=== PATIENT | male | born 1965 | race Caucasian/White ===

== ENCOUNTER 2016-10-07 22:20 | Emergency (ER) | payer OTHER ==
[~2016-10-07] VITALS: Ht 185.4 cm; Wt 93.3 kg
[2016-10-07 22:28] VITALS: TEMP 36.9; Ht 185.4 cm; Wt 93.3 kg
[2016-10-07] MEDS ORDERED: SODIUM CHLORIDE 0.9% 1000ML 2,000 ML IV STA (23:32)
[2016-10-07] MEDS ORDERED: GABA-113 PO (23:56)
[2016-10-07] MEDS ORDERED: TRAM-10 PO (23:56)
[2016-10-07] MEDS ORDERED: METF-384 PO (23:56)
[2016-10-07] MEDS ORDERED: IBUP200C9 PO (23:57)
[2016-10-07] MEDS ORDERED: ACET-1256 PO (23:57)
[2016-10-07] MEDS ORDERED: IBUP-103 PO (23:57)
[2016-10-08 00:12] LABS: BASO % 0.8 %; COMPLETE YES; EOS % 1.2 %; HEMATOCRIT 40.7 % (42-52); IG% 0.2 %; LYMPH % 36.6 %; MEAN CELL VOLUME 80.3 fL (80-100); MEAN CORPUSCULAR HGB CONC 34.9 g/dl (32-36); MEAN PLATELET VOLUME 9.5 fL (7.4-10.4); MONO % 6.7 %; NEUT % 54.5 %; PLATELET COUNT 398 K/uL (130-400); RED BLOOD COUNT 5.07 M/uL (4.7-6.1); WHITE BLOOD COUNT 12.83 K/uL (4.8-10.8)
[2016-10-08] MEDS ORDERED: NovoLIN-R INSULIN PER UNIT CHARGE SC STA (00:15)
[2016-10-08 00:32] LABS: URINE APPEARANCE CLEAR (CLEAR); URINE BILIRUBIN NEG (NEG); URINE COLOR YELLOW; URINE NITRITE NEG (NEG); URINE SPECIFIC GRAVITY 1.034 (1.000-1.030); UROBILINOGEN NEG (NEG); ZZUR CULT IF INDIC CLEAN CATCH NO
[2016-10-08 00:34] LABS: ALT/SGPT 16 U/L (12-78); AST/SGOT 4 U/L (15-37); BLOOD UREA NITROGEN 6 mg/dl (7-18); CALCIUM 9.3 mg/dl (8.5-10.1); CARBON DIOXIDE 20 mmol/L (21-32); CHLORIDE 97 mmol/L (98-107); CREATININE 0.93 mg/dl (0.60-1.40); GLUCOSE 299 mg/dl (70-99); POTASSIUM 3.6 mmol/L (3.5-5.1); SODIUM 132 mmol/L (136-145)
[2016-10-08 00:44] LABS: MANUAL MICROSCOPIC REQUIRED? NO; REVIEW REQ? NO
[2016-10-08 00:46] LABS: ALKALINE PHOSPHATASE 70 U/L (45-117)
[2016-10-08 01:41] VITALS: BP 140/89; PULSE 106; O2SAT 97
[2016-10-08] MEDS ORDERED: TRAMADOL HCL 50 MG TAB PO STA (01:44)
--- NOTE | 2016-10-08 01:51 | EMERGENCY ROOM VISIT NOTE ---
History Report prepared by Rola: Bakari Bernal Under the Supervision of: Dr. Gavin Murillo D.O. First contact with patient: 23:27 Chief Complaint: HYPERGLYCEMIA Stated Complaint: HIGH SUGAR History of Present Illness The patient is a 51 year old male who presents to the Emergency Room with complaints of episodes of hyperglycemia occurring earlier today. He reports his blood sugar was 364 earlier today, and that it raises as he goes to sleep. He notes having dizziness, vomiting, diarrhea, and leg pain. He describes the leg pain as tightness in his calf muscles and that it feels like a dagger under his knee cap which radiates down. The patient denies having any infections, cold symptoms, or fever, but has noticed increased frequency with urination. He has not had any recent dietary changes and does not take insulin. He last took metformin today. Source of History: patient Onset: earlier today Position: other (blood) Symptom Intensity: blood sugar 364 earlier Quality: other (hyperglycemia) Timing: other (episode) Associated Symptoms: + diarrhea, + vomiting, No fevers Note: The patient reports having leg pain, and dizziness, . Review of Systems See HPI for pertinent positives & negatives. A total of 10 systems reviewed and were otherwise negative. Past Medical & Surgical Medical Problems: (1) History of diabetes mellitus Family History No pertinent family history stated. Social History Smoking Status: Current Every Day Smoker Housing Status: lives with family Current/Historical Medications Scheduled Gabapentin (Neurontin), 600 MG PO TID Metformin Hcl (Glucophage), 1,000 MG PO BID Tramadol (Ultram), 50 MG PO BID Scheduled PRN Acetaminophen (Tylenol), 1,000 MG PO Q4 PRN for Pain Ibuprofen Tab (Advil), 200-600 MG PO Q4H PRN for Pain Ibuprofen-Diphenhydramine Hcl (Advil Pm), 1 DROP PO HS PRN for Sleep Allergies Coded Allergies: No Known Allergies (Verified , 10/07/16) Physical Exam Vital Signs Date Time Temp Pulse Resp B/P Pulse Ox O2 Delivery O2 Flow Rate FiO2 10/08/16 01:41 106 18 140/89 97 Room Air 10/08/16 01:27 104 121/102 98 Room Air 10/08/16 00:11 95 119/68 94 134/78 112 99/67 10/07/16 23:55 111 10/07/16 22:28 36.9 131 22 126/92 97 Room Air Physical Exam CONSTITUTIONAL/VITAL SIGNS: Reviewed / noted above. GENERAL: Non-toxic in appearance. INTEGUMENTARY: Warm, dry, and [place]. HEAD: Normocephalic. EYES: without scleral icterus or trauma. ENT/OROPHARYNX: clear and moist. LYMPHADENOPATHY/NECK: Is supple without lymphadenopathy or meningismus. RESPIRATORY: Lungs clear and equal. CARDIOVASCULAR: Tachycardic. GI/ABDOMEN: Soft and nontender. No organomegaly or pulsatile mass. No rebound or guarding. Normal bowel sounds. EXTREMITIES: Warm and well perfused. BACK: No CVA tenderness. NEUROLOGICAL: Intact without focal deficits. PSYCHIATRIC: normal affect. MUSCULOSKELETAL: Normally developed with good muscle tone. Medical Decision & Procedures ER Provider Diagnostic Interpretation: Chest x-ray:per my interpretation is negative for acute disease. No pneumonia or pneumothorax. Laboratory Results 10/07/16 23:53 Red Blood Count 5.07, Mean Corpuscular Volume 80.3, Mean Corpuscular Hemoglobin 28.0, Mean Corpuscular Hemoglobin Concent 34.9, Mean Platelet Volume 9.5, Neutrophils (%) (Auto) 54.5, Lymphocytes (%) (Auto) 36.6, Monocytes (%) (Auto) 6.7, Eosinophils (%) (Auto) 1.2, Basophils (%) (Auto) 0.8, Neutrophils # (Auto) 6.99, Lymphocytes # (Auto) 4.70, Monocytes # (Auto) 0.86, Eosinophils # (Auto) 0.16, Basophils # (Auto) 0.10 10/07/16 23:53 Test 10/07/16 23:15 10/07/16 23:53 10/08/16 01:40 Urine Color YELLOW Urine Appearance CLEAR (CLEAR) Urine pH 5.0 (4.5-7.5) Urine Specific [place] 1.034 (1.000-1.030) Urine Protein NEG (NEG) Urine Glucose (UA) 3+ (NEG) Urine Ketones NEG (NEG) Urine Occult Blood NEG (NEG) Urine Nitrite NEG (NEG) Urine Bilirubin NEG (NEG) Urine Urobilinogen NEG (NEG) Urine Leukocyte Esterase NEG (NEG) Urine WBC (Auto) 1-5 /hpf (0-5) Urine RBC (Auto) 0-4 /hpf (0-4) Urine Hyaline Casts (Auto) 1-5 /lpf (0-5) Urine Epithelial Cells (Auto) 10-20 /lpf (0-5) Urine Bacteria (Auto) NEG (NEG) White Blood Count 12.83 K/uL (4.8-10.8) Red Blood Count 5.07 M/uL (4.7-6.1) Hemoglobin 14.2 g/dL (14.0-18.0) Hematocrit 40.7 % (42-52) Mean Corpuscular Volume 80.3 fL (80-100) Mean Corpuscular Hemoglobin 28.0 pg (25-34) Mean Corpuscular Hemoglobin Concent 34.9 g/dl (32-36) Platelet Count 398 K/uL (130-400) Mean Platelet Volume 9.5 fL (7.4-10.4) Neutrophils (%) (Auto) 54.5 % Lymphocytes (%) (Auto) 36.6 % Monocytes (%) (Auto) 6.7 % Eosinophils (%) (Auto) 1.2 % Basophils (%) (Auto) 0.8 % Neutrophils # (Auto) 6.99 K/uL (1.4-6.5) Lymphocytes # (Auto) 4.70 K/uL (1.2-3.4) Monocytes # (Auto) 0.86 K/uL (0.11-0.59) Eosinophils # (Auto) 0.16 K/uL (0-0.5) Basophils # (Auto) 0.10 K/uL (0-0.2) RDW Standard Deviation 38.5 fL (36.4-46.3) RDW Coefficient of Variation 13.1 % (11.5-14.5) Immature Granulocyte % (Auto) 0.2 % Immature Granulocyte # (Auto) 0.02 K/uL (0.00-0.02) Anion Gap 15.0 mmol/L (3-11) Est Creatinine Clear Calc Drug Dose 107.4 ml/min Estimated GFR () 110.6 Estimated GFR (Non- 95.4 BUN/Creatinine Ratio 6.0 (10-20) Calcium Level 9.3 mg/dl (8.5-10.1) Total Bilirubin 0.2 mg/dl (0.2-1) Direct Bilirubin < 0.1 mg/dl (0-0.2) Aspartate Amino Transf (AST/SGOT) 4 U/L (15-37) Alanine Aminotransferase (ALT/SGPT) 16 U/L (12-78) Alkaline Phosphatase 70 U/L (45-117) Total Creatine Kinase 57 U/L (39-308) Creatine Kinase MB < 0.5 ng/ml (0.5-3.6) Creatine Kinase MB Ratio (0-3.0) Troponin I < 0.015 ng/ml (0-0.045) Total Protein 7.1 gm/dl (6.4-8.2) Albumin 3.6 gm/dl (3.4-5.0) Lipase 327 U/L (73-393) Thyroid Stimulating Hormone (TSH) 1.060 uIu/ml (0.300-4.500) Bedside Glucose 166 mg/dl (70-99) Laboratory results as stated above per my review. Medications Administered Medications (Trade) Dose Ordered Sig/Krystina Route Start Time Stop Time Status Last Admin Dose Admin Sodium Chloride (Nss 1000ml) 2,000 ml @ 999 mls/hr Q2H1M STAT IV 10/07/16 23:32 10/08/16 01:32 DC 10/07/16 23:32 999 MLS/HR Insulin Human Regular (novoLIN-R U-100 PER UNIT) 5 units NOW STAT SC 10/08/16 00:15 10/08/16 00:16 DC 10/08/16 01:00 5 UNITS ECG Indication: other (hyperglycemia) Rate (beats per minute): 111 Rhythm: sinus tachycardia Findings: no acute ischemic change, no ectopy ED Course 2327: Previous medical records were reviewed. The patient was evaluated in room C7. A complete history and physical examination was performed. 2332: Ordered NSS 2,000 ml @ 999 mls/hr IV. 0015: Ordered Insulin Human Regular 5 units SC. 0144: Ordered Tramadol HCl 50 mg PO. 0150: On reevaluation, the patient is doing well. I discussed the results and findings with the patient. He verbalized agreement of the treatment plan. The patient was discharged home. 0700: Ordered Insulin Human Regular 5 unties SC. Medical Decision Differential includes acute coronary syndrome, myocardial infarction, CVA, TIA, anemia, infection, pneumonia, UTI, pyelonephritis, poor nutrition, dehydration, electrolyte disturbance,hypoglycemia. This is a 51-year-old male who presents to the ED with a chief complaint of hyperglycemia. The patient also reported some dizziness and lightheadedness as well as an episode of nausea and vomiting today. The patient states that his blood sugar was elevated at home at 364. He takes metformin 1 g twice daily. He denies any fevers or recent illness. No shortness of breath or cough. No urinary symptoms. No abdominal symptoms. He denies any skin changes or injuries or ulcers on his feet. The patient's vital signs revealed tachycardia with a heart rate of 131. His physical exam was otherwise unremarkable. An EKG shows a sinus tachycardia rate of 111. White blood cell count was slightly elevated at 12.8. Glucose was 299. This was less than 200 on reevaluation. The patient's urinalysis did not show infection. A TSH and troponin are normal. Chest x-ray was negative for acute disease. The patient's orthostatic vital signs appear to be positive. He was treated with 2 L normal saline IV. His heart rate improved. His blood sugar did come down. He was told results the test. He is felt to be stable for discharge and outpatient follow-up. Impression Primary Impression: Hyperglycemia Additional Impressions: Dehydration Orthostatic dizziness Scribe Attestation The scribe's documentation has been prepared under my direction and personally reviewed by me in its entirety. I confirm that the note above accurately reflects all work, treatment, procedures, and medical decision making performed by me. Departure Information Dispostion Home / Self-Care Referrals Bg Bergeron M.D. (PCP) Patient Instructions My [facility] Additional Instructions Follow-up with your doctor for further care and evaluation in 1-2 days. Return to the emergency department for worsening or new symptoms or any concerns. You have been examined and treated today on an emergency basis only. This is not a substitute for, or an effort to provide, complete comprehensive medical care. It is impossible to recognize and treat all injuries or illnesses in a single emergency department visit. It is therefore important that you follow up closely with your doctor. Call as soon as possible for an appointment... Talk to your doctor about your blood sugars. Problem Qualifiers
[2016-10-08 05:55] LABS: ESTIMATED AVERAGE GLUCOSE 226 mg/dl; HA1C FLAG Normal (Normal)
--- NOTE | 2016-10-08 06:47 | DIAGNOSTIC IMAGING REPORT ---
CHEST ONE VIEW PORTABLE CLINICAL HISTORY: Altered mental status. Weakness. COMPARISON STUDY: No previous studies for comparison. FINDINGS: The cardiac and mediastinal contours are normal. There is no evidence of focal pulmonary consolidation. There is no evidence of failure. No pleural effusions are visualized.[ IMPRESSION: No active disease in the chest. Electronically signed by: Ryan Mora M.D. 10/08/2016 6:45 AM Dictated Date/Time: 10/08/2016 6:45 AM
[2016-10-08] MEDS ORDERED: INSULIN HUMAN REGULAR SC SCH (07:00)
== END 2016-10-08 02:04 | disposition home or self-care (01) ==
LOC: C.EDB 22:21 → C.EDC 10-08 02:04
DX: E11.65 Type 2 diabetes mellitus with hyperglycemia (principal); E86.0 Dehydration; R42 Dizziness and giddiness; F17.210 Nicotine dependence, cigarettes, uncomplicated; Z79.899 Other long term (current) drug therapy

== ENCOUNTER 2016-11-02 16:51 | Emergency (ER) | payer OTHER ==
[~2016-11-02] VITALS: Ht 185.4 cm; Wt 94.2 kg
[~2016-11-02 16:51] MED LIST: ACET-1256 PO; GABA-113 PO; IBUP-103 PO; IBUP200C9 PO; METF-384 PO; TRAM-10 PO
[2016-11-02 16:58] VITALS: TEMP 36.5; Ht 185.4 cm; Wt 94.2 kg
[2016-11-02] MEDS ORDERED: METFORMIN HCL 500 MG TAB PO ONE (17:15)
[2016-11-02] MEDS ORDERED: BUPIVACAINE/EPINEPHRINE 0.5% 1:200,000 1.8 ML CARP INFIL ONE (17:15)
--- NOTE | 2016-11-02 17:34 | EMERGENCY ROOM VISIT NOTE ---
History Report prepared by Rola: Sujata Alvarez Under the Supervision of: Dr. Eduardo Sewell M.D. First contact with patient: 17:04 Chief Complaint: DIZZY Stated Complaint: DIZZY History of Present Illness The patient is a 51 year old male who presents to the Emergency Room with complaints of constant left sided upper dental pain starting 1 day [employer]. The patient states that last night he was chewing and it impacted his upper left tooth causing the pain. The patient states that he has history of dental problems but states he cannot afford dental insurance to see a dentis. He currently rates the pain as a 9/10 in severity. The patient states that the pain radiates up into his head from his tooth. He states that he used a hot pepper tea bag last night which did lower the pain. The patient states that along with his tooth pain he has been experiencing ongoing dizziness over the last few years that he states feels like he is going to fall down even when he is sitting. The patient states that he has seen his PCP for the dizziness in the past but dizziness has persisted. The patient state that he is also a diabetic and his blood sugar this morning was 394. He states that his blood sugar has been between 100 and 300 recently. He states he takes metformin twice a day for his diabetes. The patient states he had a fasting glucose test for his diabetes 3 days ago. He states he also has a medical history including PTSD. The patient denies any chest pain or shortness of breath or recent fevers and chills. Source of History: patient Onset: 1 day [employer] Position: teeth (left sided upper) Symptom Intensity: 9/10 Timing: constant Modifying Factors (Relieving): other (hot pepper tea bag) Associated Symptoms: No SOB, No chest pain, No chills, No fevers Note: Associated symptoms: dizziness. Review of Systems All systems have been listed, reviewed, and are negative other than those previously mentioned. Please see Additional Medical History Sheet. Past Medical & Surgical Medical Problems: (1) History of diabetes mellitus (2) Post traumatic stress disorder (PTSD) Family History Diabetes mellitus Social History Smoking Status: Current Every Day Smoker Marital Status: single Housing Status: lives with family Occupation Status: unemployed Current/Historical Medications Scheduled Gabapentin (Neurontin), 600 MG PO TID Metformin Hcl (Glucophage), 1,000 MG PO BID Penicillin V Potassium (Veetids), 1 TAB PO QID Tramadol (Ultram), 50 MG PO BID Scheduled PRN Acetaminophen (Tylenol), 1,000 MG PO Q4 PRN for Pain Hydrocodone/Acetaminophen 5MG/325MG (Paradox 5MG/325MG), 1-2 TABLETS PO Q4 PRN for Pain Ibuprofen Tab (Advil), 200-600 MG PO Q4H PRN for Pain Ibuprofen-Diphenhydramine Hcl (Advil Pm), 1 DROP PO HS PRN for Sleep Allergies Coded Allergies: No Known Allergies (Verified , 11/02/16) Physical Exam Vital Signs Date Time Temp Pulse Resp B/P Pulse Ox O2 Delivery O2 Flow Rate FiO2 11/02/16 18:50 104 18 133/80 96 11/02/16 17:39 110 18 128/88 96 Room Air 11/02/16 17:28 110 11/02/16 17:26 99 18 129/83 96 Room Air 110 128/88 114 124/84 11/02/16 16:58 36.5 90 20 130/86 99 Room Air Physical Exam GENERAL: Patient awake, alert, oriented x 3. Patient follows commands. Patient does not appear toxic. Patient is adequately hydrated and well- nourished. SKIN: No erythema, pallor, cyanosis or rash HEENT: Normal head, pupils equal, reactive to light and accommodation. Ears increase serum bilaterally. Oral cavity\ missing multiple teeth, left 13th tooth appears abscessed. posterior pharynx appear normal. Neck: Without adenopathy, no neck vein distention. LUNGS: Clear to auscultation. No wheezes, no rales, no rhonchi. HEART: No murmurs. No gallops. No rubs ABDOMEN: No masses, no rebound, no hepatomegaly or splenomegaly. EXTREMITIES: No signs of trauma or infection. NEUROLOGIC: Cranial nerves II-XII within normal limits. No gross motor sensory function deficits. PSYCH: alert and appropriate. Medical Decision & Procedures Laboratory Results 11/02/16 17:30 11/02/16 17:30 Test 11/02/16 17:30 Red Blood Count 4.98 M/uL (4.7-6.1) Mean Corpuscular Volume 84.1 fL (80-100) Mean Corpuscular Hemoglobin 28.9 pg (25-34) Mean Corpuscular Hemoglobin Concent 34.4 g/dl (32-36) RDW Standard Deviation 39.2 fL (36.4-46.3) RDW Coefficient of Variation 13.0 % (11.5-14.5) Mean Platelet Volume 9.2 fL (7.4-10.4) Anion Gap 14.0 mmol/L (3-11) Est Creatinine Clear Calc Drug Dose 101.9 ml/min Estimated GFR () 103.8 Estimated GFR (Non- 89.5 BUN/Creatinine Ratio 3.2 (10-20) Calcium Level 9.1 mg/dl (8.5-10.1) Troponin I < 0.015 ng/ml (0-0.045) Beta-Hydroxybutyric Acid 2.70 mg/dL (0.2-2.81) Laboratory results as stated above per my review. Medications Administered Medications (Trade) Dose Ordered Sig/Krystina Route Start Time Stop Time Status Last Admin Dose Admin Metformin HCl (Glucophage Tab) 1,000 mg ONE ONCE PO 11/02/16 17:15 11/02/16 17:16 DC 11/02/16 17:39 1,000 MG ECG Indication: other (dizziness) Rate (beats per minute): 105 Rhythm: sinus tachycardia Findings: no acute ischemic change, no ectopy ED Course 1704: Past medical records reviewed. The patient was evaluated in room B10. A complete history and physical examination was performed. 1715: Ordered Glucophage Tab 1,000 mg PO, Marcaine/ Epinephrine Carp 2 ml INFIL. 1810; I reevaluated the patient and I was going to inject the Marcaine/ Epinephrine Carp around the patient's tooth but he currently states that his tooth now is feeling better and he no longer wants the injection. 1825: Upon reevaluation, the patient appeared to have improvement of his dental symptoms. I discussed today's findings with him. He verbalized agreement of the treatment plan. The patient was discharged home. Medical Decision Nurses notes reviewed. Medical history sheet reviewed. Differential diagnosis includes but is not limited to: diabetes out of control, metabolic disorder, dental infection, abscess, benign positional vertigo, vestibular neuritis, labyrinthitis, diabetic neuropathy and meniere's. Multiple labs and EKG were obtained. The patient's blood sugar was elevated as was his white count. This may be related to a dental infection. Patient otherwise looks well. I offered to inject his tooth but he stated the pain went away prior to injection. The patient will be started on Pen-Vee K. He will be given a small prescription for Paradox. The patient was strongly encouraged to follow-up with a dentist. I believe he will need an extraction. [place] Drug Monitoring Program Search Results: patient reviewed within database Drug Monitoring Findings: Patient has past prescriptions of tramadol. Impression Primary Impression: Dental infection Additional Impressions: Dizziness Diabetes mellitus out of control Scribe Attestation The scribe's documentation has been prepared under my direction and personally reviewed by me in its entirety. I confirm that the note above accurately reflects all work, treatment, procedures, and medical decision making performed by me. Departure Information Dispostion Home / Self-Care Prescriptions Hydrocodone/Acetaminophen 5MG/325MG (Paradox 5MG/325MG) Tab 1-2 TABLETS PO Q4 Y for Pain, #10 TAB PRN PAIN Prov: Eduardo Sewell M.D. 11/02/16 Penicillin V Potassium (VEETIDS) 500 Mg Tab 1 TAB PO QID for 10 Days, #40 TAB Prov: Eduardo Sewell M.D. 11/02/16 Referrals Bg Bergeron M.D. (PCP) Forms HOME CARE DOCUMENTATION FORM, IMPORTANT VISIT INFORMATION Patient Instructions My [facility] Additional Instructions 500 mg of penicillin 4 times a day for 10 days. 1-2 hydrocodone every 4 hours as needed for moderate to severe dental pain. Do not drive or operate machinery while taking hydrocodone. Continue all of your other current medications as prescribed. Do not take tramadol and hydrocodone together. Follow-up with a dentist as soon as possible. You can try CVIM. Problem Qualifiers
[2016-11-02 17:40] LABS: HEMATOCRIT 41.9 % (42-52); MEAN CELL VOLUME 84.1 fL (80-100); MEAN CORPUSCULAR HEMOGLOBIN 28.9 pg (25-34); MEAN CORPUSCULAR HGB CONC 34.4 g/dl (32-36); MEAN PLATELET VOLUME 9.2 fL (7.4-10.4); PLATELET COUNT 377 K/uL (130-400); RED BLOOD COUNT 4.98 M/uL (4.7-6.1); WHITE BLOOD COUNT 16.11 K/uL (4.8-10.8)
[2016-11-02 17:59] LABS: BLOOD UREA NITROGEN 3 mg/dl (7-18); BUN/CREATININE RATIO 3.2 (10-20); CALCIUM 9.1 mg/dl (8.5-10.1); CARBON DIOXIDE 22 mmol/L (21-32); CHLORIDE 97 mmol/L (98-107); CREATININE 0.98 mg/dl (0.60-1.40); GLUCOSE 315 mg/dl (70-99); POTASSIUM 3.8 mmol/L (3.5-5.1); SODIUM 133 mmol/L (136-145)
[2016-11-02] MEDS ORDERED: HYDR-5688 PO (18:35)
[2016-11-02] MEDS ORDERED: PENI500T2 PO (18:35)
[2016-11-02 18:50] VITALS: BP 133/80; PULSE 104; O2SAT 96
== END 2016-11-02 18:53 | disposition home or self-care (01) ==
LOC: C.EDB 16:53
DX: B99.9 Unspecified infectious disease (principal); R42 Dizziness and giddiness; E11.9 Type 2 diabetes mellitus without complications; R00.0 Tachycardia, unspecified; F17.200 Nicotine dependence, unspecified, uncomplicated; Z79.899 Other long term (current) drug therapy; Z83.3 Family history of diabetes mellitus

== ENCOUNTER 2020-09-18 18:30 | Inpatient (IN) ==
[2020-09-18] MEDS ORDERED: SODIUM CHLORIDE 0.9% 1000ML 1,000 ML IV SCH (21:00)
--- NOTE | 2020-09-18 21:00 | Emergency Department Note ---
Impression & Plan Acute hyponatremia, History of diabetes mellitus, Acute leg pain, Leukocytosis, Bimalleolar fracture of right ankle ED Provider Note INFORMANT: Patient ED PROVIDER(S): Loy Bautista MD CHIEF COMPLAINT: Abnormal labs, leg pain PLAN: Disposition: Admitted Condition: Good Outpatient prescription management: none Referral: None MEDICAL DECISION MAKING: Patient presented complaining of pain and abnormal labs. Record review indicated he did have significant hyponatremia. He also had a leukocytosis present. No obvious infection sites were found on his physical. With the cast in place and the pain in his leg I did have this removed. There was no evidence of cellulitis or skin breakdown. There was significant swelling due to the fracture. There was no skin breakdown or ulcerations. A new posterior short leg with stirrup was applied. The patient did feel much better with this new splint as it fit more appropriately. He also was given Dilaudid. Gentle saline hydration was initiated. On history the patient notes drinking a significant amount of water on a regular basis. I suspect that he is causing the hyponatremia due to his poor dietary intake and high water use. He will need further management in the hospital. [facility] The patient was evaluated in the ER by the team admitted for further management. Triage Nursing notes reviewed and agree them. Additional history obtained from family Prior medical records reviewed regarding outpatient labs with significant hyponatremia and previous sodium which was slightly low. Vital Signs: reviewed and remarkable for no significant abnormalities Differential diagnosis: Infection, dehydration, metabolic abnormality, hypo/hyperglycemia, electrolyte disturbance, anemia, hypoxia, cardiac sources, intracerebral event, toxicologic, neurologic, as well as other pathologies. Diagnostics interpreted by me: ECLead ECG reveals sinus tachycardia 106 bpm. Left atrial enlargement. No ST elevation or depression. No PACs or PVCs. Normal QRS and axis. Cardiac Monitoring: Cardiac monitoring ordered by me: The patient was placed on continuous cardiac monitoring and observed. It revealed a sinus tachycardic rhythm at 108 beats per minute without ectopy or evidence of dysrhythmia. Imaging studies: Deferred Consultation([facility] HPI: The patient is a 55 year old male who presents to the Emergency Room with complaints of right leg pain. This started two weeks ago when he fell and broke his leg. He has been drinking a lot of water due to cotton mouth. Labs today revealed hyponatremia. The patient also notes the following associated symptoms, frequent urination, weakness, numbness. The patient has found no relieving factors. Current pain is rated as 10/10. Pt denies LOC, headache, fevers, chills, diaphoresis, visual changes, neck pain, chest pain, breathing difficulties, nausea, vomiting, abdominal pain, back pain, melena, hematochezia, urinary symptoms, lymphadenopathy, rash, or other complaints. ROS: See above HPI for pertinent positives & negatives. A total of 10 systems reviewed and were otherwise negative. PAST MEDICAL HISTORY:See Below , DM PAST SURGICAL HISTORY:See Below, FAMILY HISTORY:See Below SOCIAL HISTORY:See Below, +tobacco HOME MEDICATIONS:See Below ALLERGIES:See Below VITALS:See Below PHYSICAL EXAMINATION: GENERAL: Awake, alert, uncomfortable-appearing, in no distress HENT: Normocephalic, atraumatic. Oropharynx unremarkable. EYES: Normal conjunctiva. Sclera non-icteric. NECK: Inspection normal. Non-tender. Supple. No nuchal rigidity. FROM. No masses. RESPIRATORY: Clear to auscultation. No wheezes. No rales. Normal respiratory effort. CARDIAC: Normal rate. Normal rhythm. No murmurs. No rubs. Extremities warm and well perfused. Pulses equal. No JVD. GI: Soft, non-distended. No tenderness to palpation. No rebound or guarding. No masses. RECTAL: Deferred. MUSCULOSKELETAL: Atraumatic. Chest examination reveals no tenderness. The back is symmetrical on inspection without obvious abnormality. There is no CVA tenderness to palpation. No joint edema. LOWER EXTREMITIES: Calves are equal size bilaterally and non-tender. Cast on right LE. NEURO: Normal sensorium. No sensory or motor deficits noted. SKIN: No rash or jaundice noted. ED COURSE: Critical Care: I have personally spent greater than 32 minutes of critical care time in the direct management of this patient. This includes bedside care, interpretation of diagnostic studies, and testing, discussion with consultants, patient, and family members, and other required patient management activities. These minutes are in excess of all separately billable procedures. SPLINTING: Indication: Fracture The original splint was removed and the leg was examined. No skin breakdown or signs of cellulitis. Signs of moderate swelling and compression secondary to the original splint noted. The patient was prepped and measured for the placement of a posterior short leg with stirrup orthoglass splint. Splint applied in the standard fashion over a layer of webril and secured using an elastic bandage. Set into a position of function. Normal neurovascular status after placement verified by me. The patient tolerated the procedure well and felt significantly better afterwards. Loy Bautista MD Past Med/Surg History Medical History (Updated 09/19/20 @ 02:02 by Loy Bautista MD) Asthma uses res inh daily > not well controlled Cardiac murmur dx > 20 yrs ago Depression GERD (gastroesophageal reflux disease) History of diabetes mellitus IDDM Nausea unknown cause/ has not had testing done> Zofran Osteoarthritis Post traumatic stress disorder (PTSD) Tachycardia just with cafeine per pt Surgical History History of tooth extraction Family History (Updated 09/18/20 @ 13:33 by Briana Cordero RN) Mother Diabetes Social History Smoking Status: Never smoker Cigarettes Per Day: 20 cigs per day; Second Hand Exposure: Yes (dad smoked); Hx Alcohol Use: No Hx Substance Use: Yes Substance Use Type Other:: rare marijuana use > approx once every 2 weeks Preferred Language: Namibian Communication Ability: Effective Supervisor Costuming Required: No Beliefs That Will Affect Care: None Current Living Situation: Family Feels Safe at Home: Yes Assistive Devices: Glasses Allergies Allergies Allergy/AdvReac Type Severity Reaction Status Date / Time No Known Allergies Allergy Verified 09/18/20 13:14 Home Meds Home Medications Medication Instructions Recorded Confirmed albuterol sulfate 2 puff INHALATION Q4H PRN 09/02/20 09/18/20 atorvastatin 20 mg PO PM 09/02/20 09/18/20 fluticasone propion-salmeterol 1 inh INHALATION BID 09/02/20 09/18/20 [Wixela Inhub] gabapentin 400 mg PO QID 09/02/20 09/18/20 insulin glargine [Lantus Solostar 40 unit SUBCUT PM 09/02/20 09/18/20 U-100 Insulin] metformin 500 mg PO BID 09/02/20 09/18/20 montelukast 10 mg PO PM 09/02/20 09/18/20 multivitamin 1 tab PO QAM 09/02/20 09/18/20 naproxen 500 mg PO BID PRN 09/02/20 09/18/20 omeprazole 40 mg PO QAM 09/02/20 09/18/20 ondansetron 4 mg PO Q8H PRN 09/02/20 09/18/20 risperidone 2 mg PO PM 09/02/20 09/18/20 semaglutide [Ozempic] 2.5 mg SUBCUT WK 09/02/20 09/18/20 sertraline 50 mg PO PM 09/02/20 09/18/20 tramadol 50 mg PO Q8H 09/02/20 09/18/20 fluticasone propionate 2 spray INTRANASAL DAILY PRN 09/10/20 09/18/20 creatine monohydrate 5,000 mg PO QAM 09/18/20 09/18/20 Results & Data (ED) Vital Signs Vital Signs - 24 hr 09/18/20 18:47 09/18/20 22:30 09/18/20 22:39 Temperature 36.7 C Temperature Source Temporal Artery Scan Pulse Rate 107 H 104 H 105 H Pulse Rate from SpO2 Sensor 105 H 105 H Pulse Rhythm Regular Pulse Strength Normal Respiratory Rate 24 24 25 H Respiratory Effort / Characteristics Non-Labored Spontaneous Respiratory Depth Normal Respiratory Pattern Regular Blood Pressure 131/69 150/90 H Blood Pressure Mean 89 110 Blood Pressure Position Sitting Pulse Oximetry 97 95 95 Oxygen Delivery Method Room Air Sepsis Recent Fever Within 48 Hours No Sepsis New/Unexplained Change in Mental Status No Sepsis Action Taken by Nursing No Action Required 09/18/20 23:00 Temperature Temperature Source Pulse Rate 108 H Pulse Rate from SpO2 Sensor Pulse Rhythm Pulse Strength Respiratory Rate 22 Respiratory Effort / Characteristics Respiratory Depth Respiratory Pattern Blood Pressure 134/98 Blood Pressure Mean 110 Blood Pressure Position Pulse Oximetry 95 Oxygen Delivery Method Sepsis Recent Fever Within 48 Hours Sepsis New/Unexplained Change in Mental Status Sepsis Action Taken by Nursing Laboratory Data Result diagrams: 09/18/20 21:29 Lab Results 09/18/20 09/18/20 09/18/20 Range/Units 21:29 21:29 21:29 Sodium 121 L (136-145) mmol/L Potassium 3.6 (3.5-5.1) mmol/L Chloride 88 L (98-107) mmol/L Carbon Dioxide 25 (21-32) mmol/L Anion Gap 8.0 (3-11) BUN 15 (7-18) mg/dl Creatinine 0.82 (0.6-1.4) mg/dl Est Cr Clr Drug Dosing 126.3 ml/min Est GFR ( Amer) 116.2 Est GFR (Non-Af Amer) 100.3 BUN/Creatinine Ratio 18.4 (10-20) Glucose 176 H (70-99) mg/dl Osmolality 259 L (280-300) mOsm/kg Lactate (0.4-2.0) mmol/L Calcium 9.4 (8.5-10.1) mg/dl Magnesium 1.9 (1.8-2.4) mg/dl Total Bilirubin 0.4 (0.2-1) mg/dl AST 12 L (15-37) U/L ALT 27 (12-78) U/L Alkaline Phosphatase 62 (45-117) U/L Total Creatine Kinase 244 (39-308) U/L Total Protein 7.2 (6.4-8.2) gm/dl Albumin 3.3 L (3.4-5.0) gm/dl Globulin 3.9 (2.5-4.0) gm/dl Albumin/Globulin Ratio 0.8 L (0.9-2) Procalcitonin 0.45 (0-0.5) ng/ml TSH 0.543 (0.300-4.500) uIu/ml COVID-19 Eval Order SARS-CoV-2, RNA, NAAT (NEGATIVE) 09/18/20 09/18/20 09/18/20 Range/Units 21:40 21:40 22:29 Sodium (136-145) mmol/L Potassium (3.5-5.1) mmol/L Chloride (98-107) mmol/L Carbon Dioxide (21-32) mmol/L Anion Gap (3-11) BUN (7-18) mg/dl Creatinine (0.6-1.4) mg/dl Est Cr Clr Drug Dosing ml/min Est GFR ( Amer) Est GFR (Non-Af Amer) BUN/Creatinine Ratio (10-20) Glucose (70-99) mg/dl Osmolality (280-300) mOsm/kg Lactate 0.6 (0.4-2.0) mmol/L Calcium (8.5-10.1) mg/dl Magnesium (1.8-2.4) mg/dl Total Bilirubin (0.2-1) mg/dl AST (15-37) U/L ALT (12-78) U/L Alkaline Phosphatase (45-117) U/L Total Creatine Kinase (39-308) U/L Total Protein (6.4-8.2) gm/dl Albumin (3.4-5.0) gm/dl Globulin (2.5-4.0) gm/dl Albumin/Globulin Ratio (0.9-2) Procalcitonin (0-0.5) ng/ml TSH (0.300-4.500) uIu/ml COVID-19 Eval [facility] SARS-CoV-2, RNA, NAAT NEGATIVE (NEGATIVE) Administered Medications Discontinued Medications Hydromorphone HCl (Hydromorphone Inj 1 Mg/Ml Syringe) 1 mg IV Q15M PRN PRN Reason: Pain Stop: 10/02/20 21:00 Last Admin: 09/18/20 21:38 Dose: 1 mg Documented by: [id number] Sodium Chloride (Nss 1000ml) 1,000 mls @ 125 mls/hr IV .Q8H ALVARO Stop: 09/19/20 04:59 Last Admin: 09/18/20 21:38 Dose: 125 mls/hr Documented by: [id number] Morphine Sulfate (Morphine Sulfate 4 Mg/Ml 1 Ml Carp\Vial) 4 mg IV NOW STA Stop: 09/18/20 23:57 Last Admin: 09/19/20 00:32 Dose: Not Given Documented by: [id number] Morphine Sulfate (Morphine Sulfate 4 Mg/Ml 1 Ml Carp\Vial) Confirm Administered Dose 4 mg .ROUTE .STK-MED ONE Stop: 09/19/20 00:00 Last Admin: 09/19/20 00:02 Dose: 4 mg Documented by: [id number] Ondansetron HCl (Ondansetron Inj 2 Mg/Ml 2 Ml Vial) 4 mg IV NOW STA Stop: 09/18/20 21:02 Last Admin: 09/18/20 21:38 Dose: 4 mg Documented by: [id number] Potassium Chloride (Potassium Chloride Crtab 20 Meq Tabcr) 40 meq PO NOW STA Stop: 09/18/20 21:31 Last Admin: 09/18/20 22:12 Dose: 40 meq Documented by: [id number] Discharge Plan Visit Data Chief Complaint: Pain (Generalized) ED Provider: Loy Bautista Discharge Problem: Acute hyponatremia, History of diabetes mellitus, Acute leg pain, Leukocytosis, Bimalleolar fracture of right ankle Discharge Instructions Interventions: ED Discharge Assessment Last Done: 09/19/20 01:30
[2020-09-18] MEDS ORDERED: ONDANSETRON INJ 2 MG/ML 2 ML VIAL IV STA (21:01)
[2020-09-18] MEDS ORDERED: HYDROmorphone INJ 1 MG/ML SYRINGE IV PRN (21:01)
--- NOTE | 2020-09-18 21:28 | History & Physical Report ---
Date of Service September 18, 2020 Assessment & Plan (1) Ankle pain: - Admit to tele - Noted to have previous bimalleolar right ankle fracture since mid August 2020 - Pain control - Obtain imaging of the ankle since not yet completed - will review -Check Blood cultures, procal, lactate to eval for possible infection as poor skin integrity over the right lower extremity -If pro calcitonin elevated then will consider IV antibiotics -Attending to discuss plan with orthopedics, Dr. Salomon -Follow Covid test, pending (2) Tachycardia: - HR elevated in the 120s on admission, monitor on telemetry (3) History of diabetes mellitus: -IDDM -Home dose of Lantus 40 units subcu QPM, Ozempic 2.5 mg subcu per week, holding metformin -ISS with Accu-Cheks AC at bedtime (4) Hyponatremia: - Monitor Na+ Q4H and including am labs, if improved then can reduce lab draws to Q12H and per day team - NSS 125 ml/hr started in the ER - Appears he is chronically hyponatremic however this is still lower than his baseline (5) Hypokalemia: -K+ = 3.4 on admission, replace orally, follow am labs (6) Post traumatic stress disorder (PTSD): - history of such -Continue risperidone 2 mg every afternoon, sertraline 50 mg QPM, gabapentin 400 mg QID - Follows with PCP, has appt with new psychiatrist in December. Does not follow with counselor or therapist currently. (7) Depression: -Medications as above (8) GERD (gastroesophageal reflux disease): -Continue omeprazole 40 mg nightly (9) Osteoarthritis: - Noted (10) Tobacco abuse: -Smokes 1-1/2 packs/day since age 21, nicotine patch, cessation encouraged -Continue GANG SAWYER inhalers, does not wear O2 at baseline. (11) DVT prophylaxis: - tedsdraganx subq CODE: Full Dispo: From home, likely to remain in the hospital x 2 days. History of Present Illness Primary Care Provider: Bg Bergeron MD This is a 55-year-old male with PMHx of DM type II, hyperlipidemia, history of previous ankle injury, who presents for acute ankle pain. He sustained a bimalleolar right ankle fracture on September 03, 2020. He had been following with Dr. Salomon as an outpatient, and scheduled to have surgery on the ankle this coming Friday, however during his preop clearances including laboratories, he was found to be hyponatremic with a sodium of 120, and per his PCP was referred to the ER. Patient admits to drinking a significant amount of liquids per day including 1 gallon unsweetened ice tea, milk, 4-5 bottles of water, juice with low amounts of sugar, etc. 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 His glucose is always elevated per his daughter, roughly in the 200s at baseline. Patient is in a significant amount of pain, however reports pain medications are beginning to work for him. He denies any recent falls or trauma to the right leg. He notes that he has been slightly constipated, last BM was 2 days ago. Patient is requesting stool softeners if he will continue to receive narcotic pain medication. In regards to his mental health, patient states that he is doing fairly well. His medications are working for him including the risperidone and sertraline. Reports that he does have an appointment scheduled with a psychiatrist at the end of December, gets his psychiatric medications currently from his PCP. His daughter is present with him at bedside and supports the history. Allergies Allergy/AdvReac Type Severity Reaction Status Date / Time No Known Allergies Allergy Verified 09/18/20 13:14 Home Medications Medication Instructions Recorded Confirmed Type albuterol sulfate 2 puff INHALATION Q4H PRN 09/02/20 09/18/20 History atorvastatin 20 mg PO PM 09/02/20 09/18/20 History fluticasone propion-salmeterol 1 inh INHALATION BID 09/02/20 09/18/20 History [Wixela Inhub] gabapentin 400 mg PO QID 09/02/20 09/18/20 History insulin glargine [Lantus Solostar 40 unit SUBCUT PM 09/02/20 09/18/20 History U-100 Insulin] metformin 500 mg PO BID 09/02/20 09/18/20 History montelukast 10 mg PO PM 09/02/20 09/18/20 History multivitamin 1 tab PO QAM 09/02/20 09/18/20 History naproxen 500 mg PO BID PRN 09/02/20 09/18/20 History omeprazole 40 mg PO QAM 09/02/20 09/18/20 History ondansetron 4 mg PO Q8H PRN 09/02/20 09/18/20 History risperidone 2 mg PO PM 09/02/20 09/18/20 History semaglutide [Ozempic] 2.5 mg SUBCUT WK 09/02/20 09/18/20 History sertraline 50 mg PO PM 09/02/20 09/18/20 History tramadol 50 mg PO Q8H 09/02/20 09/18/20 History fluticasone propionate 2 spray INTRANASAL DAILY PRN 09/10/20 09/18/20 History creatine monohydrate 5,000 mg PO QAM 09/18/20 09/18/20 History Past Med/Surg History Medical History (Updated 09/19/20 @ 02:02 by Loy Bautista MD) Asthma uses res inh daily > not well controlled Cardiac murmur dx > 20 yrs ago Depression GERD (gastroesophageal reflux disease) History of diabetes mellitus IDDM Nausea unknown cause/ has not had testing done> Zofran Osteoarthritis Post traumatic stress disorder (PTSD) Tachycardia just with cafeine per pt Surgical History History of tooth extraction Family History (Updated 09/18/20 @ 13:33 by Briana Cordero RN) Mother Diabetes Social History Smoking Status: Current every day smoker Cigarettes Per Day: 20 cigs per day; Second Hand Exposure: Yes (dad smoked); Do You Dip or Chew Tobacco: Yes; Hx Alcohol Use: No Hx Substance Use: No Preferred Language: German Communication Ability: Effective Manager Learning Required: No Beliefs That Will Affect Care: None Current Living Situation: Family Current Living Situation Comment: mother Other Information That Helps Us Care for You: No Feels Safe at Home: Yes Safety Concerns: Feels Safe At This Time Assistive Devices: Cane and Glasses Review of Systems Review of Systems: Constitutional: No fever, sweats or chills Eyes: No diplopia, no worsening or blurred vision ENT: normal hearing, no trouble swallowing Respiratory: +chronic smokers cough, sputum, dyspnea at rest or on exertion, uses inhalers 90% of the time, Cardiovascular: No chest pain, tightness or palpitations Abdomen: No pain, nausea, vomiting, diarrhea, + constipation x 2 days Musculoskeletal: R ankle pain as per HPI. Left knee ACL tear causing ambulatory dysfunction, no other joint pain, calf pain, swelling Neurologic: No weakness, numbness/tingling, or balance problems Psychiatric: Hx of PTSD, anxiety and depression Skin: No rash or itch Physical Exam Physical Exam: General: awake, alert, no apparent distress Head: Normocephalic, atraumatic ENT: PERRL, EOMI, no pharyngeal exudate, mucous membranes moist Chest: on room air,+ Inspiratory and expiratory wheezing, coarse breath sounds throughout Cardiac: Slightly tachycardic with heart rate in the 110s at bedside, no murmur, no JVD, normal peripheral pulses, good capillary refill Abdominal: NABS x 4 quadrants, soft, +distended, nontender to palpation, no rebound or guarding Extremities: RLE unwrapped, skin intact, No obvious wounds or open areas, poor skin integrity over the top of the foot and between his toes but no cracks in skin, no pressure ulcers, pain with minimal palpation.no Normal inspection, no peripheral edema or erythema, calfs nontender to palpation Psych: Normal mood and affect Neuro: AAO x 3, strength intact bilaterally and rated 5/5 in upper ext, not assessed in RLE due to pain, LLE 5/5. Otherwise no motor deficits, speech is clear, no peripheral sensory deficits Results & Data Results & Data ([facility]) Vital Signs (Past 12 Hours) Vital Signs Temp Pulse Resp BP Pulse Ox 09/18/20 18:47 36.7 C 107 H 24 131/69 97 Diagnostic Findings XR chest 2V PA/lateral CLINICAL HISTORY: Preoperative evaluation. COMPARISON STUDY: Chest radiograph October 08, 2016. FINDINGS: Lung volumes are normal. Lungs are clear. There is no pneumothorax or pleural effusion. Cardiac size is normal. Mediastinal contours are normal. There is no evidence for pulmonary edema. Nipple shadow projects over the right lower lung on initial AP image. IMPRESSION: No acute cardiopulmonary findings. ACT 112: Negative or not required by law. ECG Additional Comments: 18-SEP-2020 21:22:26 [facility]-EDSTAT ROUTINE RETRIEVAL Sinus tachycardia Possible Left atrial enlargement Borderline ECG When compared with ECG of 18-SEP-2020 11:22, (unconfirmed) No significant change was found 25mm/s 10mm/mV 150Hz 9.0.9 12SL 241 VIOLET: 16 Referred by: Bg Bergeron Unconfirmed Vent. rate 106 BPM SD interval 150 ms QRS duration 90 ms QT/QTc 358/475 ms Code Status & VTE Plan Code Status Full code-discussed with the pt at bedside Supervising Physician Co-Signing Physician Notes IM ATTENDING : Patient seen and examined. History obtained from patient, family, and records. Preceding documentation by Ms. Vivi Banks, PAC reviewed. FINAL ASSESSMENT AND PLAN as follows : Acute on chronic hyponatremia Multifactorial : Mild hypovolemia Possible polydipsia from dry mouth symptoms from uncontrolled DM2 (insulin requiring disease, suboptimal control as of recent hemoglobin A1c of 17.13 January 2020) Home NSAIDs, SSRI Rx possibly contributory Situational hypertension from right ankle fracture pain Possible chronic BP elevation given LAE on EKG Asthmatic bronchitis, baseline symptoms of wheezing without unusual shortness of breath as per patient. Ongoing tobacco abuse New onset anemia Constipation possibly from poor mobility and opioid Rx schizophrenia as per records at baseline Medical telemetry Careful correction of sodium Hyponatremia work-up Fluid restriction 2 L for now May benefit from Nephrology consult for hyponatremia Appropriate to hold home NSAIDs, SSRI for now given hyponatremia Initiate lisinopril for BP control Orthopedics consult Re: Right ankle fracture Elective surgery contemplated on Friday, September 20, 2020. Final medical evaluation pending sodium response to initial intervention. Anemia work-up, transfuse PRBC if hemoglobin less than 7 and or for symptomatic anemia Bowel regimen Basal insulin, ISS BG goal [id number], carb count coverage, update hemoglobin A1c Nicotine patch as needed DVT prophylaxis. SCDs RE upcoming surgery Full code Patient daughter requesting updates from providers. Tatynaa Tanisha Cobb, contact #[phone]. Text document was generated using Blend voice recognition software. It may contain grammatical or spelling errors. Kindly contact undersigned for clarification of any documentation item in question.
[2020-09-18] MEDS ORDERED: POTASSIUM CHLORIDE CRTAB 20 MEQ TABCR PO STA (21:30)
[2020-09-18 21:56] LABS: Albumin Level 3.3 gm/dl (3.4-5.0); BUN Creatinine Ratio 18.4 (10-20); Calcium 9.4 mg/dl (8.5-10.1); Creatinine Clr Calc Pharmacy 126.3 ml/min; Est GFR (African American) 116.2; Est GFR (Non-African American) 100.3; Magnesium 1.9 mg/dl (1.8-2.4); Potassium 3.6 mmol/L (3.5-5.1)
[2020-09-18 22:07] LABS: Albumin Globulin Ratio 0.8 (0.9-2); Bilirubin,Total 0.4 mg/dl (0.2-1); Globulin 3.9 gm/dl (2.5-4.0); Thyroid Stimulating Hormone 0.543 uIu/ml (0.300-4.500); Total Protein 7.2 gm/dl (6.4-8.2)
[2020-09-18 23:31] LABS: Appearance Urine Clear (Clear); Bilirubin Urine Negative (Negative); Blood Urine Negative (Negative); Color Urine Yellow; Glucose Urine UA 2+ (Negative); Ketones Urine Negative (Negative); Leukocyte Esterase Urine Negative (Negative); Nitrite Urine Negative (Negative); Protein Urine Negative (Negative); Specific Gravity Urine 1.012 (1.000-1.030); Urobilinogen Urine Negative (Negative); pH Urine 6.5 (4.5-7.5)
[2020-09-18] MEDS ORDERED: MoRPHine SULFATE 4 MG/ML 1 ML CARP\\VIAL IV STA (23:56)
[2020-09-18] MEDS ORDERED: MoRPHine SULFATE 4 MG/ML 1 ML CARP\\VIAL ONE (23:59)
[2020-09-19] MEDS ORDERED: XOPENEX/ATROVENT 1.25mg/0.5MG NEB COMBO NEB STA (01:59)
[2020-09-19] MEDS ORDERED: POLYETHYLENE (MIRALAX) 17 GM PACK PO PRN (01:59)
[2020-09-19] MEDS ORDERED: GLUCAGON FOR INJ 1 MG VIAL SQ PRN (01:59)
[2020-09-19] MEDS ORDERED: ACETAMINOPHEN 325 MG TAB PO PRN (01:59)
[2020-09-19] MEDS ORDERED: IPRATROPIUM BROMIDE NEB SOLN 0.02% 2.5 ML VIAL INH PRN (01:59)
[2020-09-19] MEDS ORDERED: CARBOHYDRATES FOR HYPOGLYCEMIA PO PRN (01:59)
[2020-09-19] MEDS ORDERED: GLUCOSE 10 TABS/TUBE PO PRN (01:59)
[2020-09-19] MEDS ORDERED: GLUCOSE 40% GEL 15 GM TUBE PO PRN (01:59)
[2020-09-19] MEDS ORDERED: INSULIN GLARGINE SOLOSTAR 100 UNITS/ML 3 ML PEN SC STA (01:59)
[2020-09-19] MEDS ORDERED: LEVALBUTEROL 1.25MG/0.5ML NEB INH PRN (01:59)
[2020-09-19] MEDS ORDERED: XOPENEX/ATROVENT 1.25mg/0.5MG NEB COMBO NEB PRN (01:59)
[2020-09-19] MEDS ORDERED: PROMETHAZINE HCL 12.5 MG in SODIUM CHLORIDE 0.9% 50 ML IV PRN (01:59)
[2020-09-19] MEDS ORDERED: MAGNESIUM SULFATE / D5W 1 GM/100 ML BAG IV ONE (01:59)
[2020-09-19] MEDS ORDERED: MoRPHine SULFATE 4 MG/ML 1 ML CARP\\VIAL IV PRN (01:59)
[2020-09-19] MEDS ORDERED: DEXTROSE 50% 50 ML SYRINGE IV PRN (01:59)
[2020-09-19] MEDS ORDERED: IPRATROPIUM BROMIDE NEB SOLN 0.02% 2.5 ML VIAL INH STA (02:20)
[2020-09-19] MEDS ORDERED: LEVALBUTEROL 1.25MG/0.5ML NEB INH STA (02:20)
[2020-09-19] MEDS: oxyCODONE HCL IR 5 MG TAB (IMMEDIATE RELEASE) PO PRN ×4 (02:27→18:42)
[2020-09-19] MEDS: DOCUSATE SODIUM/SENNA 50/8.6MG TAB PO SCH ×2 (03:23→08:51)
[2020-09-19] MEDS: risperiDONE 2 MG TABLET PO SCH ×2 (03:23→20:45)
[2020-09-19] MEDS: INSULIN ASPART 100 UNITS/ML 3 ML PEN SC SCH ×5 (03:23→20:44)
[2020-09-19] MEDS: NICOTINE 21 MG/24 HR TDSY TD SCH ×2 (03:24→08:51)
[2020-09-19] MEDS ORDERED: lisinopril 2.5 MG TAB PO SCH (04:15)
[2020-09-19] MEDS ORDERED: ALBUMIN 25% 12.5 GM/50 ML VIAL IV ONE (04:15)
[2020-09-19 06:09] LABS: Basophils # (auto) 0.06 K/uL (0-0.2); Basophils % (auto) 0.5 %; Eosinophils # (auto) 0.21 K/uL (0-0.5); Eosinophils % (auto) 1.8 %; Hematocrit (blood only) 32.9 % (42-52); Hemoglobin 11.5 g/dL (14.0-18.0); Immature Granulocytes # (auto) 0.03 K/uL (0.00-0.02); Immature Granulocytes % (auto) 0.3 %; Lymphocytes # (auto) 3.42 K/uL (1.2-3.4); Lymphocytes % (auto) 28.5 %; Mean Corpuscular Hemoglobin 26.7 pg (25-34); Mean Corpuscular Volume 76.3 fL (80-100); Mean Platelet Volume 7.8 fL (7.4-10.4); Monocytes # (auto) 0.83 K/uL (0.11-0.59); Monocytes % (auto) 6.9 %; Neutrophils # (auto) 7.44 K/uL (1.4-6.5); Platelet Count 681 K/uL (130-400); RDW Coefficient of Variation 13.7 % (11.5-14.5); RDW Standard Deviation 38.2 fL (36.4-46.3); Red Blood Count 4.31 M/uL (4.7-6.1); Reticulocyte % 2.3 % (0.5-2.0); White Blood Count 11.99 K/uL (4.8-10.8)
[2020-09-19 06:37] LABS: BUN Creatinine Ratio 18.5 (10-20); Creatinine Clr Calc Pharmacy 128.2 ml/min; Est GFR (African American) 116.8; Est GFR (Non-African American) 100.8; Potassium 3.8 mmol/L (3.5-5.1)
[2020-09-19 06:44] LABS: Ferritin 25.5 ng/ml (8-388)
[2020-09-19 06:58] LABS: Estimated Average Glucose 269 mg/dl
[2020-09-19 07:19] LABS: Folate (Folic Acid) > 20.00 ng/ml (>5.38); Vitamin B12 981 pg/ml (193-986)
[2020-09-19] MEDS: PANTOprazole 40 MG TAB PO SCH (08:51)
[2020-09-19] MEDS: MULTIVITAMIN TAB PO SCH (08:51)
[2020-09-19] MEDS: GABAPENTIN 400 MG CAP PO SCH ×4 (08:51→20:44)
[2020-09-19] MEDS: INSULIN GLARGINE SOLOSTAR 100 UNITS/ML 3 ML PEN SC SCH ×2 (08:53→20:44)
[2020-09-19] MEDS: FLUTICASONE/VILANTEROL 100/25MCG 14 PUFFS/INHALER INH SCH (08:57)
[2020-09-19] MEDS ORDERED: PHARMACY GLYCEMIC MGMT CONSULT PRN (09:30)
--- NOTE | 2020-09-19 12:56 | Orthopedic Consultation ---
Date of Consultation September 19, 2020 Assessment & Plan (1) Bimalleolar fracture of right ankle: discussed further care with patient in regards to his ankle fracture, he would like to proceed with ORIF right ankle bimalleolar fracture with Dr Salomon, tentatively scheduled for 09/20/20 pending medical evaluation and clearance. will cont in splint, COURTNEY DOLAN with crutches, we also discussed poss knee scooter for post op use. pain medications as ordered, will make NPO after MN tonight for tentative surgery on 09/20/20. History of Present Illness Reason for Consultation: right ankle fracture Attending Physician: Anthony Ewing MD History of Present Illness 55 year old male that we have been consulted on in regards to his right ankle bimalleolar fracture, he originally injured his ankle approximately 2 1/2 weeks ago and presented to the ER with displaced bimalleolar fracture that required closed reduction and splinting. He followed with Dr Salomon and discussed surgical intervention requiring open reduction and internal fixation. He was tentatively scheduled to undergo ORIF on 09/20/20 and during his preadmission testing was noted to have some abnormal labs and was advised to go to the emergency room. currently rates his pain as 8/10 and 4/10 when taking his medications. he also states he has history of neuropathy that affects both of his legs. Allergies Allergy/AdvReac Type Severity Reaction Status Date / Time No Known Allergies Allergy Verified 09/18/20 13:14 Home Medications Medication Instructions Recorded Confirmed Type albuterol sulfate 2 puff INHALATION Q4H PRN 09/02/20 09/18/20 History atorvastatin 20 mg PO PM 09/02/20 09/18/20 History fluticasone propion-salmeterol 1 inh INHALATION BID 09/02/20 09/18/20 History [Wixela Inhub] gabapentin 400 mg PO QID 09/02/20 09/18/20 History insulin glargine [Lantus Solostar 40 unit SUBCUT PM 09/02/20 09/18/20 History U-100 Insulin] metformin 500 mg PO BID 09/02/20 09/18/20 History montelukast 10 mg PO PM 09/02/20 09/18/20 History multivitamin 1 tab PO QAM 09/02/20 09/18/20 History naproxen 500 mg PO BID PRN 09/02/20 09/18/20 History omeprazole 40 mg PO QAM 09/02/20 09/18/20 History ondansetron 4 mg PO Q8H PRN 09/02/20 09/18/20 History risperidone 2 mg PO PM 09/02/20 09/18/20 History semaglutide [Ozempic] 2.5 mg SUBCUT WK 09/02/20 09/18/20 History sertraline 50 mg PO PM 09/02/20 09/18/20 History tramadol 50 mg PO Q8H 09/02/20 09/18/20 History fluticasone propionate 2 spray INTRANASAL DAILY PRN 09/10/20 09/18/20 History creatine monohydrate 5,000 mg PO QAM 09/18/20 09/18/20 History Patient History Medical History Asthma uses res inh daily > not well controlled Cardiac murmur dx > 20 yrs ago Depression GERD (gastroesophageal reflux disease) History of diabetes mellitus IDDM Nausea unknown cause/ has not had testing done> Zofran Osteoarthritis Post traumatic stress disorder (PTSD) Tachycardia just with cafeine per pt Surgical History History of tooth extraction Family History Mother Diabetes Social History Smoking Status: Current every day smoker Cigarettes Per Day: 20 cigs per day; Second Hand Exposure: Yes (dad smoked); Do You Dip or Chew Tobacco: Yes; Hx Alcohol Use: No Hx Substance Use: No Preferred Language: Estonian Communication Ability: Effective Guide Dog Trainer Required: No Beliefs That Will Affect Care: None Current Living Situation: Family Current Living Situation Comment: mother Other Information That Helps Us Care for You: No Feels Safe at Home: Yes Safety Concerns: Feels Safe At This Time Assistive Devices: Cane and Glasses Review of Systems Constitutional: no fever and no chills Respiratory: no cough and no dyspnea Cardiovascular: no chest pain and no dyspnea Gastrointestinal: no nausea and no vomiting Physical Exam Physical Exam: Vital Signs Temp 37 C 09/19/20 11:20 Pulse 108 H 09/19/20 11:20 Resp 16 09/19/20 11:20 BP 141/78 H 09/19/20 11:20 Pulse Ox 95 09/19/20 11:20 Intake & Output 09/18/20 09/19/20 09/19/20 18:59 06:59 18:59 Intake Total 895.833 / 895.833 Output Total 1275 / 1275 1000 / 1000 Balance -379.167 / -379.16 7 -1000 / -1000 Weight 97 kg 97.5 kg Intake: IV 695.833 / 695.833 ALBUMIN 25% 12 .5 gm In 50 ml @ 50 / 50 50 mls/hr IV O NE ONE Rx#: [id number] MAGNESIUM SULF ATE / D5W 1 gm In 100 / 100 100 ml @ 50 ml s/hr IV ONE ONE Rx#:[id number] Nss 1000ML 1,0 00 ml @ 125 mls/ 545.833 / 545.833 hr IV .Q8H ALVARO Rx#:[id number] Oral 200 / 200 Output: Urine 1275 / 1275 1000 / 1000 Other: Weight Measureme nt Method Chair Scale Built in [facility] Constitutional: WD/WN, vitals as above no acute distress Musculoskeletal: Right lower extremity: currently resting in splint; able to wiggle his toes, he has sensation to light touch of his toes. he is able to perform straight leg raise. gentle knee ROM no discomfort. Results & Data ([facility]) Vital Signs (Past 12 Hours) Vital Signs Temp Pulse Pulse Resp BP BP Pulse Ox 09/19/20 11:20 37 C 108 H 16 141/78 H 95 09/19/20 07:37 36.9 C 110 H 16 135/71 94 09/19/20 07:14 110 H 09/19/20 04:11 37.1 C 109 H 20 150/81 H 97 09/19/20 02:48 107 H 20 96 09/19/20 02:13 82 09/19/20 02:01 36.8 C 105 H 18 130/78 98 09/19/20 01:00 20 142/87 H 95 Laboratory Results Laboratory Results WBC 11.99 K/uL (4.8-10.8) H 09/19/20 05:51 RBC 4.31 M/uL (4.7-6.1) L 09/19/20 05:51 Hgb 11.5 g/dL (14.0-18.0) L 09/19/20 05:51 Hct 32.9 % (42-52) L 09/19/20 05:51 MCV 76.3 fL (80-100) L 09/19/20 05:51 MCH 26.7 pg (25-34) 09/19/20 05:51 MCHC 35.0 g/dL (32-36) 09/19/20 05:51 RDW Std Deviation 38.2 fL (36.4-46.3) 09/19/20 05:51 RDW Coeff of Georgina 13.7 % (11.5-14.5) 09/19/20 05:51 Plt Count 681 K/uL (130-400) H 09/19/20 05:51 MPV 7.8 fL (7.4-10.4) 09/19/20 05:51 Immature Gran % (Auto) 0.3 % 09/19/20 05:51 Neut % (Auto) 62.0 % 09/19/20 05:51 Lymph % (Auto) 28.5 % 09/19/20 05:51 Cobb % (Auto) 6.9 % 09/19/20 05:51 Eos % (Auto) 1.8 % 09/19/20 05:51 Baso % (Auto) 0.5 % 09/19/20 05:51 Reticulocyte % (Auto) 2.3 % (0.5-2.0) H 09/19/20 05:51 Neut # (Auto) 7.44 K/uL (1.4-6.5) H 09/19/20 05:51 Lymph # (Auto) 3.42 K/uL (1.2-3.4) H 09/19/20 05:51 Cobb # (Auto) 0.83 K/uL (0.11-0.59) H 09/19/20 05:51 Eos # (Auto) 0.21 K/uL (0-0.5) 09/19/20 05:51 Baso # (Auto) 0.06 K/uL (0-0.2) 09/19/20 05:51 Reticulocyte # 0.10 10^6/uL (0.02-0.10) 09/19/20 05:51 Immature Gran # (Auto) 0.03 K/uL (0.00-0.02) H 09/19/20 05:51 Sodium 134 mmol/L (136-145) L 09/19/20 12:14 Potassium 3.8 mmol/L (3.5-5.1) 09/19/20 05:51 Chloride 98 mmol/L (98-107) 09/19/20 05:51 Carbon Dioxide 25 mmol/L (21-32) 09/19/20 05:51 Anion Gap 6.0 (3-11) 09/19/20 05:51 BUN 15 mg/dl (7-18) 09/19/20 05:51 Creatinine 0.81 mg/dl (0.6-1.4) 09/19/20 05:51 Est Cr Clr Drug Dosing 128.2 ml/min 09/19/20 05:51 Est GFR ( Amer) 116.8 09/19/20 05:51 Est GFR (Non-Af Amer) 100.8 09/19/20 05:51 BUN/Creatinine Ratio 18.5 (10-20) 09/19/20 05:51 Glucose 150 mg/dl (70-99) H 09/19/20 05:51 POC Glucose 148 mg/dl (70-99) H 09/19/20 11:31 Estimat Average Glucose 269 mg/dl 09/19/20 02:12 Hemoglobin A1c 11.0 % (4.5-5.6) H 09/19/20 02:12 Osmolality 259 mOsm/kg (280-300) L 09/18/20 21:29 Lactate 0.6 mmol/L (0.4-2.0) 09/18/20 22:29 Calcium 9.0 mg/dl (8.5-10.1) 09/19/20 05:51 Magnesium 1.9 mg/dl (1.8-2.4) 09/18/20 21:29 Iron 21 mcg/dl (35-175) L 09/19/20 05:51 TIBC 327 mcg/dl (250-450) 09/19/20 05:51 Transferrin 243 mg/dl (200-360) 09/19/20 05:51 Ferritin 25.5 ng/ml (8-388) 09/19/20 05:51 Total Bilirubin 0.4 mg/dl (0.2-1) 09/18/20: AST 12 U/L (15-37) L 09/18/20: ALT 27 U/L (12-78) 09/18/20: Alkaline Phosphatase 62 U/L (45-117) 09/18/20 21: Total Creatine Kinase 244 U/L (39-308) 09/18/20: Total Protein 7.2 gm/dl (6.4-8.2) 09/18/20: Albumin 3.3 gm/dl (3.4-5.0) L 09/18/20: Globulin 3.9 gm/dl (2.5-4.0) 09/18/20: Albumin/Globulin Ratio 0.8 (0.9-2) L 09/18/20 21: Vitamin B12 981 pg/ml (193-986) 09/19/20 05:51 Folate > 20.00 ng/ml (>5.38) 09/19/20 05:51 Procalcitonin 0.45 ng/ml (0-0.5) 09/18/20: TSH 0.543 uIu/ml (0.300-4.500) 09/18/20: Urine Color Yellow 09/18/20 23:05 Urine Appearance Clear (Clear) 09/18/20 23: Urine pH 6.5 (4.5-7.5) 09/18/20 23: Ur Specific [place] 1.012 (1.000-1.030) 09/18/20 23: Urine Protein Negative (Negative) 09/18/20 23: Urine Glucose (UA) 2+ (Negative) H 09/18/20 23: Urine Ketones Negative (Negative) 09/18/20 23: Urine Blood Negative (Negative) 09/18/20 23: Urine Nitrite Negative (Negative) 09/18/20 23: Urine Bilirubin Negative (Negative) 09/18/20 23: Urine Urobilinogen Negative (Negative) 09/18/20 23: Ur Leukocyte Esterase Negative (Negative) 09/18/20 23: Urine Osmolality 180 mOsm/kg (500-800) L 09/18/20 23:05 Ur Random Sodium 10 mmol/L 09/18/20 23:05 COVID-19 Eval Order Covid19 IDNow [facility] 09/18/20 21:40 SARS-CoV-2, RNA, NAAT NEGATIVE (NEGATIVE) 09/18/20 21:40 Blood Type A Positive 09/19/20 05:51 Antibody Screen NEGATIVE 09/19/20 05:51 Diagnostic Findings RIGHT ANKLE 3 VIEWS FINDINGS: 3 views of the right ankle are compared to study performed earlier the same day 09/02/2020. The skeletal structures are well mineralized. The examination is performed through a cast, obscuring fine bony detail. There is significantly improved alignment of bimalleolar fractures as compared to previous. Near-anatomic alignment is restored at the ankle joint. There is mild persistent offset of the medial malleolus. There may also be a posterior malleolar fracture of the distal tibia on the lateral projection. There is associated joint effusion and soft tissue edema. Dorsal and plantar calcaneal heel spurs are noted. IMPRESSION: Significantly improved alignment of bimalleolar (or possibly trimalleolar) ankle fractures as above status post external fixation.
--- NOTE | 2020-09-19 13:25 | Pharmacy Report ---
Pharmacy Glycemic Short Note 2 - Date of Service September 19, 2020 - Glycemic Short BSG Results (Last 24 hours): 09/18/20 09/19/20 09/19/20 21:29 03:21 05:51 Glucose 176 H 150 H POC Glucose 206 H 09/19/20 09/19/20 07:24 11:31 Glucose POC Glucose 157 H 148 H OUTPATIENT ANTIDIABETIC REGIMEN: * Lantus 40 units SQ qPM * Metformin 500mg PO BID * Ozempic 2.5mg SQ weekly * HbA1c: 11% (09/19/20) ASSESSMENT: * Mr Gonzalez is a 55yo diabetic male, admitted last night with an ankle fracture. Pt was found to be hyponatremic on admission. * Patient's A1c indicates poor glycemic control as an outpt. * Novolog parameters tightened this morning to provide additional prandial coverage. PLAN FOR INPATIENT GLYCEMIC CONTROL: * Hold outpatient oral diabetes medications * Basal insulin * Lantus 20 units SQ BID * Bolus insulin * NovoLog per scale ACHS or Q6hrs while NPO * Goal Range: Low 110 mg/dL - High 140 mg/dL * Correction Factor: 25 mg/dL/unit * Nutritional / Prandial insulin per carb ratio of 1 unit per 8 grams CHO consumed PLAN FOR DISCHARGE: * tbd * Consider CDE consult during admission.
--- NOTE | 2020-09-19 14:04 | Hospitalist Progress Note ---
Date of Service September 19, 2020 Assessment & Plan (1) Ankle pain: Bimalleolar right ankle fracture Ambulatory dysfunction secondary to above Patient admits delaying surgery secondary to bilateral schizophrenia Plan for ORIF likely on 09/20/20 Pain control Blood Culture pending Leukocytosis trending down Appreciate Orthopedics Input Continue Splint, RICE, NWB with crutches (2) Tachycardia: Sinus tachycardia secondary to above Monitor Elevated blood pressure Likely secondary to pain Started on lisinopril for better blood pressure control Monitor (3) History of diabetes mellitus: Uncontrolled IDDM HbA1C:11.0 Hold PO meds Continue insulin therapy Monitor BGs Glycemic Pharmacy Consulted (4) Hyponatremia: Acute on Chronic Hyponatremia Likely multifactorial:Hyperglycemia from uncontrolled DM II, Polydipsia from uncontrolled sugar, psychogenic polydipsia Urine osmolality 118 Urine sodium 10 Sodium levels improved to 134 Monitor sodium levels Continue fluid restriction (5) Hypokalemia: Replace electrolytes as needed Monitor (6) Post traumatic stress disorder (PTSD): H/O PTSD Continue risperidone, sertraline, gabapentin Follows with psychiatry as outpatient (7) Depression: Continue home medications (8) GERD (gastroesophageal reflux disease): Continue PPI (9) Osteoarthritis: (10) Tobacco abuse: Counseled to quit smoking On nicotine patch (11) DVT prophylaxis: Lovenox SQ CODE STATUS: Full Code Disposition: PT/OT prior to From home Admission and Anticipated Discharge Date Admission Date: September 18, 2020 Subjective Patient is seen and examined at bedside Complains of right ankle pain Also states having nausea but no vomiting Denies chest pain, dyspnea, dizziness, abdominal pain Sodium levels improving Review of Systems Review of Systems: All systems reviewed & are unremarkable except as noted in HPI & below Physical Exam Physical Exam: Physical Exam: Vitals signs as noted above General Appearance:Moderately built and nourished, no apparent distress Head: normocephalic, Atraumatic Eyes: normal inspection, EOMI Neck: supple, Trachea midline Respiratory/Chest: Decreased breath sounds, CTA Cardiovascular: S1, S2, No murmur Abdomen/GI:Soft, Non tender, Bowel sounds present Extremities/Musculoskelatal:normal inspection, Right Ankle in dressing, tender Neurologic/Psych:AAOX3, grossly no focal neurological deficits Skin: normal color, warm Results & Data Results & Data ([facility]) Vital Signs (Past 12 Hours) Vital Signs Temp Pulse Pulse Resp BP Pulse Ox 09/19/20 11:20 37 C 108 H 16 141/78 H 95 09/19/20 07:37 36.9 C 110 H 16 135/71 94 09/19/20 07:14 110 H 09/19/20 04:11 37.1 C 109 H 20 150/81 H 97 09/19/20 02:48 107 H 20 96 09/19/20 02:13 82 09/19/20 02:01 36.8 C 105 H 18 130/78 98 Laboratory Results Short CBC 09/19/20 Range/Units 05:51 WBC 11.99 H (4.8-10.8) K/uL Hgb 11.5 L (14.0-18.0) g/dL Hct 32.9 L (42-52) % Plt Count 681 H (130-400) K/uL BMP 09/18/20 09/19/20 09/19/20 21:29 02:12 05:51 Sodium 121 L 124 L 129 L Potassium 3.6 3.8 Chloride 88 L 98 Carbon Dioxide 25 25 BUN 15 15 Creatinine 0.82 0.81 Glucose 176 H 150 H Calcium 9.4 9.0 09/19/20 12:14 Sodium 134 L Potassium Chloride Carbon Dioxide BUN Creatinine Glucose Calcium Cardiac Enzymes 09/18/20 Range/Units 21:29 Total Creatine Kinase 244 (39-308) U/L Liver Function 09/18/20 Range/Units 21:29 Total Bilirubin 0.4 (0.2-1) mg/dl AST 12 L (15-37) U/L ALT 27 (12-78) U/L Alkaline Phosphatase 62 (45-117) U/L Albumin 3.3 L (3.4-5.0) gm/dl Urine 09/18/20 Range/Units 23:05 Urine Color Yellow Urine Appearance Clear (Clear) Urine pH 6.5 (4.5-7.5) Ur Specific [place] 1.012 (1.000-1.030) Urine Protein Negative (Negative) Urine Glucose (UA) 2+ H (Negative)
--- NOTE | 2020-09-19 17:43 | Anesthesiology Consultation ---
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 History Surgery Operation Date: 09/20/20 15:00 Proposed Procedures p Right Bimalleolar Fracutre/Dislocation Open Reduction Internal Fixation - Kameron Salomon DO Height/Weight Height: 6 ft 1 in Weight: 97.5 kg Allergies Allergy/AdvReac Type Severity Reaction Status Date / Time No Known Allergies Allergy Verified 09/18/20 13:14 Medications Home Medications Medication Instructions Recorded Confirmed Last Taken albuterol sulfate 2 puff INHALATION Q4H PRN 09/02/20 09/18/20 Unknown atorvastatin 20 mg PO PM 09/02/20 09/18/20 Unknown fluticasone propion-salmeterol 1 inh INHALATION BID 09/02/20 09/18/20 Unknown [Wixela Inhub] gabapentin 400 mg PO QID 09/02/20 09/18/20 Unknown insulin glargine [Lantus Solostar 40 unit SUBCUT PM 09/02/20 09/18/20 Unknown U-100 Insulin] metformin 500 mg PO BID 09/02/20 09/18/20 Unknown montelukast 10 mg PO PM 09/02/20 09/18/20 Unknown multivitamin 1 tab PO QAM 09/02/20 09/18/20 Unknown naproxen 500 mg PO BID PRN 09/02/20 09/18/20 Unknown omeprazole 40 mg PO QAM 09/02/20 09/18/20 Unknown ondansetron 4 mg PO Q8H PRN 09/02/20 09/18/20 Unknown risperidone 2 mg PO PM 09/02/20 09/18/20 Unknown semaglutide [Ozempic] 2.5 mg SUBCUT WK 09/02/20 09/18/20 Unknown sertraline 50 mg PO PM 09/02/20 09/18/20 Unknown tramadol 50 mg PO Q8H 09/02/20 09/18/20 Unknown fluticasone propionate 2 spray INTRANASAL DAILY PRN 09/10/20 09/18/20 Unknown creatine monohydrate 5,000 mg PO QAM 09/18/20 09/18/20 Unknown Active Medications Generic Name Dose Route Start Last Admin Trade Name Freq PRN Reason Stop Dose Admin Fluticasone/Vilanterol 1 puffs 09/19/20 09:00 09/19/20 08:57 Fluticasone/Vilanterol 100/25mcg 14 Puffs/Inhaler INH 10/19/20 08:59 1 puffs DAILY ALVARO Administration Gabapentin 400 mg 09/19/20 09:00 09/19/20 17:14 Gabapentin 400 Mg Cap PO 10/19/20 08:59 400 mg QID ALVARO Administration Insulin Aspart 0 units 09/19/20 01:59 09/19/20 17:18 Insulin Aspart 100 Units/Ml 3 Ml Pen SC 10/19/20 01:58 2 units ACHS ALVARO Administration Protocol Insulin Glargine 20 units 09/19/20 09:00 09/19/20 08:53 Insulin Glargine Solostar 100 Units/Ml 3 Ml Pen SC 10/19/20 08:59 20 units BID ALVARO Administration Lisinopril 2.5 mg 09/19/20 04:15 09/19/20 05:40 Lisinopril 2.5 Mg Tab PO 10/19/20 04:14 2.5 mg QAM ALVARO Administration Miscellaneous 1 ea 09/19/20 08:59 09/19/20 08:58 Remove Nicoderm Patch N/A 10/19/20 08:58 1 ea [id number] ALVARO Administration Multivitamins 1 tab 09/19/20 09:00 09/19/20 08:51 Multivitamin Tab PO 10/19/20 08:59 1 tab QAM ALVARO Administration Nicotine 21 mg 09/18/20 23:11 09/19/20 08:51 Nicotine 21 Mg/24 Hr Tdsy TD 10/18/20 23:10 21 mg QAM ALVARO Administration Oxycodone HCl 5 - 10 mg 09/19/20 01:59 09/19/20 12:38 Oxycodone Hcl Ir 5 Mg Tab (Immediate Release) PO 10/03/20 01:58 10 mg QID PRN Administration Pain Pantoprazole Sodium 40 mg 09/19/20 09:00 09/19/20 08:51 Pantoprazole 40 Mg Tab PO 10/19/20 08:59 40 mg QAM ALVARO Administration Risperidone 2 mg 09/19/20 01:59 09/19/20 03:23 Risperidone 2 Mg Tablet PO 10/19/20 01:58 2 mg PM ALVARO Administration Senna/Docusate Sodium 1 tab 09/19/20 01:59 09/19/20 08:51 Docusate Sodium/Senna 50/8.6mg Tab PO 10/19/20 01:58 1 tab QAM ALVARO Administration Past Medical History Medical History Asthma uses res inh daily > not well controlled Cardiac murmur dx > 20 yrs ago Depression GERD (gastroesophageal reflux disease) History of diabetes mellitus IDDM Nausea unknown cause/ has not had testing done> Zofran Osteoarthritis Post traumatic stress disorder (PTSD) Tachycardia just with cafeine per pt Past Family History Family History Mother Diabetes Past Surgical History Surgical History History of tooth extraction Social History Smoking Status: Current every day smoker tobacco type: cigarettes and smokeless tobacco Smoking cigarettes per day: 20 cigs per day Do You Dip or Chew Tobacco: Yes Hx Alcohol Use: No Hx Substance Use: No substance use type: marijuana Substance Use Type Other:: rare marijuana use > approx once every 2 weeks Physical Exam Vital Signs Last Vital Signs Temp 98.6 F 09/19/20 16:11 Pulse 101 H 09/19/20 16:20 Resp 20 09/19/20 16:11 BP 148/76 H 09/19/20 16:11 Pulse Ox 97 09/19/20 16:11 Testing Laboratory Results 09/19/20 05:51 09/19/20 12:14 Hemoglobin A1c 11.0 % (4.5-5.6) H 09/19/20 02:12 Urine Color Yellow 09/18/20 23:05 Urine Appearance Clear (Clear) 09/18/20 23:05 Urine pH 6.5 (4.5-7.5) 09/18/20 23:05 Ur Specific [place] 1.012 (1.000-1.030) 09/18/20 23:05 Urine Protein Negative (Negative) 09/18/20 23:05 Urine Glucose (UA) 2+ (Negative) H 09/18/20 23:05 Urine Ketones Negative (Negative) 09/18/20 23:05 Urine Nitrite Negative (Negative) 09/18/20 23:05 Ur Leukocyte Esterase Negative (Negative) 09/18/20 23:05 Blood Type A Positive 09/19/20 05:51 Antibody Screen NEGATIVE 09/19/20 05:51 09/19/20 09/19/20 09/19/20 16:18 11:31 07:24 POC Glucose 104 H 148 H 157 H Electrocardiogram Date: 09/18/20 Sinus tachycardia, rate 106 bpm Possible Left atrial enlargement Borderline ECG When compared with ECG of 18-SEP-2020 11:22, (unconfirmed) No significant change was found Chest X-Ray Date: 09/18/20
[2020-09-19] MEDS ORDERED: lisinopril 2.5 MG TAB PO ONE (20:44)
[2020-09-19] MEDS: MONTELUKAST SODIUM 10 MG TABLET PO SCH (20:45)
[2020-09-19] MEDS: ATORVASTATIN 20 MG TAB PO SCH (20:46)
[2020-09-20] MEDS ORDERED: cloNIDine HCL 0.1 MG TAB PO ONE (00:19)
[2020-09-20] MEDS ORDERED: MAGNESIUM SULFATE / D5W 1 GM/100 ML BAG IV ONE (00:21)
[2020-09-20] MEDS ORDERED: POTASSIUM CHLORIDE CRTAB 20 MEQ TABCR PO STA (00:21)
[2020-09-20] MEDS: oxyCODONE HCL IR 5 MG TAB (IMMEDIATE RELEASE) PO PRN ×4 (00:39→20:26)
[2020-09-20] MEDS: ALBUMIN 25% 12.5 GM/50 ML VIAL IV SCH ×2 (00:49→01:33)
--- NOTE | 2020-09-20 05:39 | Electrocardiogram Report ---
Test Reason : Blood Pressure : / mmHG Vent. Rate : 106 BPM Atrial Rate : 106 BPM P-R Int : 150 ms QRS Dur : 090 ms QT Int : 358 ms P-R-T Axes : 068 047 058 degrees QTc Int : 475 ms Sinus tachycardia Possible Left atrial enlargement Borderline ECG When compared with ECG of 18-SEP-2020 11:22, No significant change was found Confirmed by Herrera King ([id number]) on 09/20/2020 5:39:01 AM Referred By: Bg Bergeron Confirmed By:Herrera King
[2020-09-20 06:48] LABS: Basophils # (auto) 0.06 K/uL (0-0.2); Basophils % (auto) 0.5 %; Eosinophils # (auto) 0.17 K/uL (0-0.5); Eosinophils % (auto) 1.5 %; Hematocrit (blood only) 35.7 % (42-52); Immature Granulocytes # (auto) 0.02 K/uL (0.00-0.02); Immature Granulocytes % (auto) 0.2 %; Lymphocytes # (auto) 2.64 K/uL (1.2-3.4); Lymphocytes % (auto) 23.6 %; Mean Corpuscular Hemoglobin 26.5 pg (25-34); Mean Corpuscular Hgb Conc 33.6 g/dL (32-36); Mean Corpuscular Volume 78.8 fL (80-100); Mean Platelet Volume 7.8 fL (7.4-10.4); Monocytes # (auto) 1.02 K/uL (0.11-0.59); Monocytes % (auto) 9.1 %; Neutrophils # (auto) 7.29 K/uL (1.4-6.5); Neutrophils % (auto) 65.1 %; Platelet Count 688 K/uL (130-400); RDW Coefficient of Variation 14.5 % (11.5-14.5); RDW Standard Deviation 41.2 fL (36.4-46.3); Red Blood Count 4.53 M/uL (4.7-6.1)
[2020-09-20 07:24] LABS: BUN Creatinine Ratio 20.9 (10-20); Calcium 9.6 mg/dl (8.5-10.1); Creatinine Clr Calc Pharmacy 123.9 ml/min; Est GFR (African American) 119.2; Est GFR (Non-African American) 102.9; Magnesium 2.4 mg/dl (1.8-2.4); Potassium 3.6 mmol/L (3.5-5.1)
[2020-09-20] MEDS: INSULIN ASPART 100 UNITS/ML 3 ML PEN SC SCH ×4 (08:57→20:29)
[2020-09-20] MEDS: DOCUSATE SODIUM/SENNA 50/8.6MG TAB PO SCH (08:58)
[2020-09-20] MEDS: PANTOprazole 40 MG TAB PO SCH (08:58)
[2020-09-20] MEDS: GABAPENTIN 400 MG CAP PO SCH ×4 (08:58→20:28)
[2020-09-20] MEDS: MULTIVITAMIN TAB PO SCH (08:58)
[2020-09-20] MEDS: FLUTICASONE/VILANTEROL 100/25MCG 14 PUFFS/INHALER INH SCH (08:59)
[2020-09-20] MEDS ORDERED: lisinopril 5 MG TAB PO SCH (09:00)
[2020-09-20] MEDS: NICOTINE 21 MG/24 HR TDSY TD SCH (11:04)
--- NOTE | 2020-09-20 13:18 | Hospitalist Progress Note ---
Date of Service September 20, 2020 Assessment & Plan (1) Ankle pain: Bimalleolar right ankle fracture Patient fell and broke his right ankle in mid August 2020 Patient admits delaying surgery : Underlying psychiatric disorder/schizophrenia possible contributing to make poor decision/choices Appreciate input from orthopedics Plan for ORIF likely today Patient insist on drinking water, ice chips, Already finished 3 cups of ice chips since morning, Keep n.p.o. for procedure this afternoon Hyponatremia/psychogenic polydipsia. Patient reports of drinking constantly, as that he always feels thirsty Had significant hyponatremia on admission, Sodium level normalized after fluid restriction (2) Tachycardia: Secondary to pain, agitation Continue to monitor in telemetry Hypertension: Not on any home meds, started on lisinopril 5 mg daily, dose increased to 10 mg daily as blood pressure remains uncontrolled/above goal (3) History of diabetes mellitus: Uncontrolled IDDM/due to noncompliance, psychiatric illness, schizophrenia HbA1C:11.0 On insulin sliding scale Glycemic Pharmacy Consulted (4) Hyponatremia: Acute on Chronic Hyponatremia Likely multifactorial:Hyperglycemia from uncontrolled DM II, Polydipsia from uncontrolled sugar, psychogenic polydipsia Level normalized today Monitor sodium levels Continue fluid restriction (5) Hypokalemia: Corrected (6) Post traumatic stress disorder (PTSD): H/O PTSD Continue risperidone, sertraline, gabapentin Follows with psychiatry as outpatient (7) Depression: Continue home medications (8) GERD (gastroesophageal reflux disease): Continue PPI (9) Osteoarthritis: - Noted (10) Tobacco abuse: Counseled to quit smoking On nicotine patch (11) DVT prophylaxis: CODE STATUS: Full Code Disposition: PT OT evaluation after ankle surgery. Admission and Anticipated Discharge Date Admission Date: September 18, 2020 Subjective Patient seen and examined at bedside, Very angry/upset as he is not u to eat or drink, scheduled to have ankle surgery done today at 3 PM by orthopedics team Patient has been eating a lot of ice chips, already finished 3 cups of them. Threatening to leave AMA if he is not allowed to have more ice chips or water History of underlying psychiatric disorders, schizophrenia Patient is counseled, needs to be an empty stomach in order for the anesthesia and surgery, Post procedure he is going to be allowed to eat and drink. Patient agrees reluctantly, Review of Systems Review of Systems: All systems reviewed & are unremarkable except as noted in HPI & below Musculoskeletal: + joint pain (Right ankle fracture) and + deformity (Right ankle fracture) Right ankle fracture, on bandage Physical Exam Constitutional: WD/WN, vitals as above Eyes: PERRL, conjunctivae normal, anicteric sclerae ENMT: external ear and nose normal, oropharynx normal Neck: trachea midline, no thyromegaly Respiratory: normal respiratory effort, lungs clear to auscultation Cardiovascular: RRR, no murmur, no edema Gastrointestinal (Abdomen): Percussion/Palpation: abdomen soft; abdomen nontender Musculoskeletal: Extremities: + foot abnormality (Ankle fracture) Right Skin: no rashes, warm and dry Neurologic: PERRL, EOMI, accommodation nl, no face palsy, no dysarthria no focal motor deficits Psychiatric: Orientation: alert and oriented x 3 Motor Behavior: + psychomotor agitation Speech: + loud speech Affect: + angry affect Mood: + angry mood Thought Process: goal directed thought process Thought Content: + obsessions (Obsessed about her drinking more water) Suicidal Thoughts: + reports suicidal thoughts Insight: + poor insight Results & Data Results & Data ([facility]) Vital Signs (Past 12 Hours) Vital Signs Temp Pulse Pulse Resp BP Pulse Ox 09/20/20 12:34 36.4 C L 104 H 16 147/90 H 95 09/20/20 07:21 108 H 09/20/20 07:11 36.7 C 101 H 18 138/79 95 09/20/20 04:00 36.9 C 103 H 20 157/84 H 96 09/20/20 01:18 105 H
--- NOTE | 2020-09-20 14:43 | Pharmacy Report ---
Pharmacy Glycemic Short Note 2 - Date of Service September 20, 2020 - Glycemic Short BSG Results (Last 24 hours): 09/19/20 09/19/20 09/20/20 16:18 20:16 06:37 Glucose 87 POC Glucose 104 H 116 H 09/20/20 09/20/20 07:39 13:02 Glucose POC Glucose 110 H 161 H OUTPATIENT ANTIDIABETIC REGIMEN: * Lantus 40 units SQ qPM * Metformin 500mg PO BID * Ozempic 2.5mg SQ weekly * HbA1c: 11% (09/19/20) ASSESSMENT: 09/20/20: * Pt rec'd 72 units of insulin yesterday, with BSGs ranging from 104-157mg/dL. * 60 units of basal insulin, 12 units of correctional/prandial insulin * Patient has been NPO since midnight for R ankle ORIF this afternoon. * Will transition back to once-daily Lantus this evening, post-op. 09/19 * Mr Gonzalez is a 55yo diabetic male, admitted last night with an ankle fract ure. Pt was found to be hyponatremic on admission. * Patient's A1c indicates poor glycemic control as an outpt. * Novolog parameters tightened this morning to provide additional prandial coverage. PLAN FOR INPATIENT GLYCEMIC CONTROL: * Hold outpatient oral diabetes medications * Basal insulin * Lantus 40 units SQ qPM * Bolus insulin * NovoLog per scale ACHS or Q6hrs while NPO * Goal Range: Low 110 mg/dL - High 140 mg/dL * Correction Factor: 25 mg/dL/unit * Nutritional / Prandial insulin per carb ratio of 1 unit per 8 grams CHO consumed PLAN FOR DISCHARGE: * A1c: 11% -- this indicates significantly insufficient glycemic control. Target A1c: <7% * CDE has met with patient, and he is hesitant to increase Metformin or Ozempic d/t GI side effects. * Would recommend increasing Lantus dose on discharge (consider ~10% increase to start with, perhaps Lantus 45 units daily). * Recommend continuing lifestyle/diet modifications. * Recommend close f/u with outpt provider after discharge to work toward optimizing A1c.
--- NOTE | 2020-09-20 14:58 | History & Physical Bridge Note ---
Date of Service September 20, 2020 History & Physical Bridge Note I have examined the patient, reviewed the History & Physical and in the interval since the performance of the History & Physical I have noted the following changes of clinical significance: no changes noted
[2020-09-20] MEDS ORDERED: BACITRACIN INJ 50,000 UNIT VIAL ONE (15:19)
[2020-09-20] MEDS ORDERED: BUPIVACAINE/EPINEPHRINE 0.5% MPF 1:200,000 30 ML VIAL ONE (15:19)
[2020-09-20] MEDS ORDERED: ONDANSETRON INJ 2 MG/ML 2 ML VIAL IV ONE (15:31)
[2020-09-20] MEDS ORDERED: BUPIVACAINE 0.5 % 5 MG/1 ML MPF 30ML VIAL IM ONE (15:31)
[2020-09-20] MEDS ORDERED: LIDOCAINE 2% 20 MG/ML 5 ML SYR IV ONE (15:31)
[2020-09-20] MEDS ORDERED: MIDAZOLAM HCL 1 MG/ML 2ML VIAL IV ONE (15:31)
[2020-09-20] MEDS ORDERED: PROPOFOL IV EMULSION 10 MG/ML 20 ML VIAL IV ONE (15:31)
[2020-09-20] MEDS ORDERED: fentaNYL citrate 100 MCG/2 ML VIAL IV ONE (15:31)
[2020-09-20] MEDS ORDERED: ATROPINE SULFATE 0.1 MG/ML 10ML SYR IV PRN (15:40)
[2020-09-20] MEDS ORDERED: ePHEDrine sulfate 50 MG/ML AMP IV PRN (15:40)
[2020-09-20] MEDS ORDERED: ONDANSETRON INJ 2 MG/ML 2 ML VIAL IV PRN ×2 (15:40→18:36)
--- NOTE | 2020-09-20 17:58 | Post Operative Brief Note ---
Immediate Post Op Note v1 Date of Surgery September 20, 2020 Pre & Post Diagnosis Operation Date: 09/20/20 15:00 Pre-Op Diagnosis: Displaced bimalleolar Fracture of Right Ankle Post-Op Diagnosis: Displaced bimalleolar Fracture of Right Ankle I identified the patient and participated in the time-out.: Yes Procedure Operation Date: 09/20/20 15:00 Actual Procedures p Right Bimalleolar Fracture Open Reduction Internal Fixation(Right) - Kameron Salomon DO Surgeon Kameron Salomon DO Carboy Filler Jamal Grijalva PA-C Estimated Blood Loss 1 Findings Consistent with Post-Op Diagnosis Specimens None Anesthesia Type General Regional Complications none Disposition Accompanied Patient To Recovery: No Disposition: Recovery Room
[2020-09-20] MEDS: fentaNYL citrate 100 MCG/2 ML VIAL IV PRN ×4 (18:10→18:25)
[2020-09-20] MEDS ORDERED: diphenhydrAMINE Capsule 25 MG CAP PO PRN (18:36)
[2020-09-20] MEDS ORDERED: ALUMINUM/MAGNESIUM SUSP 30 ML UDC PO PRN (18:36)
[2020-09-20] MEDS ORDERED: METOCLOPRAMIDE HCL INJ 5 MG/ML 2 ML VIAL IV PRN (18:36)
[2020-09-20] MEDS ORDERED: NO NSAIDS SCH (18:36)
[2020-09-20] MEDS ORDERED: SODIUM CHLORIDE 0.9% 1000ML 1,000 ML IV SCH (18:36)
[2020-09-20] MEDS ORDERED: MAGNESIUM HYDROXIDE SUSP 30 ML UDC PO PRN (18:36)
[2020-09-20] MEDS ORDERED: bisacodyL 10 MG SUPP PR PRN (18:36)
[2020-09-20] MEDS ORDERED: NALOXONE HCL 0.4 MG/1 ML VIAL/CARP IV PRN (18:36)
--- NOTE | 2020-09-20 18:37 | XRay Report ---
RIGHT ANKLE 3 VIEWS CLINICAL HISTORY: Postoperative examination. FINDINGS: 3 views the right ankle are compared to study dated 09/02/2020. The examination is performed through a cast, obscuring fine bony detail. The skeletal structures appear well mineralized. A buttr ess plate has been placed transfixing a distal fibular fracture. Numerous cortical lag screws transfi x the buttress plate, and an additional cortical lag screw transfixes the fracture fragments. 2 corti radha lag screws transfix a medial malleolar fracture. The orthopedic hardware appears intact. The frag ments are in near-anatomic alignment. The ankle mortise is intact. Soft tissue edema is present aroun d the ankle. There is a large dorsal calcaneal enthesophyte. IMPRESSION: Postoperative changes from open reduction and internal fixation of distal tibial and fibu lar fractures as above. Near-anatomic alignment has been restored. Electronically signed by: Houston Elder M.D. 09/20/2020 6:36 PM
--- NOTE | 2020-09-20 18:39 | Fluoroscopy Report ---
INTRAOPERATIVE RADIOGRAPHS CLINICAL HISTORY: Open reduction and internal fixation of right ankle fractures. Fluoroscopy time: 40 seconds. FINDINGS: 3 spot fluoroscopic images of the right ankle are correlated with radiographs dated 09/02/19 21. 2 cortical lag screws transfix a medial malleolar fracture. There has been buttress plate fixatio n of a distal fibular fracture. Numerous cortical lag screws transfix the buttress plate, and an renato tional cortical screw transfixes the fracture fragments. Near-anatomic alignment has been restored. T he orthopedic hardware appears intact. Soft tissue edema is present on the ankle. IMPRESSION: Intraoperative images from open reduction and internal fixation of right ankle fractures as above. Electronically signed by: Houston Elder M.D. 09/20/2020 6:38 PM
--- NOTE | 2020-09-20 19:34 | Hospitalist Progress Note ---
Date of Service September 20, 2020 Assessment & Plan Admission and Anticipated Discharge Date Admission Date: September 18, 2020 Subjective Patient is s/p surgery. Patient is thursty and want to drink. Will d/c fluid restrictions tonight and monitor am labs and further fluid restriction by Am providers. Thanks Results & Data Results & Data ([facility]) Vital Signs (Past 12 Hours) Vital Signs Temp Pulse Pulse Resp BP BP Pulse Ox 09/20/20 18:30 37.3 C 102 H 18 158/90 H 95 09/20/20 18:20 102 H 22 151/85 H 95 09/20/20 18:10 103 H 20 144/82 H 95 09/20/20 18:05 102 H 15 141/83 H 96 09/20/20 17:57 37 C 103 H 16 131/85 96 09/20/20 12:34 36.4 C L 104 H 16 147/90 H 95
--- NOTE | 2020-09-20 20:15 | Anesthesiology Progress Note ---
Date of Service September 20, 2020 Anesthesia Post Procedure Vital Signs Vital Signs: Temp Pulse Pulse Pulse Resp BP BP 09/20/20 19:46 37.0 C 113 H 20 176/86 H 09/20/20 18:30 37.3 C 102 H 18 158/90 H 09/20/20 18:20 102 H 22 151/85 H 09/20/20 18:10 103 H 20 144/82 H 09/20/20 18:05 102 H 15 141/83 H 09/20/20 17:57 37 C 103 H 16 131/85 09/20/20 12:34 36.4 C L 104 H 16 147/90 H 09/20/20 07:21 108 H 09/20/20 07:11 36.7 C 101 H 18 138/79 09/20/20 04:00 36.9 C 103 H 20 157/84 H 09/20/20 01:18 105 H 09/19/20 23:25 36.7 C 110 H 20 143/79 H Pulse Ox 09/20/20 19:46 98 09/20/20 18:30 95 09/20/20 18:20 95 09/20/20 18:10 95 09/20/20 18:05 96 09/20/20 17:57 96 09/20/20 12:34 95 09/20/20 07:21 09/20/20 07:11 95 09/20/20 04:00 96 09/20/20 01:18 09/19/20 23:25 94 Pain Intensity Left Leg: Pain Intensity: 4 Transfer of Care Handoff Completed per policy Notes Mental Status: alert / awake / arousable and participated in evaluation Patient Amnestic to Procedure: Yes Nausea / Vomiting: adequately controlled Pain: adequately controlled Airway Patency, RR, SpO2: stable & adequate BP & HR: stable & adequate Hydration State: stable & adequate Anesthetic Complications: no major complications apparent and Pt Satisfied with anesthetic care Notes: block is functioning well.
--- NOTE | 2020-09-20 20:24 | Operative Report (OR) ---
DATE OF OPERATION: 09/20/2020 PREOPERATIVE DIAGNOSIS: Right displaced bimalleolar ankle fracture. POSTOPERATIVE DIAGNOSIS: Right displaced bimalleolar ankle fracture. PROCEDURE: Right open reduction and internal fixation of bimalleolar ankle fracture. SURGEON: Kameron Salomon DO. ART HISTORY PROFESSOR: Jamal Grijalva PA-C who was present for patient positioning, sterile prep and drape, management of retractors and instruments. He was present through the critical portions of the case including wound closure, application of sterile dressing and transport of the patient to recovery. ANESTHESIA: General, regional. SPECIMENS: None. DRAINS: None. COMPLICATIONS: None. BLOOD LOSS: 2 mL. PERTINENT HISTORY: This is a 55-year-old gentleman who sustained a twisting fall on his right ankle. He had sustained a displaced bimalleolar ankle fracture diagnosed by the Emergency Department. He was seen in the Emergency Department, treated, splinted and referred for orthopedics. He was seen in clinic. He was then scheduled for surgery; however, had some social issues, which needed to be mitigated. He was then placed back on the schedule for surgery and then was noted to have hyponatremia, was admitted to the hospital by the hospitalist team and he was then scheduled for surgery when he was stabilized. All potential risks, benefits, complications, alternatives, rehab potential for incomplete relief of symptoms, need for further surgery, DVT, PE, , persistent pain, swelling, scarring, weakness, neurovascular injury, wound complications, hardware failure, nonunion, malunion, bone fracture were discussed with the patient. The patient decided to proceed with the procedure as indicated. DESCRIPTION OF PROCEDURE: After regional anesthetic was administered by the anesthesiologist, the patient was then taken to the operative suite, placed supine on the operating table. After review of consent and identification of proper operative site, the patient was anesthetized, LMA was placed. Tourniquet was placed high on the right thigh over cast padding. Right lower extremity was sterilely prepped and draped in the usual fashion, elevated and exsanguinated with an Esmarch bandage, tourniquet inflated to 350 mmHg. A 15 blade scalpel was used to make an incision along the lateral malleolus extending proximally after surgical timeout was performed. The incision was deepened through the skin and subcutaneous tissue. Meticulous hemostasis was achieved with electrocautery. Mitzi rakes were applied to retract the soft tissue. The superficial cutaneous nerves were identified, freed with a tenotomy scissor, retracted with a Mitzi rakes and protected. Next, the fascia was incised. The peroneal tendons were identified and retracted with a Weitlaner. Next, periosteum over the fracture site was then incised with 15 blade scalpel and then elevated superiorly and inferiorly, irrigated with sterile normal saline until clear and then the fracture was then debrided with dental pick and irrigation. Next, the fracture was then reduced using gentle manual traction and use of bone forceps. A single 3.5 mm lag screw was placed from anterior to posterior and then a locking one-third tubular Synthes plate was then contoured and then affixed to the lateral aspect of the fibula adjacent to the lateral malleolus to achieve anatomic reduction and fixation under live fluoroscopic assistance. Next, a 15 blade scalpel was used to make a curvilinear incision centered over the medial malleolus. The incision was then deepened through skin and subcutaneous tissue. Careful dissection was performed with tenotomy scissors using Mitzi rakes to retract the soft tissue. The branch of the saphenous vein was identified, freed with scissors, retracted and protected. Periosteum was then withdrawn from the fracture site, incised with a 15 blade scalpel and cleared for visualization and reduction of the fracture. The site was copiously irrigated with sterile normal saline until clear and then reduced with bone forceps and held in place with two 4.0 cancellous screws placed under live fluoroscopic assistance. Guide pins were removed. Both incisions were then copiously irrigated with sterile normal saline. Stress views were obtained noting anatomic reduction and fixation without any widening of the syndesmosis noted. Next, the deep tissue and fascia was closed over the lateral plate with 2-0 Vicryl. The medial periosteum was closed using 2-0 Vicryl. The dermis was closed using buried interrupted 3-0 Vicryl sutures in both incisions and then 4-0 nylon sutures used to close the skin. Next, a sterile compressive dressing and bulky Neo Saldaña plaster splint was applied overwrapped with an Todd wrap. The foot was held in neutral dorsiflexion, the tourniquet was released. Normal hyperemic response returned to the toes. The patient was awakened and taken to recovery in stable condition. I attest to the content of the Intraoperative Record and any orders documented therein. Any exception s are noted below.
[2020-09-20] MEDS: ASPIRIN 81 MG ECTAB PO SCH (20:27)
[2020-09-20] MEDS: ceFAZolin 2000MG 2,000 MG/15 ML SYR IV SCH (20:27)
[2020-09-20] MEDS: DOCUSATE SODIUM 100 MG CAP PO SCH (20:28)
[2020-09-20] MEDS: risperiDONE 2 MG TABLET PO SCH (20:28)
[2020-09-20] MEDS: ATORVASTATIN 20 MG TAB PO SCH (20:28)
[2020-09-20] MEDS: MONTELUKAST SODIUM 10 MG TABLET PO SCH (20:29)
[2020-09-20] MEDS ORDERED: SENNA 8.6 MG TAB PO SCH (21:00)
[2020-09-20] MEDS ORDERED: INSULIN GLARGINE SOLOSTAR 100 UNITS/ML 3 ML PEN SC SCH (21:00)
[2020-09-20] MEDS: ACETAMINOPHEN 500 MG TAB PO SCH (21:53)
[2020-09-20] MEDS: HYDROmorphone INJ 0.5 MG/0.5 ML SYR IV PRN (22:07)
[2020-09-21] MEDS: HYDROmorphone INJ 0.5 MG/0.5 ML SYR IV PRN ×4 (01:23→10:08)
[2020-09-21] MEDS ORDERED: Nursing to Pharmacy Communication SCH (02:00)
[2020-09-21] MEDS: ceFAZolin 2000MG 2,000 MG/15 ML SYR IV SCH (03:56)
[2020-09-21] MEDS: oxyCODONE HCL IR 5 MG TAB (IMMEDIATE RELEASE) PO PRN ×2 (05:06→12:10)
[2020-09-21] MEDS: ACETAMINOPHEN 500 MG TAB PO SCH ×2 (05:51→14:00)
[2020-09-21] MEDS: DOCUSATE SODIUM/SENNA 50/8.6MG TAB PO SCH (08:18)
[2020-09-21] MEDS: GABAPENTIN 400 MG CAP PO SCH ×2 (08:19→12:16)
[2020-09-21] MEDS: ASPIRIN 81 MG ECTAB PO SCH (08:19)
[2020-09-21] MEDS: DOCUSATE SODIUM 100 MG CAP PO SCH (08:19)
[2020-09-21] MEDS: PANTOprazole 40 MG TAB PO SCH (08:20)
[2020-09-21] MEDS: NICOTINE 21 MG/24 HR TDSY TD SCH (08:21)
[2020-09-21] MEDS: INSULIN ASPART 100 UNITS/ML 3 ML PEN SC SCH ×2 (08:24→12:14)
[2020-09-21] MEDS ORDERED: INSULIN GLARGINE SOLOSTAR 100 UNITS/ML 3 ML PEN SC ONE (08:30)
[2020-09-21] MEDS ORDERED: MULTIVITAMIN TAB PO SCH (09:00)
[2020-09-21] MEDS ORDERED: lisinopril 10 MG TAB PO SCH (09:00)
--- NOTE | 2020-09-21 10:06 | Pharmacy Report ---
Pharmacy Glycemic Short Note 2 - Date of Service September 21, 2020 - Glycemic Short BSG Results (Last 24 hours): 09/20/20 09/20/20 09/20/20 13:02 15:05 17:59 POC Glucose 161 H 144 H 127 H 09/20/20 09/20/20 09/21/20 19:03 20:03 07:43 POC Glucose 116 H 123 H 180 H OUTPATIENT ANTIDIABETIC REGIMEN: * Lantus 40 units SQ qPM * Metformin 500mg PO BID * Ozempic 2.5mg SQ weekly * HbA1c: 11% (09/19/20) ASSESSMENT: 09/21 * BSG's ranged 110-161 mg/dL yesterday * Patient is now POD 1 s/p ORIF * AM hyperglycemia noted this AM after reduction in Lantus yesterday. Will increase * Pre-lunch BSG also elevated - will tighten Novolog parameters as better control in the immediate post-op period is desirable 09/20 * Pt rec'd 72 units of insulin yesterday, with BSGs ranging from 104-157mg/dL. * 60 units of basal insulin, 12 units of correctional/prandial insulin * Patient has been NPO since midnight for R ankle ORIF this afternoon. * Will transition back to once-daily Lantus this evening, post-op. 09/19 * Mr Gonzalez is a 55yo diabetic male, admitted last night with an ankle fracture. Pt was found to be hyponatremic on admission. * Patient's A1c indicates poor glycemic control as an outpt. * Novolog parameters tightened this morning to provide additional prandial coverage. PLAN FOR INPATIENT GLYCEMIC CONTROL: * Hold outpatient oral diabetes medications * Basal insulin - increase * Lantus 10 units this AM and 40 units SQ qPM * Bolus insulin - tighten * NovoLog per scale ACHS or Q6hrs while NPO * Goal Range: Low 110 mg/dL - High 140 mg/dL * Correction Factor: 20 mg/dL/unit * Nutritional / Prandial insulin per carb ratio of 1 unit per 7 grams CHO consumed PLAN FOR DISCHARGE: * A1c: 11% -- this indicates significantly insufficient glycemic control. Target A1c: <7% * CDE has met with patient, and he is hesitant to increase Metformin or Ozempic d/t GI side effects. * Would recommend increasing Lantus dose on discharge (consider ~10% increase to start with, perhaps Lantus 45 units daily). * Recommend continuing lifestyle/diet modifications. * Recommend close f/u with outpt provider after discharge to work toward optimizing A1c.
[2020-09-21] MEDS: FLUTICASONE/VILANTEROL 100/25MCG 14 PUFFS/INHALER INH SCH (12:15)
--- NOTE | 2020-09-21 15:41 | Orthopedic Progress Note ---
Date of Service September 21, 2020 Assessment & Plan (1) Bimalleolar fracture of right ankle: POD #1 s/p ORIF right bimalleolar ankle fx. NWB RLE at all times in splint. Keep splint in place at all times. ASA 81 mg BID x 4 wks post op for DVT prophylaxis. OK to D/C from ortho standpoint. F/U with Dr. Salomon's clinic 2 weeks post op. Admission and Anticipated Discharge Date Admission Date: September 18, 2020 Subjective Doing well. No ankle complaints. States he has good sensation in the foot and the pain is controlled. Anxious to go home today. Physical Exam Constitutional: WD/WN, vitals as above no acute distress Musculoskeletal: Ankle: + surgical incision (Right ankle splint C/D/I.); no skin erythema and no ecchymosis Right foot: Toes mobile. Sensation intact. Psychiatric: A+Ox3, euthymic affect Speech: normal rate/rhythm/volume of speech Results & Data ([facility]) Vital Signs (Past 12 Hours) Vital Signs Temp Pulse Pulse Resp BP Pulse Ox 09/21/20 11:59 36.8 C 118 H 20 153/75 H 95 09/21/20 07:36 116 H 09/21/20 07:27 37.5 C 124 H 20 160/79 H 94
--- NOTE | 2020-09-21 15:52 | Hospitalist Progress Note ---
Date of Service September 21, 2020 Assessment & Plan (1) Ankle pain: Bimalleolar right ankle fracture Patient fell and broke his right ankle in mid August 2020 Appreciate input from orthopedics. POD #1 s/p ORIF right bimalleolar ankle fx. Per orthopedics: NWB RLE at all times in splint. Keep splint in place at all times. ASA 81 mg BID x 4 wks post op for DVT prophylaxis. OK to D/C from ortho standpoint. F/U with Dr. Salomon's clinic 2 weeks post op. Hyponatremia/psychogenic polydipsia. Patient reports of drinking constantly, as that he always feels thirsty Had significant hyponatremia on admission, Sodium level normalized after fluid restriction Stable to be discharged home today consult for limit fluid intake which includes all beverages including water or juice coffee for 2 L a day (2) Tachycardia: Heart rate improved Hypertension: Patient will be discharged on lisinopril 10 mg daily Not on any home meds, started on lisinopril 5 mg daily, dose increased to 10 mg daily as blood pressure remains uncontrolled/above goal (3) History of diabetes mellitus: Uncontrolled IDDM/due to noncompliance, psychiatric illness, schizophrenia HbA1C:11.0 On insulin sliding scale Glycemic Pharmacy Consulted appreciate input Lantus dose increased to 45 units at at bedtime, will need to follow-up with family physician , need referral to diabetic clinic (4) Hyponatremia: As discussed above (5) Hypokalemia: Corrected (6) Post traumatic stress disorder (PTSD): H/O PTSD Continue risperidone, sertraline, gabapentin Follows with psychiatry as outpatient (7) Depression: Continue home medications (8) GERD (gastroesophageal reflux disease): Continue PPI (9) Osteoarthritis: - Noted (10) Tobacco abuse: Counseled to quit smoking On nicotine patch (11) DVT prophylaxis: CODE STATUS: Full Code Disposition: stable to be discharged home today Admission and Anticipated Discharge Date Admission Date: September 18, 2020 Subjective Follow-up visit for right ankle fracture, status post surgery postoperative day 1. Patient reports right ankle pain has marked greatly improved after surgery Offers no other complaint, no fever chills no cough or shortness of breath, very eager to be discharged home today Seen by orthopedics team earlier, nonweightbearing on right foot, stable to be discharged home 2 weeks follow-up with orthopedics in clinic Review of Systems Review of Systems: All systems reviewed & are unremarkable except as noted in Subjective Physical Exam Constitutional: WD/WN, vitals as above Eyes: PERRL, conjunctivae normal, anicteric sclerae ENMT: external ear and nose normal, oropharynx normal Neck: trachea midline, no thyromegaly Respiratory: normal respiratory effort, lungs clear to auscultation Cardiovascular: RRR, no murmur, no edema Gastrointestinal (Abdomen): Percussion/Palpation: abdomen soft; abdomen nontender Musculoskeletal: Extremities: + foot abnormality (Status post right ankle surgery, bandage present) Right Skin: no rashes, warm and dry Neurologic: PERRL, EOMI, accommodation nl, no face palsy, no dysarthria no focal motor deficits Psychiatric: Orientation: alert and oriented x 3 Results & Data Results & Data ([facility]) Vital Signs (Past 12 Hours) Vital Signs Temp Pulse Pulse Resp BP Pulse Ox 09/21/20 11:59 36.8 C 118 H 20 153/75 H 95 09/21/20 07:36 116 H 09/21/20 07:27 37.5 C 124 H 20 160/79 H 94
--- NOTE | 2020-09-21 15:56 | Discharge Summary ---
Date of Service September 21, 2020 Admission HPI Per Admitting Provider This is a 55-year-old male with PMHx of DM type II, hyperlipidemia, history of previous ankle injury, who presents for acute ankle pain. He sustained a bimalleolar right ankle fracture on September 03, 2020. He had been following with Dr. Feliciano as an outpatient, and scheduled to have surgery on the ankle this coming Friday, however during his preop clearances including laboratories, he was found to be hyponatremic with a sodium of 120, and per his PCP was referred to the ER. Patient admits to drinking a significant amount of liquids per day including 1 gallon unsweetened ice tea, milk, 4-5 bottles of water, juice with low amounts of sugar, etc. 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 His glucose is always elevated per his daughter, roughly in the 200s at baseline. Patient is in a significant amount of pain, however reports pain medications are beginning to work for him. He denies any recent falls or trauma to the right leg. He notes that he has been slightly constipated, last BM was 2 days ago. Patient is requesting stool softeners if he will continue to receive narcotic pain medication. In regards to his mental health, patient states that he is doing fairly well. His medications are working for him including the risperidone and sertraline. Reports that he does have an appointment scheduled with a psychiatrist at the end of December, gets his psychiatric medications currently from his PCP. His daughter is present with him at bedside and supports the history. Principal Diagnosis Right Ankle Fracture Hyponatremia Discharge Exam Physical exam: General: No acute distress, alert awake oriented x3 HEENT: PERRLA, EOMI, Heart: Regular S1-S2, no carotid bruit, no JVD, no lower extremity edema Lungs: Clear to auscultate, no wheeze or rales Abdomen: Soft nontender, no organomegaly Extremity: Status post right ankle surgery, on cast and bandage Neuro: No focal neurological deficit normal speech, normal visual field, Motor strength : normal both upper and lower extremity, sensation intact Psych: Alert awake oriented x3, normal affect Discharge Data Allergies Allergy/AdvReac Type Severity Reaction Status Date / Time No Known Allergies Allergy Verified 09/18/20 13:14 Consultations 09/18/20 21:25 ED Decision to Admit Stat 09/19/20 01:59 Consult Case Management - Discharge Planning Routine Consult Orthopedic Surgery Routine 09/20/20 18:36 Consult Case Management - Discharge Planning Routine Procedures Performed Operation Date: 09/20/20 15:00 Actual Procedures p Right Bimalleolar Fracture Open Reduction Internal Fixation(Right) - Kameron Feliciano DO Ordered Studies 09/20/20 15:00 FL ankle RT min 3V RTN Routine FL fluoroscopy <1hr Routine 09/20/20 15:40 US - OR guided needle placemen Routine Diabetes Follow up Diabetes Follow-up Needed for HgbA1c >9% Hospital Course (1) Ankle pain: Bimalleolar right ankle fracture Patient fell and broke his right ankle in mid August 2020 Appreciate input from orthopedics. POD #1 s/p ORIF right bimalleolar ankle fx. Per orthopedics: NWB RLE at all times in splint. Keep splint in place at all times. ASA 81 mg BID x 4 wks post op for DVT prophylaxis. OK to D/C from ortho standpoint. F/U with Dr. Feliciano's clinic 2 weeks post op. Hyponatremia/psychogenic polydipsia. Patient reports of drinking constantly, as that he always feels thirsty Had significant hyponatremia on admission, Sodium level normalized after fluid restriction Stable to be discharged home today consult for limit fluid intake which includes all beverages including water or juice coffee for 2 L a day (2) Tachycardia: Heart rate improved Hypertension: Patient will be discharged on lisinopril 10 mg daily Not on any home meds, started on lisinopril 5 mg daily, dose increased to 10 mg daily as blood pressure remains uncontrolled/above goal (3) History of diabetes mellitus: Uncontrolled IDDM/due to noncompliance, psychiatric illness, schizophrenia HbA1C:11.0 On insulin sliding scale Glycemic Pharmacy Consulted appreciate input Lantus dose increased to 45 units at at bedtime, will need to follow-up with family physician , need referral to diabetic clinic (4) Hyponatremia: As discussed above (5) Hypokalemia: Corrected (6) Post traumatic stress disorder (PTSD): H/O PTSD Continue risperidone, sertraline, gabapentin Follows with psychiatry as outpatient (7) Depression: Continue home medications (8) GERD (gastroesophageal reflux disease): Continue PPI (9) Osteoarthritis: - Noted (10) Tobacco abuse: Counseled to quit smoking On nicotine patch (11) DVT prophylaxis: CODE STATUS: Full Code Disposition: stable to be discharged home today Total Time Total Time Spent Total Time Spent (In Minutes): approx 35 mins Total Time Includes: Discharge Planning and Medication Reconciliation Discharge Plan Discharge Items Patient Disposition: Home - Home Health Services Reason For Visit: HYPONATREMIA Discharge Diagnosis: Right Ankle Fracture Hyponatremia Activity: Per Instructions section Weightbearing: Right non-weightbearing Non-emergency contact: Surgeon Call non-emergency contact if: your pain is not controlled, your pain is worsening and your temperature is above 101 Follow-up/Referrals: Kameron Feliciano DO [Surgeon] - (Follow up in 2 weeks ) Bg Bergeron MD [Primary Care Provider] - 09/27/20 11:00 am (Date & Time 09/27/2020 11:00 AM Provider Bg Bergeron MD Department [facility] ) Diet: Regular Fluids: 2000ml (8 cups) Addtl Attending Provider Instructions: Please take all medications as instructed on discharge list below. It is recommended that you follow-up with your primary care physician within 1 week of hospital discharge to ensure you are still doing well. Please call if you have any questions or problems. You can reach a [facility] hospitalist on duty at [facility] 24 hours a day by calling [phone] New medication: Lisinopril 10 mg take 1 tablet daily for high blood pressure Your diabetes is not well controlled your Lantus dose increased to 45 units You will need to be followed up with your family physician and diabetic clinic for blood sugar management Addtl [employer] Provider Instructions: ACTIVITY RECOMMENDATIONS: Limitations: No weight bearing to affected limb at all times. SPECIAL CARE INSTRUCTIONS: * Some drainage onto the dressing is normal and is no cause for alarm. * Some swelling is natural especially after walking. * When resting, keep your foot elevated above the level of your heart. * Call [facility] if you notice: -Increased drainage -Fever over 101 degrees F -Severe constant pain BANDAGE: * Leave bandage/cast in place unless otherwise directed. * Keep bandage/cast dry at all times. FOLLOW UP VISIT WITH DR. FELICIANO If appointment is not already scheduled: Please call [facility] after you get home today to schedule a follow-up appointment for [address] Feliciano at . Pending Studies at Discharge: No Stand-Alone Forms: My [facility], Smoking Cessation Medications and DC Order Prescriptions: New aspirin 81 mg Tablet,Delayed Release (Dr/Ec) 81 mg PO BID 42 Days Qty: 84 RF: 0 oxycodone-acetaminophen [Percocet] 5-325 mg tablet 1 tab PO Q8H PRN (Reason: pain) Qty: 20 RF: 0 lisinopril 10 mg Tablet 10 mg PO QAM 30 Days Qty: 30 RF: 0 Continued fluticasone propion-salmeterol [Wixela Inhub] 250-50 mcg/dose blister with device 1 inh INHALATION BID RF: 0 atorvastatin 20 mg tablet 20 mg PO PM RF: 0 gabapentin 400 mg capsule 400 mg PO QID RF: 0 omeprazole 40 mg capsule,delayed release(DR/EC) 40 mg PO QAM RF: 0 tramadol 50 mg tablet 50 mg PO Q8H RF: 0 montelukast 10 mg tablet 10 mg PO PM RF: 0 albuterol sulfate 90 mcg/actuation HFA aerosol inhaler 2 puff INHALATION Q4H PRN (Reason: Wheezing) RF: 0 ondansetron 4 mg tablet,disintegrating 4 mg PO Q8H PRN (Reason: Nausea or Vomiting) RF: 0 metformin 500 mg tablet extended release 24 hr 500 mg PO BID RF: 0 sertraline 50 mg tablet 50 mg PO PM RF: 0 risperidone 1 mg tablet 2 mg PO PM RF: 0 naproxen 500 mg tablet 500 mg PO BID PRN (Reason: Pain) RF: 0 Ozempic 0.25 mg or 0.5 mg(2 mg/1.5 mL) pen injector 2.5 mg SUBCUT WK RF: 0 multivitamin Tablet 1 tab PO QAM RF: 0 fluticasone propionate 50 mcg/actuation spray,suspension 2 spray INTRANASAL DAILY PRN (Reason: Allergy Symptoms) RF: 0 creatine monohydrate 5,000 mg Powder In Packet 5,000 mg PO QAM RF: 0 Changed Lantus Solostar U-100 Insulin 100 unit/mL (3 mL) insulin pen 45 unit SUBCUT PM 30 Days Qty: 15 RF: 0 Discharge Orders: Discharge Order (Routine); Ordered 09/21/20 Ordered By: Ludmila Headley Admission Data Admit Date/Time: 09/18/20 23:04 Attending Provider: Ludmila Headley Admit Provider: James Garcia Primary Care Provider: Bg Bergeron Other Providers: Anthony Ewing ; James Garcia ; Carlos Smith ; Kameron Feliciano ; Hank Sanchez ; Latosha Thurston ; Douglas Tam ; Bebe Lee ; Marvin Chang ; Bg Messina ; Suresh Bernabe ; Bg Weaver ; Rashaun Santiago. ; Suresh Pollock ; Kristopher Newell ; Yandel Cadena ; Rancho Espinoza ; Jamal Grijalva ; Bebe Palafox ; Drew Monroe ; Gabe Grimm ; Zahra Blake ; Loy Galan ; Mercedes Hobson Other Interventions: Discharge Summary Assessment (RN) Last Done: 09/21/20 15:59
== END 2020-09-21 17:41 | disposition home or self-care (01) | DRG 493 ==
LOC: ED 18:30 → SUATTDRO 23:04 → 2N 23:04

== ENCOUNTER 2020-11-15 11:50 | Observation (INO) ==
[2020-11-15 12:46] LABS: Appearance Urine Clear (Clear); Basophils # (auto) 0.07 K/uL (0-0.2); Basophils % (auto) 0.7 %; Bilirubin Urine Negative (Negative); Blood Urine Negative (Negative); Color Urine Yellow; Eosinophils # (auto) 0.14 K/uL (0-0.5); Eosinophils % (auto) 1.5 %; Glucose Urine UA Negative (Negative); Hematocrit (blood only) 30.6 % (42-52); Hemoglobin 10.5 g/dL (14.0-18.0); Immature Granulocytes # (auto) 0.01 K/uL (0.00-0.02); Immature Granulocytes % (auto) 0.1 %; Ketones Urine Negative (Negative); Leukocyte Esterase Urine Negative (Negative); Lymphocytes # (auto) 2.17 K/uL (1.2-3.4); Lymphocytes % (auto) 23.1 %; Mean Corpuscular Hemoglobin 26.6 pg (25-34); Mean Corpuscular Hgb Conc 34.3 g/dL (32-36); Mean Corpuscular Volume 77.7 fL (80-100); Mean Platelet Volume 7.6 fL (7.4-10.4); Monocytes # (auto) 0.63 K/uL (0.11-0.59); Monocytes % (auto) 6.7 %; Neutrophils # (auto) 6.37 K/uL (1.4-6.5); Neutrophils % (auto) 67.9 %; Nitrite Urine Negative (Negative); Platelet Count 653 K/uL (130-400); Protein Urine Negative (Negative); RDW Standard Deviation 40.2 fL (36.4-46.3); Red Blood Count 3.94 M/uL (4.7-6.1); Urobilinogen Urine Negative (Negative); White Blood Count 9.39 K/uL (4.8-10.8)
[2020-11-15 13:03] LABS: BUN Creatinine Ratio 21.3 (10-20); Blood Urea Nitrogen 29 mg/dl (7-18); Calcium 10.7 mg/dl (8.5-10.1); Carbon Dioxide 28 mmol/L (21-32); Chloride 95 mmol/L (98-107); Est GFR (African American) 69.1; Est GFR (Non-African American) 59.6; Glucose 99 mg/dl (70-99); Potassium 2.8 mmol/L (3.5-5.1); Sodium 131 mmol/L (136-145)
--- NOTE | 2020-11-15 13:09 | CT Scan Report ---
CT SCAN OF THE ABDOMEN AND PELVIS WITHOUT CONTRAST CLINICAL HISTORY: urinary retention COMPARISON STUDY: No previous studies for comparison. TECHNIQUE: CT scan of the abdomen and pelvis was performed from the lung bases to the proximal femurs . Images are reviewed in the axial, sagittal, and coronal planes. IV contrast was not administered fo r this examination. A dose lowering technique was utilized adhering to the principles of ALARA. CT DOSE: 814.22 mGycm FINDINGS: Lower chest: There are mild basilar atelectatic changes. Liver: There is a 1 cm capsular lipoma at the level of the right hepatic dome. The liver is enlarged measuring 22.5 cm Gallbladder: Unremarkable. Spleen: Normal in size and attenuation. Pancreas: Unremarkable. Adrenal glands: There is minor low density adrenal gland thickening Kidneys: There is mild right-sided hydronephrosis and mild to moderate left-sided hydronephrosis. The re is bilateral hydroureter. No obstructing calculi are visualized. Bowel: There are no transition zones to indicate bowel obstruction. The appendix appears normal. Ther e is no acute diverticulitis. Peritoneum: There is no free air. There is mild presacral edema. There is no significant ascites. Vasculature: The abdominal aorta is normal in course and caliber. Adenopathy: None. Pelvic viscera: The bladder is decompressed secondary to a Bird catheter. Skeletal structures: No destructive osseous lesions are seen. IMPRESSION: 1. 1 cm capsular high pulmonary the level the right hepatic dome 2. Mild hepatomegaly 3. No evidence of bowel obstruction. No evidence of free air 4. Normal appendix. No evidence of acute diverticulitis 5. Bilateral hydronephrosis and hydroureter. No obstructing calculi identified 6. Indwelling Bird catheter 7. Mild nonspecific presacral edema ACT 112: Negative or not required by law. Electronically signed by: Ryan Mora M.D. 11/15/2020 1:08 PM
[2020-11-15 13:35] LABS: Magnesium 1.7 mg/dl (1.8-2.4)
[2020-11-15] MEDS ORDERED: MAGNESIUM SULFATE / D5W 1 GM/100 ML BAG IV STA (13:49)
[2020-11-15] MEDS ORDERED: POTASSIUM CHLORIDE 10 MEQ TABCR PO STA (13:49)
[2020-11-15] MEDS: POTASSIUM CHLORIDE / WTR 10 MEQ/100 ML PLCT IV SCH ×2 (13:58→15:15)
[2020-11-15 15:01] LABS: Influenza A virus by PCR Negative (Neg); Influenza B virus by PCR Negative (Neg); RSV by PCR Negative (Neg); SARS CoV2 RNA(COVID-19) InHosp NEGATIVE (Negative)
--- NOTE | 2020-11-15 15:18 | History & Physical Report ---
Date of Service November 15, 2020 Assessment & Plan (1) Acute urinary retention: This is a 52-year-old male who has significant past medical history of T2DM, diabetic neuropathy, tobacco abuse, asthma, schizophrenia, RLS who presents to ED secondary to inability to urinate x2 days. Pt with urinary retention of ~ 2L Tao cath placed, bladder drained unknown etiology, ? if 2/2 to narcotics, bed bound status admit to med tele continue tao cath UA unremarkable consult urology - DEMETRIA Hamilton made aware (2) JEANNA (acute kidney injury): likely obstructive in setting of urinary retention likely pre renal component as well in setting of poor po intake will do cautious IVF 125cc/hr x1 L + 20meq kcl given hx of hyponatremia repeat in a.m. 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 (6) Hypercalcemia: ca 10.7, obtain cmp for albumin pt admits to drink 1/2 gallon of milk daily, possible milk alkali pt also appears dry and mild JEANNA gentle IV hydration repeat in a.m. he is not taking any vit D or ca supplements, encouraged to reduce milk intake (7) Anemia: H&H stable at 10.5 and 30.6 No signs or symptoms of bleeding MCV low at 77.7, obtain iron panel in a.m. (8) Thrombocytosis: plt 653 pt is tobacco abuser, plt have been elevated since last admission recommend hematology eval as outpt (9) Sacral wound: mild breakdown to L sacral area consult wound care turn/reposition q2h (10) T2DM (type 2 diabetes mellitus): insulin dependent , uncontrolled last A1c 11.0 09/19/2020 Repeat in a.m. Lantus/NovoLog per protocol BSG 110 in ED Will do spot check at 0200 (11) Bimalleolar fracture of right ankle: s/p ORIF R bimalleolar ankle fracture 09/[address] Salomon continues to be NWB, to follow up with ortho 09/22 lovenox for dvt ppx pt states he has been bed bound and does not transfer overall feels very weak upper/lower ext consult PT/OT for eval and passive ROM (12) Tobacco abuse: nicotine patch encourage smoking cessation (13) Post traumatic stress disorder (PTSD): (14) Schizophrenia: mood stable continue zoloft and risperdal (15) DVT prophylaxis: SQ Lovenox Dispo: Med tele PCP: Elyssa Full Code Pt was seen and examined in collaboration with Dr. Ewing, please see addendum History of Present Illness Chief Complaint: Inability to urinate x 2 days. Primary Care Provider: Bg Bergeron MD This is a 52-year-old male who has significant past medical history of T2DM, diabetic neuropathy, tobacco abuse, asthma, schizophrenia, RLS who presents to ED secondary to inability to urinate x2 days. Of significance patient recently hospitalized 09/18/2020 to 09/21/2020 secondary to a fall that was sustained in late August. He suffered a bimalleolar ankle fracture which required ORIF by Dr. Salomon. He has been nonweightbearing since September and has been mostly bedrid den. He states he has not worked with any PT or OT for even transfers. He recently got off his cast and states he is hopefully going to be able to put weight on the right lower extremity in 2 weeks. He also states he needs his left ACL repaired. He follows up with orthopedics on November 22. He has been following closely outpatient with PCP. He notes over the past 2 days he has been unable to urinate. He was incontinent overnight, but unable to initiate stream. He denied any suprapubic abdominal pain, but did complain of fullness. He admits to decreased oral intake over the past day and a half due to feeling, "full." He denies any other recent illness, fever, chills, sweats, lightheadedness, dizziness, chest pain, shortness of breath, nausea, vomiting, abdominal pain. He has been moving his bowels regularly, last BM was yesterday and was normal. He denies any melena or hematochezia. He has been taking tramadol 4 times a day to control his right lower extremity pain. He denies feeling of constipation. Of significance he does have a chronic cough secondary to smoking and currently he is down to 3 to 4 cigarettes a day but does chew 2 cans of smokeless tobacco daily. He denies any illicit drug use. He denies any difficulty with urinary retention or diagnosis of BPH in the past. Also of note during recent hospitalization patient was diagnosed with hyponatremia with a s chet sodium as low as 121. 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 He has not been monitoring his fluid intake at home and states he has been drinking half a gallon of milk every day. In ED patient remained hemodynamically stable although he was mildly hypertensive. He was found to have 2 L of urine in bladder and therefore a Tao catheter was placed. Lab work notable for electrolyte abnormalities including hypokalemia, hypomagnesemia, hypochloremia and hypercalcemia. His CBC was stable with an H&H of 10.5 and 30.6 and thrombocytosis of 653. His urinalysis was otherwise benign. CT a/p: 1 cm capsular high pulmonary the level the right hepatic dome, 2. Mild hepatomegaly 3. No evidence of bowel obstruction. No evidence of free air 4. Nor mal appendix. No evidence of acute diverticulitis 5. Bilateral hydronephrosis and hydroureter. No obstructing calculi identified. He did receive 10 meq KCL x 2 in ED along with 1g IV magnesium. Allergies Allergy/AdvReac Type Severity Reaction Status Date / Time No Known Allergies Allergy Verified 09/18/20 13:14 Home Medications Medication Instructions Recorded Confirmed Type Ozempic 2.5 mg SUBCUT WK 09/02/20 11/15/20 History albuterol sulfate 2 puff INHALATION Q4H PRN 09/02/20 11/15/20 History atorvastatin 20 mg PO PM 09/02/20 11/15/20 History fluticasone propion-salmeterol 1 inh INHALATION BID 09/02/20 11/15/20 History [Wixela Inhub] gabapentin 800 mg PO TID 09/02/20 11/15/20 History metformin 1,500 mg PO DAILY 09/02/20 11/15/20 History montelukast 10 mg PO PM 09/02/20 11/15/20 History multivitamin 1 tab PO QAM 09/02/20 11/15/20 History naproxen 500 mg PO BID PRN 09/02/20 11/15/20 History omeprazole 40 mg PO QAM 09/02/20 11/15/20 History ondansetron 4 mg PO Q8H PRN 09/02/20 11/15/20 History risperidone 2 mg PO PM 09/02/20 11/15/20 History sertraline 50 mg PO PM 09/02/20 11/15/20 History tramadol 50 mg PO QID 09/02/20 11/15/20 History fluticasone propionate 2 spray INTRANASAL DAILY PRN 09/10/20 11/15/20 History Lantus Solostar U-100 Insulin 45 unit SUBCUT PM 30 Days #15 ml 09/21/20 11/15/20 Rx lisinopril 10 mg PO DAILY 11/15/20 11/15/20 History Past Med/Surg History Medical History Asthma uses res inh daily > not well controlled Cardiac murmur dx > 20 yrs ago Chronic hyponatremia Depression GERD (gastroesophageal reflux disease) History of diabetes mellitus IDDM Nausea unknown cause/ has not had testing done> Zofran Osteoarthritis Post traumatic stress disorder (PTSD) Schizophrenia T2DM (type 2 diabetes mellitus) Tachycardia just with cafeine per pt Surgical History Bimalleolar fracture of right ankle s/p ORIF History of tooth extraction Family History Mother Diabetes Social History Smoking Status: Light tobacco smoker Years Smoked: 40; Cigarettes Per Day: 5; Second Hand Exposure: Yes; Do You Dip or Chew Tobacco: Yes; Tobacco Cessation Education Requested by Patient: Yes Hx Alcohol Use: No Hx Substance Use: No Preferred Language: Tristanian Communication Ability: Effective [employer] Work[employer] Required: Yes Beliefs That Will Affect Care: None Current Living Situation: Family Current Living Situation Comment: mother Other Information That Helps Us Care for You: No Feels Safe at Home: Yes Safety Concerns: Feels Safe At This Time Assistive Devices: Glasses Review of Systems Review of Systems: All systems reviewed & are unremarkable except as noted in HPI & below Physical Exam Physical Exam: Constitutional: WD/WN, male, vitals as above, NAD, sitting up in bed, pleasant, conversing easily Head: Normocephalic, Atraumatic Eyes: PERRL, conjunctivae normal, anicteric sclerae ENMT: external ear and nose normal, oropharynx normal Neck: trachea midline, no thyromegaly normal visual inspection Respiratory: normal respiratory effort, lungs clear to auscultation, no wheeze, rales, rhonchi. Normal insp/exp effort, no accessory muscle use Cardiovascular: Tachycardic rate, regular rhythm, no murmur, no edema Vessels: no JVD or carotid bruit Chest: normal inspection of chest Abdomen: normal bowel sounds, soft, nontender, no hepatosplenomegaly Musculoskeletal: no cyanosis or clubbing, AROM x 3, not performed with RLE in setting of fx, NVI distally b/l lower ext Skin: no rashes, warm and dry moderate turgor Neurologic: PERRL, EOMI, accommodation nl, no face palsy, no dysarthria CN's II-XI intact bilaterally and moves all extremities Psychiatric: A+Ox3, euthymic affect Lymphatic: no cervical or axillary lymphadenopathy : tao cath in place with yellow urine, mild circular skin breakdown/erythema L buttock Results & Data Results & Data ([facility]) Vital Signs (Past 12 Hours) Vital Signs Temp Pulse Pulse Resp BP BP Pulse Ox 11/15/20 14:07 97 H 20 171/88 H 97 11/15/20 11:54 36.5 C 93 H 18 163/90 H 99 Diagnostic Findings Abdomen/Pelvis CT 11/15/20 12:24 CT SCAN OF THE ABDOMEN AND PELVIS WITHOUT CONTRAST CLINICAL HISTORY: urinary retention COMPARISON STUDY: No previous studies for comparison. TECHNIQUE: CT scan of the abdomen and pelvis was performed from the lung bases to the proximal femurs. Images are reviewed in the axial, sagittal, and coronal planes. IV contrast was not administered for this examination. A dose lowering technique was utilized adhering to the principles of ALARA. CT DOSE: 814.22 mGycm FINDINGS: Lower chest: There are mild basilar atelectatic changes. Liver: There is a 1 cm capsular lipoma at the level of the right hepatic dome. The liver is enlarged measuring 22.5 cm Gallbladder: Unremarkable. Spleen: Normal in size and attenuation. Pancreas: Unremarkable. Adrenal glands: There is minor low density adrenal gland thickening Kidneys: There is mild right-sided hydronephrosis and mild to moderate left- sided hydronephrosis. There is bilateral hydroureter. No obstructing calculi are visualized. Bowel: There are no transition zones to indicate bowel obstruction. The appendix appears normal. There is no acute diverticulitis. Peritoneum: There is no free air. There is mild presacral edema. There is no significant ascites. Vasculature: The abdominal aorta is normal in course and caliber. Adenopathy: None. Pelvic viscera: The bladder is decompressed secondary to a Tao catheter. Skeletal structures: No destructive osseous lesions are seen. IMPRESSION: 1. 1 cm capsular high pulmonary the level the right hepatic dome 2. Mild hepatomegaly 3. No evidence of bowel obstruction. No evidence of free air 4. Normal appendix. No evidence of acute diverticulitis 5. Bilateral hydronephrosis and hydroureter. No obstructing calculi identified 6. Indwelling Tao catheter 7. Mild nonspecific presacral edema ACT 112: Negative or not required by law. Electronically signed by: Ryan Mora M.D. 11/15/2020 1:08 PM Medications Administered Potassium Chloride (K Hero / Wtr) 10 meq in 100 mls @ 100 mls/hr IV Q1H ALVARO Stop: 11/15/20 15:59 Last Admin: 11/15/20 15:15 Dose: 100 mls/hr Documented by: [id number] Infusion: 11/15/20 14:58 Dose: 100 mls/hr Documented by: [id number] Admin: 11/15/20 13:58 Dose: 100 mls/hr Documented by: [id number] Discontinued Medications Magnesium Sulfate/Dextrose (Magnesium Sulfate / D5w) 1 gm in 100 mls @ 100 mls/hr IV NOW STA Stop: 11/15/20 14:48 Last Infusion: 11/15/20 15:15 Dose: 0 mls/hr Documented by: [id number] Admin: 11/15/20 13:58 Dose: 100 mls/hr Documented by: [id number] Potassium Chloride (Potassium Chloride 10 Meq Tabcr) 40 meq PO NOW STA Stop: 11/15/20 13:50 Last Admin: 11/15/20 13:57 Dose: 40 meq Documented by: [id number] COVID-19 Results Results COVID-19 Adm Lab Results: RBC 3.94 M/uL (4.7-6.1) L 11/15/20 WBC 9.39 K/uL (4.8-10.8) 11/15/20 Hgb 10.5 g/dL (14.0-18.0) L 11/15/20 Hct 30.6 % (42-52) L 11/15/20 Plt Count 653 K/uL (130-400) H 11/15/20 Neutrophils (%) (Auto) 67.9 % 11/15/20 Lymphocytes (%) (Auto) 23.1 % 11/15/20 Monocytes # (Auto) 0.63 K/uL (0.11-0.59) H 11/15/20 Eosinophils # (Auto) 0.14 K/uL (0-0.5) 11/15/20 Immature Granulocyte % (Auto) 0.1 % 11/15/20 Neutrophils # (Auto) 6.37 K/uL (1.4-6.5) 11/15/20 Lymphocytes # (Auto) 2.17 K/uL (1.2-3.4) 11/15/20 Monocytes # (Auto) 0.63 K/uL (0.11-0.59) H 11/15/20 Eosinophils # (Auto) 0.14 K/uL (0-0.5) 11/15/20 Basophils # (Auto) 0.07 K/uL (0-0.2) 11/15/20 Immature Granulocyte # (Auto) 0.01 K/uL (0.00-0.02) 11/15/20 Na 132 mmol/L (136-145) L 11/15/20 K 3.0 mmol/L (3.5-5.1) L 11/15/20 Cl 97 mmol/L (98-107) L 11/15/20 CO2 28 mmol/L (21-32) 11/15/20 Anion Gap 7.0 (3-11) 11/15/20 BUN 27 mg/dl (7-18) H 11/15/20 Creatinine 1.29 mg/dl (0.6-1.4) 11/15/20 BUN/Creatinine Ratio 20.9 (10-20) H 11/15/20 Glucose Level 74 mg/dl (70-99) 11/15/20 Ca 10.7 mg/dl (8.5-10.1) H 11/15/20 Total Bilirubin 0.5 mg/dl (0.2-1) 11/15/20 AST/SGOT 10 U/L (15-37) L 11/15/20 ALT/SGPT 20 U/L (12-78) 11/15/20 Alkaline Phosphatase 65 U/L (45-117) 11/15/20 Total Protein 7.0 gm/dl (6.4-8.2) 11/15/20 Albumin 3.2 gm/dl (3.4-5.0) L 11/15/20 Globulin 3.8 gm/dl (2.5-4.0) 11/15/20 Albumin/Globulin Ratio 0.8 (0.9-2) L 11/15/20 COVID-19 PCR NEGATIVE (Negative) 11/15/20 Influenza Virus Type A (PCR) Negative (Neg) 11/15/20 Influenza Virus Type B (PCR) Negative (Neg) 11/15/20 Code Status & VTE Plan Code Status Full Code VTE Prophylaxis Plan VTE Prophylaxis will be ordered: Yes Supervising Physician Co-Signing Physician Notes Patient is a 52-year-old male with history of diabetes mellitus, tobacco use disorder, asthma, schizophrenia and other medical problems presents with history of inability to urinate for 2 days duration. Patient had right ankle fracture requiring ORIF and was hospitalized in September and was advised nonweightbearing until follow-up. Patient denies any recent change in his home medications. He states having incontinence overnight and was unable to initiate urination. He denies any chest pain, shortness of breath, fever, chills, abdominal pain. He was noted to have hyponatremia 131, hypokalemia 2.8, thrombocytosis 6 53,000, hypomagnesemia 1.7. Tao catheter was placed in ED and about 2 L of urine was ordered. Please review HPI for complete details of presentation. CT abdomen showed bilateral hydronephrosis and hydroureter but no obstructing calculi, mass noted. Mild nonspecific presacral edema noted. On exam patient is moderately built and nourished, no apparent distress, normocephalic atraumatic, lungs are clear to auscultation, S1-S2, no murmur, no pedal edema, right ankle surgical site healing wound, alert, awake, oriented, grossly no focal deficits. Patient is admitted for management of acute urinary retention, obstructive uropathy. Continue Tao catheter. Will consult urology. Consider adding Flomax. Will give gentle IV fluids given JEANNA, hyponatremia. Will replace potassium and magnesium. Monitor electrolytes. Mild hypercalcemia also noted. Monitor calcium levels. Consider hypercalcemia treatment if persistent hypercalcemia noted. Will obtain albumin level. I personally reviewed the record. Patient is interviewed and examined at bedside. Patient's care is coordinated with Leyda Rowan PA-C. Please refer to the documentation above for details of patient's presentation and for discussion of other issues.
[2020-11-15] MEDS ORDERED: ALBUTEROL HFA 8 GM INHALER INH PRN (16:04)
[2020-11-15] MEDS ORDERED: ACETAMINOPHEN 325 MG TAB PO PRN (16:04)
[2020-11-15] MEDS ORDERED: ALUMINUM/MAGNESIUM SUSP 30 ML UDC PO PRN (16:04)
[2020-11-15] MEDS ORDERED: DEXTROSE 50% 50 ML SYRINGE IV PRN (16:04)
[2020-11-15] MEDS ORDERED: POLYETHYLENE (MIRALAX) 17 GM PACK PO PRN (16:04)
[2020-11-15] MEDS ORDERED: GLUCOSE 10 TABS/TUBE PO PRN (16:04)
[2020-11-15] MEDS ORDERED: CARBOHYDRATES FOR HYPOGLYCEMIA PO PRN (16:04)
[2020-11-15] MEDS ORDERED: GLUCOSE 40% GEL 15 GM TUBE PO PRN (16:04)
[2020-11-15] MEDS ORDERED: GLUCAGON FOR INJ 1 MG VIAL SQ PRN (16:04)
[2020-11-15] MEDS ORDERED: MAGNESIUM HYDROXIDE SUSP 30 ML UDC PO PRN (16:04)
[2020-11-15] MEDS ORDERED: ONDANSETRON INJ 2 MG/ML 2 ML VIAL IV PRN (16:04)
[2020-11-15] MEDS ORDERED: FLUTICASONE PROPIONATE NA SPR 16 GM BTL PRN (16:04)
[2020-11-15 16:08] LABS: Alanine Aminotransferase 20 U/L (12-78); Albumin Globulin Ratio 0.8 (0.9-2); Albumin Level 3.2 gm/dl (3.4-5.0); Alkaline Phosphatase 65 U/L (45-117); BUN Creatinine Ratio 20.9 (10-20); Bilirubin,Total 0.5 mg/dl (0.2-1); Blood Urea Nitrogen 27 mg/dl (7-18); Calcium 10.7 mg/dl (8.5-10.1); Carbon Dioxide 28 mmol/L (21-32); Chloride 97 mmol/L (98-107); Est GFR (African American) 72.4 ml/min; Est GFR (Non-African American) 62.4 ml/min; Globulin 3.8 gm/dl (2.5-4.0); Glucose 74 mg/dl (70-99); Sodium 132 mmol/L (136-145)
[2020-11-15] MEDS ORDERED: PROMETHAZINE HCL 6.25 MG in SODIUM CHLORIDE 0.9% 50 ML IV PRN (16:30)
[2020-11-15] MEDS ORDERED: NSS + 20MEQ KCL 20 MEQ/1,000 ML BAG IV SCH (16:45)
[2020-11-15] MEDS: INSULIN ASPART 100 UNITS/ML 3 ML PEN SC SCH ×2 (17:56→20:17)
[2020-11-15] MEDS: lisinopril 10 MG TAB PO SCH (17:57)
[2020-11-15] MEDS: NICOTINE 21 MG/24 HR TDSY TD SCH (17:57)
[2020-11-15] MEDS: GABAPENTIN 800 MG TAB PO SCH (17:58)
[2020-11-15] MEDS: traMADol HCL 50 MG TABLET PO SCH ×2 (17:58→20:27)
--- NOTE | 2020-11-15 18:10 | Emergency Department Note ---
History of Present Illness General Chief complaint: Urinary Symptoms Stated complaint: PROBLEMS URINATING Time Seen by Provider: 11/15/20 11:58 History of Present Illness Provider complaint: Inability to urinate Onset (ago): day(s) 4 Current Pain Intensity: 0 Associated symptoms: no chest pain, no cough, no fever/chills, no headaches, no nausea/vomiting, no rash, no shortness of breath, no syncope and no weakness 55-year-old male presents emergency department for inability urinate. Patient states he has not been able to urinate since Friday. He reports no pain. He reports no back pain. No abdominal pain. No nausea or vomiting. Patient states he has no chest pain or difficulty breathing. Patient states he has been taking the medications that been prescribed home and states he has not been up and walking because of a recent procedure on his ankle. Home Medications Medication Instructions Recorded Confirmed Type Ozempic 2.5 mg SUBCUT WK 09/02/20 11/15/20 History albuterol sulfate 2 puff INHALATION Q4H PRN 09/02/20 11/15/20 History atorvastatin 20 mg PO PM 09/02/20 11/15/20 History fluticasone propion-salmeterol 1 inh INHALATION BID 09/02/20 11/15/20 History [Wixela Inhub] gabapentin 800 mg PO TID 09/02/20 11/15/20 History metformin 1,500 mg PO DAILY 09/02/20 11/15/20 History montelukast 10 mg PO PM 09/02/20 11/15/20 History multivitamin 1 tab PO QAM 09/02/20 11/15/20 History naproxen 500 mg PO BID PRN 09/02/20 11/15/20 History omeprazole 40 mg PO QAM 09/02/20 11/15/20 History ondansetron 4 mg PO Q8H PRN 09/02/20 11/15/20 History risperidone 2 mg PO PM 09/02/20 11/15/20 History sertraline 50 mg PO PM 09/02/20 11/15/20 History tramadol 50 mg PO QID 09/02/20 11/15/20 History fluticasone propionate 2 spray INTRANASAL DAILY PRN 09/10/20 11/15/20 History Lantus Solostar U-100 Insulin 45 unit SUBCUT PM 30 Days #15 ml 09/21/20 11/15/20 Rx lisinopril 10 mg PO DAILY 11/15/20 11/15/20 History Allergies Allergy/AdvReac Type Severity Reaction Status Date / Time No Known Allergies Allergy Verified 09/18/20 13:14 Past Med/Surg History Medical History Asthma uses res inh daily > not well controlled Cardiac murmur dx > 20 yrs ago Chronic hyponatremia Depression GERD (gastroesophageal reflux disease) History of diabetes mellitus IDDM Nausea unknown cause/ has not had testing done> Zofran Osteoarthritis Post traumatic stress disorder (PTSD) Schizophrenia T2DM (type 2 diabetes mellitus) Tachycardia just with cafeine per pt Surgical History Bimalleolar fracture of right ankle s/p ORIF History of tooth extraction Family History Mother Diabetes Social History Smoking Status: Light tobacco smoker Years Smoked: 40; Cigarettes Per Day: 5; Second Hand Exposure: Yes; Do You Dip or Chew Tobacco: Yes; Tobacco Cessation Education Requested by Patient: Yes Hx Alcohol Use: No Hx Substance Use: No Preferred Language: Kyrgyz Communication Ability: Effective Animal Nutrition Teacher Required: Yes Beliefs That Will Affect Care: None Current Living Situation: Family Current Living Situation Comment: mother Other Information That Helps Us Care for You: No Feels Safe at Home: Yes Safety Concerns: Feels Safe At This Time Assistive Devices: Glasses Review of Systems A total of 10 systems reviewed and were otherwise negative Physical Exam Vital Signs Vital Signs - 24 hr 11/15/20 11:54 11/15/20 14:07 Temperature 36.5 C Temperature Source Temporal Artery Scan Pulse Rate 93 H Pulse Rate [Right Finger] 97 H Pulse Rhythm [Right Finger] Regular Pulse Strength [Right Finger] Normal Respiratory Rate 18 20 Respiratory Effort / Characteristics Non-Labored Non-Labored Spontaneous Respiratory Depth Normal Normal Respiratory Pattern Regular Blood Pressure 163/90 H Blood Pressure [Left Arm] 171/88 H Blood Pressure Mean 114 Blood Pressure Mean [Left Arm] 115 Blood Pressure Position [Left Arm] Sitting Pulse Oximetry 99 97 Oxygen Delivery Method Room Air Room Air Sepsis Recent Fever Within 48 Hours No Sepsis New/Unexplained Change in Mental Status No Sepsis Action Taken by Nursing No Action Required Physical Exam GENERAL: He is oriented to person, place, and time. He appears well-developed and well-nourished. He does not appear distressed. HENT: Exam performed. - Head: Normocephalic and atraumatic. - Right Ear: External ear normal. No mastoid tenderness. - Left Ear: External ear normal. No mastoid tenderness. - Mouth/Throat: The oropharynx is clear and moist. No trismus in the jaw. No dental abscesses or uvula swelling. No oropharyngeal exudate or tonsillar abscesses. EYES: Conjunctivae and EOM are normal. Pupils are equal, round, and reactive to light. Right eye exhibits no discharge. Left eye exhibits no discharge. No scleral icterus. NECK: Normal range of motion. Neck supple. No JVD present. No spinous process tenderness present. No carotid bruit present. No rigidity. No tracheal deviation and normal range of motion present. No Brudzinski's sign and no Kernig's sign noted. CV: Normal rate, regular rhythm, normal heart sounds and intact distal pulses. There is no peripheral edema. Palpable radial pulses bue. PULM/CHEST: Effort normal and breath sounds normal. No respiratory distress. No stridor. He has no wheezes. He has no rales. - Chest Wall: He exhibits no tenderness. ABD: The abdomen is soft. Bowel sounds are normal. He has no distension. No mass is present. There is no tenderness. There is no rebound, no guarding, no Rdz's sign and no tenderness at McBurney's point. Rovsig negative. NEURO: Motor and sensation grossly intact. PSYCH: He has a normal mood and affect. Behavior is normal. Judgment and thought content normal. Course Course 1158: The patient was evaluated in room C9. A complete history and physical exam was performed Cardiac monitoring: An order was placed for continuous cardiac monitoring. The monitor shows a rate of 90 with sinus rhythm EMR reviewed. 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 1350: Vital signs stable. Patient had a Bird catheter placed which relieved 2 L of fluid from his bladder. Patient states he feels better after the Bird catheter was placed. Imaging shows hydroureteronephrosis but no obstructing stone. Electrolytes show a potassium of 2.8 and magnesium 1.7. Magnesium potassium placed in the emergency department. Patient will be admitted to the hospitalist service. Is thought that his urinary tension could be due to the outpatient tramadol that he has been taken. Patient will be admitted to the [facility] hospitalist team Dr. Linton service. Administered Medications Gabapentin (Gabapentin 800 Mg Tab) 800 mg PO TID ALVARO Stop: 12/15/20 20:59 Last Admin: 11/15/20 17:58 Dose: 800 mg Documented by: [id number] Potassium Chloride/Sodium Chloride (Normal Saline W/20 Meq Kcl) 20 meq in 1,000 mls @ 125 mls/hr IV .Q8H ALVARO Stop: 11/16/20 00:44 Last Admin: 11/15/20 17:56 Dose: 125 mls/hr Documented by: [id number] Insulin Aspart (Insulin Aspart 100 Units/Ml 3 Ml Pen) 0 units SC ACHS ALVARO Stop: 12/15/20 16:59 Last Admin: 11/15/20 17:56 Dose: Not Given Documented by: [id number] Lisinopril (Lisinopril 10 Mg Tab) 10 mg PO DAILY ALVARO Stop: 12/15/20 16:59 Last Admin: 11/15/20 17:57 Dose: 10 mg Documented by: [id number] Nicotine (Nicotine 21 Mg/24 Hr Tdsy) 21 mg TD QAM ALVARO Stop: 12/15/20 16:59 Last Admin: 11/15/20 17:57 Dose: 21 mg Documented by: [id number] Tramadol HCl (Tramadol Hcl 50 Mg Tablet) 50 mg PO QID ALVARO Stop: 12/15/20 16:59 Last Admin: 11/15/20 17:58 Dose: 50 mg Documented by: [id number] Discontinued Medications Magnesium Sulfate/Dextrose (Magnesium Sulfate / D5w) 1 gm in 100 mls @ 100 mls/hr IV NOW STA Stop: 11/15/20 14:48 Last Infusion: 11/15/20 15:15 Dose: 0 mls/hr Documented by: [id number] Admin: 11/15/20 13:58 Dose: 100 mls/hr Documented by: [id number] Potassium Chloride (K Hero / Wtr) 10 meq in 100 mls @ 100 mls/hr IV Q1H ALVARO Stop: 11/15/20 15:59 Last Infusion: 11/15/20 17:15 Dose: 0 mls/hr Documented by: [id number] Admin: 11/15/20 15:15 Dose: 100 mls/hr Documented by: [id number] Infusion: 11/15/20 14:58 Dose: 100 mls/hr Documented by: [id number] Admin: 11/15/20 13:58 Dose: 100 mls/hr Documented by: [id number] Potassium Chloride (Potassium Chloride 10 Meq Tabcr) 40 meq PO NOW STA Stop: 11/15/20 13:50 Last Admin: 11/15/20 13:57 Dose: 40 meq Documented by: [id number] Medical Decision Making Laboratory Data Result diagrams: 11/15/20 12:35 11/15/20 16:27 Lab Results 11/15/20 11/15/20 11/15/20 Range/Units 11:59 11:59 12:31 WBC (4.8-10.8) K/uL RBC (4.7-6.1) M/uL Hgb (14.0-18.0) g/dL Hct (42-52) % MCV (80-100) fL MCH (25-34) pg MCHC (32-36) g/dL RDW Std Deviation (36.4-46.3) fL RDW Coeff of Georgina (11.5-14.5) % Plt Count (130-400) K/uL MPV (7.4-10.4) fL Immature Gran % (Auto) % Neut % (Auto) % Lymph % (Auto) % [place] % (Auto) % Eos % (Auto) % Baso % (Auto) % Neut # (Auto) (1.4-6.5) K/uL Lymph # (Auto) (1.2-3.4) K/uL [place] # (Auto) (0.11-0.59) K/uL Eos # (Auto) (0-0.5) K/uL Baso # (Auto) (0-0.2) K/uL Immature Gran # (Auto) (0.00-0.02) K/uL Sodium 131 L (136-145) mmol/L Potassium 2.8 L (3.5-5.1) mmol/L Chloride 95 L (98-107) mmol/L Carbon Dioxide 28 (21-32) mmol/L Anion Gap 8.0 (3-11) BUN 29 H (7-18) mg/dl Creatinine 1.34 (0.6-1.4) mg/dl Est Cr Clr Drug Dosing Not Reportable Est GFR ( Amer) 69.1 Est GFR (Non-Af Amer) 59.6 BUN/Creatinine Ratio 21.3 H (10-20) Glucose 99 (70-99) mg/dl POC Glucose 110 H (70-99) mg/dl Calcium 10.7 H (8.5-10.1) mg/dl Magnesium 1.7 L (1.8-2.4) mg/dl Lipase 119 (73-393) U/L Urine Color Urine Appearance (Clear) Urine pH (4.5-7.5) Ur Specific Cowan (1.000-1.030) Urine Protein (Negative) Urine Glucose (UA) (Negative) Urine Ketones (Negative) Urine Blood (Negative) Urine Nitrite (Negative) Urine Bilirubin (Negative) Urine Urobilinogen (Negative) Ur Leukocyte Esterase (Negative) Urine Osmolality (500-800) mOsm/kg Ethyl Alcohol mg/dL (0-3) mg/dl COVID-19 Eval Order SARS-CoV-2 (PCR) (Negative) Influenza Type A (PCR) (Neg) Influenza Type B (PCR) (Neg) RSV (RT-PCR) (Neg) 11/15/20 11/15/20 11/15/20 Range/Units 12:35 12:35 12:35 WBC 9.39 (4.8-10.8) K/uL RBC 3.94 L (4.7-6.1) M/uL Hgb 10.5 L (14.0-18.0) g/dL Hct 30.6 L (42-52) % MCV 77.7 L (80-100) fL MCH 26.6 (25-34) pg MCHC 34.3 (32-36) g/dL RDW Std Deviation 40.2 (36.4-46.3) fL RDW Coeff of Georgina 14.0 (11.5-14.5) % Plt Count 653 H (130-400) K/uL MPV 7.6 (7.4-10.4) fL Immature Gran % (Auto) 0.1 % Neut % (Auto) 67.9 % Lymph % (Auto) 23.1 % [place] % (Auto) 6.7 % Eos % (Auto) 1.5 % Baso % (Auto) 0.7 % Neut # (Auto) 6.37 (1.4-6.5) K/uL Lymph # (Auto) 2.17 (1.2-3.4) K/uL [place] # (Auto) 0.63 H (0.11-0.59) K/uL Eos # (Auto) 0.14 (0-0.5) K/uL Baso # (Auto) 0.07 (0-0.2) K/uL Immature Gran # (Auto) 0.01 (0.00-0.02) K/uL Sodium (136-145) mmol/L Potassium (3.5-5.1) mmol/L Chloride (98-107) mmol/L Carbon Dioxide (21-32) mmol/L Anion Gap (3-11) BUN (7-18) mg/dl Creatinine (0.6-1.4) mg/dl Est Cr Clr Drug Dosing Est GFR ( Amer) Est GFR (Non-Af Amer) BUN/Creatinine Ratio (10-20) Glucose (70-99) mg/dl POC Glucose (70-99) mg/dl Calcium (8.5-10.1) mg/dl Magnesium (1.8-2.4) mg/dl Lipase (73-393) U/L Urine Color Yellow Urine Appearance Clear (Clear) Urine pH 6.0 (4.5-7.5) Ur Specific Cowan 1.010 (1.000-1.030) Urine Protein Negative (Negative) Urine Glucose (UA) Negative (Negative) Urine Ketones Negative (Negative) Urine Blood Negative (Negative) Urine Nitrite Negative (Negative) Urine Bilirubin Negative (Negative) Urine Urobilinogen Negative (Negative) Ur Leukocyte Esterase Negative (Negative) Urine Osmolality 214 L (500-800) mOsm/kg Ethyl Alcohol mg/dL (0-3) mg/dl COVID-19 Eval Order SARS-CoV-2 (PCR) (Negative) Influenza Type A (PCR) (Neg) Influenza Type B (PCR) (Neg) RSV (RT-PCR) (Neg) 11/15/20 11/15/20 11/15/20 Range/Units 13:30 14:10 14:10 WBC (4.8-10.8) K/uL RBC (4.7-6.1) M/uL Hgb (14.0-18.0) g/dL Hct (42-52) % MCV (80-100) fL MCH (25-34) pg MCHC (32-36) g/dL RDW Std Deviation (36.4-46.3) fL RDW Coeff of Georgina (11.5-14.5) % Plt Count (130-400) K/uL MPV (7.4-10.4) fL Immature Gran % (Auto) % Neut % (Auto) % Lymph % (Auto) % [place] % (Auto) % Eos % (Auto) % Baso % (Auto) % Neut # (Auto) (1.4-6.5) K/uL Lymph # (Auto) (1.2-3.4) K/uL [place] # (Auto) (0.11-0.59) K/uL Eos # (Auto) (0-0.5) K/uL Baso # (Auto) (0-0.2) K/uL Immature Gran # (Auto) (0.00-0.02) K/uL Sodium (136-145) mmol/L Potassium (3.5-5.1) mmol/L Chloride (98-107) mmol/L Carbon Dioxide (21-32) mmol/L Anion Gap (3-11) BUN (7-18) mg/dl Creatinine (0.6-1.4) mg/dl Est Cr Clr Drug Dosing Est GFR ( Amer) Est GFR (Non-Af Amer) BUN/Creatinine Ratio (10-20) Glucose (70-99) mg/dl POC Glucose (70-99) mg/dl Calcium (8.5-10.1) mg/dl Magnesium (1.8-2.4) mg/dl Lipase (73-393) U/L Urine Color Urine Appearance (Clear) Urine pH (4.5-7.5) Ur Specific Cowan (1.000-1.030) Urine Protein (Negative) Urine Glucose (UA) (Negative) Urine Ketones (Negative) Urine Blood (Negative) Urine Nitrite (Negative) Urine Bilirubin (Negative) Urine Urobilinogen (Negative) Ur Leukocyte Esterase (Negative) Urine Osmolality (500-800) mOsm/kg Ethyl Alcohol mg/dL < 3.0 (0-3) mg/dl COVID-19 Eval Order [facility]FluRsv at [facility] SARS-CoV-2 (PCR) NEGATIVE (Negative) Influenza Type A (PCR) Negative (Neg) Influenza Type B (PCR) Negative (Neg) RSV (RT-PCR) Negative (Neg) Imaging Data Radiologist's Impression: Abdomen/Pelvis CT 11/15/20 12:24 CT SCAN OF THE ABDOMEN AND PELVIS WITHOUT CONTRAST CLINICAL HISTORY: urinary retention COMPARISON STUDY: No previous studies for comparison. TECHNIQUE: CT scan of the abdomen and pelvis was performed from the lung bases to the proximal femurs. Images are reviewed in the axial, sagittal, and coronal planes. IV contrast was not administered for this examination. A dose lowering technique was utilized adhering to the principles of ALARA. CT DOSE: 814.22 mGycm FINDINGS: Lower chest: There are mild basilar atelectatic changes. Liver: There is a 1 cm capsular lipoma at the level of the right hepatic dome. The liver is enlarged measuring 22.5 cm Gallbladder: Unremarkable. Spleen: Normal in size and attenuation. Pancreas: Unremarkable. Adrenal glands: There is minor low density adrenal gland thickening Kidneys: There is mild right-sided hydronephrosis and mild to moderate left- sided hydronephrosis. There is bilateral hydroureter. No obstructing calculi are visualized. Bowel: There are no transition zones to indicate bowel obstruction. The appendix appears normal. There is no acute diverticulitis. Peritoneum: There is no free air. There is mild presacral edema. There is no significant ascites. Vasculature: The abdominal aorta is normal in course and caliber. Adenopathy: None. Pelvic viscera: The bladder is decompressed secondary to a Bird catheter. Skeletal structures: No destructive osseous lesions are seen. IMPRESSION: 1. 1 cm capsular high pulmonary the level the right hepatic dome 2. Mild hepatomegaly 3. No evidence of bowel obstruction. No evidence of free air 4. Normal appendix. No evidence of acute diverticulitis 5. Bilateral hydronephrosis and hydroureter. No obstructing calculi identified 6. Indwelling Bird catheter 7. Mild nonspecific presacral edema ACT 112: Negative or not required by law. Electronically signed by: Ryan Mora M.D. 11/15/2020 1:08 PM ECG Data Indication: + other (arrythmia) Rate (beats per minute): 94 Rhythm: + normal sinus ECG Intervals/blocks: + Normal QRS, + Normal ID and + Normal QT-c ECG ST segments: + Normal ST segments MDM Narrative 1158: The patient was evaluated in room C9. A complete history and physical exam was performed Cardiac monitoring: An order was placed for continuous cardiac monitoring. The monitor shows a rate of 90 with sinus rhythm EMR reviewed. 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 1350: Vital signs stable. Patient had a Bird catheter placed which relieved 2 L of fluid from his bladder. Patient states he feels better after the Bird catheter was placed. Imaging shows hydroureteronephrosis but no obstructing stone. Electrolytes show a potassium of 2.8 and magnesium 1.7. Magnesium potassium placed in the emergency department. Patient will be admitted to the hospitalist service. Is thought that his urinary tension could be due to the outpatient tramadol that he has been taken. Patient will be admitted to the [facility] hospitalist team Dr. Linton service. Impression & Plan Acute urinary retention, Hypomagnesemia, Acute hypokalemia Discharge Plan Visit Data Chief Complaint: Urinary Symptoms Stated Complaint: PROBLEMS URINATING ED Provider: Boone Goncalves Discharge Problem: Acute urinary retention, Hypomagnesemia, Acute hypokalemia Patient Disposition: Admitted As Inpatient Discharge Instructions Interventions: ED Discharge Assessment Last Done: 11/15/20 15:46
[2020-11-15] MEDS ORDERED: ATORVASTATIN 20 MG TAB PO SCH (21:00)
[2020-11-15] MEDS ORDERED: risperiDONE 2 MG TABLET PO SCH (21:00)
[2020-11-15] MEDS ORDERED: MONTELUKAST SODIUM 10 MG TABLET PO SCH (21:00)
[2020-11-15] MEDS ORDERED: INSULIN GLARGINE SOLOSTAR 100 UNITS/ML 3 ML PEN SC SCH (21:00)
[2020-11-15] MEDS ORDERED: SERTRALINE HCL 50 MG TABLET PO SCH (21:00)
[2020-11-15 21:39] LABS: BUN Creatinine Ratio 22.4 (10-20); Calcium 10.8 mg/dl (8.5-10.1); Creatinine Clr Calc Pharmacy 87.6 ml/min; Est GFR (African American) 88.7 ml/min; Est GFR (Non-African American) 76.5 ml/min; Potassium 3.1 mmol/L (3.5-5.1)
[2020-11-15] MEDS ORDERED: POTASSIUM CHLORIDE CRTAB 20 MEQ TABCR PO ONE (22:06)
[2020-11-16] MEDS: NAPROXEN 250 MG TAB PO PRN ×2 (00:25→12:23)
[2020-11-16 07:51] LABS: Hematocrit (blood only) 32.7 % (42-52); Hemoglobin 11.4 g/dL (14.0-18.0); Mean Corpuscular Hemoglobin 26.6 pg (25-34); Mean Corpuscular Hgb Conc 34.9 g/dL (32-36); Mean Corpuscular Volume 76.4 fL (80-100); Mean Platelet Volume 7.7 fL (7.4-10.4); Platelet Count 648 K/uL (130-400); RDW Standard Deviation 39.5 fL (36.4-46.3); Red Blood Count 4.28 M/uL (4.7-6.1); White Blood Count 7.86 K/uL (4.8-10.8)
[2020-11-16] MEDS ORDERED: ENOXAPARIN INJ 40 MG/0.4 ML SYR SQ SCH (08:00)
[2020-11-16 08:25] LABS: Albumin Level 3.4 gm/dl (3.4-5.0); BUN Creatinine Ratio 19.6 (10-20); Calcium 10.8 mg/dl (8.5-10.1); Creatinine Clr Calc Pharmacy 96.4 ml/min; Est GFR (African American) 99.7 ml/min; Magnesium 1.6 mg/dl (1.8-2.4); Phosphorus 2.9 mg/dl (2.5-4.9); Potassium 3.5 mmol/L (3.5-5.1)
[2020-11-16 08:29] LABS: Albumin Globulin Ratio 0.8 (0.9-2); Bilirubin,Total 0.4 mg/dl (0.2-1); Ferritin 87.6 ng/ml (8-388); Globulin 4.1 gm/dl (2.5-4.0); Total Protein 7.5 gm/dl (6.4-8.2)
[2020-11-16 08:31] LABS: Estimated Average Glucose 171 mg/dl; Hemoglobin A1C 7.6 % (4.5-5.6)
[2020-11-16] MEDS: GABAPENTIN 800 MG TAB PO SCH ×2 (08:33→13:57)
[2020-11-16] MEDS: lisinopril 10 MG TAB PO SCH (08:33)
[2020-11-16] MEDS: NICOTINE 21 MG/24 HR TDSY TD SCH (08:33)
[2020-11-16] MEDS: traMADol HCL 50 MG TABLET PO SCH ×2 (08:33→12:23)
[2020-11-16] MEDS: INSULIN ASPART 100 UNITS/ML 3 ML PEN SC SCH ×2 (08:35→12:23)
[2020-11-16] MEDS ORDERED: FLUTICASONE/VILANTEROL 200/25MCG 14 PUFFS/INHALER INH SCH (09:00)
[2020-11-16] MEDS ORDERED: PANTOprazole 40 MG TAB PO SCH (09:00)
[2020-11-16] MEDS ORDERED: MULTIVITAMIN TAB PO SCH (09:00)
[2020-11-16] MEDS ORDERED: MAGNESIUM SULFATE / D5W 1 GM/100 ML BAG IV ONE (09:30)
--- NOTE | 2020-11-16 13:24 | Urology Consultation ---
Date of Consultation November 16, 2020 Assessment & Plan (1) Acute urinary retention: 55 yo M with multiple comorbidities admitted for acute urinary retention and electrolyte abnormalities. - Hospital course, imaging, lab work and past medical and surgical history reviewed - Pt with high volume acute urinary retention - likely multifactorial with BPH, immobilization, deconditioning, and constipation - CT A/P showing upper tract compromise with bilateral hydronephrosis - Creatinine 0.99 today - Maintain Bird catheter 7-14 days for bladder decompression and maximum drainage - Recommend initiate Tamsulosin and Finasteride for dual therapy - Check PSA now - Will arrange follow-up with our service outpatient for cystoscopy and voiding trial Thank you for allowing us to participate in the acute care of Mr. Gonzalez. Please reconsult us with additional questions, concerns or changes in patient status. History of Present Illness Reason for Consultation: Urinary retention Requesting Physician: Dr. Ewing Attending Physician: Ludmila Headley MD History of Present Illness 55 year old male with past medical history of type 2 diabetes, schizophrenia, osteoarthritis, GERD, depression, PTSD, and tobacco use admitted for acute urinary retention and electrolyte abnormalities. Patient presented to [facility] ED on 11/15/20 with c/o inability to void x 2 days. He was recently hospitalized at [facility] from 09/18/2020 to 09/21/2020 secondary to a fall. He is s/p ORIF of right ankle by Dr. Salomon on 09/20/20. He has been nonweightbearing since September and mostly bedbound. Bladder scanned for >999 mL. Bird catheter was placed with return of 2000 mL output. Lab work showed hypon atremia, hypokalemia, hypercalcemia, creatinine 1.34, WBC 9.39. UA not suggestive of infection. CT A/P showed bilateral hydronephrosis and hydroureter. No obstructing calculi identified. He received 10 meq KCL x 2 in ED along with 1g IV magnesium. He was admitted by hospital medicine. Our service is consulted for urinary retention. Chart review: Afebrile Creatinine 1.09 WBC 9.39 Hgb 10[address] imaging as above Patient seen and examined at bedside. No issues overnight. No complaints at present. Denies abdominal, flank or suprapubic pain. He is tolerating Bird catheter without bother. Bird intact, patent and draining clear yellow urine. Denies dysuria or hematuria. No nausea or vomiting. No fever or chills. Denies constipation at baseline or at present. However, notes episode of constipation that resolved 4 days ago with a large bowel movement. No prior history of BPH or prior medications for voiding. Baseline urinary symptoms include nocturia x 2-3. He notes that he drinks a lot of fluids. Daytime frequency every 2 hours. Stream good. No dysuria, hematuria or hesitancy. Has feeling of incomplete bladder emptying. He notes he was incontinent overnight x 3-4 nights prior to arrival, but otherwise no urinary incontinence prior to this acute episode. No prior PSA to his knowledge. Denies family history of malignancy. No additional concerns today. Allergies Allergy/AdvReac Type Severity Reaction Status Date / Time No Known Allergies Allergy Verified 09/18/20 13:14 Home Medications Medication Instructions Recorded Confirmed Type Ozempic 2.5 mg SUBCUT WK 09/02/20 11/15/20 History albuterol sulfate 2 puff INHALATION Q4H PRN 09/02/20 11/15/20 History atorvastatin 20 mg PO PM 09/02/20 11/15/20 History fluticasone propion-salmeterol 1 inh INHALATION BID 09/02/20 11/15/20 History [Wixela Inhub] gabapentin 800 mg PO TID 09/02/20 11/15/20 History metformin 1,500 mg PO DAILY 09/02/20 11/15/20 History montelukast 10 mg PO PM 09/02/20 11/15/20 History multivitamin 1 tab PO QAM 09/02/20 11/15/20 History naproxen 500 mg PO BID PRN 09/02/20 11/15/20 History omeprazole 40 mg PO QAM 09/02/20 11/15/20 History ondansetron 4 mg PO Q8H PRN 09/02/20 11/15/20 History risperidone 2 mg PO PM 09/02/20 11/15/20 History sertraline 50 mg PO PM 09/02/20 11/15/20 History tramadol 50 mg PO QID 09/02/20 11/15/20 History fluticasone propionate 2 spray INTRANASAL DAILY PRN 09/10/20 11/15/20 History Lantus Solostar U-100 Insulin 45 unit SUBCUT PM 30 Days #15 ml 09/21/20 11/15/20 Rx lisinopril 10 mg PO DAILY 11/15/20 11/15/20 History Patient History Medical History Asthma uses res inh daily > not well controlled Cardiac murmur dx > 20 yrs ago Chronic hyponatremia Depression GERD (gastroesophageal reflux disease) History of diabetes mellitus IDDM Nausea unknown cause/ has not had testing done> Zofran Osteoarthritis Post traumatic stress disorder (PTSD) Schizophrenia T2DM (type 2 diabetes mellitus) Tachycardia just with cafeine per pt Surgical History Bimalleolar fracture of right ankle s/p ORIF History of tooth extraction Family History Mother Diabetes Social History Smoking Status: Light tobacco smoker Years Smoked: 40; Cigarettes Per Day: 5; Second Hand Exposure: Yes; Do You Dip or Chew Tobacco: Yes; Tobacco Cessation Education Requested by Patient: Yes Hx Alcohol Use: No Hx Substance Use: No Preferred Language: Macedonian Communication Ability: Effective 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 Beliefs That Will Affect Care: None marital status: Single Current Living Situation: Family Current Living Situation Comment: mother Other Information That Helps Us Care for You: No Feels Safe at Home: Yes Safety Concerns: Feels Safe At This Time Assistive Devices: Walker Review of Systems Constitutional: as per Subjective / HPI Eyes: no problem reported Ear, Nose, Mouth, Throat: no problem reported Respiratory: no problem reported Cardiovascular: no problem reported Gastrointestinal: as per Subjective / HPI Genitourinary: + as per Subjective / HPI Musculoskeletal: as per Subjective / HPI Neurologic: no problem reported Endocrine: as per Subjective / HPI Physical Exam Constitutional: well developed and well nourished; no acute distress and not ill appearing Eyes: no scleral abnormality Neck: normal visual inspection Respiratory: normal respiratory effort and able to speak in complete sentences; no respiratory distress and no labored breathing Cardiovascular: Extremities: no pedal edema Gastrointestinal (Abdomen): Inspection/Auscultation: abdomen normal to inspection; abdomen not distended Percussion/Palpation: abdomen soft; abdomen nontender and no guarding Musculoskeletal: Head/Neck/Chest: normocephalic and head atraumatic Neurologic: moves all extremities and awake Psychiatric: Orientation: alert and oriented x 3 Genitourinary: no CVA tenderness Results & Data ([facility]) Vital Signs (Past 12 Hours) Vital Signs Temp Pulse Pulse Resp BP Pulse Ox 11/16/20 10:58 36.3 C L 98 H 16 163/88 H 96 11/16/20 07:57 36.8 C 95 H 16 153/88 H 96 11/16/20 07:06 98 H 11/16/20 06:34 36.4 C L 97 H 20 158/85 H 96 11/16/20 03:04 36.3 C L 98 H 20 158/82 H 96 PG Care Time/CCT Total # of Minutes Spent Total Time Spent with Patient: Total time spent is greater than 50% in coordination of care (as documented) at patient's floor/unit and/or counseling patient: Coding Level of Care Code 33762 Inpt Consult Level 4 Diagnoses Acute urinary retention R33.8
--- NOTE | 2020-11-16 14:50 | Discharge Summary ---
Date of Service November 16, 2020 Admission HPI Per Admitting Provider This is a 52-year-old male who has significant past medical history of T2DM, diabetic neuropathy, tobacco abuse, asthma, schizophrenia, RLS who presents to ED secondary to inability to urinate x2 days. Of significance patient recently hospitalized 09/18/2020 to 09/21/2020 secondary to a fall that was sustained in late August. He suffered a bimalleolar ankle fracture which required ORIF by Dr. Salomon. He has been nonweightbearing since September and has been mostly bedridden. He states he has not worked with any PT or OT for even transfers. He recently got off his cast and states he is hopefully going to be able to put weight on the right lower extremity in 2 weeks. He also states he needs his left ACL repaired. He follows up with orthopedics on November 22. He has been following closely outpatient with PCP. He notes over the past 2 days he has been unable to urinate. He was incontinent overnight, but unable to initiate stream. He denied any suprapubic abdominal pain, but did complain of fullness. He admits to decreased oral intake over the past day and a half due to feeling, "full." He denies any other recent illness, fever, chills, sweats, lightheadedness, dizziness, chest pain, shortness of breath, nausea, vomiting, abdominal pain. He has been moving his bowels regularly, last BM was yesterday and was normal. He denies any melena or hematochezia. He has been taking tramadol 4 times a day to control his right lower extremity pain. He denies feeling of constipation. Of significance he does have a chronic cough secondary to smoking and currently he is down to 3 to 4 cigarettes a day but does chew 2 cans of smokeless tobacco daily. He denies any illicit drug use. He denies any difficulty with urinary retention or diagnosis of BPH in the past. Also of note during recent hospitalization patient was diagnosed with hyponatremia with a serum sodium as low as 121. 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 He has not been monitoring his fluid intake at home and states he has been drinking half a gallon of milk every day. In ED patient remained hemodynamically stable although he was mildly hypertensive. He was found to have 2 L of urine in bladder and therefore a Bird catheter was placed. Lab work notable for electrolyte abnormalities including hypokalemia, hypomagnesemia, hypochloremia and hypercalcemia. His CBC was stable with an H&H of 10.5 and 30.6 and thrombocytosis of 653. His urinalysis was otherwise benign. CT a/p: 1 cm capsular high pulmonary the level the right hepatic dome, 2. Mild hepatomegaly 3. No evidence of bowel obstruction. No evidence of free air 4. Normal appendix. No evidence of acute diverticulitis 5. Bilateral hydronephrosis and hydroureter. No obstructing calculi identified. He did receive 10 meq KCL x 2 in ED along with 1g IV magnesium. Principal Diagnosis Urinary retention Will be discharged on Bird catheter Chronic hyponatremia Type 2 diabetes Stage III CKD Discharge Exam Physical exam: General: No acute distress, alert awake oriented x3 HEENT: PERRLA, EOMI, Heart: Regular S1-S2, no carotid bruit, no JVD, no lower extremity edema Lungs: Clear to auscultate, no wheeze or rales Abdomen: Soft nontender, no organomegaly Extremity: No cyanosis, no deformity, normal strength 5 out of 5 with upper and lower Neuro: No focal neurological deficit normal speech, Psych: Alert awake oriented x3, normal affect Discharge Data Allergies Allergy/AdvReac Type Severity Reaction Status Date / Time No Known Allergies Allergy Verified 09/18/20 13:14 Consultations 11/15/20 13:50 ED Decision to Admit Stat 11/15/20 14:20 Consult Urology Routine Ordered Studies 11/15/20 12:24 CT abd pelvis wo con Stat Hospital Course (1) Acute urinary retention: This is a 52-year-old male who has significant past medical history of T2DM, diabetic neuropathy, tobacco abuse, asthma, schizophrenia, who presents to ED secondary to inability to urinate x2 days. Bladder scan shows residual urine/urinary retention of 2 L, Bird placed, Patient reports improvement of symptoms, CT abdomen pelvis shows bilateral hydroureteronephrosis, possible secondary to chronic urinary retention. Appreciate input from urology, recommends continue on Bird catheter for next 2 weeks, Clinic follow-up after 2 weeks for voiding trial and cystoscopy. 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 Lantus/NovoLog per protocol BSG 110 in ED Will do spot check at 0200 (11) Bimalleolar fracture of right ankle: s/p ORIF R bimalleolar ankle fracture 09/[address] Salomon continues to be NWB, to follow up with ortho 09/22 lovenox for dvt ppx (12) Tobacco abuse: nicotine patch encourage smoking cessation (13) Post traumatic stress disorder (PTSD): (14) Schizophrenia: mood stable continue zoloft and risperdal (15) DVT prophylaxis: SQ Lovenox Dispo: Patient is discharged home today PCP: Elyssa Full Code Total Time Total Time Spent Total Time Spent (In Minutes): 35 mins Total Time Includes: Examination of the Patient, Discharge Planning, Medication Reconciliation and Communication With Other Providers Discharge Plan Discharge Items Patient Disposition: Home - Self-Care Reason For Visit: PROBLEMS URINATING Discharge Diagnosis: Urinary retention Will be discharged on Bird catheter Chronic hyponatremia Type 2 diabetes Stage III CKD Activity: Resume your previous activity Non-emergency contact: Primary Care Provider Call non-emergency contact if: you have any medication questions Follow-up/Referrals: Markie Rodriguez MD [Physician] - (Follow-up at neurology clinic in 2 weeks for voiding trial) Bg Bergeron MD [Primary Care Provider] - (Date & Time 11/22/2020 4:40 PM Provider Bg Bergeron MD [facility] PLEASE NOTE THAT THIS IS A TELEVIDEO APPOINTMENT. PLEASE FOLLOW THE INSTRUCTIONS PROVIDED IN YOUR EMAIL. IF YOU HAVE ANY QUESTIONS REGARDING THIS APPOINTMENT, PLEASE CALL ) Diet: Heart Healthy Addtl Attending Provider Instructions: Please take all medications as instructed on discharge list below. It is recommended that you follow-up with your primary care physician within 1-2 weeks of hospital discharge to ensure you are still doing well. Please call if you have any questions or problems. You can reach a [facility] hospitalist on duty at [facility] 24 hours a day by calling [phone] You were discharged with a Bird catheter, need to follow-up with urology clinic in 2 weeks for voiding trial Pending Studies at Discharge: No Stand-Alone Forms: My [facility], Smoking Cessation Medications and DC Order Prescriptions: New tamsulosin 0.4 mg capsule 0.4 mg PO HS Qty: 30 RF: 1 finasteride 5 mg tablet 5 mg PO DAILY Qty: 30 RF: 1 Continued fluticasone propion-salmeterol [Wixela Inhub] 250-50 mcg/dose blister with device 1 inh INHALATION BID RF: 0 atorvastatin 20 mg tablet 20 mg PO PM RF: 0 gabapentin 400 mg capsule 800 mg PO TID RF: 0 omeprazole 40 mg capsule,delayed release(DR/EC) 40 mg PO QAM RF: 0 tramadol 50 mg tablet 50 mg PO QID RF: 0 montelukast 10 mg tablet 10 mg PO PM RF: 0 albuterol sulfate 90 mcg/actuation HFA aerosol inhaler 2 puff INHALATION Q4H PRN (Reason: Wheezing) RF: 0 ondansetron 4 mg tablet,disintegrating 4 mg PO Q8H PRN (Reason: Nausea or Vomiting) RF: 0 metformin 500 mg tablet extended release 24 hr 1,500 mg PO DAILY RF: 0 sertraline 50 mg tablet 50 mg PO PM RF: 0 risperidone 1 mg tablet 2 mg PO PM RF: 0 naproxen 500 mg tablet 500 mg PO BID PRN (Reason: Pain) RF: 0 Ozempic 0.25 mg or 0.5 mg(2 mg/1.5 mL) pen injector 2.5 mg SUBCUT WK RF: 0 multivitamin Tablet 1 tab PO QAM RF: 0 fluticasone propionate 50 mcg/actuation spray,suspension 2 spray INTRANASAL DAILY PRN (Reason: Allergy Symptoms) RF: 0 Lantus Solostar U-100 Insulin 100 unit/mL (3 mL) insulin pen 45 unit SUBCUT PM 30 Days Qty: 15 RF: 0 lisinopril 10 mg tablet 10 mg PO DAILY RF: 0 Discharge Orders: Discharge Order (Routine); Ordered 11/16/20 Ordered By: Ludmila Petersen/Other Patient Handouts: Emptying and Cleaning Your ..., Indwelling Urinary Catheter Dc, Discharge Instructions Caring for ... Admission Data Admit Date/Time: 11/15/20 14:20 Attending Provider: Ludmila Hedaley Admit Provider: Anthony Ewing Primary Care Provider: Bg Bergeron Other Providers: Markie Rodriguez ; Anthony Ewing Other Interventions: Discharge Summary Assessment (RN) Last Done: 11/16/20 14:49
--- NOTE | 2020-11-16 22:30 | Electrocardiogram Report ---
Test Reason : Blood Pressure : / mmHG Vent. Rate : 094 BPM Atrial Rate : 094 BPM P-R Int : 166 ms QRS Dur : 104 ms QT Int : 380 ms P-R-T Axes : 051 039 057 degrees QTc Int : 476 ms Normal sinus rhythm Possible Left atrial enlargement Abnormal ECG When compared with ECG of 18-SEP-2020 21:22, No significant change was found Confirmed by Herrera King ([id number]) on 11/16/2020 10:29:56 PM Referred By: REFERRED SELF Confirmed By:Herrera King
== END 2020-11-16 16:29 | disposition home or self-care (01) ==
LOC: ED 11:50 → 2N 11:50 → SUATTDRO 14:20 → 2N 15:46

== ENCOUNTER 2020-11-26 16:30 | Inpatient (IN) ==
[2020-11-26] MEDS ORDERED: SODIUM CHLORIDE 0.9% 1000ML 1,000 ML IV STA ×2 (16:40)
[2020-11-26] MEDS ORDERED: DAPTOmycin 500 MG in SYRINGE 0 ML IV ONE (16:46)
[2020-11-26] MEDS ORDERED: CEFEPIME 2,000 MG/20 ML VIAL IV STA (16:46)
--- NOTE | 2020-11-26 16:58 | Emergency Department Note ---
Impression & Plan Acute hypotension, Weakness, Acute UTI (urinary tract infection) ED Provider Note INFORMANT: Patient ED PROVIDER(S): Loy Bautista MD CHIEF COMPLAINT: Weakness PLAN: Disposition: Admitted Condition: Good Outpatient prescription management: none Referral: None MEDICAL DECISION MAKING: Patient presented emergency room complaining of abdominal pain and weakness. He was hypotensive for EMS. He received 1 L normal saline for EMS. His blood pressure improved to 85 systolic. He was given an additional 1 L bolus of normal saline. Cultures, lactate, Tao catheter change and urinalysis, and blood work were obtained. The patient was given empiric antibiotics due to concerns about sepsis. He received cefepime and daptomycin. The patient required several boluses of IV fluids and was still hypotensive. The patient was given fentanyl for pain control. He required IV Dilaudid for pain control as well. The patient had a marked leukocytosis and findings concerning for UTI. CT imaging revealed findings concerning for pyelonephritis as well. [facility] Dr[facility] Omal[facility]. Patient will be admitted to the ICU. Given his persistent hypotension we discussed the need for central line placement. This was performed by me as noted below. This was done under ultrasound guidance. The patient did very well with this. He was started on Levophed. I did titrate the drip. He responded well to this. Hemodynamically the patient was doing much better. He was also found to be in acute renal failure. This would explain his decreased urinary output. Additional fluids were given. The patient was admitted to the ICU for further management. Triage Nursing notes reviewed and agree them. Vital Signs: reviewed and remarkable for hypotension Differential diagnosis: Infection, dehydration, metabolic abnormality, hypo/hyperglycemia, electrolyte disturbance, anemia, hypoxia, cardiac sources, intracerebral event, toxicologic, neurologic, as well as other pathologies. Diagnostics interpreted by me: ECG: Rate: 103 Rhythm: Sinus tachycardia Randolph:Normal QRS:Normal ST segements:No elevation or depression Other:No PACs or PVCs Cardiac Monitoring: Cardiac monitoring ordered by me: The patient was placed on continuous cardiac monitoring and observed. It revealed a normal sinus rhythm a t 98 beats per minute without ectopy or evidence of dysrhythmia. Imaging studies: Chest x-ray. Findings: A chest x-ray was performed and revealed no pneumothorax, effusion, infiltrate, pulmonary edema, free air under the diaphragm, or wide mediastinum. Impression: No acute disease. CT scan of the abdomen pelvis is concerning for cystitis and pyelonephritis. I refer you to the EMR for further details. HPI: The patient is a 55 year old male who presents to the Emergency Room with complaints of abdominal pain. This started yesterday and is persisting, located in the lower midline. The patient also notes the following associated symptoms, poor tao catheter drainage, weakness, dizziness. The patient has found no relieving factors. Current pain is rated as 4/10. EMS was summoned. Patient was hypotensive at 60/40. Received 1 liter of NSS pre-hospital. Pt denies LOC, headache, fevers, chills, diaphoresis, visual changes, neck pain, chest pain, breathing difficulties, vomiting,back pain, melena, hematochezia, numbness, lymphadenopathy, rash, or other complaints. ROS: See above HPI for pertinent positives & negatives. A total of 10 systems reviewed and were otherwise negative. PAST MEDICAL HISTORY:See Below , DM, urinary retention PAST SURGICAL HISTORY:See Below, ORIF right ankle fx FAMILY HISTORY:See Below SOCIAL HISTORY:See Below, HOME MEDICATIONS:See Below ALLERGIES:See Below VITALS:See Below PHYSICAL EXAMINATION: GENERAL: Awake, weak-appearing, in no distress HENT: Normocephalic, atraumatic. Oropharynx unremarkable. EYES: Normal conjunctiva. Sclera non-icteric. NECK: Inspection normal. Non-tender. Supple. No nuchal rigidity. FROM. No masses. RESPIRATORY: Clear to auscultation. No wheezes. No rales. Normal respiratory effort. CARDIAC: Tachycardic rate. Normal rhythm. No murmurs. No rubs. Extremities warm and well perfused. Pulses equal. No JVD. GI: Soft, non-distended. No tenderness to palpation. No rebound or guarding. No masses. : tao catheter in place. MUSCULOSKELETAL: Atraumatic. Chest examination reveals no tenderness. The back is symmetrical on inspection without obvious abnormality. There is bilateral CVA tenderness to palpation. No joint edema. LOWER EXTREMITIES: Calves are equal size bilaterally and non-tender. No edema. No discoloration. NEURO: Normal sensorium. No sensory or motor deficits noted. SKIN: No rash or jaundice noted. Central Venous Catheter: Indication: Septic shock Catheter type: Triple-lumen right groin Location: Verbal consent was obtained after the risks and benefits were explained, including but not limited to vessel injury, bleeding, scarring, infection, p ain, and bone/joint/nerve damage. At this time, the risks of the procedure are less than the risks of NOT performing the procedure. A time out was taken and the correct patient and site identified. The patient was placed in the supine position and the skin was prepped in the standard fashion with chlorhexidine and full sterile drapes applied. The proper landmarks were identified with ultrasound, anesthetized with 1% lidocaine without epinephrine, and the needle was inserted through the skin in the standard fashion. The needle was carefully advanced into blood vessel lumen under ultrasound guidance. The guidewire was placed uneventfully. The vessel is dilated and the catheter was placed. It was sutured into position. There was good blood return from all ports. The patient tolerated the procedure well and there were no complications. Post procedure x- ray was normal. Limited Point of Care Vascular Access Ultrasound performed by me: Indication: Central line placement Procedure: Right femoral triple-lumen Findings: Limited ultrasonography was utilized to identify the right femoral vein. Under sterile technique and direct visualization/dynamic technique, the line was placed in the standard fashion. The access was verified in the lumen on two views. No complications. Impression: Successful vascular access with ultrasound guidance. CRITICAL CARE: I have personally spent greater than 80 minutes of critical care time in the direct management of this patient. This includes bedside care, interpretation of diagnostic studies, and testing, discussion with consultants, patient, and other required patient management activities. These minutes are in excess of all separately billable procedures. Loy Bautista MD Past Med/Surg History Medical History Asthma uses res inh daily > not well controlled Cardiac murmur dx > 20 yrs ago Chronic hyponatremia Depression GERD (gastroesophageal reflux disease) History of diabetes mellitus IDDM Nausea unknown cause/ has not had testing done> Zofran Osteoarthritis Post traumatic stress disorder (PTSD) Schizophrenia T2DM (type 2 diabetes mellitus) Tachycardia just with cafeine per pt Surgical History Bimalleolar fracture of right ankle s/p ORIF History of tooth extraction Family History Mother Diabetes Social History Smoking Status: Heavy tobacco smoker Years Smoked: 40; Cigarettes Per Day: 20; Second Hand Exposure: Yes; Hx Alcohol Use: No Hx Substance Use: No Preferred Language: Malian Communication Ability: Effective Scientific Research Associate Required: No Beliefs That Will Affect Care: None marital status: Single Current Living Situation: Family Current Living Situation Comment: mother Other Information That Helps Us Care for You: No Feels Safe at Home: Yes Safety Concerns: Feels Safe At This Time Assistive Devices: Glasses and Wheelchair Allergies Allergies Allergy/AdvReac Type Severity Reaction Status Date / Time No Known Allergies Allergy Verified 11/26/20 18:07 Home Meds Home Medications Medication Instructions Recorded Confirmed Ozempic 0.5 mg SUBCUT WK 09/02/20 11/26/20 albuterol sulfate 2 puff INHALATION QID 09/02/20 11/26/20 atorvastatin 20 mg PO PM 09/02/20 11/26/20 fluticasone propion-salmeterol 1 inh INHALATION BID 09/02/20 11/26/20 [Wixela Inhub] metformin 1,500 mg PO DAILY 09/02/20 11/26/20 montelukast 10 mg PO PM 09/02/20 11/26/20 naproxen 500 mg PO BID PRN 09/02/20 11/26/20 omeprazole 40 mg PO QAM 09/02/20 11/26/20 ondansetron 4 mg PO Q8H PRN 09/02/20 11/26/20 risperidone 2 mg PO PM 09/02/20 11/26/20 sertraline 50 mg PO PM 09/02/20 11/26/20 tramadol 50 mg PO Q8H PRN MDD 3 TABS/09/02/20 11/26/20 HOURS fluticasone propionate 2 spray INTRANASAL DAILY 09/10/20 11/26/20 Lantus Solostar U-100 Insulin 40 unit SUBCUT PM 11/26/20 11/26/20 cyclobenzaprine 10 mg PO TID PRN 11/26/20 11/26/20 diclofenac sodium 75 mg PO BID 11/26/20 11/26/20 enoxaparin 40 mg SUBCUT DAILY 11/26/20 11/26/20 gabapentin 800 mg PO TID 11/26/20 11/26/20 nicotine [Nicotrol] 1 inh INHALATION DIRECTED PRN 11/26/20 11/26/20 MDD 16 CARTRIDGES/DAY nystatin 5 ml PO QID PRN 11/26/20 11/26/20 Results & Data (ED) Vital Signs Vital Signs - 24 hr 11/26/20 16:32 11/26/20 16:37 11/26/20 16:44 Temperature 36.7 C Temperature Source Oral Pulse Rate 107 H 106 H 105 H Pulse Rate from SpO2 Sensor 106 H 106 H Pulse Rhythm Regular Pulse Strength Normal Respiratory Rate 26 H 23 23 Respiratory Effort / Characteristics Non-Labored Respiratory Pattern Regular Blood Pressure 85/55 L 85/55 L Blood Pressure Mean 65 65 Blood Pressure Position Lying Pulse Oximetry 99 98 98 Oxygen Delivery Method Room Air Sepsis Recent Fever Within 48 Hours No Sepsis New/Unexplained Change in Mental Status No Sepsis Action Taken by Nursing No Action Required 11/26/20 16:50 11/26/20 17:00 11/26/20 17:03 Temperature Temperature Source Pulse Rate 103 H 101 H 103 H Pulse Rate from SpO2 Sensor 103 H 97 H 103 H Pulse Rhythm Pulse Strength Respiratory Rate 22 24 23 Respiratory Effort / Characteristics Respiratory Pattern Blood Pressure 73/56 L Blood Pressure Mean 61 Blood Pressure Position Pulse Oximetry 98 99 100 Oxygen Delivery Method Sepsis Recent Fever Within 48 Hours Sepsis New/Unexplained Change in Mental Status Sepsis Action Taken by Nursing 11/26/20 17:09 11/26/20 17:10 11/26/20 17:24 Temperature Temperature Source Pulse Rate 107 H 102 H 103 H Pulse Rate from SpO2 Sensor 101 H 103 H Pulse Rhythm Regular Pulse Strength Respiratory Rate 26 H 20 24 Respiratory Effort / Characteristics Respiratory Pattern Blood Pressure 79/52 L Blood Pressure Mean 61 Blood Pressure Position Pulse Oximetry 98 99 99 Oxygen Delivery Method Room Air Sepsis Recent Fever Within 48 Hours Sepsis New/Unexplained Change in Mental Status Sepsis Action Taken by Nursing 11/26/20 17:26 11/26/20 17:30 11/26/20 17:40 Temperature Temperature Source Pulse Rate 101 H 102 H 101 H Pulse Rate from SpO2 Sensor 100 H 102 H 101 H Pulse Rhythm Pulse Strength Respiratory Rate 25 H 24 23 Respiratory Effort / Characteristics Respiratory Pattern Blood Pressure 82/56 L Blood Pressure Mean 64 Blood Pressure Position Pulse Oximetry 99 99 99 Oxygen Delivery Method Sepsis Recent Fever Within 48 Hours Sepsis New/Unexplained Change in Mental Status Sepsis Action Taken by Nursing 11/26/20 17:45 11/26/20 17:50 11/26/20 17:59 Temperature Temperature Source Pulse Rate 104 H 104 H 107 H Pulse Rate from SpO2 Sensor 104 H 105 H 105 H Pulse Rhythm Pulse Strength Respiratory Rate 22 22 21 Respiratory Effort / Characteristics Respiratory Pattern Blood Pressure 81/51 L 89/61 L Blood Pressure Mean 61 70 Blood Pressure Position Pulse Oximetry 99 94 98 Oxygen Delivery Method Sepsis Recent Fever Within 48 Hours Sepsis New/Unexplained Change in Mental Status Sepsis Action Taken by Nursing 11/26/20 18:00 11/26/20 18:02 11/26/20 18:10 Temperature Temperature Source Pulse Rate 106 H 105 H 108 H Pulse Rate from SpO2 Sensor 106 H 105 H 103 H Pulse Rhythm Pulse Strength Respiratory Rate 26 H 26 H 26 H Respiratory Effort / Characteristics Respiratory Pattern Blood Pressure 82/55 L Blood Pressure Mean 64 Blood Pressure Position Pulse Oximetry 98 98 99 Oxygen Delivery Method Sepsis Recent Fever Within 48 Hours Sepsis New/Unexplained Change in Mental Status Sepsis Action Taken by Nursing 11/26/20 18:15 11/26/20 18:20 11/26/20 18:30 Temperature Temperature Source Pulse Rate 106 H 108 H 105 H Pulse Rate from SpO2 Sensor 105 H 105 H 105 H Pulse Rhythm Pulse Strength Respiratory Rate 18 28 H 22 Respiratory Effort / Characteristics Respiratory Pattern Blood Pressure 77/51 L 78/50 L Blood Pressure Mean 59 59 Blood Pressure Position Pulse Oximetry 97 99 98 Oxygen Delivery Method Sepsis Recent Fever Within 48 Hours Sepsis New/Unexplained Change in Mental Status Sepsis Action Taken by Nursing 11/26/20 18:45 11/26/20 19:00 11/26/20 19:02 Temperature Temperature Source Pulse Rate 106 H 102 H 104 H Pulse Rate from SpO2 Sensor 102 H 103 H Pulse Rhythm Pulse Strength Respiratory Rate 21 18 27 H Respiratory Effort / Characteristics Respiratory Pattern Blood Pressure 91/49 L 81/53 L 82/57 L Blood Pressure Mean 63 62 65 Blood Pressure Position Pulse Oximetry 92 98 Oxygen Delivery Method Sepsis Recent Fever Within 48 Hours Sepsis New/Unexplained Change in Mental Status Sepsis Action Taken by Nursing 11/26/20 19:13 11/26/20 19:15 11/26/20 19:30 Temperature Temperature Source Pulse Rate 101 H 105 H 116 H Pulse Rate from SpO2 Sensor 101 H 104 H 109 H Pulse Rhythm Pulse Strength Respiratory Rate 22 26 H 24 Respiratory Effort / Characteristics Respiratory Pattern Blood Pressure 77/51 L 94/66 L Blood Pressure Mean 59 75 Blood Pressure Position Pulse Oximetry 99 99 98 Oxygen Delivery Method Sepsis Recent Fever Within 48 Hours Sepsis New/Unexplained Change in Mental Status Sepsis Action Taken by Nursing 11/26/20 19:31 Temperature Temperature Source Pulse Rate 115 H Pulse Rate from SpO2 Sensor 126 H Pulse Rhythm Pulse Strength Respiratory Rate 22 Respiratory Effort / Characteristics Respiratory Pattern Blood Pressure 151/79 H Blood Pressure Mean 103 Blood Pressure Position Pulse Oximetry 97 Oxygen Delivery Method Sepsis Recent Fever Within 48 Hours Sepsis New/Unexplained Change in Mental Status Sepsis Action Taken by Nursing Laboratory Data Result diagrams: 11/26/20 17:00 11/26/20 21:38 Lab Results 11/26/20 11/26/20 11/26/20 Range/Units 16:48 16:48 17:00 WBC 24.95 H (4.8-10.8) K/uL RBC 3.21 L (4.7-6.1) M/uL Hgb 8.6 L (14.0-18.0) g/dL Hct 24.0 L (42-52) % MCV 74.8 L (80-100) fL MCH 26.8 (25-34) pg MCHC 35.8 (32-36) g/dL RDW Std Deviation 40.2 (36.4-46.3) fL RDW Coeff of Georgina 14.5 (11.5-14.5) % Plt Count 456 H (130-400) K/uL MPV 8.6 (7.4-10.4) fL Immature Gran % (Auto) 3.0 % Neut % (Auto) 90.4 % Lymph % (Auto) 2.5 % Leslie % (Auto) 4.0 % Eos % (Auto) 0.1 % Baso % (Auto) 0.0 % Neut # (Auto) 22.52 H (1.4-6.5) K/uL Lymph # (Auto) 0.63 L (1.2-3.4) K/uL Leslie # (Auto) 1.00 H (0.11-0.59) K/uL Eos # (Auto) 0.03 (0-0.5) K/uL Baso # (Auto) 0.01 (0-0.2) K/uL Immature Gran # (Auto) 0.76 H (0.00-0.02) K/uL Echinocytes 2+ Sodium Potassium Chloride Carbon Dioxide Anion Gap BUN Creatinine Est Cr Clr Drug Dosing Est GFR ( Amer) Est GFR (Non-Af Amer) BUN/Creatinine Ratio Glucose Osmolality 255 L (280-300) mOsm/kg Lactate (0.4-2.0) mmol/L Calcium Total Bilirubin AST ALT Alkaline Phosphatase Troponin I Total Protein Albumin Globulin Albumin/Globulin Ratio Lipase Procalcitonin 53.23 H (0-0.5) ng/ml COVID-19 Eval Order SARS-CoV-2 (PCR) (Negative) 11/26/20 11/26/20 11/26/20 Range/Units 17:00 17:00 18:05 WBC (4.8-10.8) K/uL RBC (4.7-6.1) M/uL Hgb (14.0-18.0) g/dL Hct (42-52) % MCV (80-100) fL MCH (25-34) pg MCHC (32-36) g/dL RDW Std Deviation (36.4-46.3) fL RDW Coeff of Georgina (11.5-14.5) % Plt Count (130-400) K/uL MPV (7.4-10.4) fL Immature Gran % (Auto) % Neut % (Auto) % Lymph % (Auto) % Leslie % (Auto) % Eos % (Auto) % Baso % (Auto) % Neut # (Auto) (1.4-6.5) K/uL Lymph # (Auto) (1.2-3.4) K/uL Leslie # (Auto) (0.11-0.59) K/uL Eos # (Auto) (0-0.5) K/uL Baso # (Auto) (0-0.2) K/uL Immature Gran # (Auto) (0.00-0.02) K/uL Echinocytes Sodium Cancelled Potassium Cancelled Chloride Cancelled Carbon Dioxide Cancelled Anion Gap Cancelled BUN Cancelled Creatinine Cancelled Est Cr Clr Drug Dosing Cancelled Est GFR ( Amer) Cancelled Est GFR (Non-Af Amer) Cancelled BUN/Creatinine Ratio Cancelled Glucose Cancelled Osmolality (280-300) mOsm/kg Lactate 1.8 (0.4-2.0) mmol/L Calcium Cancelled Total Bilirubin Cancelled AST Cancelled ALT Cancelled Alkaline Phosphatase Cancelled Troponin I Cancelled Total Protein Cancelled Albumin Cancelled Globulin Cancelled Albumin/Globulin Ratio Cancelled Lipase Cancelled Procalcitonin (0-0.5) ng/ml COVID-19 Eval Order Covid19 at [facility] SARS-CoV-2 (PCR) (Negative) 11/26/20 11/26/20 Range/Units 18:05 18:26 WBC (4.8-10.8) K/uL RBC (4.7-6.1) M/uL Hgb (14.0-18.0) g/dL Hct (42-52) % MCV (80-100) fL MCH (25-34) pg MCHC (32-36) g/dL RDW Std Deviation (36.4-46.3) fL RDW Coeff of Georgina (11.5-14.5) % Plt Count (130-400) K/uL MPV (7.4-10.4) fL Immature Gran % (Auto) % Neut % (Auto) % Lymph % (Auto) % Leslie % (Auto) % Eos % (Auto) % Baso % (Auto) % Neut # (Auto) (1.4-6.5) K/uL Lymph # (Auto) (1.2-3.4) K/uL Leslie # (Auto) (0.11-0.59) K/uL Eos # (Auto) (0-0.5) K/uL Baso # (Auto) (0-0.2) K/uL Immature Gran # (Auto) (0.00-0.02) K/uL Echinocytes Sodium 116 L* Potassium 4.0 Chloride 87 L Carbon Dioxide 15 L Anion Gap 14.0 H BUN 47 H Creatinine 3.27 H Est Cr Clr Drug Dosing 30.0 Est GFR ( Amer) 23.5 Est GFR (Non-Af Amer) 20.3 BUN/Creatinine Ratio 14.4 Glucose 159 H Osmolality (280-300) mOsm/kg Lactate (0.4-2.0) mmol/L Calcium 7.0 L Total Bilirubin 1.8 H AST 11 L ALT 10 L Alkaline Phosphatase 66 Troponin I < 0.015 Total Protein 6.0 L Albumin 2.0 L Globulin 4.0 Albumin/Globulin Ratio 0.5 L Lipase 24 L Procalcitonin (0-0.5) ng/ml COVID-19 Eval Order SARS-CoV-2 (PCR) NEGATIVE (Negative) Administered Medications Fluticasone/Vilanterol (Fluticasone/Vilanterol 200/25mcg 14 Puffs/Inhaler) 1 puffs INH HS ALVARO Stop: 12/26/20 21:59 Last Admin: 11/26/20 21:58 Dose: 1 puffs Documented by: [id number] Norepinephrine Bitartrate (Levophed/D5w) 8 mg in 508 mls @ 22.776 mls/hr IV .[id number] ALVARO; Protocol Stop: 12/26/20 19:14 Last Titration: 11/26/20 20:10 Dose: 0.07 mcg/kg/min, 22.8 mls/hr Documented by: [id number] Titration: 11/26/20 19:30 Dose: 0.05 mcg/kg/min, 16.3 mls/hr Documented by: [id number] Admin: 11/26/20 19:17 Dose: 0.1 mcg/kg/min, 32.5 mls/hr Documented by: [id number] Cosigned by: [id number] Sodium Chloride (Hypertonic Saline 3%) 500 mls @ 75 mls/hr IV .Q6H40M ALVARO; Protocol Stop: 12/26/20 22:44 Last Admin: 11/26/20 23:00 Dose: 75 mls/hr Documented by: [id number] Cosigned by: [id number] Sodium Bicarbonate 150 meq/ (Dextrose) 1,150 mls @ 75 mls/hr IV .[id number] ALVARO Stop: 12/26/20 22:44 Last Admin: 11/26/20 22:59 Dose: 75 mls/hr Documented by: [id number] Insulin Aspart (Insulin Aspart 100 Units/Ml 3 Ml Pen) 0 units SC Q6 ALVARO; Protocol Stop: 12/27/20 00:00 Last Admin: 11/26/20 23:44 Dose: Not Given Documented by: [id number] Miscellaneous (Stop Order) 1 ea N/A TODAY@ ONE Stop: 11/26/20 22:46 Last Admin: 11/26/20 23:18 Dose: 1 ea Documented by: [id number] Discontinued Medications Acetaminophen (Acetaminophen 10mg/Ml Pediatric Dosing) 1,000 mg IV NOW STA Stop: 11/26/20 18:24 Last Admin: 11/26/20 19:27 Dose: Not Given Documented by: [id number] Acetaminophen (Acetaminophen 1000 Mg/100 Ml Iv) Confirm Administered Dose 1,000 mg IV .STK-MED ONE Stop: 11/26/20 18:43 Last Admin: 11/26/20 18:49 Dose: 1,000 mg Documented by: [id number] Fentanyl Citrate (Fentanyl Citrate 100 Mcg/2 Ml Vial) 50 mcg IV NOW STA Stop: 11/26/20 17:56 Last Admin: 11/26/20 18:00 Dose: 50 mcg Documented by: [id number] Hydromorphone HCl (Hydromorphone Inj 0.5 Mg/0.5 Ml Syr) 0.5 mg IV NOW STA Stop: 11/26/20 19:12 Last Admin: 11/26/20 19:24 Dose: 0.5 mg Documented by: [id number] Hydromorphone HCl (Hydromorphone Inj 0.5 Mg/0.5 Ml Syr) 0.5 mg IV NOW STA Stop: 11/26/20 19:59 Last Admin: 11/26/20 20:14 Dose: 0.5 mg Documented by: [id number] Sodium Chloride (Nss 1000ml) 1,000 mls @ 999 mls/hr IV .Q1H1M STA Stop: 11/26/20 17:40 Last Infusion: 11/26/20 18:09 Dose: 999 mls/hr Documented by: [id number] Admin: 11/26/20 17:08 Dose: 999 mls/hr Documented by: [id number] Sodium Chloride (Nss 1000ml) 1,000 mls @ 125 mls/hr IV .Q8H STA Stop: 11/27/20 00:39 Last Infusion: 11/26/20 22:41 Dose: 0 mls/hr Documented by: [id number] Admin: 11/26/20 20:30 Dose: 125 mls/hr Documented by: [id number] Cefepime HCl (Maxipime) 2,000 mg in 20 mls @ 5 mls/min IV NOW STA; Protocol Stop: 11/26/20 16:49 Last Admin: 11/26/20 17:36 Dose: 5 mls/min Documented by: [id number] Daptomycin 500 mg/ Syringe 10 mls @ 5 mls/min IV ONE ONE; Protocol Stop: 11/26/20 16:47 Last Admin: 11/26/20 18:04 Dose: 5 mls/min Documented by: [id number] Sodium Chloride (Nss 1000ml) 1,000 mls @ 999 mls/hr IV .Q1H1M ONE Stop: 11/26/20 18:55 Last Infusion: 11/26/20 19:25 Dose: 0 mls/hr Documented by: [id number] Admin: 11/26/20 18:25 Dose: 999 mls/hr Documented by: [id number] Piperacillin Sod/Tazobactam (Sod 4.5 gm/ Dextrose) 120 mls @ 200 mls/hr IV NOW ONE; Protocol Stop: 11/26/20 22:35 Last Infusion: 11/26/20 22:56 Dose: 0 mls/hr Documented by: [id number] Admin: 11/26/20 21:55 Dose: 200 mls/hr Documented by: [id number] Sodium Chloride (Hypertonic Saline 3%) 50 mls @ 300 mls/hr IV .Q10M ONE Stop: 11/26/20 22:42 Last Infusion: 11/26/20 23:42 Dose: 0 mls/hr Documented by: [id number] Cosigned by: [id number] Admin: 11/26/20 22:58 Dose: 300 mls/hr Documented by: [id number] Cosigned by: [id number] Potassium Chloride (K Hero / Wtr) 20 meq in 100 mls @ 50 mls/hr IV ONE ONE Stop: 11/27/20 00:33 Last Admin: 11/26/20 22:59 Dose: 50 mls/hr Documented by: [id number] Insulin Glargine (Insulin Glargine Solostar 100 Units/Ml 3 Ml Pen) 20 units SC NOW ONE; Protocol Stop: 11/26/20 22:01 Last Admin: 11/26/20 23:24 Dose: 20 units Documented by: [id number] Cosigned by: [id number] Miscellaneous (Stat Iv Infusion Titration Per Protocol) 1 ea N/A NOW STA Stop: 11/26/20 19:08 Last Admin: 11/26/20 21:58 Dose: 1 ea Documented by: [id number] Imaging Data Radiologist's Impression: Abdomen/Pelvis CT 11/26/20 16:[address] WITHOUT CONTRAST CT DOSE: 702.33 mGy.cm HISTORY: Generalized abdominal pain, hypotension TECHNIQUE: Multiaxial CT images of the abdomen and pelvis were performed without contrast. A dose lowering technique was utilized adhering to the principles of ALARA. COMPARISON STUDY: Abdomen and pelvis CT 11/15/2020. FINDINGS: The heart remains mildly enlarged. There are trace bilateral pleural effusions. Linear densities within the lower lobes posteriorly favor subsegmental atelectasis. No pneumoperitoneum. No pneumatosis. No suspicious lytic or blastic osseous lesions. 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 The liver remains enlarged. The gallbladder is unremarkable. The unenhanced spleen and pancreas are within normal limits. Mild bilateral adrenal gland thickening, unchanged. Moderate bilateral perinephric edema is noted. No renal or ureteral stones. No hydronephrosis. There is small pockets of gas within the bladder. This could be due to recent catheterization. There is moderate bladder wall thickening with adjacent fat stranding. A Tao catheter is located within the bladder. No retroperitoneal lymphadenopathy or hematoma. There is a left retroaortic renal vein. Normal caliber abdominal aorta. Moderate well-formed stool seen within the rectum. Suboptimal evaluation for bowel pathology due to the lack of intravenous and oral contrast. However, there is no definite bowel wall thickening or obstruction. Normal appendix. IMPRESSION: 1. Moderate bladder wall thickening with adjacent fat stranding. This favors a cystitis. Recommend correlation with urinalysis. Small punctate foci of gas wit hin the bladder lumen is likely due to the Tao catheter. 2. Moderate bilateral perinephric edema. No hydronephrosis. This could be due to the patient's diffuse edematous state or a pyelonephritis. 3. No definite bowel wall thickening or obstruction. 4. Trace bilateral pleural effusions. 5. Hepatomegaly, unchanged. ACT 112: Negative or not required by law. Electronically signed by: Mg Olguin M.D. 11/26/2020 5:46 PM Chest X-Ray 11/26/20 17:55 XR chest 1V portable HISTORY: sepsis COMPARISON: Chest 09/18/2020. FINDINGS: The cardiac silhouette is borderline enlarged. No focal lung consolidations to suggest pneumonia. No evidence for pulmonary edema. No pleural effusions. No pneumothorax. Old, healed right-sided rib fractures are noted. IMPRESSION: 1. Borderline cardiomegaly. 2. No focal lung consolidations to suggest pneumonia. ACT 112: Negative or not required by law. Electronically signed by: Mg Olguin M.D. 11/26/2020 6:06 PM Discharge Plan Visit Data Chief Complaint: Abdominal Pain ED Provider: Loy Bautista Discharge Problem: Acute hypotension, Weakness, Acute UTI (urinary tract infection) Patient Disposition: Admitted As Inpatient Discharge Instructions Interventions: ED Discharge Assessment Last Done: 11/26/20 20:36
[2020-11-26 17:14] LABS: Hemoglobin 8.6 g/dL (14.0-18.0); Mean Corpuscular Hemoglobin 26.8 pg (25-34); Mean Corpuscular Hgb Conc 35.8 g/dL (32-36); Mean Corpuscular Volume 74.8 fL (80-100); Mean Platelet Volume 8.6 fL (7.4-10.4); Platelet Count 456 K/uL (130-400); RDW Coefficient of Variation 14.5 % (11.5-14.5); RDW Standard Deviation 40.2 fL (36.4-46.3); Red Blood Count 3.21 M/uL (4.7-6.1); White Blood Count 24.95 K/uL (4.8-10.8)
[2020-11-26 17:36] LABS: Basophils # (auto) 0.01 K/uL (0-0.2); Echinocytes 2+; Eosinophils # (auto) 0.03 K/uL (0-0.5); Eosinophils % (auto) 0.1 %; Immature Granulocytes # (auto) 0.76 K/uL (0.00-0.02); Lymphocytes # (auto) 0.63 K/uL (1.2-3.4); Lymphocytes % (auto) 2.5 %; Neutrophils # (auto) 22.52 K/uL (1.4-6.5); Neutrophils % (auto) 90.4 %
--- NOTE | 2020-11-26 17:47 | CT Scan Report ---
ABDOMEN AND PELVIS CT WITHOUT CONTRAST CT DOSE: 702.33 mGy.cm HISTORY: Generalized abdominal pain, hypotension TECHNIQUE: Multiaxial CT images of the abdomen and pelvis were performed without contrast. A dose lo wering technique was utilized adhering to the principles of ALARA. COMPARISON STUDY: Abdomen and pelvis CT 11/15/2020. FINDINGS: The heart remains mildly enlarged. There are trace bilateral pleural effusions. Linear dens ities within the lower lobes posteriorly favor subsegmental atelectasis. No pneumoperitoneum. No pneu matosis. No suspicious lytic or blastic osseous lesions. Stable 1 cm catheter lipoma at the right hep atic dome. The liver remains enlarged. The gallbladder is unremarkable. The unenhanced spleen and marie creas are within normal limits. Mild bilateral adrenal gland thickening, unchanged. Moderate bilatera l perinephric edema is noted. No renal or ureteral stones. No hydronephrosis. There is small pockets of gas within the bladder. This could be due to recent catheterization. There is moderate bladder wal l thickening with adjacent fat stranding. A Bird catheter is located within the bladder. No retroper itoneal lymphadenopathy or hematoma. There is a left retroaortic renal vein. Normal caliber abdominal aorta. Moderate well-formed stool seen within the rectum. Suboptimal evaluation for bowel pathology due to the lack of intravenous and oral contrast. However, there is no definite bowel wall thickening or obstruction. Normal appendix. IMPRESSION: 1. Moderate bladder wall thickening with adjacent fat stranding. This favors a cystitis. Recommend co rrelation with urinalysis. Small punctate foci of gas within the bladder lumen is likely due to the F oley catheter. 2. Moderate bilateral perinephric edema. No hydronephrosis. This could be due to the patient's diffus e edematous state or a pyelonephritis. 3. No definite bowel wall thickening or obstruction. 4. Trace bilateral pleural effusions. 5. Hepatomegaly, unchanged. ACT 112: Negative or not required by law. Electronically signed by: Mg Olguin M.D. 11/26/2020 5:46 PM
[2020-11-26] MEDS ORDERED: fentaNYL citrate 100 MCG/2 ML VIAL IV STA (17:55)
[2020-11-26] MEDS ORDERED: SODIUM CHLORIDE 0.9% 1000ML 1,000 ML IV ONE (17:55)
--- NOTE | 2020-11-26 18:08 | XRay Report ---
XR chest 1V portable HISTORY: sepsis COMPARISON: Chest 09/18/2020. FINDINGS: The cardiac silhouette is borderline enlarged. No focal lung consolidations to suggest pneu monia. No evidence for pulmonary edema. No pleural effusions. No pneumothorax. Old, healed right-side d rib fractures are noted. IMPRESSION: 1. Borderline cardiomegaly. 2. No focal lung consolidations to suggest pneumonia. ACT 112: Negative or not required by law. Electronically signed by: Mg Olguin M.D. 11/26/2020 6:06 PM
[2020-11-26] MEDS ORDERED: ACETAMINOPHEN 10MG/ML PEDIATRIC DOSING IV STA (18:23)
[2020-11-26] MEDS ORDERED: ACETAMINOPHEN 1000 MG/100 ML IV IV ONE (18:42)
[2020-11-26 19:01] LABS: Alanine Aminotransferase 10 U/L (12-78); Aspartate Aminotransferase 11 U/L (15-37); BUN Creatinine Ratio 14.4 (10-20); Blood Urea Nitrogen 47 mg/dl (7-18); Carbon Dioxide 15 mmol/L (21-32); Chloride 87 mmol/L (98-107); Est GFR (African American) 23.5 ml/min; Est GFR (Non-African American) 20.3 ml/min; Glucose 159 mg/dl (70-99); Lipase 24 U/L (73-393); Sodium 116 mmol/L (136-145)
[2020-11-26 19:03] LABS: Albumin Globulin Ratio 0.5 (0.9-2); Alkaline Phosphatase 66 U/L (45-117); Bilirubin,Total 1.8 mg/dl (0.2-1); Troponin I < 0.015 ng/ml (0-0.045)
[2020-11-26] MEDS ORDERED: STAT IV Infusion **Titration per Protocol STA (19:07)
[2020-11-26] MEDS ORDERED: HYDROmorphone INJ 0.5 MG/0.5 ML SYR IV STA ×2 (19:11→19:58)
[2020-11-26] MEDS: NOREPINEPHRINE/D5W 8 MG/508 ML BAG IV SCH (19:17)
--- NOTE | 2020-11-26 20:16 | History & Physical Report ---
Date of Service November 26, 2020 Assessment & Plan (1) Septic shock: (2) Pyelonephritis: (1) septic shock secondary to acute pyelonephritis Status post 3 L of normal saline solution bolus Central line in place Levophed started Follow-up blood cultures and urine cultures Lactic acid 1.8 Patient has history of MRSA UTI last year Start empiric daptomycin plus Zosyn Monitor in ICU Discussed with chips screen tender team, BITA Nuñez (2) acute renal failure likely secondary to sepsis, dehydration Management of suspected sepsis per above (3) acute on chronic hyponatremia: Baseline sodium 130s Now 115 Check urine osmolality and sodium, serum osmolality Has received 3 L of IV normal saline Needs careful correction overnight Further management per chips screen tender team Sacral wound: mild breakdown to L sacral area consult wound care T2DM (type 2 diabetes mellitus): insulin dependent , uncontrolled last A1c 11.0 09/19/2020 Pharmacy glycemic control consult Bimalleolar fracture of right ankle: s/p ORIF R bimalleolar ankle fracture 09/[address] Salomon continues to be NWB, to follow up with ortho 09/22 needs lovenox for dvt ppx Tobacco abuse: encourage smoking cessation Post traumatic stress disorder (PTSD): Schizophrenia mood stable hold zoloft and risperdal given acute renal failure History of Present Illness 55-year-old male with history of diabetes type 2, hypertension, asthma, chronic knee pain, schizophrenia, presenting with weakness and poor urine output x2 days. Patient was recently discharged earlier this month for urinary retention leading to placement of Bird catheter. As per patient, he was doing well at home until 2 days ago when he started to notice for urine output, loss of appetite, and weakness. Patient was found to be hypotensive in the field, and was given IV bolus of normal saline. At the ER, he remained to be hypotensive, receiving additional 2 L of IV fluids but systolic BP was still at the 70s. On my exam, ER physician explained to patient regarding central line placement and initiation of vasopressors. He was awake alert oriented x3, answers all questions appropriately Reports generalized abdominal discomfort, but no headache, dizziness, chest pain, shortness of breath. No other symptoms Primary Care Provider: Bg Bergeron MD Allergies Allergy/AdvReac Type Severity Reaction Status Date / Time No Known Allergies Allergy Verified 11/26/20 18:07 Home Medications Medication Instructions Recorded Confirmed Type albuterol sulfate 2 puff INHALATION QID 09/02/20 11/26/20 History fluticasone propion-salmeterol 1 inh INHALATION BID 09/02/20 11/26/20 History [Wixela Inhub] montelukast 10 mg PO PM 09/02/20 11/26/20 History omeprazole 40 mg PO QAM 09/02/20 11/26/20 History fluticasone propionate 2 spray INTRANASAL DAILY 09/10/20 11/26/20 History nystatin 5 ml PO QID PRN 11/26/20 11/26/20 History Piperacill/Tazobac Consult 1 dose NOT APPLICABLE UD 30 Days 11/27/20 Rx [Consult] daptomycin [Cubicin] 500 mg NOT APPLICABLE UD #10 ea 11/27/20 Rx Past Med/Surg History Medical History Asthma uses res inh daily > not well controlled Cardiac murmur dx > 20 yrs ago Chronic hyponatremia Depression GERD (gastroesophageal reflux disease) History of diabetes mellitus IDDM Nausea unknown cause/ has not had testing done> Zofran Osteoarthritis Post traumatic stress disorder (PTSD) Schizophrenia T2DM (type 2 diabetes mellitus) Tachycardia just with cafeine per pt Surgical History Bimalleolar fracture of right ankle s/p ORIF History of tooth extraction Family History Mother Diabetes Social History Smoking Status: Heavy tobacco smoker Years Smoked: 40; Cigarettes Per Day: 20; Second Hand Exposure: Yes; Hx Alcohol Use: No Hx Substance Use: No Preferred Language: Frisian Communication Ability: Effective Poker Manager Required: No Beliefs That Will Affect Care: None marital status: Single Current Living Situation: Family Current Living Situation Comment: mother Feels Safe at Home: Yes Assistive Devices: Glasses Review of Systems Review of Systems: All systems reviewed & are unremarkable except as noted in Subjective Physical Exam Physical Exam: General- oriented x 3, not in distress, speaks in sentences with no effort or accessory muscle use Appears weak Head- atraumatic Eyes- PERRL, EOMI, anicteric ENT- oropharynx clear Neck- supple, no JVD, no adenopathy, no thyromegaly; carotids +2/2, no bruits appreciated Lungs- clear to auscultation bilaterally, no rales/wheezes Heart- normal rate, regular rhythm; no murmur, no gallop, no rub appreciated Abdomen- normal bowel sounds, nondistended, soft, mild generalized tenderness, no masses or hepatosplenomegaly Bird catheter in place, no urine output Buttocks, sacral decubital ulcer noted, stage II with surrounding erythema Extremities- no pretibial edema, no calf tenderness; peripheral pulses intact Neuro- alert, oriented x 3; CN 2-12 grossly intact; motor 5/5 bilaterally;sensation 100% on all extremities; no other gross focal neurologic deficits Skin- warm & dry Results & Data Results & Data ([facility]) Vital Signs (Past 12 Hours) Vital Signs Temp Pulse Resp BP Pulse Ox 11/26/20 19:46 114 H 22 116/75 97 11/26/20 19:45 114 H 27 H 97 11/26/20 19:31 115 H 22 151/79 H 97 11/26/20 19:30 116 H 24 98 11/26/20 19:15 105 H 26 H 94/66 L 99 11/26/20 19:13 101 H 22 77/51 L 99 11/26/20 19:02 104 H 27 H 82/57 L 98 11/26/20 19:00 102 H 18 81/53 L 92 11/26/20 18:45 106 H 21 91/49 L 11/26/20 18:30 105 H 22 78/50 L 98 11/26/20 18:20 108 H 28 H 99 11/26/20 18:15 106 H 18 77/51 L 97 11/26/20 18:10 108 H 26 H 99 11/26/20 18:02 105 H 26 H 98 11/26/20 18:00 106 H 26 H 82/55 L 98 11/26/20 17:59 107 H 21 89/61 L 98 11/26/20 17:50 104 H 22 94 11/26/20 17:45 104 H 22 81/51 L 99 11/26/20 17:40 101 H 23 99 11/26/20 17:30 102 H 24 82/56 L 99 11/26/20 17:26 101 H 25 H 99 11/26/20 17:24 103 H 24 79/52 L 99 11/26/20 17:10 102 H 20 99 11/26/20 17:09 107 H 26 H 98 11/26/20 17:03 103 H 23 73/56 L 100 11/26/20 17:00 101 H 24 99 11/26/20 16:50 103 H 22 98 11/26/20 16:44 105 H 23 98 11/26/20 16:37 106 H 23 85/55 L 98 11/26/20 16:32 36.7 C 107 H 26 H 85/55 L 99 all noted and reviewed including below Laboratory Results Laboratory Results - last 24 hr 11/26/20 11/26/20 11/26/20 16:48 16:48 16:48 WBC RBC Hgb Hct MCV MCH MCHC RDW Std Deviation RDW Coeff of Georgina Plt Count MPV Immature Gran % (Auto) Neut % (Auto) Lymph % (Auto) Bill[place] % (Auto) Eos % (Auto) Baso % (Auto) Neut # (Auto) Lymph # (Auto) [place] # (Auto) Eos # (Auto) Baso # (Auto) Immature Gran # (Auto) Echinocytes Sodium Potassium Chloride Carbon Dioxide Anion Gap BUN Creatinine Est Cr Clr Drug Dosing Est GFR ( Amer) Est GFR (Non-Af Amer) BUN/Creatinine Ratio Glucose Osmolality Pending Lactate Calcium Total Bilirubin AST ALT Alkaline Phosphatase Troponin I Total Protein Albumin Globulin Albumin/Globulin Ratio Lipase Procalcitonin Pending Random Cortisol Pending COVID-19 Eval Order SARS-CoV-2 (PCR) 11/26/20 11/26/20 11/26/20 17:00 17:00 17:00 WBC 24.95 H RBC 3.21 L Hgb 8.6 L Hct 24.0 L MCV 74.8 L MCH 26.8 MCHC 35.8 RDW Std Deviation 40.2 RDW Coeff of Georgina 14.5 Plt Count 456 H MPV 8.6 Immature Gran % (Auto) 3.0 Neut % (Auto) 90.4 Lymph % (Auto) 2.5 Billings % (Auto) 4.0 Eos % (Auto) 0.1 Baso % (Auto) 0.0 Neut # (Auto) 22.52 H Lymph # (Auto) 0.63 L Billings # (Auto) 1.00 H Eos # (Auto) 0.03 Baso # (Auto) 0.01 Immature Gran # (Auto) 0.76 H Echinocytes 2+ Sodium Cancelled Potassium Cancelled Chloride Cancelled Carbon Dioxide Cancelled Anion Gap Cancelled BUN Cancelled Creatinine Cancelled Est Cr Clr Drug Dosing Cancelled Est GFR ( Amer) Cancelled Est GFR (Non-Af Amer) Cancelled BUN/Creatinine Ratio Cancelled Glucose Cancelled Osmolality Lactate 1.8 Calcium Cancelled Total Bilirubin Cancelled AST Cancelled ALT Cancelled Alkaline Phosphatase Cancelled Troponin I Cancelled Total Protein Cancelled Albumin Cancelled Globulin Cancelled Albumin/Globulin Ratio Cancelled Lipase Cancelled Procalcitonin Random Cortisol COVID-19 Eval Order SARS-CoV-2 (PCR) 11/26/20 11/26/20 11/26/20 18:05 18:05 18:26 WBC RBC Hgb Hct MCV MCH MCHC RDW Std Deviation RDW Coeff of Georgina Plt Count MPV Immature Gran % (Auto) Neut % (Auto) Lymph % (Auto) Bill[place] % (Auto) Eos % (Auto) Baso % (Auto) Neut # (Auto) Lymph # (Auto) Bill[place] # (Auto) Eos # (Auto) Baso # (Auto) Immature Gran # (Auto) Echinocytes Sodium 116 L* Potassium 4.0 Chloride 87 L Carbon Dioxide 15 L Anion Gap 14.0 H BUN 47 H Creatinine 3.27 H Est Cr Clr Drug Dosing 30.0 Est GFR ( Amer) 23.5 Est GFR (Non-Af Amer) 20.3 BUN/Creatinine Ratio 14.4 Glucose 159 H Osmolality Lactate Calcium 7.0 L Total Bilirubin 1.8 H AST 11 L ALT 10 L Alkaline Phosphatase 66 Troponin I < 0.015 Total Protein 6.0 L Albumin 2.0 L Globulin 4.0 Albumin/Globulin Ratio 0.5 L Lipase 24 L Procalcitonin Random Cortisol COVID-19 Eval Order Covid19 at [facility] SARS-CoV-2 (PCR) NEGATIVE Code Status & VTE Plan VTE Prophylaxis Plan VTE Prophylaxis will be ordered: Yes
[2020-11-26] MEDS ORDERED: ICU PROTOCOL FOR HYPERGLYCEMIA PRN (21:27)
[2020-11-26] MEDS ORDERED: PIPERACILL/TAZOBAC CONSULT ACTIVE PRN (21:29)
[2020-11-26] MEDS ORDERED: PHARMACY GLYCEMIC MGMT CONSULT PRN (21:49)
[2020-11-26 21:56] LABS: Base Excess VBG -13.9 mEq/L; Oxygen Saturation VBG 77.4 %; pH VBG 7.25 (7.36-7.41)
[2020-11-26] MEDS ORDERED: GLUCAGON FOR INJ 1 MG VIAL IM PRN (22:00)
[2020-11-26] MEDS ORDERED: CARBOHYDRATES FOR HYPOGLYCEMIA PO PRN (22:00)
[2020-11-26] MEDS ORDERED: DEXTROSE 50% 50 ML SYRINGE IV PRN (22:00)
[2020-11-26] MEDS ORDERED: FLUTICASONE/VILANTEROL 200/25MCG 14 PUFFS/INHALER INH SCH (22:00)
[2020-11-26] MEDS ORDERED: GLUCOSE 40% GEL 15 GM TUBE PO PRN (22:00)
[2020-11-26] MEDS ORDERED: INSULIN GLARGINE SOLOSTAR 100 UNITS/ML 3 ML PEN SC ONE (22:00)
[2020-11-26] MEDS ORDERED: GLUCOSE 10 TABS/TUBE PO PRN (22:00)
[2020-11-26] MEDS ORDERED: PIPERACILLIN/TAZOBACTAM 4.5 GM in DEXTROSE 5% 100 ML IV ONE (22:00)
[2020-11-26 22:19] LABS: Appearance Urine Turbid (Clear); Bacteria Urine Automated Negative (Negative); Bilirubin Urine Negative (Negative); Blood Urine 3+ (Negative); Color Urine Orange; Epithelial Cell Urine Auto >30 /lpf (0-5); Glucose Urine UA Negative (Negative); Ketones Urine Negative (Negative); Leukocyte Esterase Urine 3+ (Negative); Nitrite Urine Negative (Negative); Protein Urine 3+ (Negative); Specific Gravity Urine 1.012 (1.000-1.030); Urobilinogen Urine Negative (Negative); WBC Urine Automated >30 /hpf (0-5); pH Urine 6.5 (4.5-7.5)
[2020-11-26 22:30] LABS: BUN Creatinine Ratio 14.8 (10-20); Calcium 7.3 mg/dl (8.5-10.1); Est GFR (African American) 22.6 ml/min; Est GFR (Non-African American) 19.5 ml/min; Potassium 3.7 mmol/L (3.5-5.1)
[2020-11-26] MEDS ORDERED: SODIUM CHLORIDE 3 % 50 ML IV ONE (22:33)
[2020-11-26] MEDS ORDERED: POTASSIUM CHLORIDE / WTR 20 MEQ/100 ML PLCT IV ONE (22:34)
[2020-11-26 22:37] LABS: Cast Urine Automated 0 /lpf (0-5)
[2020-11-26] MEDS ORDERED: STAT IV STA (22:39)
[2020-11-26] MEDS ORDERED: SODIUM BICARBONATE 8.4% 150 MEQ in DEXTROSE 5% 1,000 ML IV SCH (22:45)
--- NOTE | 2020-11-26 22:58 | Critical Care Consultation ---
Date of Consultation November 26, 2020 Assessment & Plan (1) Admitted to intensive care unit: Reason Critically Ill: 55-year-old male presents to the ICU with septic shock requiring vasopressor support, acute renal failure, and acute hyponatremia. Neuro - [facility] ICU: Negative Schizophreniaholding psych meds at this time until patient more stable Cardiac - Shocklikely septic in etiology with urinary source. See ID for management -Patient given 3 L NSS bolus and started on Levophed drip in ED and CVC emergently inserted, titrate for maps greater than 65 -Troponin negative, NSR on EKG without ST elevations. No significant cardiac history -Follow-up echo in a.m. -H&H WNL -Cortisol pending -Fluid resuscitation complicated by hyponatremia -Continuous monitoring on telemetry Respiratory - Currently maintaining oxygen saturation on room air. Lungs clear to auscultation -History of asthma, nebs as needed -Continuous monitoring on pulse ox GI - N.p.o. RENAL/LYTES - Acute renal failurepatient with creatinine of 3.6, reports anuria from Bird catheter for 2 days now -Most likely ATN in the setting of septic shock -Bicarb 15 on BMP, VBG pending and will determine need for bicarb drip -Urinalysis pending -Titrate vasopressors to maintain maps greater than 65 -Avoid nephrotoxins and renally adjust medications - q4H BMPs -Consult to nephrology as patient may require dialysis if unresponsive to medical management Acute hyponatremiapatient presents with initial sodium of 116 in the ED, has received NSS x3 L bolus. Patient appears euvolemic on exam. Currently asymptomatic -Trend sodiums q4h. Goal correction 8 mEq/24h -Repeat BMP pending, likely no benefit to desmopressin as patient is in acute renal failure. Will follow-up next sodium to determine appropriate fluid management -Consult nephrology - Urinary obstructionpatient discharged with Bird at home 2 weeks ago. Bird catheter was changed in the ER. Monitor strict I's and O's ENDO - DM type IIlast A1c from 7.6 -Transition from Metformin to sliding scale in the setting of acute renal failure -ICU hyperglycemic protocol TSH within normal limits HEME - H&H stable, monitor routine CBCs ID - Sepsislikely urinary source as cystitis and questionable pyelonephritis seen on CT imaging -Leukocytosis and pro calcitonin elevated, no lactic acidosis, afebrile -Blood cultures and UA/urine culture pending -COVID-19 negative -Continue broad-spectrum antibiotics with daptomycin, cefepime for now LINES/IV ACCESS - CVC right femoral, PIV's DVT PROPHYLAXIS - SCDs I have personally spent 50 minutes of critical care time in the direct management of this patient. This is a life/limb threatening event. This includes time spent evaluating patient, direct bedside care, chart review, placing orders, interpretation of diagnostic studies, discussion with consultants, patient, and family members, as well as other required patient management activities. This time is exclusive of all separately billable procedures, and teaching time and separate from and in addition to any other critical care service time. Thank you for allowing us to participate in the care of this patient. Please refer to my attending physician's documentation for any further recommendations. (2) Pyelonephritis: (3) Septic shock: (4) Acute UTI (urinary tract infection): (5) Acute urinary retention: (6) T2DM (type 2 diabetes mellitus): (7) Acute renal failure: (8) Schizophrenia: (9) Sacral wound: (10) Acute hyponatremia: History of Present Illness History of Present Illness Patient is a 55-year-old male with past medical history including schizophrenia, asthma, DM type II, urinary retention with recent Bird catheter placement outpatient on November 15. Patient presented to the emergency department earlier this afternoon with complaints of fatigue, dizziness, and lack of urine output, and abdominal pain. He was found to be hypotensive and received 3 L NSS. Lab work revealed elevated creatinine, leukocytosis, and hyponatremia with sodium of 116. Lactate and troponin WNL. He was taken for CT abdomen which showed evidence of cystitis and pyelonephritis. Patient remained hypotensive following 3 L crystalloid bolus and CVC was placed in the ER and he was started on Levophed drip. Blood cultures and urine culture pending and he was started on broad-spectrum antibiotics with daptomycin and cefepime. On arrival to the ICU the patient is alert and oriented and appears comfortable on room air. He is maintaining maps on low-dose Levophed. Patient reports midline abdominal pain with light palpation. He denies current headache, dizziness, syncope, cough or sore throat, shortness of breath, chest pain or palpitations, nausea vomiting or diarrhea, swelling in hands or feet. Repeat labs and urine studies pending. Allergies Allergy/AdvReac Type Severity Reaction Status Date / Time No Known Allergies Allergy Verified 11/26/20 18:07 Home Medications Medication Instructions Recorded Confirmed Type Ozempic 0.5 mg SUBCUT WK 09/02/20 11/26/20 History albuterol sulfate 2 puff INHALATION QID 09/02/20 11/26/20 History atorvastatin 20 mg PO PM 09/02/20 11/26/20 History fluticasone propion-salmeterol 1 inh INHALATION BID 09/02/20 11/26/20 History [Wixela Inhub] metformin 1,500 mg PO DAILY 09/02/20 11/26/20 History montelukast 10 mg PO PM 09/02/20 11/26/20 History naproxen 500 mg PO BID PRN 09/02/20 11/26/20 History omeprazole 40 mg PO QAM 09/02/20 11/26/20 History ondansetron 4 mg PO Q8H PRN 09/02/20 11/26/20 History risperidone 2 mg PO PM 09/02/20 11/26/20 History sertraline 50 mg PO PM 09/02/20 11/26/20 History tramadol 50 mg PO Q8H PRN MDD 3 TABS/09/02/20 11/26/20 History HOURS fluticasone propionate 2 spray INTRANASAL DAILY 09/10/20 11/26/20 History Lantus Solostar U-100 Insulin 40 unit SUBCUT PM 11/26/20 11/26/20 History cyclobenzaprine 10 mg PO TID PRN 11/26/20 11/26/20 History diclofenac sodium 75 mg PO BID 11/26/20 11/26/20 History enoxaparin 40 mg SUBCUT DAILY 11/26/20 11/26/20 History gabapentin 800 mg PO TID 11/26/20 11/26/20 History nicotine [Nicotrol] 1 inh INHALATION DIRECTED PRN 11/26/20 11/26/20 History MDD 16 CARTRIDGES/DAY nystatin 5 ml PO QID PRN 11/26/20 11/26/20 History Patient History Medical History Asthma uses res inh daily > not well controlled Cardiac murmur dx > 20 yrs ago Chronic hyponatremia Depression GERD (gastroesophageal reflux disease) History of diabetes mellitus IDDM Nausea unknown cause/ has not had testing done> Zofran Osteoarthritis Post traumatic stress disorder (PTSD) Schizophrenia T2DM (type 2 diabetes mellitus) Tachycardia just with cafeine per pt Surgical History Bimalleolar fracture of right ankle s/p ORIF History of tooth extraction Family History Mother Diabetes Social History Smoking Status: Heavy tobacco smoker Years Smoked: 40; Cigarettes Per Day: 20; Second Hand Exposure: Yes; Hx Alcohol Use: No Hx Substance Use: No Preferred Language: Macanese Communication Ability: Effective Pet Walker Required: No Beliefs That Will Affect Care: None marital status: Single Current Living Situation: Family Current Living Situation Comment: mother Other Information That Helps Us Care for You: No Feels Safe at Home: Yes Safety Concerns: Feels Safe At This Time Assistive Devices: Glasses and Wheelchair Review of Systems Review of Systems: All systems reviewed & are unremarkable except as noted in HPI & below Physical Exam Constitutional: cooperative and comfortable; no acute distress Eyes: PERRL, conjunctivae normal, anicteric sclerae ENMT: external ear and nose normal, oropharynx normal Neck: trachea midline, no thyromegaly Respiratory: normal respiratory effort, lungs clear to auscultation Cardiovascular: RRR, no murmur, no edema Heart Sounds: normal S1 and normal S2 Vessels: no JVD Extremities: normal capillary refill; no edema Gastrointestinal (Abdomen): Abdomen soft and nondistended with normal bowel sounds in all 4 quadrants. Midline tenderness with palpation. Otherwise unremarkable exam. Skin: no rashes, warm and dry Neurologic: PERRL, EOMI, accommodation nl, no face palsy, no dysarthria Psychiatric: A+Ox3, euthymic affect Results & Data Results & Data ([facility]) Vital Signs (Past 12 Hours) Vital Signs Temp Pulse Resp BP Pulse Ox 11/26/20 20:19 36.7 C 11/26/20 20:15 114 H 18 119/68 98 11/26/20 20:10 118 H 27 H 110/64 98 11/26/20 20:01 119 H 16 89/46 L 98 11/26/20 20:00 113 H 30 H 98 11/26/20 19:47 113 H 23 98 11/26/20 19:46 114 H 22 116/75 97 11/26/20 19:45 114 H 27 H 97 11/26/20 19:31 115 H 22 151/79 H 97 11/26/20 19:30 116 H 24 98 11/26/20 19:15 105 H 26 H 94/66 L 99 11/26/20 19:13 101 H 22 77/51 L 99 11/26/20 19:02 104 H 27 H 82/57 L 98 11/26/20 19:00 102 H 18 81/53 L 92 11/26/20 18:45 106 H 21 91/49 L 11/26/20 18:30 105 H 22 78/50 L 98 11/26/20 18:20 108 H 28 H 99 11/26/20 18:15 106 H 18 77/51 L 97 11/26/20 18:10 108 H 26 H 99 11/26/20 18:02 105 H 26 H 98 11/26/20 18:00 106 H 26 H 82/55 L 98 11/26/20 17:59 107 H 21 89/61 L 98 11/26/20 17:50 104 H 22 94 11/26/20 17:45 104 H 22 81/51 L 99 11/26/20 17:40 101 H 23 99 11/26/20 17:30 102 H 24 82/56 L 99 11/26/20 17:26 101 H 25 H 99 11/26/20 17:24 103 H 24 79/52 L 99 11/26/20 17:10 102 H 20 99 11/26/20 17:09 107 H 26 H 98 11/26/20 17:03 103 H 23 73/56 L 100 11/26/20 17:00 101 H 24 99 11/26/20 16:50 103 H 22 98 11/26/20 16:44 105 H 23 98 11/26/20 16:37 106 H 23 85/55 L 98 11/26/20 16:32 36.7 C 107 H 26 H 85/55 L 99 Coding Level of Care Code Critical Care 1st 30-74 mins Diagnoses Admitted to intensive care unit Z78.9 Pyelonephritis N12 Septic shock A41.9; R65.21 Acute UTI (urinary tract infection) N39.0 Acute urinary retention R33.8 T2DM (type 2 diabetes mellitus) E11.9 Acute renal failure N17.9 Schizophrenia F20.9 Sacral wound S31.000A Acute hyponatremia E87.1
[2020-11-26] MEDS: SODIUM CHLORIDE 3 % 500 ML IV SCH (23:00)
[2020-11-26] MEDS: INSULIN ASPART 100 UNITS/ML 3 ML PEN SC SCH (23:44)
[2020-11-27 03:32] LABS: BUN Creatinine Ratio 14.2 (10-20); Creatinine Clr Calc Pharmacy 28.7 ml/min; Est GFR (African American) 22.3 ml/min; Est GFR (Non-African American) 19.2 ml/min; Potassium 3.8 mmol/L (3.5-5.1)
[2020-11-27] MEDS ORDERED: STAT IV Infusion **Titration per Protocol STA ×2 (03:37→08:22)
--- NOTE | 2020-11-27 04:21 | Procedure Note ---
Procedure Note Date of Service November 27, 2020 Note ARTERIAL LINE PROCEDURE NOTE: Procedure: Arterial Line Placement Attending: Dr. Kem Marroquin Provider: DEMETRIA Ruiz Indication: Monitoring on Pressors Anesthesia:Lidocaine 1% Line placed emergently in the setting of worsening hypotension with septic shock. Patient now requiring multiple vasopressors. A time-out was completed verifying correct patient, procedure, site, positioning, and implant(s) or special equipment if applicable. Allens test was performed to ensure adequate perfusion. Patients left wrist was prepped and draped in the usual sterile fashion. Ultrasound guidance was used to aid needle placement. A 20g Arrow arterial line was introduced into the left radial artery. Catheter was threaded, and the needle was removed with appropriate blood return. Good waveform was observed. The patient tolerated the procedure well. Confirmation of placement with ultrasound. Blood Loss: Minimal Complications: None Procedural Ultrasound Guidance: Procedure Date: 11/27/2020 Indication: Arterial line insertion Attending: Dr. Kem Marroquin Provider: DEMETRIA Ruiz Artery Identified: YES Line confirmed in Artery with ultrasound: Yes Complications: NONE Patient tolerated procedure: WELL Coding CPT Codes Tubes, Drains, and Vasc Access - Tubes, Drains, and Vasc Access: [id number] Place Catheter In Artery ([id number]) Tubes, Drains, and Vasc Access - Tubes, Drains, and Vasc Access: [id number] Ultrasound Guidance For Vascular ([id number]) [facility] [place] Codes (Charges) Tubes, Drains, and Vasc Access Procedure 1: Tubes, Drains, and Vasc Access: [id number] Place Catheter In Artery Procedure 2: Tubes, Drains, and Vasc Access: [id number] Ultrasound Guidance For Vascular
[2020-11-27 04:22] LABS: Mean Corpuscular Hgb Conc 35.6 g/dL (32-36); Mean Platelet Volume 8.3 fL (7.4-10.4); Platelet Count 343 K/uL (130-400)
[2020-11-27] MEDS: VASOPRESSIN 20 UNITS in 0.9 % SODIUM CHLORIDE 100 ML IV SCH ×2 (04:33→11:57)
[2020-11-27] MEDS: PIPERACILLIN/TAZOBACTAM 4.5 GM in DEXTROSE 5% 100 ML IV SCH ×2 (04:34→11:55)
[2020-11-27] MEDS ORDERED: HYDROCORTISONE SOD 100 MG in SYRINGE 0 ML IV STA (04:35)
[2020-11-27 04:36] LABS: Base Excess VBG -12.1 mEq/L; INR 1.4 (0.9-1.1); Oxygen Saturation VBG 72.4 %; Partial Thromboplastin Ratio 1.4; Partial Thromboplastin Time 36.5 Seconds (21.0-31.0); pH VBG 7.27 (7.36-7.41)
[2020-11-27 04:43] LABS: Albumin Level 1.9 gm/dl (3.4-5.0); Bilirubin Direct 0.7 mg/dl (0-0.2); Magnesium 1.4 mg/dl (1.8-2.4); Phosphorus 2.8 mg/dl (2.5-4.9); Total Protein 5.5 gm/dl (6.4-8.2)
[2020-11-27] MEDS ORDERED: SODIUM CHLORIDE 0.9% 1000ML 1,000 ML IV ONE (04:44)
[2020-11-27 04:47] LABS: Hematocrit (blood only) 23.6 % (42-52); Hemoglobin 8.4 g/dL (14.0-18.0); Mean Corpuscular Hemoglobin 26.2 pg (25-34); Mean Corpuscular Volume 73.5 fL (80-100); RDW Coefficient of Variation 14.8 % (11.5-14.5); RDW Standard Deviation 40.2 fL (36.4-46.3); Red Blood Count 3.21 M/uL (4.7-6.1); White Blood Count 22.88 K/uL (4.8-10.8)
[2020-11-27 04:48] LABS: ALC (manual) 0.39 K/uL (1.2-3.4); ANC (manual) 21.69 K/uL (1.4-6.5); Dohle Bodies 2+; Echinocytes 3+; Eosinophils # (manual) 0.21 K/uL (0-0.5); Eosinophils % (manual) 0.9 %; Lymphocytes # (manual) 0.39 K/uL (1.2-3.4); Lymphocytes % (manual) 1.7 %; Monocytes # (manual) 0.59 K/uL (0.11-0.59); Monocytes % (manual) 2.6 %; Neutrophils # (manual) 21.69 K/uL (1.4-6.5); Neutrophils % (manual) 94.8 %; Toxic Vacuolation 2+
[2020-11-27] MEDS: INSULIN ASPART 100 UNITS/ML 3 ML PEN SC SCH ×2 (05:56→11:57)
[2020-11-27] MEDS: SODIUM CHLORIDE 3 % 500 ML IV SCH ×2 (05:56→07:28)
[2020-11-27 06:22] LABS: BUN Creatinine Ratio 13.8 (10-20); Calcium 6.9 mg/dl (8.5-10.1); Creatinine Clr Calc Pharmacy 28.6 ml/min; Est GFR (African American) 22.2 ml/min; Est GFR (Non-African American) 19.1 ml/min; Potassium 3.8 mmol/L (3.5-5.1)
--- NOTE | 2020-11-27 06:45 | Critical Care Consultation ---
Date of Consultation November 27, 2020 History of Present Illness Attending Physician: Mike Omalley MD Allergies Allergy/AdvReac Type Severity Reaction Status Date / Time No Known Allergies Allergy Verified 11/26/20 18:07 Home Medications Medication Instructions Recorded Confirmed Type Ozempic 0.5 mg SUBCUT WK 09/02/20 11/26/20 History albuterol sulfate 2 puff INHALATION QID 09/02/20 11/26/20 History atorvastatin 20 mg PO PM 09/02/20 11/26/20 History fluticasone propion-salmeterol 1 inh INHALATION BID 09/02/20 11/26/20 History [Wixela Inhub] metformin 1,500 mg PO DAILY 09/02/20 11/26/20 History montelukast 10 mg PO PM 09/02/20 11/26/20 History naproxen 500 mg PO BID PRN 09/02/20 11/26/20 History omeprazole 40 mg PO QAM 09/02/20 11/26/20 History ondansetron 4 mg PO Q8H PRN 09/02/20 11/26/20 History risperidone 2 mg PO PM 09/02/20 11/26/20 History sertraline 50 mg PO PM 09/02/20 11/26/20 History tramadol 50 mg PO Q8H PRN MDD 3 TABS/24 09/02/20 11/26/20 History HOURS fluticasone propionate 2 spray INTRANASAL DAILY 09/10/20 11/26/20 History Lantus Solostar U-100 Insulin 40 unit SUBCUT PM 11/26/20 11/26/20 History cyclobenzaprine 10 mg PO TID PRN 11/26/20 11/26/20 History diclofenac sodium 75 mg PO BID 11/26/20 11/26/20 History enoxaparin 40 mg SUBCUT DAILY 11/26/20 11/26/20 History gabapentin 800 mg PO TID 11/26/20 11/26/20 History nicotine [Nicotrol] 1 inh INHALATION DIRECTED PRN 11/26/20 11/26/20 History MDD 16 CARTRIDGES/DAY nystatin 5 ml PO QID PRN 11/26/20 11/26/20 History Patient History Medical History Asthma uses res inh daily > not well controlled Cardiac murmur dx > 20 yrs ago Chronic hyponatremia Depression GERD (gastroesophageal reflux disease) History of diabetes mellitus IDDM Nausea unknown cause/ has not had testing done> Zofran Osteoarthritis Post traumatic stress disorder (PTSD) Schizophrenia T2DM (type 2 diabetes mellitus) Tachycardia just with cafeine per pt Surgical History Bimalleolar fracture of right ankle s/p ORIF History of tooth extraction Family History Mother Diabetes Social History Smoking Status: Heavy tobacco smoker Years Smoked: 40; Cigarettes Per Day: 20; Second Hand Exposure: Yes; Hx Alcohol Use: No Hx Substance Use: No Preferred Language: Maltese Communication Ability: Effective Nature Photographer Required: No Beliefs That Will Affect Care: None marital status: Single Current Living Situation: Family Current Living Situation Comment: mother Other Information That Helps Us Care for You: No Feels Safe at Home: Yes Safety Concerns: Feels Safe At This Time Assistive Devices: Glasses and Wheelchair Results & Data Results & Data ([facility]) Vital Signs (Past 12 Hours) Vital Signs Temp Pulse Pulse Resp BP BP Pulse Ox 11/27/20 06:06 36.7 C 119 H 21 103/72 98 11/27/20 05:51 117 H 20 102/62 97 11/27/20 05:36 117 H 19 92/57 L 96 11/27/20 05:21 120 H 20 115/67 98 11/27/20 05:06 122 H 19 112/85 98 11/27/20 04:51 128 H 20 119/77 97 11/27/20 04:36 120 H 19 103/81 97 11/27/20 04:22 118 H 18 112/62 99 11/27/20 04:06 36.7 C 117 H 22 95/55 L 100 11/27/20 03:51 118 H 23 103/53 L 94 11/27/20 03:36 118 H 19 94/57 L 100 11/27/20 03:21 117 H 19 93/67 L 100 11/27/20 03:06 116 H 23 88/54 L 100 11/27/20 02:52 118 H 16 85/49 L 99 11/27/20 02:37 115 H 19 102/54 L 99 11/27/20 02:22 114 H 19 125/56 L 97 11/27/20 02:09 113 H 17 76/47 L 96 11/27/20 02:06 111 H 16 78/50 L 97 11/27/20 01:51 116 H 19 96/57 L 98 11/27/20 01:36 110 H 19 99/53 L 98 11/27/20 01:21 115 H 19 99/54 L 99 11/27/20 01:06 116 H 17 90/52 L 98 11/27/20 00:51 118 H 16 95/66 L 99 11/27/20 00:36 113 H 20 91/53 L 98 11/27/20 00:22 115 H 19 92/57 L 97 11/27/20 00:06 36.7 C 109 H 19 98/54 L 98 11/26/20 23:52 115 H 20 94/46 L 96 11/26/20 23:36 113 H 17 115/54 L 98 11/26/20 23:21 114 H 16 103/55 L 98 11/26/20 23:06 110 H 17 84/52 L 97 11/26/20 22:51 111 H 16 93/55 L 95 11/26/20 22:36 112 H 16 105/60 97 11/26/20 21:55 36.7 C 117 H 16 114/55 L 98 11/26/20 20:48 36.7 C 117 H 20 103/63 97 11/26/20 20:19 36.7 C 11/26/20 20:15 114 H 18 119/68 98 11/26/20 20:10 118 H 27 H 110/64 98 11/26/20 20:01 119 H 16 89/46 L 98 11/26/20 20:00 113 H 30 H 98 11/26/20 19:47 113 H 23 98 11/26/20 19:46 114 H 22 116/75 97 11/26/20 19:45 114 H 27 H 97 11/26/20 19:31 115 H 22 151/79 H 97 11/26/20 19:30 116 H 24 98 11/26/20 19:15 105 H 26 H 94/66 L 99 11/26/20 19:13 101 H 22 77/51 L 99 11/26/20 19:02 104 H 27 H 82/57 L 98 11/26/20 19:00 102 H 18 81/53 L 92 Coding
--- NOTE | 2020-11-27 07:21 | Critical Care Progress Note ---
Date of Service November 27, 2020 Assessment & Plan (1) Admitted to intensive care unit: Reason Critically Ill: 55-year-old male presents to the ICU with septic shock requiring vasopressor support, acute renal failure, and acute hyponatremia. Neuro - [facility] ICU: Negative Schizophreniaholding psych meds at this time until patient more stable Cardiac - Shock echocardiogram obtained -Wean vasoactive's as tolerated Respiratory - Currently maintaining oxygen saturation on room air. Lungs clear to auscultation -History of asthma, nebs as needed -Continuous monitoring on pulse ox GI - N.p.o. RENAL/LYTES - Acute renal failurepatient with creatinine of 3.6, reports anuria from Bird catheter for 2 days now -Reviewed nephrology consultation Acute hyponatremiapatient presents with initial sodium of 116 in the ED, has received NSS x3 L bolus. Patient appears euvolemic on exam. Currently asymptomatic -Trend sodiums q4h. Goal correction 8 mEq/24 - Urinary obstructionpatient discharged with Bird at home 2 weeks ago. Bird catheter was changed in the ER. Monitor strict I's and O's ENDO - DM type II -ICU hyperglycemic protocol TSH within normal limits HEME - H&H stable, monitor routine CBCs ID - Sepsis Gram-negative bacteremialikely urinary source as cystitis and questionable pyelonephritis seen on CT imaging -Leukocytosis and pro calcitonin elevated, no lactic acidosis, afebrile -Blood cultures and UA/urine culture pending -COVID-19 negative -Continue broad-spectrum antibiotics with daptomycin, cefepime for now LINES/IV ACCESS - CVC right femoral, PIV's DVT PROPHYLAXIS - SCDs I have personally spent 50 minutes of critical care time in the direct management of this patient. This is a life/limb threatening event. This includes time spent evaluating patient, direct bedside care, chart review, placing orders, interpretation of diagnostic studies, discussion with consultants, patient, and family members, as well as other required patient management activities. This time is exclusive of all separately billable procedures, and teaching time and separate from and in addition to any other critical care service time. (2) Pyelonephritis: (3) Septic shock: (4) Acute UTI (urinary tract infection): (5) Acute urinary retention: (6) T2DM (type 2 diabetes mellitus): (7) Acute renal failure: (8) Schizophrenia: (9) Sacral wound: (10) Acute hyponatremia: Admission and Anticipated Discharge Date Admission Date: November 26, 2020 Subjective Complaints of abdominal pain, not taking usual medications which include gabapentin and NSAIDs Review of Systems Review of Systems: As per the HPI Physical Exam Physical Exam: General: Alert. nontoxic. Skin: Warm, dry, Head: Atraumatic Ears, nose, mouth and throat: airway patent Cardiovascular: Normal peripheral perfusion Respiratory: no respiratory distress Gastrointestinal: Non distended Musculoskeletal: No deformity Results & Data Results & Data ([facility]) Vital Signs (Past 12 Hours) Vital Signs Temp Pulse Pulse Resp BP BP Pulse Ox 11/27/20 06:06 36.7 C 119 H 21 103/72 98 11/27/20 05:51 117 H 20 102/62 97 11/27/20 05:36 117 H 19 92/57 L 96 11/27/20 05:21 120 H 20 115/67 98 11/27/20 05:06 122 H 19 112/85 98 11/27/20 04:51 128 H 20 119/77 97 11/27/20 04:36 120 H 19 103/81 97 11/27/20 04:22 118 H 18 112/62 99 11/27/20 04:06 36.7 C 117 H 22 95/55 L 100 11/27/20 03:51 118 H 23 103/53 L 94 11/27/20 03:36 118 H 19 94/57 L 100 11/27/20 03:21 117 H 19 93/67 L 100 11/27/20 03:06 116 H 23 88/54 L 100 11/27/20 02:52 118 H 16 85/49 L 99 11/27/20 02:37 115 H 19 102/54 L 99 11/27/20 02:22 114 H 19 125/56 L 97 11/27/20 02:09 113 H 17 76/47 L 96 11/27/20 02:06 111 H 16 78/50 L 97 11/27/20 01:51 116 H 19 96/57 L 98 11/27/20 01:36 110 H 19 99/53 L 98 11/27/20 01:21 115 H 19 99/54 L 99 11/27/20 01:06 116 H 17 90/52 L 98 11/27/20 00:51 118 H 16 95/66 L 99 11/27/20 00:36 113 H 20 91/53 L 98 11/27/20 00:22 115 H 19 92/57 L 97 11/27/20 00:06 36.7 C 109 H 19 98/54 L 98 11/26/20 23:52 115 H 20 94/46 L 96 11/26/20 23:36 113 H 17 115/54 L 98 11/26/20 23:21 114 H 16 103/55 L 98 11/26/20 23:06 110 H 17 84/52 L 97 11/26/20 22:51 111 H 16 93/55 L 95 11/26/20 22:36 112 H 16 105/60 97 11/26/20 21:55 36.7 C 117 H 16 114/55 L 98 11/26/20 20:48 36.7 C 117 H 20 103/63 97 11/26/20 20:19 36.7 C 11/26/20 20:15 114 H 18 119/68 98 11/26/20 20:10 118 H 27 H 110/64 98 11/26/20 20:01 119 H 16 89/46 L 98 11/26/20 20:00 113 H 30 H 98 11/26/20 19:47 113 H 23 98 11/26/20 19:46 114 H 22 116/75 97 11/26/20 19:45 114 H 27 H 97 11/26/20 19:31 115 H 22 151/79 H 97 11/26/20 19:30 116 H 24 98 Laboratory Results 11/27/20 11/27/20 11/27/20 Range/Units 10:40 09:43 05:54 WBC (4.8-10.8) K/uL RBC (4.7-6.1) M/uL Hgb (14.0-18.0) g/dL Hct (42-52) % MCV (80-100) fL MCH (25-34) pg MCHC (32-36) g/dL RDW Std Deviation (36.4-46.3) fL RDW Coeff of Georgina (11.5-14.5) % Plt Count (130-400) K/uL MPV (7.4-10.4) fL Immature Gran % (Auto) % Neut % (Auto) % Lymph % (Auto) % [place] % (Auto) % Eos % (Auto) % Baso % (Auto) % Neut # (Auto) (1.4-6.5) K/uL Lymph # (Auto) (1.2-3.4) K/uL [place] # (Auto) (0.11-0.59) K/uL Eos # (Auto) (0-0.5) K/uL Baso # (Auto) (0-0.2) K/uL Immature Gran # (Auto) (0.00-0.02) K/uL Neutrophils % (Manual) % Lymphocytes % (Manual) % Monocytes % (Manual) % Eosinophils % (Manual) % Neutrophils # (Manual) (1.4-6.5) K/uL Total Absolute Neuts (1.4-6.5) K/uL Lymphocytes # (Manual) (1.2-3.4) K/uL Total Abs Lymphocytes (1.2-3.4) K/uL Monocytes # (Manual) (0.11-0.59) K/uL Eosinophils # (Manual) (0-0.5) K/uL Toxic Vacuolation Dohle Bodies Echinocytes PT (9.0-12.0) Seconds INR (0.9-1.1) APTT (21.0-31.0) Seconds PTT Ratio VBG pH (7.36-7.41) VBG pCO2 (38-50) mmHg VBG pO2 mmHg VBG HCO3 mmol/L VBG O2 Saturation % VBG Base Excess mEq/L Barometric Pressure mm/Hg Sodium 120 L Potassium Pending Chloride 92 L Carbon Dioxide 13 L Anion Gap 15.0 H BUN 49 H Creatinine 3.61 H Est Cr Clr Drug Dosing 27.2 Est GFR ( Amer) 20.9 Est GFR (Non-Af Amer) 18.0 BUN/Creatinine Ratio 13.6 Glucose 190 H POC Glucose (other) 154 H (70-99) mg/dl Osmolality (280-300) mOsm/kg Lactate 2.6 H* (0.4-2.0) mmol/L Calcium 6.8 L Phosphorus (2.5-4.9) mg/dl Magnesium (1.8-2.4) mg/dl Total Bilirubin Direct Bilirubin (0-0.2) mg/dl AST ALT Alkaline Phosphatase Troponin I Total Protein Albumin Globulin Albumin/Globulin Ratio Lipase Procalcitonin (0-0.5) ng/ml Random Cortisol mcg/dl Urine Color Urine Appearance (Clear) Urine pH (4.5-7.5) Ur Specific [place] (1.000-1.030) Urine Protein (Negative) Urine Glucose (UA) (Negative) Urine Ketones (Negative) Urine Blood (Negative) Urine Nitrite (Negative) Urine Bilirubin (Negative) Urine Urobilinogen (Negative) Ur Leukocyte Esterase (Negative) Urine WBC (Auto) (0-5) /hpf Urine RBC (Auto) (0-4) /hpf U Hyaline Cast (Auto) (0-5) /lpf U Epithel Cells (Auto) (0-5) /lpf Urine Bacteria (Auto) (Negative) Urine Yeast Urine Osmolality (500-800) mOsm/kg Ur Random Sodium mmol/L Nasal Screen MRSA (PCR) (Negative) COVID-19 Eval Order SARS-CoV-2 (PCR) (Negative) 11/27/20 11/27/20 11/27/20 Range/Units 05:47 04:09 04:09 WBC (4.8-10.8) K/uL RBC (4.7-6.1) M/uL Hgb (14.0-18.0) g/dL Hct (42-52) % MCV (80-100) fL MCH (25-34) pg MCHC (32-36) g/dL RDW Std Deviation (36.4-46.3) fL RDW Coeff of Georgina (11.5-14.5) % Plt Count (130-400) K/uL MPV (7.4-10.4) fL Immature Gran % (Auto) % Neut % (Auto) % Lymph % (Auto) % [place] % (Auto) % Eos % (Auto) % Baso % (Auto) % Neut # (Auto) (1.4-6.5) K/uL Lymph # (Auto) (1.2-3.4) K/uL [place] # (Auto) (0.11-0.59) K/uL Eos # (Auto) (0-0.5) K/uL Baso # (Auto) (0-0.2) K/uL Immature Gran # (Auto) (0.00-0.02) K/uL Neutrophils % (Manual) % Lymphocytes % (Manual) % Monocytes % (Manual) % Eosinophils % (Manual) % Neutrophils # (Manual) (1.4-6.5) K/uL Total Absolute Neuts (1.4-6.5) K/uL Lymphocytes # (Manual) (1.2-3.4) K/uL Total Abs Lymphocytes (1.2-3.4) K/uL Monocytes # (Manual) (0.11-0.59) K/uL Eosinophils # (Manual) (0-0.5) K/uL Toxic Vacuolation Dohle Bodies Echinocytes PT 14.0 H (9.0-12.0) Seconds INR 1.4 H (0.9-1.1) APTT 36.5 H (21.0-31.0) Seconds PTT Ratio 1.4 VBG pH 7.27 L (7.36-7.41) VBG pCO2 31 L (38-50) mmHg VBG pO2 37 mmHg VBG HCO3 14 mmol/L VBG O2 Saturation 72.4 % VBG Base Excess -12.1 mEq/L Barometric Pressure 736.5 mm/Hg Sodium 121 L Potassium 3.8 Chloride 94 L Carbon Dioxide 14 L Anion Gap 13.0 H BUN 47 H Creatinine 3.43 H Est Cr Clr Drug Dosing 28.6 Est GFR ( Amer) 22.2 Est GFR (Non-Af Amer) 19.1 BUN/Creatinine Ratio 13.8 Glucose 160 H POC Glucose (other) (70-99) mg/dl Osmolality (280-300) mOsm/kg Lactate (0.4-2.0) mmol/L Calcium 6.9 L Phosphorus (2.5-4.9) mg/dl Magnesium (1.8-2.4) mg/dl Total Bilirubin Direct Bilirubin (0-0.2) mg/dl AST ALT Alkaline Phosphatase Troponin I Total Protein Albumin Globulin Albumin/Globulin Ratio Lipase Procalcitonin (0-0.5) ng/ml Random Cortisol mcg/dl Urine Color Urine Appearance (Clear) Urine pH (4.5-7.5) Ur Specific [place] (1.000-1.030) Urine Protein (Negative) Urine Glucose (UA) (Negative) Urine Ketones (Negative) Urine Blood (Negative) Urine Nitrite (Negative) Urine Bilirubin (Negative) Urine Urobilinogen (Negative) Ur Leukocyte Esterase (Negative) Urine WBC (Auto) (0-5) /hpf Urine RBC (Auto) (0-4) /hpf U Hyaline Cast (Auto) (0-5) /lpf U Epithel Cells (Auto) (0-5) /lpf Urine Bacteria (Auto) (Negative) Urine Yeast Urine Osmolality (500-800) mOsm/kg Ur Random Sodium mmol/L Nasal Screen MRSA (PCR) (Negative) COVID-19 Eval Order SARS-CoV-2 (PCR) (Negative) 11/27/20 11/27/20 11/27/20 Range/Units 04:09 04:09 01:55 WBC 22.88 H (4.8-10.8) K/uL RBC 3.21 L (4.7-6.1) M/uL Hgb 8.4 L (14.0-18.0) g/dL Hct 23.6 L (42-52) % MCV 73.5 L (80-100) fL MCH 26.2 (25-34) pg MCHC 35.6 (32-36) g/dL RDW Std Deviation 40.2 (36.4-46.3) fL RDW Coeff of Georgina 14.8 H (11.5-14.5) % Plt Count 343 (130-400) K/uL MPV 8.3 (7.4-10.4) fL Immature Gran % (Auto) % Neut % (Auto) % Lymph % (Auto) % [place] % (Auto) % Eos % (Auto) % Baso % (Auto) % Neut # (Auto) (1.4-6.5) K/uL Lymph # (Auto) (1.2-3.4) K/uL [place] # (Auto) (0.11-0.59) K/uL Eos # (Auto) (0-0.5) K/uL Baso # (Auto) (0-0.2) K/uL Immature Gran # (Auto) (0.00-0.02) K/uL Neutrophils % (Manual) 94.8 % Lymphocytes % (Manual) 1.7 % Monocytes % (Manual) 2.6 % Eosinophils % (Manual) 0.9 % Neutrophils # (Manual) 21.69 H (1.4-6.5) K/uL Total Absolute Neuts 21.69 H (1.4-6.5) K/uL Lymphocytes # (Manual) 0.39 L (1.2-3.4) K/uL Total Abs Lymphocytes 0.39 L (1.2-3.4) K/uL Monocytes # (Manual) 0.59 (0.11-0.59) K/uL Eosinophils # (Manual) 0.21 (0-0.5) K/uL Toxic Vacuolation 2+ Dohle Bodies 2+ Echinocytes 3+ PT (9.0-12.0) Seconds INR (0.9-1.1) APTT (21.0-31.0) Seconds PTT Ratio VBG pH (7.36-7.41) VBG pCO2 (38-50) mmHg VBG pO2 mmHg VBG HCO3 mmol/L VBG O2 Saturation % VBG Base Excess mEq/L Barometric Pressure mm/Hg Sodium 119 L* 119 L* Potassium 3.8 Chloride 89 L Carbon Dioxide 16 L Anion Gap 14.0 H BUN 49 H Creatinine 3.42 H Est Cr Clr Drug Dosing 28.7 Est GFR ( Amer) 22.3 Est GFR (Non-Af Amer) 19.2 BUN/Creatinine Ratio 14.2 Glucose 136 H POC Glucose (other) (70-99) mg/dl Osmolality (280-300) mOsm/kg Lactate (0.4-2.0) mmol/L Calcium 7.0 L Phosphorus 2.8 (2.5-4.9) mg/dl Magnesium 1.4 L (1.8-2.4) mg/dl Total Bilirubin 2.0 H Direct Bilirubin 0.7 H (0-0.2) mg/dl AST 15 ALT 12 Alkaline Phosphatase 79 Troponin I Total Protein 5.5 L Albumin 1.9 L Globulin Albumin/Globulin Ratio Lipase Procalcitonin (0-0.5) ng/ml Random Cortisol mcg/dl Urine Color Urine Appearance (Clear) Urine pH (4.5-7.5) Ur Specific [place] (1.000-1.030) Urine Protein (Negative) Urine Glucose (UA) (Negative) Urine Ketones (Negative) Urine Blood (Negative) Urine Nitrite (Negative) Urine Bilirubin (Negative) Urine Urobilinogen (Negative) Ur Leukocyte Esterase (Negative) Urine WBC (Auto) (0-5) /hpf Urine RBC (Auto) (0-4) /hpf U Hyaline Cast (Auto) (0-5) /lpf U Epithel Cells (Auto) (0-5) /lpf Urine Bacteria (Auto) (Negative) Urine Yeast Urine Osmolality (500-800) mOsm/kg Ur Random Sodium mmol/L Nasal Screen MRSA (PCR) (Negative) COVID-19 Eval Order SARS-CoV-2 (PCR) (Negative) 11/27/20 11/26/20 11/26/20 Range/Units 00:27 23:18 22:14 WBC (4.8-10.8) K/uL RBC (4.7-6.1) M/uL Hgb (14.0-18.0) g/dL Hct (42-52) % MCV (80-100) fL MCH (25-34) pg MCHC (32-36) g/dL RDW Std Deviation (36.4-46.3) fL RDW Coeff of Georgina (11.5-14.5) % Plt Count (130-400) K/uL MPV (7.4-10.4) fL Immature Gran % (Auto) % Neut % (Auto) % Lymph % (Auto) % [place] % (Auto) % Eos % (Auto) % Baso % (Auto) % Neut # (Auto) (1.4-6.5) K/uL Lymph # (Auto) (1.2-3.4) K/uL [place] # (Auto) (0.11-0.59) K/uL Eos # (Auto) (0-0.5) K/uL Baso # (Auto) (0-0.2) K/uL Immature Gran # (Auto) (0.00-0.02) K/uL Neutrophils % (Manual) % Lymphocytes % (Manual) % Monocytes % (Manual) % Eosinophils % (Manual) % Neutrophils # (Manual) (1.4-6.5) K/uL Total Absolute Neuts (1.4-6.5) K/uL Lymphocytes # (Manual) (1.2-3.4) K/uL Total Abs Lymphocytes (1.2-3.4) K/uL Monocytes # (Manual) (0.11-0.59) K/uL Eosinophils # (Manual) (0-0.5) K/uL Toxic Vacuolation Dohle Bodies Echinocytes PT (9.0-12.0) Seconds INR (0.9-1.1) APTT (21.0-31.0) Seconds PTT Ratio VBG pH (7.36-7.41) VBG pCO2 (38-50) mmHg VBG pO2 mmHg VBG HCO3 mmol/L VBG O2 Saturation % VBG Base Excess mEq/L Barometric Pressure mm/Hg Sodium 117 L* Potassium Chloride Carbon Dioxide Anion Gap BUN Creatinine Est Cr Clr Drug Dosing Est GFR ( Amer) Est GFR (Non-Af Amer) BUN/Creatinine Ratio Glucose POC Glucose (other) 130 H (70-99) mg/dl Osmolality (280-300) mOsm/kg Lactate (0.4-2.0) mmol/L Calcium Phosphorus (2.5-4.9) mg/dl Magnesium (1.8-2.4) mg/dl Total Bilirubin Direct Bilirubin (0-0.2) mg/dl AST ALT Alkaline Phosphatase Troponin I Total Protein Albumin Globulin Albumin/Globulin Ratio Lipase Procalcitonin (0-0.5) ng/ml Random Cortisol mcg/dl Urine Color Urine Appearance (Clear) Urine pH (4.5-7.5) Ur Specific [place] (1.000-1.030) Urine Protein (Negative) Urine Glucose (UA) (Negative) Urine Ketones (Negative) Urine Blood (Negative) Urine Nitrite (Negative) Urine Bilirubin (Negative) Urine Urobilinogen (Negative) Ur Leukocyte Esterase (Negative) Urine WBC (Auto) (0-5) /hpf Urine RBC (Auto) (0-4) /hpf U Hyaline Cast (Auto) (0-5) /lpf U Epithel Cells (Auto) (0-5) /lpf Urine Bacteria (Auto) (Negative) Urine Yeast Urine Osmolality 282 L (500-800) mOsm/kg Ur Random Sodium mmol/L Nasal Screen MRSA (PCR) (Negative) COVID-19 Eval Order SARS-CoV-2 (PCR) (Negative) 11/26/20 11/26/20 11/26/20 Range/Units 21:46 21:40 21:40 WBC (4.8-10.8) K/uL RBC (4.7-6.1) M/uL Hgb (14.0-18.0) g/dL Hct (42-52) % MCV (80-100) fL MCH (25-34) pg MCHC (32-36) g/dL RDW Std Deviation (36.4-46.3) fL RDW Coeff of Georgina (11.5-14.5) % Plt Count (130-400) K/uL MPV (7.4-10.4) fL Immature Gran % (Auto) % Neut % (Auto) % Lymph % (Auto) % [place] % (Auto) % Eos % (Auto) % Baso % (Auto) % Neut # (Auto) (1.4-6.5) K/uL Lymph # (Auto) (1.2-3.4) K/uL [place] # (Auto) (0.11-0.59) K/uL Eos # (Auto) (0-0.5) K/uL Baso # (Auto) (0-0.2) K/uL Immature Gran # (Auto) (0.00-0.02) K/uL Neutrophils % (Manual) % Lymphocytes % (Manual) % Monocytes % (Manual) % Eosinophils % (Manual) % Neutrophils # (Manual) (1.4-6.5) K/uL Total Absolute Neuts (1.4-6.5) K/uL Lymphocytes # (Manual) (1.2-3.4) K/uL Total Abs Lymphocytes (1.2-3.4) K/uL Monocytes # (Manual) (0.11-0.59) K/uL Eosinophils # (Manual) (0-0.5) K/uL Toxic Vacuolation Dohle Bodies Echinocytes PT (9.0-12.0) Seconds INR (0.9-1.1) APTT (21.0-31.0) Seconds PTT Ratio VBG pH 7.25 L (7.36-7.41) VBG pCO2 28 L (38-50) mmHg VBG pO2 45 mmHg VBG HCO3 12 mmol/L VBG O2 Saturation 77.4 % VBG Base Excess -13.9 mEq/L Barometric Pressure 734.0 mm/Hg Sodium Potassium Chloride Carbon Dioxide Anion Gap BUN Creatinine Est Cr Clr Drug Dosing Est GFR ( Amer) Est GFR (Non-Af Amer) BUN/Creatinine Ratio Glucose POC Glucose (other) (70-99) mg/dl Osmolality (280-300) mOsm/kg Lactate (0.4-2.0) mmol/L Calcium Phosphorus (2.5-4.9) mg/dl Magnesium (1.8-2.4) mg/dl Total Bilirubin Direct Bilirubin (0-0.2) mg/dl AST ALT Alkaline Phosphatase Troponin I Total Protein Albumin Globulin Albumin/Globulin Ratio Lipase Procalcitonin (0-0.5) ng/ml Random Cortisol mcg/dl Urine Color Starr Urine Appearance Turbid A (Clear) Urine pH 6.5 (4.5-7.5) Ur Specific [place] 1.012 (1.000-1.030) Urine Protein 3+ H (Negative) Urine Glucose (UA) Negative (Negative) Urine Ketones Negative (Negative) Urine Blood 3+ H (Negative) Urine Nitrite Negative (Negative) Urine Bilirubin Negative (Negative) Urine Urobilinogen Negative (Negative) Ur Leukocyte Esterase 3+ H (Negative) Urine WBC (Auto) >30 H (0-5) /hpf Urine RBC (Auto) 10-30 H (0-4) /hpf U Hyaline Cast (Auto) 0 (0-5) /lpf U Epithel Cells (Auto) >30 H (0-5) /lpf Urine Bacteria (Auto) Negative (Negative) Urine Yeast Not Reportable Urine Osmolality (500-800) mOsm/kg Ur Random Sodium 121 mmol/L Nasal Screen MRSA (PCR) (Negative) COVID-19 Eval Order SARS-CoV-2 (PCR) (Negative) 11/26/20 11/26/20 11/26/20 Range/Units 21:40 21:38 21:34 WBC (4.8-10.8) K/uL RBC (4.7-6.1) M/uL Hgb (14.0-18.0) g/dL Hct (42-52) % MCV (80-100) fL MCH (25-34) pg MCHC (32-36) g/dL RDW Std Deviation (36.4-46.3) fL RDW Coeff of Georgina (11.5-14.5) % Plt Count (130-400) K/uL MPV (7.4-10.4) fL Immature Gran % (Auto) % Neut % (Auto) % Lymph % (Auto) % [place] % (Auto) % Eos % (Auto) % Baso % (Auto) % Neut # (Auto) (1.4-6.5) K/uL Lymph # (Auto) (1.2-3.4) K/uL [place] # (Auto) (0.11-0.59) K/uL Eos # (Auto) (0-0.5) K/uL Baso # (Auto) (0-0.2) K/uL Immature Gran # (Auto) (0.00-0.02) K/uL Neutrophils % (Manual) % Lymphocytes % (Manual) % Monocytes % (Manual) % Eosinophils % (Manual) % Neutrophils # (Manual) (1.4-6.5) K/uL Total Absolute Neuts (1.4-6.5) K/uL Lymphocytes # (Manual) (1.2-3.4) K/uL Total Abs Lymphocytes (1.2-3.4) K/uL Monocytes # (Manual) (0.11-0.59) K/uL Eosinophils # (Manual) (0-0.5) K/uL Toxic Vacuolation Dohle Bodies Echinocytes PT (9.0-12.0) Seconds INR (0.9-1.1) APTT (21.0-31.0) Seconds PTT Ratio VBG pH (7.36-7.41) VBG pCO2 (38-50) mmHg VBG pO2 mmHg VBG HCO3 mmol/L VBG O2 Saturation % VBG Base Excess mEq/L Barometric Pressure mm/Hg Sodium 114 L* Potassium 3.7 Chloride 87 L Carbon Dioxide 15 L Anion Gap 13.0 H BUN 50 H Creatinine 3.38 H Est Cr Clr Drug Dosing 29.0 Est GFR ( Amer) 22.6 Est GFR (Non-Af Amer) 19.5 BUN/Creatinine Ratio 14.8 Glucose 134 H POC Glucose (other) (70-99) mg/dl Osmolality 256 L (280-300) mOsm/kg Lactate (0.4-2.0) mmol/L Calcium 7.3 L Phosphorus (2.5-4.9) mg/dl Magnesium (1.8-2.4) mg/dl Total Bilirubin Direct Bilirubin (0-0.2) mg/dl AST ALT Alkaline Phosphatase Troponin I Total Protein Albumin Globulin Albumin/Globulin Ratio Lipase Procalcitonin (0-0.5) ng/ml Random Cortisol mcg/dl Urine Color Urine Appearance (Clear) Urine pH (4.5-7.5) Ur Specific [place] (1.000-1.030) Urine Protein (Negative) Urine Glucose (UA) (Negative) Urine Ketones (Negative) Urine Blood (Negative) Urine Nitrite (Negative) Urine Bilirubin (Negative) Urine Urobilinogen (Negative) Ur Leukocyte Esterase (Negative) Urine WBC (Auto) (0-5) /hpf Urine RBC (Auto) (0-4) /hpf U Hyaline Cast (Auto) (0-5) /lpf U Epithel Cells (Auto) (0-5) /lpf Urine Bacteria (Auto) (Negative) Urine Yeast Urine Osmolality (500-800) mOsm/kg Ur Random Sodium mmol/L Nasal Screen MRSA (PCR) Negative (Negative) COVID-19 Eval Order SARS-CoV-2 (PCR) (Negative) 11/26/20 11/26/20 11/26/20 Range/Units 18:26 18:05 18:05 WBC (4.8-10.8) K/uL RBC (4.7-6.1) M/uL Hgb (14.0-18.0) g/dL Hct (42-52) % MCV (80-100) fL MCH (25-34) pg MCHC (32-36) g/dL RDW Std Deviation (36.4-46.3) fL RDW Coeff of Georgina (11.5-14.5) % Plt Count (130-400) K/uL MPV (7.4-10.4) fL Immature Gran % (Auto) % Neut % (Auto) % Lymph % (Auto) % [place] % (Auto) % Eos % (Auto) % Baso % (Auto) % Neut # (Auto) (1.4-6.5) K/uL Lymph # (Auto) (1.2-3.4) K/uL [place] # (Auto) (0.11-0.59) K/uL Eos # (Auto) (0-0.5) K/uL Baso # (Auto) (0-0.2) K/uL Immature Gran # (Auto) (0.00-0.02) K/uL Neutrophils % (Manual) % Lymphocytes % (Manual) % Monocytes % (Manual) % Eosinophils % (Manual) % Neutrophils # (Manual) (1.4-6.5) K/uL Total Absolute Neuts (1.4-6.5) K/uL Lymphocytes # (Manual) (1.2-3.4) K/uL Total Abs Lymphocytes (1.2-3.4) K/uL Monocytes # (Manual) (0.11-0.59) K/uL Eosinophils # (Manual) (0-0.5) K/uL Toxic Vacuolation Dohle Bodies Echinocytes PT (9.0-12.0) Seconds INR (0.9-1.1) APTT (21.0-31.0) Seconds PTT Ratio VBG pH (7.36-7.41) VBG pCO2 (38-50) mmHg VBG pO2 mmHg VBG HCO3 mmol/L VBG O2 Saturation % VBG Base Excess mEq/L Barometric Pressure mm/Hg Sodium 116 L* Potassium 4.0 Chloride 87 L Carbon Dioxide 15 L Anion Gap 14.0 H BUN 47 H Creatinine 3.27 H Est Cr Clr Drug Dosing 30.0 Est GFR ( Amer) 23.5 Est GFR (Non-Af Amer) 20.3 BUN/Creatinine Ratio 14.4 Glucose 159 H POC Glucose (other) (70-99) mg/dl Osmolality (280-300) mOsm/kg Lactate (0.4-2.0) mmol/L Calcium 7.0 L Phosphorus (2.5-4.9) mg/dl Magnesium (1.8-2.4) mg/dl Total Bilirubin 1.8 H Direct Bilirubin (0-0.2) mg/dl AST 11 L ALT 10 L Alkaline Phosphatase 66 Troponin I < 0.015 Total Protein 6.0 L Albumin 2.0 L Globulin 4.0 Albumin/Globulin Ratio 0.5 L Lipase 24 L Procalcitonin (0-0.5) ng/ml Random Cortisol mcg/dl Urine Color Urine Appearance (Clear) Urine pH (4.5-7.5) Ur Specific [place] (1.000-1.030) Urine Protein (Negative) Urine Glucose (UA) (Negative) Urine Ketones (Negative) Urine Blood (Negative) Urine Nitrite (Negative) Urine Bilirubin (Negative) Urine Urobilinogen (Negative) Ur Leukocyte Esterase (Negative) Urine WBC (Auto) (0-5) /hpf Urine RBC (Auto) (0-4) /hpf U Hyaline Cast (Auto) (0-5) /lpf U Epithel Cells (Auto) (0-5) /lpf Urine Bacteria (Auto) (Negative) Urine Yeast Urine Osmolality (500-800) mOsm/kg Ur Random Sodium mmol/L Nasal Screen MRSA (PCR) (Negative) COVID-19 Eval Order Covid19 at [facility] SARS-CoV-2 (PCR) NEGATIVE (Negative) 11/26/20 11/26/20 11/26/20 Range/Units 17:00 17:00 17:00 WBC 24.95 H (4.8-10.8) K/uL RBC 3.21 L (4.7-6.1) M/uL Hgb 8.6 L (14.0-18.0) g/dL Hct 24.0 L (42-52) % MCV 74.8 L (80-100) fL MCH 26.8 (25-34) pg MCHC 35.8 (32-36) g/dL RDW Std Deviation 40.2 (36.4-46.3) fL RDW Coeff of Georgina 14.5 (11.5-14.5) % Plt Count 456 H (130-400) K/uL MPV 8.6 (7.4-10.4) fL Immature Gran % (Auto) 3.0 % Neut % (Auto) 90.4 % Lymph % (Auto) 2.5 % [place] % (Auto) 4.0 % Eos % (Auto) 0.1 % Baso % (Auto) 0.0 % Neut # (Auto) 22.52 H (1.4-6.5) K/uL Lymph # (Auto) 0.63 L (1.2-3.4) K/uL [place] # (Auto) 1.00 H (0.11-0.59) K/uL Eos # (Auto) 0.03 (0-0.5) K/uL Baso # (Auto) 0.01 (0-0.2) K/uL Immature Gran # (Auto) 0.76 H (0.00-0.02) K/uL Neutrophils % (Manual) % Lymphocytes % (Manual) % Monocytes % (Manual) % Eosinophils % (Manual) % Neutrophils # (Manual) (1.4-6.5) K/uL Total Absolute Neuts (1.4-6.5) K/uL Lymphocytes # (Manual) (1.2-3.4) K/uL Total Abs Lymphocytes (1.2-3.4) K/uL Monocytes # (Manual) (0.11-0.59) K/uL Eosinophils # (Manual) (0-0.5) K/uL Toxic Vacuolation Dohle Bodies Echinocytes 2+ PT (9.0-12.0) Seconds INR (0.9-1.1) APTT (21.0-31.0) Seconds PTT Ratio VBG pH (7.36-7.41) VBG pCO2 (38-50) mmHg VBG pO2 mmHg VBG HCO3 mmol/L VBG O2 Saturation % VBG Base Excess mEq/L Barometric Pressure mm/Hg Sodium Cancelled Potassium Cancelled Chloride Cancelled Carbon Dioxide Cancelled Anion Gap Cancelled BUN Cancelled Creatinine Cancelled Est Cr Clr Drug Dosing Cancelled Est GFR ( Amer) Cancelled Est GFR (Non-Af Amer) Cancelled BUN/Creatinine Ratio Cancelled Glucose Cancelled POC Glucose (other) (70-99) mg/dl Osmolality (280-300) mOsm/kg Lactate 1.8 (0.4-2.0) mmol/L Calcium Cancelled Phosphorus (2.5-4.9) mg/dl Magnesium (1.8-2.4) mg/dl Total Bilirubin Cancelled Direct Bilirubin (0-0.2) mg/dl AST Cancelled ALT Cancelled Alkaline Phosphatase Cancelled Troponin I Cancelled Total Protein Cancelled Albumin Cancelled Globulin Cancelled Albumin/Globulin Ratio Cancelled Lipase Cancelled Procalcitonin (0-0.5) ng/ml Random Cortisol mcg/dl Urine Color Urine Appearance (Clear) Urine pH (4.5-7.5) Ur Specific [place] (1.000-1.030) Urine Protein (Negative) Urine Glucose (UA) (Negative) Urine Ketones (Negative) Urine Blood (Negative) Urine Nitrite (Negative) Urine Bilirubin (Negative) Urine Urobilinogen (Negative) Ur Leukocyte Esterase (Negative) Urine WBC (Auto) (0-5) /hpf Urine RBC (Auto) (0-4) /hpf U Hyaline Cast (Auto) (0-5) /lpf U Epithel Cells (Auto) (0-5) /lpf Urine Bacteria (Auto) (Negative) Urine Yeast Urine Osmolality (500-800) mOsm/kg Ur Random Sodium mmol/L Nasal Screen MRSA (PCR) (Negative) COVID-19 Eval Order SARS-CoV-2 (PCR) (Negative) 11/26/20 11/26/20 11/26/20 Range/Units 16:48 16:48 16:48 WBC (4.8-10.8) K/uL RBC (4.7-6.1) M/uL Hgb (14.0-18.0) g/dL Hct (42-52) % MCV (80-100) fL MCH (25-34) pg MCHC (32-36) g/dL RDW Std Deviation (36.4-46.3) fL RDW Coeff of Georgina (11.5-14.5) % Plt Count (130-400) K/uL MPV (7.4-10.4) fL Immature Gran % (Auto) % Neut % (Auto) % Lymph % (Auto) % [place] % (Auto) % Eos % (Auto) % Baso % (Auto) % Neut # (Auto) (1.4-6.5) K/uL Lymph # (Auto) (1.2-3.4) K/uL [place] # (Auto) (0.11-0.59) K/uL Eos # (Auto) (0-0.5) K/uL Baso # (Auto) (0-0.2) K/uL Immature Gran # (Auto) (0.00-0.02) K/uL Neutrophils % (Manual) % Lymphocytes % (Manual) % Monocytes % (Manual) % Eosinophils % (Manual) % Neutrophils # (Manual) (1.4-6.5) K/uL Total Absolute Neuts (1.4-6.5) K/uL Lymphocytes # (Manual) (1.2-3.4) K/uL Total Abs Lymphocytes (1.2-3.4) K/uL Monocytes # (Manual) (0.11-0.59) K/uL Eosinophils # (Manual) (0-0.5) K/uL Toxic Vacuolation Dohle Bodies Echinocytes PT (9.0-12.0) Seconds INR (0.9-1.1) APTT (21.0-31.0) Seconds PTT Ratio VBG pH (7.36-7.41) VBG pCO2 (38-50) mmHg VBG pO2 mmHg VBG HCO3 mmol/L VBG O2 Saturation % VBG Base Excess mEq/L Barometric Pressure mm/Hg Sodium Potassium Chloride Carbon Dioxide Anion Gap BUN Creatinine Est Cr Clr Drug Dosing Est GFR ( Amer) Est GFR (Non-Af Amer) BUN/Creatinine Ratio Glucose POC Glucose (other) (70-99) mg/dl Osmolality 255 L (280-300) mOsm/kg Lactate (0.4-2.0) mmol/L Calcium Phosphorus (2.5-4.9) mg/dl Magnesium (1.8-2.4) mg/dl Total Bilirubin Direct Bilirubin (0-0.2) mg/dl AST ALT Alkaline Phosphatase Troponin I Total Protein Albumin Globulin Albumin/Globulin Ratio Lipase Procalcitonin 53.23 H (0-0.5) ng/ml Random Cortisol 29.47 mcg/dl Urine Color Urine Appearance (Clear) Urine pH (4.5-7.5) Ur Specific [place] (1.000-1.030) Urine Protein (Negative) Urine Glucose (UA) (Negative) Urine Ketones (Negative) Urine Blood (Negative) Urine Nitrite (Negative) Urine Bilirubin (Negative) Urine Urobilinogen (Negative) Ur Leukocyte Esterase (Negative) Urine WBC (Auto) (0-5) /hpf Urine RBC (Auto) (0-4) /hpf U Hyaline Cast (Auto) (0-5) /lpf U Epithel Cells (Auto) (0-5) /lpf Urine Bacteria (Auto) (Negative) Urine Yeast Urine Osmolality (500-800) mOsm/kg Ur Random Sodium mmol/L Nasal Screen MRSA (PCR) (Negative) COVID-19 Eval Order SARS-CoV-2 (PCR) (Negative) Coding Level of Care Code Critical Care 1st 30-74 mins Diagnoses Admitted to intensive care unit Z78.9 Pyelonephritis N12 Septic shock A41.9; R65.21 Acute UTI (urinary tract infection) N39.0 Acute urinary retention R33.8 T2DM (type 2 diabetes mellitus) E11.9 Acute renal failure N17.9 Schizophrenia F20.9 Sacral wound S31.000A Acute hyponatremia E87.1
[2020-11-27] MEDS: NOREPINEPHRINE/D5W 8 MG/508 ML BAG IV SCH ×3 (07:34→14:36)
[2020-11-27] MEDS ORDERED: FUROSEMIDE 40 MG/4 ML VIAL IV ONE (08:19)
[2020-11-27] MEDS ORDERED: DOBUTamine 500MG / 250ML D5W IV ONE (08:19)
[2020-11-27] MEDS ORDERED: MoRPHine SULFATE 2 MG/ML CARP ONE (08:21)
[2020-11-27] MEDS ORDERED: MoRPHine SULFATE 2 MG/ML CARP IV STA (08:23)
[2020-11-27] MEDS ORDERED: FUROSEMIDE 40 MG in SYRINGE 0 ML IV ONE (08:30)
[2020-11-27] MEDS ORDERED: FLUTICASONE PROPIONATE NA SPR 16 GM BTL SCH (09:00)
[2020-11-27] MEDS ORDERED: PANTOprazole 40 MG TAB PO SCH (09:00)
[2020-11-27] MEDS ORDERED: HYDROmorphone INJ 0.5 MG/0.5 ML SYR IV STA ×2 (10:19→15:20)
[2020-11-27 10:25] LABS: BUN Creatinine Ratio 13.6 (10-20); Calcium 6.8 mg/dl (8.5-10.1); Creatinine Clr Calc Pharmacy 27.2 ml/min; Est GFR (African American) 20.9 ml/min
[2020-11-27] MEDS ORDERED: SOD CHLOR IV SCH (11:00)
[2020-11-27] MEDS ORDERED: SODIUM BICARBONATE IV SCH (11:00)
[2020-11-27] MEDS ORDERED: [UNRECOGNIZED DRUG - OTHER] IV SCH (11:00)
[2020-11-27] MEDS ORDERED: WATER IV SCH (11:00)
--- NOTE | 2020-11-27 11:30 | Consultation Report ---
DATE OF CONSULTATION: 11/27/2020 REASON FOR CONSULT: Acute renal failure and severe hyponatremia. HISTORY OF PRESENT ILLNESS: The patient is a 55-year-old male with multiple medical problems at baseline including schizophrenia, asthma, type 2 diabetes, recently diagnosed urinary retention with chronic Bird catheter placement. He is a very poor historian at this time and most of the history was constructed from the chart. The patient presented to the Emergency Department yesterday with complaints of fatigue, dizziness and lack of urine output and abdominal pain. He was found to be severely hypotensive, then received 3 liters of normal saline. Blood work revealed acute renal failure, leukocytosis as well as hyponatremia with a serum sodium of 116. It is worth noting that patient does have chronic hyponatremia with a serum sodium usually in the high 120s and low 130s. He had normal creatinine as of 10 days ago with a creatinine of 1. At this time, creatinine is 3.43. The patient is still very hypotensive and requiring dobutamine as well as vasopressin and Levophed. He is also on broad spectrum antibiotics, daptomycin and Zosyn. Because of the hyponatremia he even received hypertonic saline briefly and is also on bicarbonate drip at 75 mL per hour. Urine output is still very low. Since admission, he has only made 50 mL of urine. He had a CT abdomen and pelvis done yesterday which shows moderate bilateral perinephric edema which could be consistent with pyelonephritis. Urine culture is pending, but blood culture is already back with gram-negative bacilli. PAST MEDICAL AND SURGICAL HISTORY: Includes asthma, history of chronic hyponatremia, likely related with schizophrenia with high fluid intake and mild SIADH, depression, GERD, type 2 diabetes, osteoarthritis, posttraumatic stress disorder, schizophrenia, tachycardia, recently diagnosed urinary retention with placement of Bird catheter, bimalleolar fracture of right ankle, status post ORIF, history of tooth extraction. FAMILY HISTORY: Positive for diabetes. SOCIAL HISTORY: He is a current smoker and has smoked for 40 years. No alcohol. He is single, lives with his family. REVIEW OF SYSTEMS: Unable to obtain as the patient is not really answering any questions. He is just screaming. PHYSICAL EXAMINATION: GENERAL: Middle-aged white male who appears to be sick at this time. VITAL SIGNS: Blood pressure is 83/66, pulse rate 123, oxygen saturation 91% on room air. He is on multiple vasopressor agents to maintain his blood pressure. HEENT: Mucous membranes moist. NECK: Supple. No jugular venous distention. CHEST: Bilateral decreased breath sounds, but very poor inspiratory effort limiting the quality of the exam. CARDIOVASCULAR: S1 and S2, tachycardic. ABDOMEN: Soft, nontender. EXTREMITIES: Shows 1+ edema around the ankle. LABORATORY TESTS: Reviewed in detail. Blood culture just came back positive for Gram-negative bacilli. Urine culture pending. CT scan finding is consistent with possible pyelonephritis. Chest x-ray shows borderline cardiomegaly, but nothing to suggest CHF or pneumonia. Hemoglobin is 8.4, WBC count is 23,000. Urinalysis is consistent with ATN versus urine infection. Urine osmolality 282. Urine sodium 121. Most recent sodium from 6 was 121, bicarbonate is still low at 14. BUN is 47, creatinine 3.43, calcium 6.9, magnesium 1.4. ASSESSMENT AND PLAN: A 55-year-old male with normal kidney function at baseline, now admitted with septic shock, most likely related with urinary source and gram-negative bacteremia. He has associated acute renal failure most likely secondary to acute tubular necrosis in the setting of septic shock with pyelonephritis. Also has [id number] hyponatremia. 1. Acute renal failure, this is secondary to acute tubular necrosis in the setting of septic shock with gram-negative bacteremia and possible bilateral pyelonephritis. Continue broad spectrum antibiotics. Continue to support his hemodynamic status. He is still hypotensive requiring multiple vasopressor agents, which is definitely concerning. At this very moment, he does not need dialysis, but we may have to do that if his urine output does not lemon picker in the coming 24 hours. The good thing is creatinine has not changed much since being in the hospital. No workup needed for the etiology of acute renal failure. 2. Hyponatremia. He has chronic mild hyponatremia with a serum sodium in the 120s and 130s at baseline. At this time, serum sodium was quite low at 116, but since then has gone up to 121 with the use of hypertonic saline. There is blood work pending at this time after which I will make further suggestions. Given that he has low bicarbonate also and a low blood pressure, it is totally reasonable to use the bicarbonate drip with 150 mEq sodium bicarbonate and add a 50 mEq normal saline to make it a slightly hypertonic fluid, but we will decide about this after the blood work from 9:45. He also has associated hypocalcemia, hypomagnesemia, both of which needs to be corrected. His condition is quite serious and it is quite possible he may need dialysis, but not today.
[2020-11-27] MEDS: MAGNESIUM SULFATE / D5W 1 GM/100 ML BAG IV SCH ×3 (11:53→15:19)
--- NOTE | 2020-11-27 13:08 | Cardiology Consultation ---
Date of Consultation November 27, 2020 Assessment & Plan (1) Acute hypotension: (2) Sacral wound: (3) Leukocytosis: (4) Gram negative sepsis: (5) Mitral regurgitation: (6) Pulmonary hypertension: (7) Cardiomyopathy: (8) Acute renal failure: (9) T2DM (type 2 diabetes mellitus): Patient presented to the emergency room with complaints of fatigue, dizziness and abdominal pain with lack of urinary output. Found to be hypotensive which persisted despite 3 L of normal saline. Patient remained hypotensive and pressors initiated. Blood cultures positive for gram-negative bacilli. Broad-spectrum antibiotics initiated. History of sacral decubitus ulcer along with dental decay. 2D echocardiogram shows severely reduced LV systolic function, EF 30 to 35%. Moderate to severe mitral regurgitation with possible flail of the P2 segment, cannot exclude overriding endocarditis. Echocardiogram also shows significant pulmonary hypertension and normal left atrial size. Given this constellation of findings acute, severe mitral regurgitation is highly suspected. 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 This would explain the patient's admitting presentation. Currently stable on pressors but would consider insertion of aortic balloon pump should his pressure deteriorate. Recommend transfer to tertiary care center for further monitoring and treatment. History of Present Illness Reason for Consultation: Possible cardiogenic shock due to acute mitral regurgitation Requesting Physician: Dr. Cowan Attending Physician: Mike Omalley MD History of Present Illness Mr. Velázquez is a 55-year-old gentleman not previously known to our cardiology practice who presented to [facility] on 11/26/2020 with complaints of fatigue, dizziness, abdominal pain and urinary retention. Upon presentation was found to be significantly hypotensive and received 3 L of normal saline bolus. Despite this, hypotension persisted and he was started on vasopressor support and admitted to the intensive care unit. He was also found to be in acute renal failure secondary to acute tubular necrosis. Blood cultures revealed gram negative bacilli. Patient also with a history of sacral decubitus ulcer and poor dentition. Currently patient states that his breathing is labored but improved from admission. He continues to feel very tired and weak. He notes significant pain in his fingertips without any noticeable lesions on exam. Allergies Allergy/AdvReac Type Severity Reaction Status Date / Time No Known Allergies Allergy Verified 11/26/20 18:07 Home Medications Medication Instructions Recorded Confirmed Type albuterol sulfate 2 puff INHALATION QID 09/02/20 11/26/20 History fluticasone propion-salmeterol 1 inh INHALATION BID 09/02/20 11/26/20 History [Wixela Inhub] montelukast 10 mg PO PM 09/02/20 11/26/20 History omeprazole 40 mg PO QAM 09/02/20 11/26/20 History fluticasone propionate 2 spray INTRANASAL DAILY 09/10/20 11/26/20 History nystatin 5 ml PO QID PRN 11/26/20 11/26/20 History Piperacill/Tazobac Consult 1 dose NOT APPLICABLE UD 30 Days 11/27/20 Rx [Consult] daptomycin [Cubicin] 500 mg NOT APPLICABLE UD #10 ea 11/27/20 Rx Patient History Medical History Asthma uses res inh daily > not well controlled Cardiac murmur dx > 20 yrs ago Chronic hyponatremia Depression GERD (gastroesophageal reflux disease) History of diabetes mellitus IDDM Nausea unknown cause/ has not had testing done> Zofran Osteoarthritis Post traumatic stress disorder (PTSD) Schizophrenia T2DM (type 2 diabetes mellitus) Tachycardia just with cafeine per pt Surgical History Bimalleolar fracture of right ankle s/p ORIF History of tooth extraction Family History Mother Diabetes Social History Smoking Status: Heavy tobacco smoker Years Smoked: 40; Cigarettes Per Day: 20; Second Hand Exposure: Yes; Hx Alcohol Use: No Hx Substance Use: No Preferred Language: Croatian Communication Ability: Effective [employer] 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 No acute distress. HEENT: Normocephalic, atraumatic. Pupils equal, round and reactive to light and accommodation. Extraocular muscles are intact. Anicteric sclera. Moist mucous membranes. Neck: No JVD. No bruit. Cardiovascular: Regular. Positive S-4. Normal S-1 and S-2. No S-3. 3/6 holosystolic ejection murmur, left sternal border, mid-clavicular line with radiation to the axilla. No rubs. Pulmonary: Clear to auscultation bilaterally. No rales, rhonchi, or wheezing. Abdomen: Bowel sounds x 4, soft. No rebound, guarding or tenderness. No organomegaly. Extremities: No clubbing, cyanosis or edema. +2 pedal pulses bilaterally. Skin: Warm and dry. Results & Data ([facility]) Vital Signs (Past 12 Hours) Vital Signs Temp Pulse Resp BP Pulse Ox 11/27/20 12:36 118 H 19 99/68 L 99 11/27/20 12:07 120 H 17 114/65 98 11/27/20 11:37 104 H 16 63/41 L 98 11/27/20 11:07 122 H 16 100/66 98 11/27/20 10:37 121 H 22 122/75 94 11/27/20 10:07 122 H 14 115/76 98 11/27/20 09:37 126 H 17 116/55 L 11/27/20 09:07 124 H 27 H 123/63 100 11/27/20 08:37 125 H 19 123/67 96 11/27/20 08:08 123 H 25 H 94/74 L 95 11/27/20 08:00 123 H 11/27/20 07:59 37.1 C 11/27/20 07:37 115 H 19 83/66 L 91 11/27/20 07:22 121 H 19 109/68 96 11/27/20 07:06 120 H 15 124/67 90 11/27/20 06:51 121 H 23 116/65 92 11/27/20 06:06 36.7 C 119 H 21 103/72 98 11/27/20 05:51 117 H 20 102/62 97 11/27/20 05:36 117 H 19 92/57 L 96 11/27/20 05:21 120 H 20 115/67 98 11/27/20 05:06 122 H 19 112/85 98 11/27/20 04:51 128 H 20 119/77 97 11/27/20 04:36 120 H 19 103/81 97 11/27/20 04:22 118 H 18 112/62 99 11/27/20 04:06 36.7 C 117 H 22 95/55 L 100 11/27/20 03:51 118 H 23 103/53 L 94 11/27/20 03:36 118 H 19 94/57 L 100 11/27/20 03:21 117 H 19 93/67 L 100 11/27/20 03:06 116 H 23 88/54 L 100 11/27/20 02:52 118 H 16 85/49 L 99 11/27/20 02:37 115 H 19 102/54 L 99 11/27/20 02:22 114 H 19 125/56 L 97 11/27/20 02:09 113 H 17 76/47 L 96 11/27/20 02:06 111 H 16 78/50 L 97 11/27/20 01:51 116 H 19 96/57 L 98 11/27/20 01:36 110 H 19 99/53 L 98 11/27/20 01:21 115 H 19 99/54 L 99 11/27/20 01:06 116 H 17 90/52 L 98
--- NOTE | 2020-11-27 13:30 | Electrocardiogram Report ---
Test Reason : Blood Pressure : / mmHG Vent. Rate : 105 BPM Atrial Rate : 105 BPM P-R Int : 128 ms QRS Dur : 102 ms QT Int : 352 ms P-R-T Axes : 061 052 064 degrees QTc Int : 465 ms Sinus tachycardia Otherwise normal ECG When compared with ECG of 15-NOV-2020 15:41, No significant change was found Confirmed by Israel Noble ([id number]) on 11/27/2020 1:29:31 PM Referred By: REFERRED SELF Confirmed By:Israel Noble
--- NOTE | 2020-11-27 14:00 | Pharmacy Report ---
Pharmacy Glycemic Short Note 2 - Date of Service November 27, 2020 - Glycemic Short BSG Results (Last 24 hours): 11/26/20 11/26/20 11/26/20 17:00 18:26 21:38 Glucose Cancelled 159 H 134 H POC Glucose (other) 11/26/20 11/27/20 11/27/20 23:18 01:55 05:47 Glucose 136 H 160 H POC Glucose (other) 130 H 11/27/20 11/27/20 05:54 09:43 Glucose 190 H POC Glucose (other) 154 H OUTPATIENT ANTIDIABETIC REGIMEN: * Lantus 40 units Q HS * Ozempic 0.5mg SQ weekly (last dose 11/20) * Metformin * A1c = 7.0% 11/27/20 ASSESSMENT: * Well controlled type 2 diabetic admitted to ICU for septic shock, GNR bacteremia, lactic acidosis, JEANNA, hyponatremia * She remains on both vasopressor and inotropic support this AM: norepi and dobutamine infusing this AM * Broad spectrum abx continue * Maint IVF's changed to sterile water base solution + sodium bicarb + sodium chloride (200mEq Na / L) * He remains NPO. * Will continue half-dose Lantus once daily in the evening. Will change Novolog to Q 4 hr regimen. Will use Novolog to provide a portion of the "basal" needs. PLAN FOR INPATIENT GLYCEMIC CONTROL: * Hold outpatient oral diabetes medications (metformin, Ozempic) * Basal insulin * Lantus 20 units SQ Q HS * Bolus insulin * NovoLog per scale Q 4 hrs: PLAN FOR DISCHARGE: * may resume home regimen if no contraindications present at time of discharge
[2020-11-27 14:26] LABS: BUN Creatinine Ratio 13.6 (10-20); Creatinine Clr Calc Pharmacy 26.8 ml/min; Est GFR (African American) 20.5 ml/min; Est GFR (Non-African American) 17.7 ml/min; Potassium 4.7 mmol/L (3.5-5.1)
[2020-11-27] MEDS ORDERED: ONDANSETRON INJ 2 MG/ML 2 ML VIAL IV STA (14:40)
[2020-11-27 14:51] LABS: Potassium 4.5 mmol/L (3.5-5.1)
[2020-11-27] MEDS ORDERED: HYDROmorphone INJ 0.5 MG/0.5 ML SYR ONE (15:11)
[2020-11-27] MEDS ORDERED: INSULIN ASPART 100 UNITS/ML 3 ML PEN SC SCH (16:00)
[2020-11-27] MEDS ORDERED: DAPTOmycin 500 MG in SYRINGE 0 ML IV SCH (18:00)
[2020-11-27] MEDS ORDERED: INSULIN GLARGINE SOLOSTAR 100 UNITS/ML 3 ML PEN SC SCH (21:00)
--- NOTE | 2020-11-28 19:38 | Hospitalist Progress Note ---
Date of Service Delayed entry Date of service November 27, 2020 November 28, 2020 Assessment & Plan (1) Septic shock: (2) Pyelonephritis: (1) septic shock secondary to acute pyelonephritis, possible infective endocarditis Patient admitted to ICU Requiring multiple vasopressors including Levophed, etc. Echocardiogram showing possible acute mitral regurgitation Follow-up blood cultures and urine cultures On empiric daptomycin and Zosyn Transfer to [facility] for further evaluation and management (2) acute renal failure likely secondary to sepsis, dehydration Management of suspected sepsis per above Creatinine remains at 3 Strategic Advisor consulted (3) acute on chronic hyponatremia: Baseline sodium 130s On admission 115, given IV NSS, improved to 121 Strategic Advisor consulted Sacral wound: mild breakdown to L sacral area consulted wound care T2DM (type 2 diabetes mellitus): insulin dependent , uncontrolled last A1c 11.0 09/19/2020 Pharmacy glycemic control consult Bimalleolar fracture of right ankle: s/p ORIF R bimalleolar ankle fracture 09/[address] Salomon continues to be NWB, to follow up with ortho 09/22 needs lovenox for dvt ppx Tobacco abuse: encourage smoking cessation Post traumatic stress disorder (PTSD): Schizophrenia mood stable hold zoloft and risperdal given acute renal failure Disposition Transfer to [facility] for further evaluation management plan of care discussed with patient in detail and at length all questions answered he is understanding, agreeable, comfortable with the plan of care Admission and Anticipated Discharge Date Admission Date: November 26, 2020 Subjective Follow-up for septic shock, pyonephritis, etc. 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 [facility], will transfer to [place] for further evaluation management Review of Systems Review of Systems: All systems reviewed & are unremarkable except as noted in Subjective Physical Exam Physical Exam: General- oriented x 3, not in distress, speaks in sentences with no effort or accessory muscle use Appears weak Eyes- anicteric Neck- no JVD Lungs- clear breath sounds bilaterally, no rales/wheezes Heart- normal rate, regular rhythm; positive murmur, holosystolic, 2-3 out of 6 Abdomen- normal bowel sounds, nondistended, soft, nontender Extremities- no pretibial edema, no calf tenderness Neuro- alert, oriented x 3; no gross focal neurologic deficits Skin- warm & dry Results & Data Results & Data ([facility]) Vital Signs (Past 12 Hours) all noted and reviewed including below
--- NOTE | 2020-11-28 19:39 | Discharge Summary ---
Date of Service November 28, 2020 Admission HPI Per Admitting Provider There are few scattered subcentimeter hypodense lesions seen within the liver with the largest measuring 9 mm in the right hepatic lobe. These are technically too small to characterize but favor cysts. Admission Exam Per Admitting Provider Physical Exam: General- oriented x 3, not in distress, speaks in sentences with no effort or accessory muscle use Appears weak Head- atraumatic Eyes- PERRL, EOMI, anicteric ENT- oropharynx clear Neck- supple, no JVD, no adenopathy, no thyromegaly; carotids +2/2, no bruits appreciated Lungs- clear to auscultation bilaterally, no rales/wheezes Heart- normal rate, regular rhythm; no murmur, no gallop, no rub appreciated Abdomen- normal bowel sounds, nondistended, soft, mild generalized tenderness, no masses or hepatosplenomegaly Bird catheter in place, no urine output Buttocks, sacral decubital ulcer noted, stage II with surrounding erythema Extremities- no pretibial edema, no calf tenderness; peripheral pulses intact Neuro- alert, oriented x 3; CN 2-12 grossly intact; motor 5/5 bilaterally;sensation 100% on all extremities; no other gross focal neurologic deficits Skin- warm & dry Principal Diagnosis Septic shock, pyelonephritis, possible infective endocarditis Acute renal failure Hyponatremia Discharge Exam Physical Exam: General- oriented x 3, not in distress, speaks in sentences with no effort or accessory muscle use Appears weak Eyes- anicteric Neck- no JVD Lungs- clear breath sounds bilaterally, no rales/wheezes Heart- normal rate, regular rhythm; positive murmur, holosystolic, 2-3 out of 6 Abdomen- normal bowel sounds, nondistended, soft, nontender Extremities- no pretibial edema, no calf tenderness Neuro- alert, oriented x 3; no gross focal neurologic deficits Skin- warm & dry Discharge Data Allergies Allergy/AdvReac Type Severity Reaction Status Date / Time No Known Allergies Allergy Verified 11/26/20 18:07 Consultations 11/26/20 18:23 ED Decision to Admit Stat 11/26/20 21:27 Consult Stunner Routine 11/26/20 22:49 Consult Nephrology Routine 11/27/20 12:53 Consult Cardiology Routine 11/27/20 14:17 Burn CD for patient Stat Ordered Studies 11/26/20 16:40 CT abd pelvis wo con Stat 11/26/20 19:10 US point of care ultrasound Stat Hospital Course (1) Septic shock: (2) Pyelonephritis: (1) septic shock secondary to acute pyelonephritis, possible infective endocarditis Patient admitted to ICU Requiring multiple vasopressors including Levophed, etc. Echocardiogram showing possible acute mitral regurgitation Follow-up blood cultures and urine cultures On empiric daptomycin and Zosyn Transfer to [facility] for further evaluation and management (2) acute renal failure likely secondary to sepsis, dehydration Management of suspected sepsis per above Creatinine remains at 3 Radio Adjuster consulted (3) acute on chronic hyponatremia: Baseline sodium 130s On admission 115, given IV NSS, improved to 121 Radio Adjuster consulted Sacral wound: mild breakdown to L sacral area consulted wound care T2DM (type 2 diabetes mellitus): insulin dependent , uncontrolled last A1c 11.0 09/19/2020 Pharmacy glycemic control consult Bimalleolar fracture of right ankle: s/p ORIF R bimalleolar ankle fracture 09/[address] Salomon continues to be NWB, to follow up with ortho 09/22 needs lovenox for dvt ppx Tobacco abuse: encourage smoking cessation Post traumatic stress disorder (PTSD): Schizophrenia mood stable hold zoloft and risperdal given acute renal failure Disposition Transfer to [facility] for further evaluation management plan of care discussed with patient in detail and at length all questions answered he is understanding, agreeable, comfortable with the plan of care Total Time Total Time Spent Total Time Spent (In Minutes): > 30 minutes Discharge Plan Discharge Items Patient Disposition: Transfer Acute [facility] Reason For Visit: SEPTIC SHOCK Discharge Diagnosis: Septic shock, pyelonephritis, gram-negative bacilli bacteremia, possible infective endocarditis Activity: As commented below Activity Comment: Bedrest Non-emergency contact: Primary Care Provider Call non-emergency contact if: you have any medication questions Follow-up/Referrals: Bg Bergeron MD [Primary Care Provider] - Diet: Carb Consistent or DM2 Addtl Attending Provider Instructions: Please refer to accompanying hospital discharge summary Pending Studies at Discharge: Yes Studies:: Final blood culture results Stand-Alone Forms: My Dialog[employer] Skilled Items Patient informed of condition?: Yes DNR: No Discharge Level of Care: Other Communicable Disease: No Discharge Prognosis: Other Lines: Peripheral IV Urinary Catheter: No Medications and DC Order Prescriptions: New daptomycin [Cubicin] 500 mg Recon Soln 500 mg Not Applicable UD Qty: 10 RF: 0 Piperacill/Tazobac Consult [Consult] 1 dose Not Applicable UD 30 Days RF: 0 Continued fluticasone propion-salmeterol [Wixela Inhub] 250-50 mcg/dose blister with device 1 inh INHALATION BID RF: 0 omeprazole 40 mg capsule,delayed release(DR/EC) 40 mg PO QAM RF: 0 montelukast 10 mg tablet 10 mg PO PM RF: 0 albuterol sulfate 90 mcg/actuation HFA aerosol inhaler 2 puff INHALATION QID RF: 0 fluticasone propionate 50 mcg/actuation spray,suspension 2 spray INTRANASAL DAILY RF: 0 nystatin 100,000 unit/mL Suspension 5 ml PO QID PRN (Reason: THRUSH) RF: 0 Discontinued atorvastatin 20 mg tablet 20 mg PO PM RF: 0 tramadol 50 mg tablet 50 mg PO Q8H MDD 3 TABS/24 HOURS PRN (Reason: Severe Pain (Scale Score 7-10)) RF: 0 ondansetron 4 mg tablet,disintegrating 4 mg PO Q8H PRN (Reason: Nausea or Vomiting) RF: 0 metformin 500 mg tablet extended release 24 hr 1,500 mg PO DAILY RF: 0 sertraline 50 mg tablet 50 mg PO PM RF: 0 risperidone 1 mg tablet 2 mg PO PM RF: 0 naproxen 500 mg tablet 500 mg PO BID PRN (Reason: Pain) RF: 0 Ozempic 0.25 mg or 0.5 mg(2 mg/1.5 mL) pen injector 0.5 mg SUBCUT WK RF: 0 cyclobenzaprine 10 mg Tablet 10 mg PO TID PRN (Reason: MUSCLE SPASMS) RF: 0 Nicotrol 10 mg Cartridge 1 inh INHALATION DIRECTED MDD 16 CARTRIDGES/DAY PRN (Reason: QUIT SMOKING) RF: 0 gabapentin 800 mg tablet 800 mg PO TID RF: 0 diclofenac sodium 75 mg Tablet,Delayed Release (Dr/Ec) 75 mg PO BID RF: 0 enoxaparin 40 mg/0.4 mL syringe 40 mg subcut DAILY RF: 0 Lantus Solostar U-100 Insulin 100 unit/mL (3 mL) insulin pen 40 unit SUBCUT PM RF: 0 Discharge Orders: Discharge Order (Routine); Ordered 11/27/20 Ordered By: Mike Omalley Admission Data Admit Date/Time: 11/26/20 19:38 Attending Provider: Mike Omalley Admit Provider: Mike Omalley Primary Care Provider: Bg Bergeron Other Providers: Mike Omalley ; Carlos Marroquin ; Yi Bean ; Cheikh Fall Other Interventions: Discharge Summary Assessment (RN) Last Done: 11/27/20 14:44
== END 2020-11-27 16:13 | disposition short-term general hospital (02) | DRG 871 ==
LOC: ED 16:30 → 1E 19:38

== ENCOUNTER 2021-03-27 17:54 | Inpatient (IN) ==
[2021-03-27] MEDS ORDERED: SODIUM CHLORIDE 0.9% 500 ML IV SCH (18:00)
--- NOTE | 2021-03-27 18:31 | XRay Report ---
XR chest 1V portable CLINICAL HISTORY: weakness COMPARISON STUDY: Chest radiograph November 26, 2020. FINDINGS: Lung volumes are normal. Lungs are clear. There is no pneumothorax or pleural effusion. Car diomegaly is unchanged. Mediastinal contours are normal. There is no evidence for pulmonary edema. IMPRESSION: No acute cardiopulmonary findings. Stable cardiomegaly. ACT 112: Negative or not required by law. Electronically signed by: Adiel Silverman M.D. 03/27/2021 6:29 PM
--- NOTE | 2021-03-27 18:40 | Emergency Department Note ---
Impression & Plan Obstructed, uropathy, Acute urinary retention, Urinary tract infection, Anemia ED Provider Note NAME: YOANNA WALKER AGE: 55 SEX: M : 1965 ARRIVES VIA: Ambulance INFORMANT: Patient, ED PROVIDER(S): Israel Heredia DO CHIEF COMPLAINT: Leg pain HPI: The patient is a 55-year-old male who presented to the emergency department at the request of his primary care physician. The patient states he has been having lower extremity swelling and pain over the course the last few days. He had a virtual visit with his family doctor. He had laboratory studies done last week. He was called today by his primary care physician and told to go to the ER because he might because his kidney function was very high. The patient states he is been having back pain. He denies having any chest pain or difficulty breathing. He does notice abdominal distention. The patient states he has decreased urine output. He denies having any lower extremity injuries but does note some numbness and tingling which is not new for him. The patient states his symptoms are moderate to severe. ROS: See above HPI for pertinent positives & negatives. A total of 10 systems reviewed and were otherwise negative. PAST MEDICAL HISTORY: See Below PAST SURGICAL HISTORY: See Below FAMILY HISTORY: See Below SOCIAL HISTORY: See Below HOME MEDICATIONS: See Below ALLERGIES: See Below VITALS: See Below PHYSICAL EXAMINATION: GENERAL: The patient is awake and alert. He is somewhat listless appearing. EYES: The conjunctivae are clear. The pupils are round and reactive. EARS, NOSE, MOUTH AND THROAT: The nose is without any evidence of any deformity. NECK: The neck is nontender and supple. RESPIRATORY: Normal respiratory effort is noted there is no evidence of wheezing rhonchi or rales CARDIOVASCULAR: Regular rate and rhythm noted there no murmurs rubs or gallops normal S1 normal S2. GASTROINTESTINAL: The abdomen is soft and mildly distended. There is no tenderness guarding rigidity. MUSCULOSKELETAL/EXTREMITIES: There is no evidence of gross deformity full range of motion is noted in the hips and shoulders. SKIN: Is warm and dry. Pedal edema was noted bilaterally. NEUROLOGIC: Patient is awake alert and oriented x3. MEDICAL DECISION MAKING: The patient is a 51-year-old male who presented to the emergency department for an evaluation of abdominal distention and lower extremity pain. The patient had labs done last week with his primary care physician and was told to go to the emergency department because he was in renal failure. The patient was treated with IV fluids and IV antibiotics in the emergency department. I discussed the patient's laboratory and radiographic studies with him. He was found to be in urinary retention. This was treated with a Bird catheter. The patient was reevaluated multiple times. I discussed his case with the on-call [facility]. They have agreed to evaluate the patient in the emergency department for further management and disposition. Triage Nursing notes reviewed. Prior medical records reviewed Vital Signs: reviewed and remarkable for no significant abnormalities Differential diagnosis: Infection, dehydration, metabolic abnormality, hypo/hyperglycemia, electrolyte disturbance, anemia, hypoxia, cardiac sources, intracerebral event, toxicologic, neurologic, as well as other pathologies. ER treatment provided: See below Diagnostics interpreted by me: ECG: EKG was obtained in the emergency department. My interpretation is normal sinus rhythm at 93 bpm. There was no ectopy. Nonspecific lateral ST abnormalities were noted. This was compared to a tracing from November 262020. The ST segment abnormalities are new compared to the earlier tracing. Cardiac Monitoring: An order was placed for continuous cardiac monitoring. The monitor shows a rate of 88 bpm with sinus rhythm. Laboratory studies: As stated above and show below. Imaging studies: See below Consultation(s): 194: I discussed this case with Dr. Sargent who is on-call for the [facility]. He will evaluate the patient in the emergency department. Past Med/Surg History Medical History Asthma uses res inh daily > not well controlled Cardiac murmur dx > 20 yrs ago Chronic hyponatremia Depression GERD (gastroesophageal reflux disease) History of diabetes mellitus IDDM Nausea unknown cause/ has not had testing done> Zofran Osteoarthritis Post traumatic stress disorder (PTSD) Schizophrenia T2DM (type 2 diabetes mellitus) Tachycardia just with cafeine per pt Surgical History Bimalleolar fracture of right ankle s/p ORIF History of tooth extraction Family History Mother Diabetes Social History Smoking Status: Current every day smoker Tobacco Type: Cigarettes Years Smoked: 40; Cigarettes Per Day: 20; Second Hand Exposure: Yes; Hx Alcohol Use: No Hx Substance Use: No Preferred Language: Faroese Communication Ability: Effective Office Manager Executive Assistant Required: No Beliefs That Will Affect Care: None marital status: Single Current Living Situation: Family Current Living Situation Comment: mother Feels Safe at Home: Yes Assistive Devices: Glasses Allergies Allergies Allergy/AdvReac Type Severity Reaction Status Date / Time No Known Allergies Allergy Verified 03/27/21 19:43 Home Meds Home Medications Medication Instructions Recorded Confirmed albuterol sulfate 90 mcg/actuation 2 puff INHALATION QID 09/02/20 03/27/21 aerosol inhaler fluticasone 250 mcg-salmeterol 50 1 inh INHALATION BID 09/02/20 03/27/21 mcg/dose blistr powdr for inhalation (Wixela Inhub) omeprazole 40 mg capsule,delayed 40 mg PO QAM 09/02/20 03/27/21 release fluticasone propionate 50 2 spray INTRANASAL DAILY 09/10/20 03/27/21 mcg/actuation nasal spray,suspension nystatin 100,000 unit/mL oral 5 ml PO QID PRN 11/26/20 03/27/21 suspension atorvastatin 20 mg tablet (Lipitor) 20 mg PO DAILY 03/27/21 03/27/21 digoxin 62.5 mcg (0.0625 mg) 62.5 mcg PO Q2D 03/27/21 03/27/21 tablet (Lanoxin) duloxetine 30 mg capsule,delayed 30 mg PO QAM 03/27/21 03/27/21 release (Cymbalta) ferrous sulfate 325 mg (65 mg 325 mg PO BID 03/27/21 03/27/21 iron) tablet (FeroSul) finasteride 5 mg tablet (Proscar) 5 mg PO HS 03/27/21 03/27/21 fludrocortisone 0.1 mg tablet 0.1 mg PO HS 03/27/21 03/27/21 gabapentin 400 mg capsule 400 mg PO TID 03/27/21 03/27/21 (Neurontin) insulin glargine 100 unit/mL (3 5 unit SUBCUT PM 03/27/21 03/27/21 mL) subcutaneous pen (Lantus Solostar U-100 Insulin) metoprolol tartrate 25 mg tablet 12.5 mg PO BID 03/27/21 03/27/21 risperidone 1 mg tablet (Risperdal) 1 mg PO BID 03/27/21 03/27/21 sodium chloride 1 gram tablet 1,000 mg PO TID 03/27/21 03/27/21 tamsulosin 0.4 mg capsule (Flomax) 0.4 mg PO HS 03/27/21 03/27/21 tramadol 50 mg tablet (Ultram) 50 mg PO BID PRN 03/27/21 03/27/21 Results & Data (ED) Vital Signs Vital Signs - 24 hr 03/27/21 17:59 03/27/21 18:00 03/27/21 20:03 Temperature 37.4 C Temperature Source Oral Pulse Rate 93 H Pulse Rate [Radial] 86 Pulse Rhythm Regular Respiratory Rate 16 16 Respiratory Effort / Characteristics Non-Labored Respiratory Depth Normal Blood Pressure 134/81 Blood Pressure [Left Arm] 123/80 Blood Pressure Mean 98 Blood Pressure Mean [Left Arm] 94 Pulse Oximetry 97 97 97 Oxygen Delivery Method Room Air Room Air Room Air Sepsis Recent Fever Within 48 Hours No Sepsis New/Unexplained Change in Mental Status No Sepsis Action Taken by Nursing No Action Required 03/27/21 20:53 Temperature Temperature Source Pulse Rate Pulse Rate [Radial] 88 Pulse Rhythm Respiratory Rate 16 Respiratory Effort / Characteristics Respiratory Depth Blood Pressure Blood Pressure [Left Arm] 113/81 Blood Pressure Mean Blood Pressure Mean [Left Arm] 91 Pulse Oximetry 98 Oxygen Delivery Method Room Air Sepsis Recent Fever Within 48 Hours Sepsis New/Unexplained Change in Mental Status Sepsis Action Taken by [facility] Medications Current Medication List: was personally reviewed by me Laboratory Data Attestation: I reviewed the patient's lab results. Result diagrams: 03/27/21 18:38 03/27/21 18:38 Lab Results 03/27/21 03/27/21 03/27/21 Range/Units 18:20 18:20 18:38 WBC (4.8-10.8) K/uL RBC (4.7-6.1) M/uL Hgb (14.0-18.0) g/dL POC Hgb (14.0-18.0) g/dl Hct (42-52) % POC Hct (42-52) % MCV (80-100) fL MCH (25-34) pg MCHC (32-36) g/dL RDW Std Deviation (36.4-46.3) fL RDW Coeff of Georgina (11.5-14.5) % Plt Count (130-400) K/uL MPV (7.4-10.4) fL Immature Gran % (Auto) % Neut % (Auto) % Lymph % (Auto) % [place] % (Auto) % Eos % (Auto) % Baso % (Auto) % Neut # (Auto) (1.4-6.5) K/uL Lymph # (Auto) (1.2-3.4) K/uL [place] # (Auto) (0.11-0.59) K/uL Eos # (Auto) (0-0.5) K/uL Baso # (Auto) (0-0.2) K/uL Immature Gran # (Auto) (0.00-0.02) K/uL Polychromasia Hypochromasia Poikilocytosis PT (9.0-12.0) Seconds INR (0.9-1.1) APTT (21.0-31.0) Seconds PTT Ratio POC Sodium (135-144) mmol/L Sodium (136-145) mmol/L POC Potassium (3.3-5.0) mmol/L Potassium (3.5-5.1) mmol/L POC Chloride (101-112) mmol/L Chloride (98-107) mmol/L Carbon Dioxide (21-32) mmol/L POC Total CO2 (24-31) mmol/L Anion Gap (3-11) POC Anion Gap (16-25) mmol/L POC BUN (7-18) mg/dl BUN (7-18) mg/dl Creatinine (0.6-1.4) mg/dl POC Creatinine (0.6-1.3) mg/dl Est Cr Clr Drug Dosing ml/min Est GFR ( Amer) ml/min Est GFR (Non-Af Amer) ml/min BUN/Creatinine Ratio (10-20) Glucose (70-99) mg/dl POC Glucose (other) (70-99) mg/dl Calcium (8.5-10.1) mg/dl POC Ioniz Calcium Steph (1.12-1.32) mmol/l Magnesium (1.8-2.4) mg/dl Total Bilirubin (0.2-1) mg/dl AST (15-37) U/L ALT (12-78) U/L Alkaline Phosphatase (45-117) U/L Total Creatine Kinase (39-308) U/L Troponin I (0-0.045) ng/ml NT-Pro-B Natriuret Pep (0-900) pg/ml Total Protein (6.4-8.2) gm/dl Albumin (3.4-5.0) gm/dl Globulin (2.5-4.0) gm/dl Albumin/Globulin Ratio (0.9-2) TSH (0.300-4.500) uIu/ml Urine Color Urine Appearance (Clear) Urine pH (4.5-7.5) Ur Specific [place] (1.000-1.030) Urine Protein (Negative) Urine Glucose (UA) (Negative) Urine Ketones (Negative) Urine Blood (Negative) Urine Nitrite (Negative) Urine Bilirubin (Negative) Urine Urobilinogen (Negative) Ur Leukocyte Esterase (Negative) Urine WBC (Auto) (0-5) /hpf Urine RBC (Auto) (0-4) /hpf U Hyaline Cast (Auto) (0-5) /lpf U Epithel Cells (Auto) (0-5) /lpf Urine Bacteria (Auto) (Negative) COVID-19 Eval Order Covid19 at [facility] SARS-CoV-2 (PCR) NEGATIVE (Negative) Blood Type A Positive Antibody Screen NEGATIVE 03/27/21 03/27/21 03/27/21 Range/Units 18:38 18:38 18:38 WBC 9.57 (4.8-10.8) K/uL RBC 3.13 L (4.7-6.1) M/uL Hgb 7.8 L (14.0-18.0) g/dL POC Hgb (14.0-18.0) g/dl Hct 26.0 L (42-52) % POC Hct (42-52) % MCV 83.1 (80-100) fL MCH 24.9 L (25-34) pg MCHC 30.0 L (32-36) g/dL RDW Std Deviation 50.8 H (36.4-46.3) fL RDW Coeff of Georgina 16.7 H (11.5-14.5) % Plt Count 507 H (130-400) K/uL MPV 8.3 (7.4-10.4) fL Immature Gran % (Auto) 0.2 % Neut % (Auto) 59.7 % Lymph % (Auto) 28.6 % [place] % (Auto) 7.7 % Eos % (Auto) 3.0 % Baso % (Auto) 0.8 % Neut # (Auto) 5.70 (1.4-6.5) K/uL Lymph # (Auto) 2.74 (1.2-3.4) K/uL [place] # (Auto) 0.74 H (0.11-0.59) K/uL Eos # (Auto) 0.29 (0-0.5) K/uL Baso # (Auto) 0.08 (0-0.2) K/uL Immature Gran # (Auto) 0.02 (0.00-0.02) K/uL Polychromasia 1+ Hypochromasia Present Poikilocytosis Present PT 19.9 H (9.0-12.0) Seconds INR 2.1 H (0.9-1.1) APTT 33.6 H (21.0-31.0) Seconds PTT Ratio 1.3 POC Sodium (135-144) mmol/L Sodium 131 L (136-145) mmol/L POC Potassium (3.3-5.0) mmol/L Potassium 4.3 (3.5-5.1) mmol/L POC Chloride (101-112) mmol/L Chloride 98 (98-107) mmol/L Carbon Dioxide 24 (21-32) mmol/L POC Total CO2 (24-31) mmol/L Anion Gap 9.0 (3-11) POC Anion Gap (16-25) mmol/L POC BUN (7-18) mg/dl BUN 23 H (7-18) mg/dl Creatinine 2.00 H (0.6-1.4) mg/dl POC Creatinine (0.6-1.3) mg/dl Est Cr Clr Drug Dosing 49.0 ml/min Est GFR ( Amer) 42.6 ml/min Est GFR (Non-Af Amer) 36.7 ml/min BUN/Creatinine Ratio 11.5 (10-20) Glucose 147 H (70-99) mg/dl POC Glucose (other) (70-99) mg/dl Calcium 8.8 (8.5-10.1) mg/dl POC Ioniz Calcium Steph (1.12-1.32) mmol/l Magnesium 2.0 (1.8-2.4) mg/dl Total Bilirubin 0.2 (0.2-1) mg/dl AST 4 L (15-37) U/L ALT < 6 L (12-78) U/L Alkaline Phosphatase 114 (45-117) U/L Total Creatine Kinase 52 (39-308) U/L Troponin I 0.017 (0-0.045) ng/ml NT-Pro-B Natriuret Pep 96341 H (0-900) pg/ml Total Protein 8.2 (6.4-8.2) gm/dl Albumin 2.9 L (3.4-5.0) gm/dl Globulin 5.3 H (2.5-4.0) gm/dl Albumin/Globulin Ratio 0.5 L (0.9-2) TSH 1.120 (0.300-4.500) uIu/ml Urine Color Urine Appearance (Clear) Urine pH (4.5-7.5) Ur Specific [place] (1.000-1.030) Urine Protein (Negative) Urine Glucose (UA) (Negative) Urine Ketones (Negative) Urine Blood (Negative) Urine Nitrite (Negative) Urine Bilirubin (Negative) Urine Urobilinogen (Negative) Ur Leukocyte Esterase (Negative) Urine WBC (Auto) (0-5) /hpf Urine RBC (Auto) (0-4) /hpf U Hyaline Cast (Auto) (0-5) /lpf U Epithel Cells (Auto) (0-5) /lpf Urine Bacteria (Auto) (Negative) COVID-19 Eval Order SARS-CoV-2 (PCR) (Negative) Blood Type Antibody Screen 03/27/21 03/27/21 Range/Units 18:42 Unknown WBC (4.8-10.8) K/uL RBC (4.7-6.1) M/uL Hgb (14.0-18.0) g/dL POC Hgb 8.8 L (14.0-18.0) g/dl Hct (42-52) % POC Hct 26 L (42-52) % MCV (80-100) fL MCH (25-34) pg MCHC (32-36) g/dL RDW Std Deviation (36.4-46.3) fL RDW Coeff of Georgina (11.5-14.5) % Plt Count (130-400) K/uL MPV (7.4-10.4) fL Immature Gran % (Auto) % Neut % (Auto) % Lymph % (Auto) % [place] % (Auto) % Eos % (Auto) % Baso % (Auto) % Neut # (Auto) (1.4-6.5) K/uL Lymph # (Auto) (1.2-3.4) K/uL [place] # (Auto) (0.11-0.59) K/uL Eos # (Auto) (0-0.5) K/uL Baso # (Auto) (0-0.2) K/uL Immature Gran # (Auto) (0.00-0.02) K/uL Polychromasia Hypochromasia Poikilocytosis PT (9.0-12.0) Seconds INR (0.9-1.1) APTT (21.0-31.0) Seconds PTT Ratio POC Sodium 132 L (135-144) mmol/L Sodium (136-145) mmol/L POC Potassium 4.5 (3.3-5.0) mmol/L Potassium (3.5-5.1) mmol/L POC Chloride 96 L (101-112) mmol/L Chloride (98-107) mmol/L Carbon Dioxide (21-32) mmol/L POC Total CO2 24 (24-31) mmol/L Anion Gap (3-11) POC Anion Gap 17.0 (16-25) mmol/L POC BUN 23 H (7-18) mg/dl BUN (7-18) mg/dl Creatinine (0.6-1.4) mg/dl POC Creatinine 2.0 H (0.6-1.3) mg/dl Est Cr Clr Drug Dosing ml/min Est GFR ( Amer) ml/min Est GFR (Non-Af Amer) ml/min BUN/Creatinine Ratio (10-20) Glucose (70-99) mg/dl POC Glucose (other) 152 H (70-99) mg/dl Calcium (8.5-10.1) mg/dl POC Ioniz Calcium Steph 1.20 (1.12-1.32) mmol/l Magnesium (1.8-2.4) mg/dl Total Bilirubin (0.2-1) mg/dl AST (15-37) U/L ALT (12-78) U/L Alkaline Phosphatase (45-117) U/L Total Creatine Kinase (39-308) U/L Troponin I (0-0.045) ng/ml NT-Pro-B Natriuret Pep (0-900) pg/ml Total Protein (6.4-8.2) gm/dl Albumin (3.4-5.0) gm/dl Globulin (2.5-4.0) gm/dl Albumin/Globulin Ratio (0.9-2) TSH (0.300-4.500) uIu/ml Urine Color Yellow Urine Appearance Cloudy A (Clear) Urine pH 7.0 (4.5-7.5) Ur Specific [place] 1.005 (1.000-1.030) Urine Protein Trace H (Negative) Urine Glucose (UA) Negative (Negative) Urine Ketones Negative (Negative) Urine Blood Trace H (Negative) Urine Nitrite Negative (Negative) Urine Bilirubin Negative (Negative) Urine Urobilinogen Negative (Negative) Ur Leukocyte Esterase 3+ H (Negative) Urine WBC (Auto) >30 H (0-5) /hpf Urine RBC (Auto) 0-4 (0-4) /hpf U Hyaline Cast (Auto) 0 (0-5) /lpf U Epithel Cells (Auto) 0-5 (0-5) /lpf Urine Bacteria (Auto) 1+ H (Negative) COVID-19 Eval Order SARS-CoV-2 (PCR) (Negative) Blood Type Antibody Screen Administered Medications Discontinued Medications Sodium Chloride (Nss) 500 mls @ 999 mls/hr IV .Q31M ALVARO Stop: 03/27/21 18:30 Last Infusion: 03/27/21 19:29 Dose: 0 mls/hr Documented by: [id number] Admin: 03/27/21 18:59 Dose: 999 mls/hr Documented by: [id number] Ceftriaxone Sodium (Rocephin) 1,000 mg in 50 mls @ 100 mls/hr IV NOW STA Stop: 03/27/21 20:10 Last Infusion: 03/27/21 20:44 Dose: 0 mls/hr Documented by: [id number] Admin: 03/27/21 20:13 Dose: 100 mls/hr Documented by: [id number] Imaging Data Radiologist's Impression: Chest X-Ray 03/27/21 17:59 XR chest 1V portable CLINICAL HISTORY: weakness COMPARISON STUDY: Chest radiograph November 26, 2020. FINDINGS: Lung volumes are normal. Lungs are clear. There is no pneumothorax or pleural effusion. Cardiomegaly is unchanged. Mediastinal contours are normal. There is no evidence for pulmonary edema. IMPRESSION: No acute cardiopulmonary findings. Stable cardiomegaly. ACT 112: Negative or not required by law. Electronically signed by: Adiel Silverman M.D. 03/27/2021 6:29 PM Discharge Plan Visit Data Chief Complaint: Leg Injury/Pain Stated Complaint: Leg Pain ED Provider: Israel Heredia Discharge Problem: Obstructed, uropathy, Acute urinary retention, Urinary tract infection, Anemia Patient Disposition: Being Evaluated by Hospitalist Forms Stand Alone Forms: [facility] Prescriptions Prescriptions: No Action fluticasone propion-salmeterol [Wixela Inhub] 250-50 mcg/dose blister with device 1 inh INHALATION BID RF: 0 omeprazole 40 mg capsule,delayed release(DR/EC) 40 mg PO QAM RF: 0 albuterol sulfate 90 mcg/actuation HFA aerosol inhaler 2 puff INHALATION QID RF: 0 fluticasone propionate 50 mcg/actuation spray,suspension 2 spray INTRANASAL DAILY RF: 0 atorvastatin [Lipitor] 20 mg tablet 20 mg PO DAILY RF: 0 gabapentin [Neurontin] 400 mg capsule 400 mg PO TID RF: 0 tramadol [Ultram] 50 mg tablet 50 mg PO BID PRN (Reason: Pain) RF: 0 tamsulosin [Flomax] 0.4 mg capsule 0.4 mg PO HS RF: 0 ferrous sulfate [FeroSul] 325 mg (65 mg iron) tablet 325 mg PO BID RF: 0 fludrocortisone 0.1 mg tablet 0.1 mg PO HS RF: 0 risperidone [Risperdal] 1 mg tablet 1 mg PO BID RF: 0 finasteride [Proscar] 5 mg tablet 5 mg PO HS RF: 0 metoprolol tartrate 25 mg tablet 12.5 mg PO BID RF: 0 duloxetine [Cymbalta] 30 mg capsule,delayed release(DR/EC) 30 mg PO QAM RF: 0 Lantus Solostar U-100 Insulin 100 unit/mL (3 mL) insulin pen 5 unit SUBCUT PM RF: 0 Lanoxin 62.5 mcg (0.0625 mg) tablet 62.5 mcg PO Q2D RF: 0 sodium chloride 1 gram tablet 1,000 mg PO TID RF: 0 nystatin 100,000 unit/mL Suspension 5 ml PO QID PRN (Reason: THRUSH) RF: 0 Referrals Referrals: Bg Bergeron MD [Primary Care Provider] -
[2021-03-27 18:55] LABS: iSTAT Hemoglobin 8.8 g/dl (14.0-18.0); iSTAT Ionized Calcium 1.2 mmol/l (1.12-1.32); iSTAT Potassium 4.5 mmol/L (3.3-5.0)
[2021-03-27 18:58] LABS: Basophils # (auto) 0.08 K/uL (0-0.2); Basophils % (auto) 0.8 %; Eosinophils # (auto) 0.29 K/uL (0-0.5); Hemoglobin 7.8 g/dL (14.0-18.0); Immature Granulocytes # (auto) 0.02 K/uL (0.00-0.02); Immature Granulocytes % (auto) 0.2 %; Lymphocytes # (auto) 2.74 K/uL (1.2-3.4); Lymphocytes % (auto) 28.6 %; Mean Corpuscular Hemoglobin 24.9 pg (25-34); Mean Corpuscular Volume 83.1 fL (80-100); Mean Platelet Volume 8.3 fL (7.4-10.4); Monocytes # (auto) 0.74 K/uL (0.11-0.59); Monocytes % (auto) 7.7 %; Neutrophils % (auto) 59.7 %; Platelet Count 507 K/uL (130-400); RDW Coefficient of Variation 16.7 % (11.5-14.5); RDW Standard Deviation 50.8 fL (36.4-46.3); Red Blood Count 3.13 M/uL (4.7-6.1); White Blood Count 9.57 K/uL (4.8-10.8)
[2021-03-27 19:08] LABS: INR 2.1 (0.9-1.1); Partial Thromboplastin Ratio 1.3; Partial Thromboplastin Time 33.6 Seconds (21.0-31.0); Prothrombin Time 19.9 Seconds (9.0-12.0)
[2021-03-27 19:14] LABS: Appearance Urine Cloudy (Clear); Bacteria Urine Automated 1+ (Negative); Bilirubin Urine Negative (Negative); Blood Urine Trace (Negative); Cast Urine Automated 0 /lpf (0-5); Color Urine Yellow; Epithelial Cell Urine Auto 0-5 /lpf (0-5); Glucose Urine UA Negative (Negative); Ketones Urine Negative (Negative); Leukocyte Esterase Urine 3+ (Negative); Nitrite Urine Negative (Negative); Protein Urine Trace (Negative); RBC Urine Automated 0-4 /hpf (0-4); Specific Gravity Urine 1.005 (1.000-1.030); Urobilinogen Urine Negative (Negative); WBC Urine Automated >30 /hpf (0-5)
[2021-03-27 19:15] LABS: Alanine Aminotransferase < 6 U/L (12-78); Albumin Level 2.9 gm/dl (3.4-5.0); Aspartate Aminotransferase 4 U/L (15-37); BUN Creatinine Ratio 11.5 (10-20); Blood Urea Nitrogen 23 mg/dl (7-18); Calcium 8.8 mg/dl (8.5-10.1); Carbon Dioxide 24 mmol/L (21-32); Chloride 98 mmol/L (98-107); Est GFR (African American) 42.6 ml/min; Est GFR (Non-African American) 36.7 ml/min; Glucose 147 mg/dl (70-99); Potassium 4.3 mmol/L (3.5-5.1); Sodium 131 mmol/L (136-145)
[2021-03-27 19:26] LABS: Albumin Globulin Ratio 0.5 (0.9-2); Alkaline Phosphatase 114 U/L (45-117); Bilirubin,Total 0.2 mg/dl (0.2-1); Creatine Kinase 52 U/L (39-308); Globulin 5.3 gm/dl (2.5-4.0); NT Pro B Type Natriuretic Pept 31060 pg/ml (0-900); Total Protein 8.2 gm/dl (6.4-8.2); Troponin I 0.017 ng/ml (0-0.045)
[2021-03-27 19:27] LABS: Hypochromasia Present; Poikilocytosis Present; Polychromasia 1+
[2021-03-27] MEDS ORDERED: cefTRIAXone SODIUM 1,000 MG/50 ML BAG IV STA (19:41)
[2021-03-27] MEDS ORDERED: NITROGLYCERIN SL 0.4 MG/TAB TAB SL PRN (22:34)
[2021-03-27] MEDS ORDERED: ONDANSETRON INJ 2 MG/ML 2 ML VIAL IV PRN (22:34)
[2021-03-27] MEDS ORDERED: ACETAMINOPHEN 325 MG TAB PO PRN (22:34)
[2021-03-27] MEDS ORDERED: NON-FORMULARY MEDICATION (Ferrous Sulfate [Ferosul] 325 mg (65 mg iron) tablet) PO SCH (22:34)
[2021-03-27] MEDS ORDERED: POLYETHYLENE (MIRALAX) 17 GM PACK PO PRN (22:34)
[2021-03-27] MEDS ORDERED: NYSTATIN SUSP 500,000 U/5 ML UDC PO PRN (22:34)
--- NOTE | 2021-03-27 22:58 | Urology Consultation ---
Date of Consultation March 27, 2021 Assessment & Plan (1) Acute urinary retention: Patient has been admitted by the hospitalist service: Recommend maintaining Bird catheter for the present time. A voiding trial could be considered at a later date. Because of his urinary retention is unclear as the patient had was noted to have a normal PSA earlier this year. Certainly under lying echo conditions such as diabetes be contributing to this problem. The primary service is consulted nephrology due to his deteriorating kidney function will await their input. History of Present Illness Reason for Consultation: Urinary retention Attending Physician: Inocencia Cadet, History of Present Illness This is a 55 male who presented to [facility] emergency department at the recommendation of his primary care physician. Patient notes that he had a online visit with his family doctor secondary to lower extremity swelling. Patient also had laboratory studies performed by his family physician and due to the results it was recommended patient return to the emergency department. I question the patient on additional symptoms and he denies any chest pain or shortness of breath. He has urinary symptoms which are listed below. He denies any fevers, shakes, chills. He has not had any falls or head injuries. He does note some back pain at from time to time. It is noteworthy mention the patient was seen by [facility] physician group urology in November of this year secondary to difficulty voiding. Prior to admission patient was in the hospital in September of this year secondary to undergoing an ORIF of his right ankle. During that admission patient had difficulties with urinary retention and had a bladder scan for nearly 1 L fluid which required Bird catheter placement. Was felt at that time the patient's urinary retention was likely multifactorial secondary to BPH, deconditioning, constipation, and immobilization. A PSA level was checked at that time was noted to be 0.265 which was not elevated. From that admission the patient had a Bird catheter maintained for approximately 7 to 14 days and the patient notes that he did have it eventually removed but has had difficulty with urinating as listed below. Is also no over the mention that during that admission was recommended the patient have finasteride and Flomax initiated and he is currently taking these medications as an outpatient. Patient required readmission to [facility] in November of this year secondary to septic shock due to pyelonephritis and the patient was ultimately transferred to [facility] in [place] for further management. I questioned the patient about urologic symptoms. And patient notes that since his Bird catheter was previously removed he has a great deal of difficulty urinating. He says it takes him a long time to initiate a urine stream. He notes that the stream is very weak. He also notes that he is only able to void a very small amount in the urine merely dribbles out and the patient feels as though he has urinary frequency where he must void almost immediately after going. He denies any hematuria. He denies any dysuria. Since admission to [facility] the patient has had labs and imaging which I dependently reviewed. He did have a chest x-ray that showed no evidence of any acute cardiopulmonary findings. Labs consisted of a CBC where his white blood cell count was 9.57. His hemoglobin and hematocrit were 7.8 and 26.0. Review of records does show that in November of this year patient's hemoglobin was as high as 11.4. His platelet count was elevated at 507,000. Coagulation studies noted an INR of 2.1. Chemistry profile showed sodium was 131 with a normal potassium. His BUN and creatinine were 23 and 2.0. It is noteworthy mention the patient's baseline hemoglobin appears to run anywhere from 2.4-3.6 over the past several months[place] [address]. A urinalysis was performed that showed cloudy urine with trace blood. Patient was noted to have negative nitrites, 3+ leukocyte esterase, greater than 30 white blood cells per high-power field, and 1+ bacteria. A Covid test was performed and was noted to be negative. While in the emergency department the fifth patient did have a Bird catheter placed. The catheter was examined at bedside was noted to be draining clear urine. At the time my interview is resting comfortably in bed in no distress. Allergies Allergy/AdvReac Type Severity Reaction Status Date / Time No Known Allergies Allergy Verified 03/27/21 19:43 Home Medications Medication Instructions Recorded Confirmed Type albuterol sulfate 90 mcg/actuation 2 puff INHALATION QID 09/02/20 03/27/21 History aerosol inhaler fluticasone 250 mcg-salmeterol 50 1 inh INHALATION BID 09/02/20 03/27/21 History mcg/dose blistr powdr for inhalation (Wixela Inhub) omeprazole 40 mg capsule,delayed 40 mg PO QAM 09/02/20 03/27/21 History release fluticasone propionate 50 2 spray INTRANASAL DAILY 09/10/20 03/27/21 History mcg/actuation nasal spray,suspension nystatin 100,000 unit/mL oral 5 ml PO QID PRN 11/26/20 03/27/21 History suspension atorvastatin 20 mg tablet (Lipitor) 20 mg PO DAILY 03/27/21 03/27/21 History digoxin 62.5 mcg (0.0625 mg) 62.5 mcg PO Q2D 03/27/21 03/27/21 History tablet (Lanoxin) duloxetine 30 mg capsule,delayed 30 mg PO QAM 03/27/21 03/27/21 History release (Cymbalta) ferrous sulfate 325 mg (65 mg 325 mg PO BID 03/27/21 03/27/21 History iron) tablet (FeroSul) finasteride 5 mg tablet (Proscar) 5 mg PO HS 03/27/21 03/27/21 History fludrocortisone 0.1 mg tablet 0.1 mg PO HS 03/27/21 03/27/21 History gabapentin 400 mg capsule 400 mg PO TID 03/27/21 03/27/21 History (Neurontin) insulin glargine 100 unit/mL (3 5 unit SUBCUT PM 03/27/21 03/27/21 History mL) subcutaneous pen (Lantus Solostar U-100 Insulin) metoprolol tartrate 25 mg tablet 12.5 mg PO BID 03/27/21 03/27/21 History risperidone 1 mg tablet (Risperdal) 1 mg PO BID 03/27/21 03/27/21 History sodium chloride 1 gram tablet 1,000 mg PO TID 03/27/21 03/27/21 History tamsulosin 0.4 mg capsule (Flomax) 0.4 mg PO HS 03/27/21 03/27/21 History tramadol 50 mg tablet (Ultram) 50 mg PO BID PRN 03/27/21 03/27/21 History Patient History Medical History Asthma uses res inh daily > not well controlled Cardiac murmur dx > 20 yrs ago Chronic hyponatremia Depression GERD (gastroesophageal reflux disease) History of diabetes mellitus IDDM Nausea unknown cause/ has not had testing done> Zofran Osteoarthritis Post traumatic stress disorder (PTSD) Schizophrenia T2DM (type 2 diabetes mellitus) Tachycardia just with cafeine per pt Surgical History Bimalleolar fracture of right ankle s/p ORIF History of tooth extraction Family History Mother Diabetes Social History Smoking Status: Current every day smoker Tobacco Type: Cigarettes Years Smoked: 40; Cigarettes Per Day: 5-6; Second Hand Exposure: Yes; Do You Dip or Chew Tobacco: Yes; Hx Alcohol Use: No Hx Substance Use: No Preferred Language: Yi Communication Ability: Effective 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 Beliefs That Will Affect Care: None marital status: Single Current Living Situation: Parent Current Living Situation Comment: lives with mother Feels Safe at Home: Yes Safety Concerns: Feels Safe At This Time Assistive Devices: Glasses Review of Systems Constitutional: no fever and no chills Eyes: no diplopia Ear, Nose, Mouth, Throat: no ear pain and no sore throat Respiratory: no cough and no dyspnea Cardiovascular: no chest pain Gastrointestinal: no abdominal pain, no nausea and no vomiting Genitourinary: + as per Subjective / HPI Musculoskeletal: + back pain Integumentary: no rash Neurologic: no localized weakness Physical Exam Constitutional: well developed and well nourished; no acute distress Eyes: no conjunctival abnormality ENMT: Ears: no hearing impairment Mouth: no oropharynx abnormality Neck: trachea midline Respiratory: normal respiratory effort, lungs clear to auscultation Cardiovascular: Rate/Rhythm: regular rate and regular rhythm Gastrointestinal (Abdomen): Abdomen is soft, nontender, and nondistended. There is no pain with palpation Musculoskeletal: No calf tenderness Skin: no rashes Neurologic: moves all extremities Psychiatric: A+Ox3, euthymic affect Results & Data ([facility]) Vital Signs (Past 12 Hours) Vital Signs Temp Pulse Pulse Resp BP BP Pulse Ox 03/27/21 22:35 36.6 C 92 H 18 120/80 97 03/27/21 20:53 88 16 113/81 98 03/27/21 20:03 86 16 123/80 97 03/27/21 18:00 37.4 C 93 H 16 134/81 97 03/27/21 17:59 97 PG Care Time/CCT Total # of Minutes Spent Total Time Spent with Patient: Total time spent is greater than 50% in coordination of care (as documented) at patient's floor/unit and/or counseling patient: Coding Level of Care Code 55948 Inpt Consult Level 5 Diagnoses Acute urinary retention R33.8
[2021-03-27] MEDS ORDERED: GLUCOSE 40% GEL 15 GM TUBE PO PRN (23:00)
[2021-03-27] MEDS ORDERED: GLUCAGON FOR INJ 1 MG VIAL IM PRN (23:00)
[2021-03-27] MEDS ORDERED: CARBOHYDRATES FOR HYPOGLYCEMIA PO PRN (23:00)
[2021-03-27] MEDS ORDERED: DEXTROSE 50% 50 ML SYRINGE IV PRN (23:00)
[2021-03-27] MEDS ORDERED: GLUCOSE 10 TABS/TUBE PO PRN (23:00)
[2021-03-27] MEDS: SODIUM CHLORIDE 0.9% 1000ML 1,000 ML IV SCH (23:26)
[2021-03-27] MEDS: SODIUM CHLORIDE 1 GM TABLET PO SCH (23:46)
[2021-03-27] MEDS: GABAPENTIN 400 MG CAP PO SCH (23:46)
[2021-03-27] MEDS: INSULIN ASPART 100 UNITS/ML 3 ML PEN SC SCH (23:48)
[2021-03-27] MEDS: FLUDROCORTISONE ACETATE 0.1 MG TAB PO SCH (23:48)
[2021-03-27] MEDS: FINASTERIDE 5 MG TAB PO SCH (23:48)
[2021-03-27] MEDS: METOPROLOL TARTRATE 25 MG TAB PO SCH (23:49)
[2021-03-27] MEDS: risperiDONE 1 MG TABLET PO SCH (23:49)
[2021-03-27] MEDS: INSULIN GLARGINE SOLOSTAR 100 UNITS/ML 3 ML PEN SQ SCH (23:49)
[2021-03-27] MEDS: TAMSULOSIN HCL 0.4 MG CAP PO SCH (23:49)
[2021-03-28] MEDS: ALBUTEROL HFA 8 GM INHALER INH SCH ×5 (00:24→19:36)
[2021-03-28] MEDS: NICOTINE 14 MG/24 HR PATCH TD SCH ×2 (00:50→08:09)
--- NOTE | 2021-03-28 02:21 | History and Physical Report ---
DATE OF ADMISSION: 03/27/2021. CHIEF COMPLAINT: Abnormal labs as outpatient and also lower extremity pain. HISTORY OF PRESENT ILLNESS: This is a 55-year-old male with past medical history significant for type 2 diabetes; history of hyponatremia; history of asthma, mild intermittent; history of pulmonary hypertension; history of atrial flutter; mitral valve insufficiency; orthostatic hypotension; history of cardiomyopathy; moderate malnutrition; chronic kidney disease; chronic pain in both knees; restless legs syndrome; arthralgia of both knees; dental decay; history of sacral decubitus ulcer; history of osteoarthritis; history of bimalleolar fracture of the right ankle; severe muscle deconditioning; history of chest wall pain; history of COVID infection; history of tobacco abuse; history of schizophrenia, chronic condition; depression; food insecurity. Was sent in by primary doctor because outpatient labs showed elevated creatinine and anemia.In the ER with a Bird catheter drained about 700 mL of fluid. He says he is having difficulty urinating. Denies any pain while urinating. No blood in the urine. He is on and off constipation and diarrhea. Denies any blood in the stools. He is having chronic lower extremity pain. Denies any chest pain, shortness of breath. He has some dizziness while ambulating and has a chronic smoker's cough. Appetite is okay. No difficulty swallowing. No headache, no blurred vision, no earache, no runny nose, no sore throat. Resting comfortably and hemodynamically stable. ALLERGIES: No known drug allergies. PAST MEDICAL HISTORY: As mentioned above. PAST SURGICAL HISTORY: Colonoscopy, EGDs. MEDICATIONS: The patient is on albuterol 2 puffs inhalation q.i.d., Lipitor 20 mg p.o. daily, Lanoxin 62.5 mcg p.o. q. 2 days, Cymbalta 30 mg p.o. a.m., ferrous sulfate 325 mg p.o. b.i.d., Proscar 5 mg p.o. at bedtime, fludrocortisone 0.1 mg p.o. at bedtime, fluticasone/salmeterol inhalation b.i.d., Flonase 2 sprays intranasal daily, gabapentin 400 mg p.o. t.i.d., Lantus 5 units subcutaneous p.m., metoprolol tartrate 12.5 mg p.o. b.i.d., nystatin 5 mL p.o. q.i.d. p.r.n., omeprazole 40 mg p.o. a.m., Risperdal 1 mg p.o. b.i.d., salt tablets 1 g p.o. t.i.d., Flomax 0.4 mg p.o. at bedtime, tramadol 50 mg p.o. b.i.d. p.r.n. FAMILY HISTORY: Significant for father had Vona's disease, uncle has heart disorder. SOCIAL HISTORY: , former smoker, smoked 1.5 packs a day for a long time, but recently has cut back to three to four cigarettes daily and also chews tobacco. Currently, no drinking, no drug use. REVIEW OF SYSTEMS: As per HPI. Rest of the review of systems is negative. PHYSICAL EXAMINATION: GENERAL: The patient is of moderate build, not in acute distress. VITAL SIGNS: Temperature 36.6, pulse 88, respiratory rate 18, blood pressure 120/80, oxygen 97% on room air. HEENT: Pupils equal, round, and reactive to light. Oral mucosa moist. NECK: No JVD, no neck masses. CARDIOVASCULAR: S1 and S2 heard. Regular rate and rhythm. No murmur, no gallop. RESPIRATORY SYSTEM: Normal AP diameter. No accessory muscle use. No wheezing, no crackles. ABDOMEN: Soft, bowel sounds present, nontender, no distention. CENTRAL NERVOUS SYSTEM: Cranial nerves II through XII grossly intact, nonfocal. EXTREMITIES: No edema, no erythema. LABORATORY DATA: WBC 9.5, hemoglobin 7.8, hematocrit 26, platelets 507. PT 19.9, INR 2.1, APTT 33.6. Sodium 131, potassium 4.3, chloride 98, bicarbonate 24, BUN 23, creatinine 2, serum glucose 147, calcium 8.8, magnesium 2, total bilirubin 0.2, AST 4, ALT less than 6, alkaline phosphatase 114, total creatinine kinase 52. Troponin I of 0.017. BNP 31,000. TSH 1.1. Urinalysis, +3 leukocyte esterase, +1 bacteria. SARS-CoV-2 PCR negative. IMAGING DATA: Chest x-ray, no acute cardiopulmonary findings. EKG: Normal sinus rhythm, prolonged QT of 484. ASSESSMENT AND PLAN: This is a 55-year-old male who was sent in by PCP because of anemia and also kidney disease and the patient also comes with lower extremity pain. 1. Anemia: The patient was recently found to have iron deficiency, also folic acid deficiency, probably also due to anemia of chronic kidney disease. Currently on iron supplements and folic acid. He is on Coumadin for his atrial fibrillation, which his PCP told to stop. Will check stool for Hemoccult and also await nephrology input. If hemoccult comes positive, will consult GI. Monitor in the hospital. 2. Urinary retention: The patient was using straight catheter before, but currently seems to be not using it. He was drained of about 700 mL of urine in the ER with a Bird. Continue Bird. On Proscar and Flomax. Will consult urology in the a.m. 3. Acute kidney injury on chronic kidney disease stage III to IV: Recently baseline creatinine seems to be around 1.5, presently creatinine of 2. Avoid nephrotoxic agents. The patient is getting gentle fluids. Await nephrology input. 4. History of ischemic cardiomyopathy, last echo in November of 2020, his EF was 30% to 35%, but at that time he was in septic shock. Getting gentle fluids, monitor for any volume overload. Continue his beta jose, digoxin. If any concern, will consult cardiology. 5. History of pulmonary hypertension. 6. History of hyponatremia: On salt tablets. Follow the labs. 7. History of benign prostatic hypertrophy: On Flomax and Proscar. 8. History of diabetes and diabetic neuropathy: Continue his home Lantus. Placed on insulin sliding scale. He is also on duloxetine and also tramadol. His gabapentin was discontinued by his PCP, but we will continue his gabapentin as the patient is complaining of neuropathic pain in the lower extremities. 9. History of schizophrenia and depression: Continue his duloxetine and risperidone. 10. History of open reduction and internal fixation of right ankle fracture: PT, OT when stable. 11. Urinary tract infection: Recently had septic shock and transferred to [place] in November. Currently on Rocephin. Follow closely the cultures. 12. History of atrial fibrillation: Continue digoxin and metoprolol. Coumadin was stopped by his PCP. We will follow the hemoccult. We will consider consulting cardiology for decision about restarting the Coumadin. 13. History of asthma: Continue home inhalers. 14. Tobacco abuse: Needs counseling. 15. Hyperlipidemia, on statin. 16. Gastroesophageal reflux disease: On omeprazole. 17. History of sacral wound. DISPOSITION: Admit to med tele. PT, OT prior to discharge. Social service to help with discharge planning. Job ID: [id number] MTDD
[2021-03-28 06:31] LABS: Basophils # (auto) 0.08 K/uL (0-0.2); Eosinophils # (auto) 0.35 K/uL (0-0.5); Eosinophils % (auto) 4.2 %; Hematocrit (blood only) 24.9 % (42-52); Hemoglobin 7.6 g/dL (14.0-18.0); Immature Granulocytes # (auto) 0.01 K/uL (0.00-0.02); Immature Granulocytes % (auto) 0.1 %; Lymphocytes # (auto) 2.17 K/uL (1.2-3.4); Lymphocytes % (auto) 25.8 %; Mean Corpuscular Hemoglobin 25.1 pg (25-34); Mean Corpuscular Hgb Conc 30.5 g/dL (32-36); Mean Corpuscular Volume 82.2 fL (80-100); Mean Platelet Volume 8.3 fL (7.4-10.4); Monocytes # (auto) 0.87 K/uL (0.11-0.59); Monocytes % (auto) 10.3 %; Neutrophils # (auto) 4.93 K/uL (1.4-6.5); Neutrophils % (auto) 58.6 %; Platelet Count 472 K/uL (130-400); RDW Coefficient of Variation 16.9 % (11.5-14.5); RDW Standard Deviation 51.4 fL (36.4-46.3); Red Blood Count 3.03 M/uL (4.7-6.1); White Blood Count 8.41 K/uL (4.8-10.8)
[2021-03-28 06:59] LABS: BUN Creatinine Ratio 12.1 (10-20); Calcium 8.9 mg/dl (8.5-10.1); Creatinine Clr Calc Pharmacy 49.2 ml/min; Est GFR (African American) 44.2 ml/min; Est GFR (Non-African American) 38.1 ml/min; Magnesium 1.7 mg/dl (1.8-2.4); Potassium 4.1 mmol/L (3.5-5.1); RBC Morphology Unremarkable
[2021-03-28 07:20] LABS: Estimated Average Glucose 128 mg/dl; Hemoglobin A1C 6.1 % (4.5-5.6)
[2021-03-28] MEDS: risperiDONE 1 MG TABLET PO SCH ×2 (07:54→21:43)
[2021-03-28] MEDS: DULoxetine HCL 30 MG CAP PO SCH (07:55)
[2021-03-28] MEDS: ATORVASTATIN 20 MG TAB PO SCH (07:55)
[2021-03-28] MEDS: FERROUS SULFATE 325 MG TAB PO SCH ×2 (07:55→16:37)
[2021-03-28] MEDS: METOPROLOL TARTRATE 25 MG TAB PO SCH ×2 (07:56→21:43)
[2021-03-28] MEDS: PANTOprazole 40 MG TAB PO SCH (07:57)
[2021-03-28] MEDS: GABAPENTIN 400 MG CAP PO SCH ×3 (07:58→21:41)
[2021-03-28] MEDS: SODIUM CHLORIDE 1 GM TABLET PO SCH ×3 (07:58→21:44)
[2021-03-28] MEDS: FLUTICASONE/VILANTEROL 200/25MCG 14 PUFFS/INHALER INH SCH (08:00)
[2021-03-28] MEDS: FLUTICASONE PROPIONATE NA SPR 16 GM BTL SCH (08:01)
[2021-03-28] MEDS: traMADol HCL 50 MG TABLET PO PRN (08:18)
--- NOTE | 2021-03-28 08:27 | Electrocardiogram Report ---
Test Reason : Blood Pressure : / mmHG Vent. Rate : 093 BPM Atrial Rate : 093 BPM P-R Int : 182 ms QRS Dur : 092 ms QT Int : 390 ms P-R-T Axes : 059 038 077 degrees QTc Int : 484 ms Normal sinus rhythm Left atrial enlargement Nonspecific T wave abnormality Lateral leads Abnormal ECG When compared with ECG of 26-NOV-2020 16:41, T wave amplitude has decreased in Anterior leads Confirmed by Bob Daniel ([id number]) on 03/28/2021 8:27:06 AM Referred By: Bg Bergeron Confirmed By:Bob Daniel
[2021-03-28] MEDS ORDERED: MAGNESIUM SULFATE / D5W 1 GM/100 ML BAG IV ONE ×2 (08:45→12:39)
--- NOTE | 2021-03-28 08:56 | Urology Progress Note ---
Date of Service March 28, 2021 Assessment & Plan (1) Acute urinary retention: Plan: - Plan of care reviewed with Dr. 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 - Pt afebrile, nontoxic, lab work reviewed - creatinine improved slightly to 1.94, WBC 8.41, Hgb 7.6 - Urine culture is pending - continue IV antibiotics per primary service, follow cultures - Recommend maintain Bird catheter for 7-14 days or until f/u with urology depending on timing - Continue Tamsulosin and consider resuming Finasteride for dual therapy - Continue supportive care, antibiotics, and management per primary service - Consider imaging with [facility] if creatinine does not continue to improve - Recommend outpatient follow-up with urology for cystoscopy for further evaluation of obstructive uropathy and voiding trial - He reports he has an outpatient follow-up scheduled with [facility] urologist, Dr. José Camargo - Recommend keep appointment with scheduled urologist - need to check timing of appointment, move up if needed - In the event he does not have follow-up scheduled, he can certainly follow-up with [facility] for further care - Urology will sign off at this time, please call us for any additional questions or concerns Admission and Anticipated Discharge Date Admission Date: March 27, 2021 Supervising Physician Co-Signing Physician Notes Discussed patient and plan with ADRIEN. Agree with above. Subjective Patient seen and examined at bedside this AM. No acute issues overnight. Offers no complaints at present. Denies flank or abdominal pain. Tolerating PO diet, no nausea or vomiting. Denies constipation. He is tolerating Bird catheter - intact, patent and draining light yellow urine, slightly cloudy with sediment. No hematuria or dysuria. No fever or chills. Reports prior to admission he was taking Tamsulosin, but no longer taking Finasteride. Endorses urinary symptoms of weak stream, urinary frequency, urgency, small voids, and incomplete emptying prior to arrival. He reports he has an upcoming urology appointment with Dr. Raman Meek - he is unsure of the date at this time. Review of Systems Constitutional: as per Subjective / HPI Gastrointestinal: as per Subjective / HPI Genitourinary: + as per Subjective / HPI Physical Exam Constitutional: + frail appearing and comfortable; no acute distress Respiratory: normal respiratory effort and able to speak in complete sentences; no respiratory distress and no labored breathing Gastrointestinal (Abdomen): Inspection/Auscultation: abdomen normal to inspection; abdomen not distended Percussion/Palpation: abdomen soft; abdomen nontender and no guarding Musculoskeletal: Head/Neck/Chest: normocephalic and head atraumatic Skin: warm and dry Neurologic: moves all extremities and awake Psychiatric: Orientation: alert and oriented x 3 Genitourinary: no CVA tenderness Bird intact, patent and draining light yellow urine, slightly cloudy with sediment noted Results & Data ([facility]) Vital Signs (Past 12 Hours) Vital Signs Temp Pulse Pulse Pulse Resp BP Pulse Ox 03/28/21 07:41 36.7 C 96 H 19 124/81 96 03/28/21 07:07 94 H 18 94 03/28/21 04:00 36.5 C 93 H 18 128/80 96 03/28/21 00:07 88 03/27/21 22:35 36.6 C 92 H 18 120/80 97 03/27/21 20:53 88 16 113/81 98 PG Care Time/CCT Total # of Minutes Spent Total Time Spent with Patient: Total time spent is greater than 50% in coordination of care (as documented) at patient's floor/unit and/or counseling patient: Coding Level of Care Code 88976 Subseq Hosp Care Lvl 2 Diagnoses Acute urinary retention R33.8
[2021-03-28] MEDS: INSULIN ASPART 100 UNITS/ML 3 ML PEN SC SCH ×4 (09:02→21:42)
[2021-03-28] MEDS: FOLIC ACID 1 MG TAB PO SCH (10:22)
[2021-03-28] MEDS: SODIUM CHLORIDE 0.9% 1000ML 1,000 ML IV SCH (12:50)
--- NOTE | 2021-03-28 13:51 | Consultation Report ---
NEPHROLOGY CONSULTATION NOTE DATE OF SERVICE: 03/28/2021 REASON FOR CONSULT: Acute renal failure on background CKD. HISTORY OF PRESENT ILLNESS: The patient is a 55-year-old male who was sent over to the hospital for admission because of significant drop in hemoglobin to 7.4 from 15 a few months ago. Blood work was done as an outpatient through anticoagulation clinic. The patient does have chronic kidney disease w ith most recent baseline creatinine of 1.5 as of 01/2021 and he also has a history of hyponatremia. He did have acute renal failure back in 11/2020 and was admitted in hospital with diagnosis of sepsis and acute renal failure with creatinine in the high 3s, but since then has improved to baseline 1.5. His outpatient sodium was 124 back in 01/2021. The patient was supposed to see me in the clinic in February, which he canceled, but he does have an appointment with me next week. Blood work done in e Emergency Department yesterday showed a creatinine of 2, which has since then gone down to 1.94 thi s morning, his sodium was 133. He was found to have urinary retention and did have a Bird catheter placed and since admission, he has made 2900 mL of urine. He has already been seen by urologist who has recommended to continue Bird catheter. The patient already has known urological issues and is a lready on Flomax and was supposed to see Dr. Camargo, urologist. The patient appears hemodynamically stable and does not appear he is actively bleeding anywhere. Vital signs appear unremarkable. The o nly complaint he has is bilateral knee pain, which is not new and is really not the reason for the ad mission. PAST MEDICAL AND SURGICAL HISTORY: Includes longstanding history of type 2 diabetes, history of hypo natremia, history of asthma - mild intermittent type, history of pulmonary hypertension, history of a trial flutter, mitral valve regurgitation, orthostatic hypotension, history of cardiomyopathy - moder ate, malnutrition, chronic kidney disease stage III with baseline creatinine of 1.5 as well as histor y of acute renal failure in the past, chronic pain, restless legs syndrome, history of decubitus ulce r, history of osteoarthritis, history of schizophrenia, depression, history of COVID infection. ALLERGIES: None. MEDICATIONS AT HOME: Include albuterol inhaler, Lipitor, digoxin, Cymbalta, iron sulfate, Proscar, f ludrocortisone 0.1 mg at bedtime presumably for orthostatic hypotension, gabapentin, insulin, metopro lol, nystatin, omeprazole, Risperdal, Flomax, tramadol. I believe he is also on anticoagulation long -term through the anticoagulation clinic. He is on heparin. FAMILY HISTORY: Significant for father with [place]'s disease, uncle has heart disorder. SOCIAL HISTORY: . Former smoker. No drinking, no alcohol. He lives alone. REVIEW OF SYSTEMS: As per HPI. He really did not have any acute symptoms at this time as he was sen t over by PCP because of significant drop in hemoglobin. PHYSICAL EXAMINATION: GENERAL: Middle-aged white male who is not in any overt respiratory distress. He is awake, alert, o riented x3. VITAL SIGNS: Blood pressure is 113/74, pulse rate 80, temperature 36.5, and 98% on room air. HEENT: Mucous membrane is moist. NECK: Supple. No jugular venous distention. CHEST: Bilaterally clear to auscultation. CARDIOVASCULAR: S1, S2, regular. ABDOMEN: Soft, nontender. EXTREMITIES: Show no edema. SKIN: Shows no rashes. LABORATORY TEST: Chest x-ray is unremarkable. Blood work done shows hemoglobin of 7.6, it appears f or the last few weeks it has been in the 7 range. Platelet count 472. WBC count 8.41. Sodium 133, potassium 4.1, BUN 23, creatinine 1.94, magnesium 1.7. ASSESSMENT AND PLAN: A 55-year-old male with known long-term diabetes and chronic kidney disease wit h baseline creatinine of 1.5, was sent over by his primary care physician and the anticoagulation cli heidi because of significant low hemoglobin of 7.4. He was also found to have slight acute renal failu re with urinary retention for which I have been consulted. 1. Acute renal failure: His baseline creatinine was 1.5 as of 01/2021, and on admission, it was 2, but since then it has improved to 1.9. It appears the slight acute renal failure is related with uri nary retention more than anything. He is making lots of urine since the Bird is placed and I really appreciate urology involvement and recommendation. Waiting for the urine culture report to come rock k and I agree we should continue with the antibiotics until we get the final report. No further work up is needed for the acute renal failure as it is expected to get better by tomorrow. Until then, co ntinue IV hydration as is being done. 2. Hyponatremia: It is worth noting that the patient does have history of chronic hyponatremia with a serum sodium of 124 back in 01/2021. He was supposed to see me in nephrology clinic, but he cance led and rescheduled for next week. Fortunately, current serum sodium is actually better than that an d is now 133. With the normal saline he is receiving, sodium did not drop, so we can continue the clive e. 3. Anemia: This was the reason for the admission. Hemoglobin has been in the 7 range for the last few weeks. It does not appear he is actively bleeding, but the patient is on chronic Coumadin and gi cindy that there was concern about gastrointestinal bleeding and for which the patient was transferred to the hospital, I would pursue this in more detail, but defer to primary care. Job ID: [id number]
[2021-03-28] MEDS ORDERED: DIGOXIN 0.125 MG TAB PO SCH (16:00)
--- NOTE | 2021-03-28 17:26 | Hospitalist Progress Note ---
Date of Service March 28, 2021 Assessment & Plan (1) Acute urinary retention: Plan: Patient is a 55 yr male was sent PCP for anemia, kidney disease and lower extremity pain Anemia In setting of chronic anticoagulation with Coumadin H/O iron deficiency anemia, folic acid deficiency, anemia of chronic disease Patient denies any blood in stools, melena, hematuria FOBT pending Consider GI eval if needed Continue Iron , folic acid supplements Check Peripheral smear H/O Atrial fibrillation On Coumadin for anticoagulation --DCed by PCP prior to admission Continue digoxin, metoprolol Urinary tract infection Urine culture growing gram-negative bacilli Continue Rocephin Hypomagnesemia Replace electrolytes as needed Monitor Acute urinary retention Please do not Bird catheter Voiding trial as able Appreciate neurology input Acute kidney injury on CKD III-IV Baseline creatinine 1.5 Creatinine 1.9 Likely due to urinary retention Appreciate nephrology input Continue IV fluids H/O Ischemic cardiomyopathy H/O pulmonary hypertension Last ECHO November of 2020, EF was 30% to 35% Under valve status closely while on IV fluids Continue home medications Chronic Hyponatremia On salt tablets Monitor Sodium levels Benign prostatic hypertrophy On Flomax and Proscar. DM II and diabetic neuropathy: Continue Insulin Monitor BGs Continue duloxetine, gabapentin for neuropathy H/O Schizophrenia and depression Continue duloxetine and risperidone Asthma No signs of exacerbation Continue home inhalers. 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 GERD on PPI Code Status Full Code DVT Px: SCDs for now Admission and Anticipated Discharge Date Admission Date: March 27, 2021 Subjective Patient is seen and examined at bedside States feeling tired, dyspnea on exertion Denies any blood in stools, melena, hematuria Also denies chest pain, dizziness, nausea, abdominal pain Offers no other complaints Review of Systems Review of Systems: All systems reviewed & are unremarkable except as noted in Subjective Physical Exam Physical Exam: Physical Exam: Vitals signs as noted above General Appearance:Moderately built and nourished, no apparent distress Head: normocephalic, Atraumatic Eyes: normal inspection, EOMI Neck: supple, Trachea midline Respiratory/Chest: Normal breath sounds, CTA Cardiovascular: S1, S2, No murmur Abdomen/GI:Soft, Non tender, Bowel sounds present Extremities/Musculoskeletal:normal inspection, Trace edema Neurologic/Psych:AAOX3, grossly no focal neurological deficits Skin: normal color, warm Results & Data Results & Data ([facility]) Vital Signs (Past 12 Hours) Vital Signs Temp Pulse Pulse Resp BP Pulse Ox 03/28/21 16:04 36.4 C L 86 19 119/77 98 03/28/21 15:36 89 16 99 03/28/21 15:22 87 03/28/21 11:17 36.5 C 80 18 113/74 98 03/28/21 11:12 86 18 97 03/28/21 08:00 97 H 03/28/21 07:41 36.7 C 96 H 19 124/81 96 03/28/21 07:07 94 H 18 94 Laboratory Results Short CBC 03/27/21 03/28/21 Range/Units 18:38 05:29 WBC 9.57 8.41 (4.8-10.8) K/uL Hgb 7.8 L 7.6 L (14.0-18.0) g/dL Hct 26.0 L 24.9 L (42-52) % Plt Count 507 H 472 H (130-400) K/uL BMP 03/27/21 03/28/21 18:38 05:29 Sodium 131 L 133 L Potassium 4.3 4.1 Chloride 98 101 Carbon Dioxide 24 26 BUN 23 H 23 H Creatinine 2.00 H 1.94 H Glucose 147 H 92 Calcium 8.8 8.9 Cardiac Enzymes 03/27/21 Range/Units 18:38 Total Creatine Kinase 52 (39-308) U/L Troponin I 0.017 (0-0.045) ng/ml Liver Function 03/27/21 Range/Units 18:38 Total Bilirubin 0.2 (0.2-1) mg/dl AST 4 L (15-37) U/L ALT < 6 L (12-78) U/L Alkaline Phosphatase 114 (45-117) U/L Albumin 2.9 L (3.4-5.0) gm/dl Urine 03/27/21 Range/Units Unknown Urine Color Yellow Urine Appearance Cloudy A (Clear) Urine pH 7.0 (4.5-7.5) Ur Specific [place] 1.005 (1.000-1.030) Urine Protein Trace H (Negative) Urine Glucose (UA) Negative (Negative)
[2021-03-28] MEDS: cefTRIAXone SODIUM 2,000 MG in DEXTROSE 5% 50 ML IV SCH (20:18)
[2021-03-28] MEDS: FINASTERIDE 5 MG TAB PO SCH (21:39)
[2021-03-28] MEDS: FLUDROCORTISONE ACETATE 0.1 MG TAB PO SCH (21:40)
[2021-03-28] MEDS: INSULIN GLARGINE SOLOSTAR 100 UNITS/ML 3 ML PEN SQ SCH (21:41)
[2021-03-28] MEDS: TAMSULOSIN HCL 0.4 MG CAP PO SCH (21:44)
[2021-03-29] MEDS: SODIUM CHLORIDE 0.9% 1000ML 1,000 ML IV SCH ×2 (02:23→09:42)
[2021-03-29] MEDS: ALBUTEROL HFA 8 GM INHALER INH SCH ×4 (07:17→19:07)
[2021-03-29 07:24] LABS: Hematocrit (blood only) 25.3 % (42-52); Hemoglobin 7.7 g/dL (14.0-18.0); Mean Corpuscular Hemoglobin 25.6 pg (25-34); Mean Corpuscular Hgb Conc 30.4 g/dL (32-36); Mean Corpuscular Volume 84.1 fL (80-100); Mean Platelet Volume 8.5 fL (7.4-10.4); Platelet Count 491 K/uL (130-400); RDW Coefficient of Variation 17.2 % (11.5-14.5); RDW Standard Deviation 52.6 fL (36.4-46.3); Red Blood Count 3.01 M/uL (4.7-6.1); White Blood Count 7.94 K/uL (4.8-10.8)
[2021-03-29 07:33] LABS: INR 1.7 (0.9-1.1); Prothrombin Time 16.5 Seconds (9.0-12.0)
[2021-03-29 08:15] LABS: BUN Creatinine Ratio 12.4 (10-20); Calcium 8.9 mg/dl (8.5-10.1); Creatinine Clr Calc Pharmacy 44.2 ml/min; Est GFR (African American) 38.8 ml/min; Est GFR (Non-African American) 33.5 ml/min; Magnesium 2.3 mg/dl (1.8-2.4); Potassium 4.9 mmol/L (3.5-5.1)
[2021-03-29] MEDS: INSULIN ASPART 100 UNITS/ML 3 ML PEN SC SCH ×4 (08:44→20:18)
[2021-03-29] MEDS: ATORVASTATIN 20 MG TAB PO SCH (08:45)
[2021-03-29] MEDS: FERROUS SULFATE 325 MG TAB PO SCH ×2 (08:45→17:49)
[2021-03-29] MEDS: DULoxetine HCL 30 MG CAP PO SCH (08:45)
[2021-03-29] MEDS: FLUTICASONE PROPIONATE NA SPR 16 GM BTL SCH (08:46)
[2021-03-29] MEDS: FLUTICASONE/VILANTEROL 200/25MCG 14 PUFFS/INHALER INH SCH (08:46)
[2021-03-29] MEDS: FOLIC ACID 1 MG TAB PO SCH (08:46)
[2021-03-29] MEDS: NICOTINE 14 MG/24 HR PATCH TD SCH (08:47)
[2021-03-29] MEDS: METOPROLOL TARTRATE 25 MG TAB PO SCH ×2 (08:47→20:19)
[2021-03-29] MEDS: GABAPENTIN 400 MG CAP PO SCH ×3 (08:47→20:18)
[2021-03-29] MEDS: PANTOprazole 40 MG TAB PO SCH (08:48)
[2021-03-29] MEDS: SODIUM CHLORIDE 1 GM TABLET PO SCH ×3 (08:48→20:21)
[2021-03-29] MEDS: risperiDONE 1 MG TABLET PO SCH ×2 (08:48→20:20)
--- NOTE | 2021-03-29 09:23 | Nephrology Progress Note ---
Date of Service March 29, 2021 Assessment & Plan Admission and Anticipated Discharge Date Admission Date: March 27, 2021 Subjective No new issues. Lots of urine with tao--3700 ml yesterday PHYSICAL EXAMINATION: GENERAL: Middle-aged white male who is not in any overt respiratory distress. He is awake, alert, oriented x3. HEENT: Mucous membrane is moist. NECK: Supple. No jugular venous distention. CHEST: Bilaterally clear to auscultation. CARDIOVASCULAR: S1, S2, regular. ABDOMEN: Soft, nontender. EXTREMITIES: Show no edema. SKIN: Shows no rashes. LABORATORY TEST: Chest x-ray is unremarkable. Blood work done shows hemoglobin of 7.6, it appears for the last few weeks it has been in the 7 range. Platelet count 472. WBC count 8.41. Sodium 133, potassium 4.1, BUN 23, creatinine 1.94, magnesium 1.7. ASSESSMENT AND PLAN: A 55-year-old male with known long-term diabetes and chronic kidney disease with baseline creatinine of 1.5--1.9, was sent over by his primary care physician and the anticoagulation clinic because of significant low hemoglobin of 7.4. He was also found to have slight acute renal failure with urinary retention for which I have been consulted. 1. Acute renal failure: His baseline creatinine was 1.5 as of 01/2021 but broad baseline is 1.5 to 1.9. And on admission, it was 2, but since then it has improved to 1.9 but overnight got worse again to 2.1. could be post obstruction diuresis--so continue NS one more day. 2. Hyponatremia: It is worth noting that the patient does have history of chronic hyponatremia with a serum sodium of 124 back in 01/2021. He was supposed to see me in nephrology clinic, but he canceled and rescheduled for next week. na went up to 133 but now dropped again to 130. will continue NS for now at 80/hr. Add salt tab from home but hold florinef for now. Also free fluid restriction 1500ml per day 3. Anemia: This was the reason for the admission. Hemoglobin has been in the 7 range for the last few weeks. It does not appear he is actively bleeding, but the patient is on chronic Coumadin and given that there was concern about gastrointestinal bleeding and for which the patient was transferred to the [facility], I would pursue this in more detail, but defer to primary care. Results & Data ([facility]) Vital Signs (Past 12 Hours) Vital Signs Temp Pulse Pulse Resp BP Pulse Ox 03/29/21 07:54 36.8 C 103 H 18 132/82 97 03/29/21 07:51 66 03/29/21 07:17 101 H 16 98 03/29/21 04:00 36.5 C 95 H 18 128/82 95 03/28/21 23:00 36.5 C 99 H 88 18 122/78 97 03/28/21 21:38 74 131/82
--- NOTE | 2021-03-29 10:15 | Gastrointestinal Consultation ---
Date of Consultation March 29, 2021 Assessment & Plan (1) Anemia: This is a 55-year-old male with the above comorbidities, admitted with JEANNA, acute urinary retention, status post placement of Tao catheter, also being treated for possible UTI, and GI consulted for anemia. On review of his [email or web address] and [employer] chart, his hemoglobin has been in the 7's since earlier this month and he has a chronic anemia. This is actually improved somewhat since then, is 7.7 today. He recently had a bidirectional endoscopy for anemia and this was unremarkable. He has no overt GI bleeding. Anemia may be multifactorial, given his known folic acid and iron deficiencies, multiple chronic diseases, including CKD, and possible underlying infectious process. On exam he is having no GI complaints; abd is soft. - Can have diet as tolerated - Would defer mgmt of his urinary issues to primary/nephrology services - Continue to trend H&H, transfuse as needed - Would continue folic acid and iron supplements. He may benefit from IV iron tx - No plans for endoscopy this admission - GI will sign off, please call with questions Thank you for allowing us to participate in the care of this patient. Please call with any acute changes, questions or concerns. Please see addendum below with additional recommendation from my supervising physician. History of Present Illness Reason for Consultation: symptomatic anemia Requesting Physician: Dr. Sargent Attending Physician: Anthony Ewing MD History of Present Illness This is a 55 year old male with hx of HFrEF (30%), chronic hyponatremia, IDDM2, urinary retention s/p tao, schizophrenia, GERD, HLD active tobacco use, c hronic anemia, admitted with urinary retention, JEANNA, ? UTI, and GI consulted for symptomatic anemia. HGB has ranged from 7-11 since the spring, was 7.1 on 03/09, and currently is 7.7 with BUN at baseline. He is on Coumadin; INR is 1.7. He had unremarkable EGD/colonoscopy in December of this year as below. He has chronic anemia w/ RADHA and FA def, and chronic disease. Is supposed to be on daily FA an d Fe supplements which he states he is taking. Had tao placed by urology for urinary retention; on ABX for possible UTI. Currently sitting up in bed; eating breakfast. No GI complaints. Typically moves his bowels every few days, typically semiformed, brown. Last BM was the day before yesterday. Denies nausea vomiting, heartburn, dysphagia or odynophagia, hematemesis, melena or hematochezia, abdominal pain, chest pain or shortness of breath, syncope, dizziness. He takes ibuprofen maybe once per week, approximately 800 mg at a time. EGD 12/2020: Normal esophagus with a regular Z-line, 41 cm from the incisors. - Normal stomach. - Normal examined duodenum Colonoscopy 12/2020: The entire examined colon is normal. - The examined portion of the ileum was normal. - Anal papilla(e) were hypertrophied. Allergies Allergy/AdvReac Type Severity Reaction Status Date / Time No Known Allergies Allergy Verified 03/27/21 19:43 Home Medications Medication Instructions Recorded Confirmed Type albuterol sulfate 90 mcg/actuation 2 puff INHALATION QID 09/02/20 03/27/21 History aerosol inhaler fluticasone 250 mcg-salmeterol 50 1 inh INHALATION BID 09/02/20 03/27/21 History mcg/dose blistr powdr for inhalation ([facility]) omeprazole 40 mg capsule,delayed 40 mg PO QAM 09/02/20 03/27/21 History release fluticasone propionate 50 2 spray INTRANASAL DAILY 09/10/20 03/27/21 History mcg/actuation nasal spray,suspension nystatin 100,000 unit/mL oral 5 ml PO QID PRN 11/26/20 03/27/21 History suspension atorvastatin 20 mg tablet (Lipitor) 20 mg PO DAILY 03/27/21 03/27/21 History digoxin 62.5 mcg (0.0625 mg) 62.5 mcg PO Q2D 03/27/21 03/27/21 History tablet (Lanoxin) duloxetine 30 mg capsule,delayed 30 mg PO QAM 03/27/21 03/27/21 History release (Cymbalta) ferrous sulfate 325 mg (65 mg 325 mg PO BID 03/27/21 03/27/21 History iron) tablet (FeroSul) finasteride 5 mg tablet (Proscar) 5 mg PO HS 03/27/21 03/27/21 History fludrocortisone 0.1 mg tablet 0.1 mg PO HS 03/27/21 03/27/21 History gabapentin 400 mg capsule 400 mg PO TID 03/27/21 03/27/21 History (Neurontin) insulin glargine 100 unit/mL (3 5 unit SUBCUT PM 03/27/21 03/27/21 History mL) subcutaneous pen (Lantus Solostar U-100 Insulin) metoprolol tartrate 25 mg tablet 12.5 mg PO BID 03/27/21 03/27/21 History risperidone 1 mg tablet (Risperdal) 1 mg PO BID 03/27/21 03/27/21 History sodium chloride 1 gram tablet 1,000 mg PO TID 03/27/21 03/27/21 History tamsulosin 0.4 mg capsule (Flomax) 0.4 mg PO HS 03/27/21 03/27/21 History tramadol 50 mg tablet (Ultram) 50 mg PO BID PRN 03/27/21 03/27/21 History Patient History Medical History Asthma uses res inh daily > not well controlled Cardiac murmur dx > 20 yrs ago Chronic hyponatremia Depression GERD (gastroesophageal reflux disease) History of diabetes mellitus IDDM Nausea unknown cause/ has not had testing done> Zofran Osteoarthritis Post traumatic stress disorder (PTSD) Schizophrenia T2DM (type 2 diabetes mellitus) Tachycardia just with cafeine per pt Surgical History Bimalleolar fracture of right ankle s/p ORIF History of tooth extraction Family History Mother Diabetes Social History Smoking Status: Current every day smoker Tobacco Type: Cigarettes Years Smoked: 40; Cigarettes Per Day: 5-6; Second Hand Exposure: Yes; Do You Dip or Chew Tobacco: Yes; Hx Alcohol Use: No Hx Substance Use: No Preferred Language: Kinyarwanda Communication Ability: Effective Biomedical Service Engineer Required: No Beliefs That Will Affect Care: None marital status: Unknown Current Living Situation: Parent Current Living Situation Comment: lives with mother How many Children do You have: 2 Feels Safe at Home: Yes Safety Concerns: Feels Safe At This Time Assistive Devices: Cane, Walker and Wheelchair Review of Systems Review of Systems: A complete review of systems was completed and negative except as noted in HPI. Physical Exam Constitutional: WD/WN, vitals as above Chronically ill, not acutely ill Eyes: Sclera anicteric Neck: trachea midline, no thyromegaly Respiratory: normal respiratory effort, lungs clear to auscultation Cardiovascular: RRR, no murmur, no edema Gastrointestinal (Abdomen): normal bowel sounds, soft, nontender, no hepatosplenomegaly Skin: no rashes, warm and dry Psychiatric: A+Ox3, euthymic affect Results & Data ([facility]) Vital Signs (Past 12 Hours) Vital Signs Temp Pulse Pulse Resp BP Pulse Ox 03/29/21 07:54 36.8 C 103 H 18 132/82 97 03/29/21 07:51 66 03/29/21 07:17 101 H 16 98 03/29/21 04:00 36.5 C 95 H 18 128/82 95 03/28/21 23:00 36.5 C 99 H 88 18 122/78 97 Laboratory Results 03/29/21 03/29/21 03/29/21 Range/Units 11:38 09:32 09:32 WBC (4.8-10.8) K/uL RBC (4.7-6.1) M/uL Hgb (14.0-18.0) g/dL Hct (42-52) % MCV (80-100) fL MCH (25-34) pg MCHC (32-36) g/dL RDW Std Deviation (36.4-46.3) fL RDW Coeff of Georgina (11.5-14.5) % Plt Count (130-400) K/uL MPV (7.4-10.4) fL Peripher Smr Path Cons PT (9.0-12.0) Seconds INR (0.9-1.1) Sodium (136-145) mmol/L Potassium (3.5-5.1) mmol/L Chloride (98-107) mmol/L Carbon Dioxide (21-32) mmol/L Anion Gap (3-11) BUN (7-18) mg/dl Creatinine (0.6-1.4) mg/dl Est Cr Clr Drug Dosing ml/min Est GFR ( Amer) ml/min Est GFR (Non-Af Amer) ml/min BUN/Creatinine Ratio (10-20) Glucose (70-99) mg/dl POC Glucose 189 H (70-99) mg/dl Calcium (8.5-10.1) mg/dl Magnesium (1.8-2.4) mg/dl Iron 21 L (35-175) mcg/dl TIBC 192 L (250-450) mcg/dl Transferrin 169 L (200-360) mg/dl Ferritin 203.7 (8-388) ng/ml Vitamin B12 695 (193-986) pg/ml Folate 10.90 (>5.38) ng/ml 03/29/21 03/29/21 03/29/21 Range/Units 07:47 06:27 06:27 WBC (4.8-10.8) K/uL RBC (4.7-6.1) M/uL Hgb (14.0-18.0) g/dL Hct (42-52) % MCV (80-100) fL MCH (25-34) pg MCHC (32-36) g/dL RDW Std Deviation (36.4-46.3) fL RDW Coeff of Georgina (11.5-14.5) % Plt Count (130-400) K/uL MPV (7.4-10.4) fL Peripher Smr Path Cons PT 16.5 H (9.0-12.0) Seconds INR 1.7 H (0.9-1.1) Sodium 130 L (136-145) mmol/L Potassium 4.9 D (3.5-5.1) mmol/L Chloride 101 (98-107) mmol/L Carbon Dioxide 25 (21-32) mmol/L Anion Gap 4.0 (3-11) BUN 27 H (7-18) mg/dl Creatinine 2.16 H (0.6-1.4) mg/dl Est Cr Clr Drug Dosing 44.2 ml/min Est GFR ( Amer) 38.8 ml/min Est GFR (Non-Af Amer) 33.5 ml/min BUN/Creatinine Ratio 12.4 (10-20) Glucose 134 H (70-99) mg/dl POC Glucose 139 H (70-99) mg/dl Calcium 8.9 (8.5-10.1) mg/dl Magnesium 2.3 (1.8-2.4) mg/dl Iron (35-175) mcg/dl TIBC (250-450) mcg/dl Transferrin (200-360) mg/dl Ferritin (8-388) ng/ml Vitamin B12 (193-986) pg/ml Folate (>5.38) ng/ml 03/29/21 03/28/21 03/28/21 Range/Units 06:27 21:17 16:47 WBC 7.94 (4.8-10.8) K/uL RBC 3.01 L (4.7-6.1) M/uL Hgb 7.7 L (14.0-18.0) g/dL Hct 25.3 L (42-52) % MCV 84.1 (80-100) fL MCH 25.6 (25-34) pg MCHC 30.4 L (32-36) g/dL RDW Std Deviation 52.6 H (36.4-46.3) fL RDW Coeff of Georgina 17.2 H (11.5-14.5) % Plt Count 491 H (130-400) K/uL MPV 8.5 (7.4-10.4) fL Peripher Smr Path Cons PT (9.0-12.0) Seconds INR (0.9-1.1) Sodium (136-145) mmol/L Potassium (3.5-5.1) mmol/L Chloride (98-107) mmol/L Carbon Dioxide (21-32) mmol/L Anion Gap (3-11) BUN (7-18) mg/dl Creatinine (0.6-1.4) mg/dl Est Cr Clr Drug Dosing ml/min Est GFR ( Amer) ml/min Est GFR (Non-Af Amer) ml/min BUN/Creatinine Ratio (10-20) Glucose (70-99) mg/dl POC Glucose 135 H 130 H (70-99) mg/dl Calcium (8.5-10.1) mg/dl Magnesium (1.8-2.4) mg/dl Iron (35-175) mcg/dl TIBC (250-450) mcg/dl Transferrin (200-360) mg/dl Ferritin (8-388) ng/ml Vitamin B12 (193-986) pg/ml Folate (>5.38) ng/ml Diagnostic Findings CXR: IMPRESSION: No acute cardiopulmonary findings. Stable cardiomegaly. (1) Anemia Anemia type: unspecified type Qualified Code(s): D64.9 - Anemia, unspecified
[2021-03-29 10:36] LABS: Ferritin 203.7 ng/ml (8-388)
[2021-03-29 10:57] LABS: Folate (Folic Acid) 10.9 ng/ml (>5.38)
[2021-03-29] MEDS ORDERED: IRON SUCROSE 200 MG in 0.9 % SODIUM CHLORIDE 100 ML IV ONE (13:00)
--- NOTE | 2021-03-29 16:21 | Hospitalist Progress Note ---
Date of Service March 29, 2021 Assessment & Plan (1) Acute urinary retention: Plan: Patient is a 55 yr male was sent PCP for anemia, kidney disease and lower extremity pain Anemia In setting of chronic anticoagulation with Coumadin H/O iron deficiency anemia, folic acid deficiency, anemia of chronic disease Patient denies any blood in stools, melena, hematuria FOBT pending Appreciate GI Input-No plan for endoscopy Reviewed Peripheral smear, Anemia work up Will give IV Venofer Monitor H&H No indication for blood transfusion currently Hb 7.7 today H/O Atrial fibrillation On Coumadin for anticoagulation --DCed by PCP prior to admission Continue digoxin, metoprolol Urinary tract infection Urine culture growing E.Coli Continue Rocephin Hypomagnesemia Replace electrolytes as needed Monitor Acute urinary retention Please do not Bird catheter Voiding trial as able Appreciate neurology input 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 DM II and diabetic neuropathy: Continue Insulin Monitor BGs Continue duloxetine, gabapentin for neuropathy H/O Schizophrenia and depression Continue duloxetine and risperidone Asthma No signs of exacerbation Continue home inhalers. 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 GERD on PPI Code Status Full Code DVT Px: SCDs for now Re: Anemia Admission and Anticipated Discharge Date Admission Date: March 27, 2021 Subjective Patient is seen and examined at bedside Feels better No new complaints Denies any bleeding issues, chest pain, dizziness, nausea, abdominal pain Review of Systems Review of Systems: All systems reviewed & are unremarkable except as noted in Subjective Physical Exam Physical Exam: Physical Exam: Vitals signs as noted above General Appearance:Moderately built and nourished, no apparent distress Head: normocephalic, Atraumatic Eyes: normal inspection, EOMI Neck: supple, Trachea midline Respiratory/Chest: Normal breath sounds, CTA Cardiovascular: S1, S2, No murmur Abdomen/GI:Soft, Non tender, Bowel sounds present Extremities/Musculoskeletal:normal inspection, Trace edema Neurologic/Psych:AAOX3, grossly no focal neurological deficits Skin: normal color, warm Results & Data Results & Data ([facility]) Vital Signs (Past 12 Hours) Vital Signs Temp Pulse Pulse Resp BP Pulse Ox 03/29/21 15:58 36.7 C 94 H 18 135/87 95 03/29/21 11:29 36.5 C 19 121/63 98 03/29/21 11:17 92 H 18 97 03/29/21 07:54 36.8 C 103 H 18 132/82 97 03/29/21 07:51 66 03/29/21 07:17 101 H 16 98 Laboratory Results Short CBC 03/29/21 Range/Units 06:27 WBC 7.94 (4.8-10.8) K/uL Hgb 7.7 L (14.0-18.0) g/dL Hct 25.3 L (42-52) % Plt Count 491 H (130-400) K/uL BMP 03/29/21 06:27 Sodium 130 L Potassium 4.9 D Chloride 101 Carbon Dioxide 25 BUN 27 H Creatinine 2.16 H Glucose 134 H Calcium 8.9
[2021-03-29] MEDS: FINASTERIDE 5 MG TAB PO SCH (20:17)
[2021-03-29] MEDS: cefTRIAXone SODIUM 2,000 MG in DEXTROSE 5% 50 ML IV SCH (20:17)
[2021-03-29] MEDS: INSULIN GLARGINE SOLOSTAR 100 UNITS/ML 3 ML PEN SQ SCH (20:18)
[2021-03-29] MEDS: TAMSULOSIN HCL 0.4 MG CAP PO SCH (20:21)
[2021-03-30] MEDS ORDERED: Nursing to Pharmacy Communication SCH (00:30)
[2021-03-30] MEDS: SODIUM CHLORIDE 0.9% 1000ML 1,000 ML IV SCH (02:55)
[2021-03-30 06:36] LABS: Hematocrit (blood only) 25.4 % (42-52); Hemoglobin 7.6 g/dL (14.0-18.0)
[2021-03-30 06:46] LABS: INR 1.5 (0.9-1.1); Prothrombin Time 15.1 Seconds (9.0-12.0)
[2021-03-30 07:03] LABS: BUN Creatinine Ratio 13.9 (10-20); Calcium 8.8 mg/dl (8.5-10.1); Creatinine Clr Calc Pharmacy 45.4 ml/min; Est GFR (African American) 40.1 ml/min; Est GFR (Non-African American) 34.6 ml/min; Potassium 4.7 mmol/L (3.5-5.1)
[2021-03-30] MEDS: ALBUTEROL HFA 8 GM INHALER INH SCH ×2 (07:26→11:31)
[2021-03-30] MEDS: GABAPENTIN 400 MG CAP PO SCH ×2 (08:03→14:21)
[2021-03-30] MEDS: DULoxetine HCL 30 MG CAP PO SCH (08:03)
[2021-03-30] MEDS: FERROUS SULFATE 325 MG TAB PO SCH (08:03)
[2021-03-30] MEDS: FLUTICASONE/VILANTEROL 200/25MCG 14 PUFFS/INHALER INH SCH (08:03)
[2021-03-30] MEDS: FOLIC ACID 1 MG TAB PO SCH (08:03)
[2021-03-30] MEDS: ATORVASTATIN 20 MG TAB PO SCH (08:03)
[2021-03-30] MEDS: SODIUM CHLORIDE 1 GM TABLET PO SCH ×2 (08:03→14:21)
[2021-03-30] MEDS: risperiDONE 1 MG TABLET PO SCH (08:03)
[2021-03-30] MEDS: METOPROLOL TARTRATE 25 MG TAB PO SCH (08:03)
[2021-03-30] MEDS: INSULIN ASPART 100 UNITS/ML 3 ML PEN SC SCH ×2 (08:03→12:23)
[2021-03-30] MEDS: PANTOprazole 40 MG TAB PO SCH (08:03)
[2021-03-30] MEDS: NICOTINE 14 MG/24 HR PATCH TD SCH (08:03)
[2021-03-30] MEDS: FLUTICASONE PROPIONATE NA SPR 16 GM BTL SCH (08:03)
[2021-03-30] MEDS: traMADol HCL 50 MG TABLET PO PRN (08:03)
--- NOTE | 2021-03-30 09:22 | Nephrology Progress Note ---
Date of Service March 30, 2021 Assessment & Plan Admission and Anticipated Discharge Date Admission Date: March 27, 2021 Subjective Assessment & Plan Admission and Anticipated Discharge Date Admission Date: March 27, 2021 Subjective No new issues. Lots of urine with tao--3600 ml yesterday. Labs stable PHYSICAL EXAMINATION: GENERAL: Middle-aged white male who is not in any overt respiratory distress. He is awake, alert, oriented x3. HEENT: Mucous membrane is moist. NECK: Supple. No jugular venous distention. CHEST: Bilaterally clear to auscultation. CARDIOVASCULAR: S1, S2, regular. ABDOMEN: Soft, nontender. EXTREMITIES: Show no edema. SKIN: Shows no rashes. LABORATORY TEST: Chest x-ray is unremarkable. Blood work done shows hemoglobin in the 7 stable for 3 weeks now. creatinine 2.10 stable now Na 134 ASSESSMENT AND PLAN: A 55-year-old male with known long-term diabetes and chronic kidney disease with baseline creatinine of 1.5--1.9, was sent over by his primary care physician and the anticoagulation clinic because of significant low hemoglobin of 7.4. He was also found to have slight acute renal failure with urinary retention for which I have been consulted. 1. Acute renal failure: His baseline creatinine was 1.5 as of 01/2021 but broad baseline is 1.5 to 1.9. Seems creat has been in the 2 range for few days now. Seems more like CKD at this stage now. Stable for D/c 2. Hyponatremia: It is worth noting that the patient does have history of chronic hyponatremia with a serum sodium of 124 back in 01/2021. He was supposed to see me in nephrology clinic, but he canceled and rescheduled for next week. Add salt tab from home but hold florinef for now. Also free fluid restriction 1500ml per day. na 134 now. Stable for D/c 3. Anemia: This was the reason for the admission. Hemoglobin has been in the 7 range for the last few weeks. It does not appear he is actively bleeding, but the patient is on chronic Coumadin and given that there was concern about gastrointestinal bleeding and for which the patient was transferred to the hospital, I would pursue this in more detail, but defer to primary team. Could very well be anemia of CKD. Can give venofer 300 mg now and also give Procrit 01274 units. Can consider for retacrit therapy outpt if no GI bleding. Also can consider hematology consult if available inpt. Results & Data ([facility]) Vital Signs (Past 12 Hours) Vital Signs Temp Pulse Pulse Resp BP BP Pulse Ox 03/30/21 08:00 36.9 C 102 H 18 131/80 97 03/30/21 07:27 103 H 18 95 03/30/21 04:00 36.6 C 98 H 18 134/87 96 03/30/21 00:09 36.7 C 91 H 18 126/84 99 03/29/21 22:34 91 H
[2021-03-30] MEDS ORDERED: IRON SUCROSE 200 MG in 0.9 % SODIUM CHLORIDE 100 ML IV ONE (11:30)
--- NOTE | 2021-03-30 11:59 | Hospitalist Progress Note ---
Date of Service March 30, 2021 Assessment & Plan (1) Acute urinary retention: Plan: Patient is a 55 yr male was sent PCP for anemia, kidney disease and lower extremity pain Anemia: Likely due to CKD In setting of chronic anticoagulation with Coumadin H/O iron deficiency anemia, folic acid deficiency, anemia of chronic disease Patient denies any blood in stools, melena, hematuria FOBT pending (No BM ) Appreciate GI Input-No plan for endoscopy Reviewed Peripheral smear, Anemia work up Will give IV Venofer, Procrit as per Nephrology Monitor H&H No indication for blood transfusion currently Hb 7.6 today Advised to follow up with Hematology as outpatient H/O Atrial fibrillation On Coumadin for anticoagulation --DCed by PCP prior to admission Continue digoxin, metoprolol Advised to resume coumadin (Patient agrees with plan) Urinary tract infection Urine culture growing E.Coli Continue Rocephin Day #2 Plan to transition to PO antibiotics Hypomagnesemia Replace electrolytes as needed Monitor Acute urinary retention Please do not Bird catheter Voiding trial as outpatient Appreciate neurology input Needs follow up with Urology upon discharge 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 DM II and diabetic neuropathy: Continue Insulin Monitor BGs Continue duloxetine, gabapentin for neuropathy H/O Schizophrenia and depression Continue duloxetine and risperidone Asthma No signs of exacerbation Continue home inhalers. 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 GERD on PPI Code Status Full Code DVT Px: SCDs for now Re: Anemia Admission and Anticipated Discharge Date Admission Date: March 27, 2021 Subjective Patient is seen and examined at bedside States feeling well today Prefers to get discharged Discussed with Nephrology today Denies any bleeding issues, chest pain, dizziness, nausea, abdominal pain No new complaints Review of Systems Review of Systems: All systems reviewed & are unremarkable except as noted in Subjective Physical Exam Physical Exam: Physical Exam: Vitals signs as noted above General Appearance:Moderately built and nourished, no apparent distress Head: normocephalic, Atraumatic Eyes: normal inspection, EOMI Neck: supple, Trachea midline Respiratory/Chest: Normal breath sounds, CTA Cardiovascular: S1, S2, No murmur Abdomen/GI:Soft, Non tender, Bowel sounds present Extremities/Musculoskeletal:normal inspection, Trace edema Neurologic/Psych:AAOX3, grossly no focal neurological deficits Skin: normal color, warm Results & Data Results & Data ([facility]) Vital Signs (Past 12 Hours) Vital Signs Temp Pulse Resp BP BP Pulse Ox 03/30/21 11:49 36.7 C 92 H 18 120/76 95 03/30/21 11:32 91 H 18 96 03/30/21 08:00 36.9 C 102 H 18 131/80 97 03/30/21 07:27 103 H 18 95 03/30/21 04:00 36.6 C 98 H 18 134/87 96 03/30/21 00:09 36.7 C 91 H 18 126/84 99 Laboratory Results Short CBC 03/30/21 Range/Units 05:41 Hgb 7.6 L (14.0-18.0) g/dL Hct 25.4 L (42-52) % BMP 03/30/21 05:41 Sodium 134 L Potassium 4.7 Chloride 105 Carbon Dioxide 23 BUN 29 H Creatinine 2.10 H Glucose 112 H Calcium 8.8
[2021-03-30] MEDS ORDERED: EPOETIN ALFA 10,000 UNITS/ML VIAL IV ONE (12:15)
--- NOTE | 2021-03-30 12:28 | Discharge Summary ---
Date of Service March 30, 2021 Admission HPI Per Admitting Provider CHIEF COMPLAINT: Abnormal labs as outpatient and also lower extremity pain. HISTORY OF PRESENT ILLNESS: This is a 55-year-old male with past medical history significant for type 2 diabetes; history of hyponatremia; history of asthma, mild intermittent; history of pulmonary hypertension; history of atrial flutter; mitral valve insufficiency; orthostatic hypotension; history of cardiomyopathy; moderate malnutrition; chronic kidney disease; chronic pain in both knees; restless legs syndrome; arthralgia of both knees; dental decay; history of sacral decubitus ulcer; history of osteoarthritis; history of bima lleolar fracture of the right ankle; severe muscle deconditioning; history of chest wall pain; history of COVID infection; history of tobacco abuse; history of schizophrenia, chronic condition; depression; food insecurity. Was sent in by primary doctor because outpatient labs showed elevated creatinine and anemia.In the ER with a Bird catheter drained about 700 mL of fluid. He says he is having difficulty urinating. Denies any pain while urinating. No blood in the urine. He is on and off constipation and diarrhea. Denies any blood in the stools. He is having chronic lower extremity pain. Denies any chest pain, shortness of breath. He has some dizziness while ambulating and has a chronic smoker's cough. Appetite is okay. No difficulty swallowing. No headache, no blurred vision, no earache, no runny nose, no sore throat. Resting comfortably and hemodynamically stable. Admission Exam Per Admitting Provider PHYSICAL EXAMINATION: GENERAL: The patient is of moderate build, not in acute distress. VITAL SIGNS: Temperature 36.6, pulse 88, respiratory rate 18, blood pressure 120/80, oxygen 97% on room air. HEENT: Pupils equal, round, and reactive to light. Oral mucosa moist. NECK: No JVD, no neck masses. CARDIOVASCULAR: S1 and S2 heard. Regular rate and rhythm. No murmur, no gallop. RESPIRATORY SYSTEM: Normal AP diameter. No accessory muscle use. No wheezing, no crackles. ABDOMEN: Soft, bowel sounds present, nontender, no distention. CENTRAL NERVOUS SYSTEM: Cranial nerves II through XII grossly intact, nonfocal. EXTREMITIES: No edema, no erythema. Principal Diagnosis Anemia of chronic kidney disease Urinary tract infection Hypomagnesemia Urinary retention Acute kidney injury Hyponatremia Discharge Data Allergies Allergy/AdvReac Type Severity Reaction Status Date / Time No Known Allergies Allergy Verified 03/27/21 19:43 Consultations 03/27/21 19:51 ED Decision to Admit Stat 03/28/21 08:00 Consult Nephrology Routine Consult Urology Routine 03/29/21 09:27 Consult Gastroenterology Routine Hospital Course (1) Acute urinary retention: Patient is a 55 yr male was sent PCP for anemia, kidney disease and lower extremity pain Anemia: Likely due to CKD In setting of chronic anticoagulation with Coumadin H/O iron deficiency anemia, folic acid deficiency, anemia of chronic disease Patient denies any blood in stools, melena, hematuria FOBT pending (No BM ) Appreciate GI Input-No plan for endoscopy Reviewed Peripheral smear, Anemia work up Will give IV Venofer, Procrit as per Nephrology Monitor H&H No indication for blood transfusion currently Hb 7.6 today Advised to follow up with Hematology as outpatient H/O Atrial fibrillation On Coumadin for anticoagulation --DCed by PCP prior to admission Continue digoxin, metoprolol Advised to resume coumadin (Patient agrees with plan) Urinary tract infection Urine culture growing E.Coli Continue Rocephin Day #2 Plan to transition to PO antibiotics Hypomagnesemia Replace electrolytes as needed Monitor Acute urinary retention Please do not Bird catheter Voiding trial as outpatient Appreciate neurology input Needs follow up with Urology upon discharge 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 DM II and diabetic neuropathy: Continue Insulin Monitor BGs Continue duloxetine, gabapentin for neuropathy H/O Schizophrenia and depression Continue duloxetine and risperidone Asthma No signs of exacerbation Continue home inhalers. 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 GERD on PPI Code Status Full Code DVT Px: SCDs for now Re: Anemia Total Time Total Time Spent Total Time Spent (In Minutes): 45 minutes Discharge Plan Discharge Items Patient Disposition: Home - Self-Care Reason For Visit: LEG PAIN Discharge Diagnosis: Anemia of chronic kidney disease Urinary tract infection Hypomagnesemia Urinary retention Acute kidney injury Hyponatremia Activity: Resume your previous activity Exercise/Sports: Gradually increase as tolerated Non-emergency contact: Primary Care Provider, Specialist, Airport Duty Manager and Urologist Call non-emergency contact if: you have any medication questions, your symptoms worsen, your pain is concerning for you and you have a fever Follow-up/Referrals: Garry Ghotra MD [Surgeon] - 04/04/21 10:00 am (Date & Time 04/04/2021 10:00 AM Provider Garry Ghotra MD Department Nephrology, [facility] ) Bg Bergeron MD [Primary Care Provider] - 04/03/21 11:20 am (Date & Time 04/03/2021 11:20 AM Provider Bg Bergeron MD Department [facility] ) Diet: Carb Consistent or DM2 and Heart Healthy Addtl Attending Provider Instructions: Follow-up with your primary care physician on 04/03/2021 11:20 AM Follow-up with your ware tester Dr. Ghotra on 04/04/2021 10:00 AM Follow-up with your urologist in 2 to 3 weeks as advised Follow-up with Coumadin clinic for management of your Coumadin dosing and monitoring your PT/INR Consider being evaluated by your loading inspector for further work-up for anemia. Complete the antibiotic course as prescribed for urinary tract infection. Seek immediate medical attention if your symptoms reoccur or worsen Please take all medications as instructed on discharge list below. Please call if you have any questions or problems. You can reach a [facility] hospitalist on duty at [facility] 24 hours a day by calling [phone] Pending Studies at Discharge: No Stand-Alone Forms: My [email or web address] [email or web address], Smoking Cessation Medications and DC Order Prescriptions: New cefuroxime axetil 250 mg Tablet 250 mg PO BID Qty: 10 RF: 0 Continued fluticasone propion-salmeterol [Wixela Inhub] 250-50 mcg/dose blister with device 1 inh INHALATION BID RF: 0 albuterol sulfate 90 mcg/actuation HFA aerosol inhaler 2 puff INHALATION QID RF: 0 fluticasone propionate 50 mcg/actuation spray,suspension 2 spray INTRANASAL DAILY RF: 0 atorvastatin [Lipitor] 20 mg tablet 20 mg PO DAILY RF: 0 gabapentin [Neurontin] 400 mg capsule 400 mg PO TID RF: 0 tramadol [Ultram] 50 mg tablet 50 mg PO BID PRN (Reason: Pain) RF: 0 tamsulosin [Flomax] 0.4 mg capsule 0.4 mg PO HS RF: 0 fludrocortisone 0.1 mg tablet 0.1 mg PO HS RF: 0 risperidone [Risperdal] 1 mg tablet 1 mg PO BID RF: 0 finasteride [Proscar] 5 mg tablet 5 mg PO HS RF: 0 metoprolol tartrate 25 mg tablet 12.5 mg PO BID RF: 0 duloxetine [Cymbalta] 30 mg capsule,delayed release(DR/EC) 30 mg PO QAM RF: 0 Lantus Solostar U-100 Insulin 100 unit/mL (3 mL) insulin pen 5 unit SUBCUT PM RF: 0 Lanoxin 62.5 mcg (0.0625 mg) tablet 62.5 mcg PO Q2D RF: 0 sodium chloride 1 gram tablet 1,000 mg PO TID RF: 0 omeprazole 40 mg capsule,delayed release(DR/EC) 40 mg PO QAM Qty: 30 RF: 0 ferrous sulfate [FeroSul] 325 mg (65 mg iron) tablet 325 mg PO BID Qty: 60 RF: 0 nystatin 100,000 unit/mL Suspension 5 ml PO QID PRN (Reason: THRUSH) RF: 0 Discharge Orders: Discharge Order (Routine); Ordered 03/30/21 Ordered By: Anthony Petersen/Other Patient Handouts: A1C, Managing Type 2 Diabetes Admission Data Admit Date/Time: 03/27/21 20:46 Attending Provider: Anthony Ewing Admit Provider: Rahul Sargent Primary Care Provider: Bg Bergeron Other Providers: Rahul Sargent ; Yi Bean ; Markie Rodriguez ; Cheikh Baldwin ; Suresh Villela ; Mercedes Calvo ; Otis Davis ; Es Li ; Kathya Figueroa ; Malika Friedman ; Bernardo Zambrano ; Douglas Bird ; Sri Gtz ; Amanda Friedman ; Gabe Martinez ; Lia Cole ; Katharina Balbuena ; Chaitanya Rojas ; Radha Pedroza ; Nghia Mcmanus ; Jennifer Sterling ; Dong Estes ; Ron Asencio ; Tanisha Valle ; Janet Everett ; Madelyn Peña ; Vivian Montalvo ; Thaddeus Deal
[2021-03-30] MEDS ORDERED: cefUROXime axetil 250 MG TABLET PO SCH (12:30)
== END 2021-03-30 15:37 | disposition home or self-care (01) | DRG 699 ==
LOC: ED 17:54 → 2W 20:46 → SUATTDRO 20:46 → 2W 22:26

== ENCOUNTER 2021-06-01 09:42 | Inpatient (IN) ==
[2021-06-01] MEDS ORDERED: SODIUM CHLORIDE 0.9% 1000ML 1,000 ML IV ONE ×4 (09:59→12:56)
[2021-06-01] MEDS ORDERED: PIPERACILL/TAZOBAC CONSULT ACTIVE PRN (10:07)
[2021-06-01] MEDS ORDERED: PIPERACILLIN/TAZOBACTAM 4.5 GM/120 ML BAG IV ONE (10:07)
--- NOTE | 2021-06-01 10:10 | Emergency Department Note ---
Impression & Plan Emphysematous pyelonephritis, Acute renal failure, Acute hyperkalemia, Metabolic acidosis ED Provider Note NAME: YOANNA WALKER AGE: 55 SEX: M : 1965 ARRIVES VIA: Ambulance INFORMANT: Patient, ED PROVIDER(S): Israel Heredia DO CHIEF COMPLAINT: Decreased urine output HPI: The patient is a 55-year-old male who presented to the emergency department for an evaluation of decreased urine output. The patient has had similar symptoms in the past. He currently has a chronic indwelling Bird. The patient states that he has been noticing generalized weakness back pain and neck pain over the last few days. He noticed that over the last 2 days he has had no urine output in his Bird catheter. He also notices very cloudy and abnormally colored urine. The patient currently is not taking an antibiotic. He has a history of urinary retention and obstruction as well as urosepsis. He also has a history of COVID-19 infection. He is been living at home. He states the symptoms worsened over the last few hours and he called 911 and presented to the emergency department. Currently the patient denies having any chest pain. He denies having any cough. He does complain of some abdominal distention and abdominal pain. He states that he has been compliant with his usual outpatient medications. He arrived via BLS. ROS: See above HPI for pertinent positives & negatives. A total of 10 systems reviewed and were otherwise negative. PAST MEDICAL HISTORY: See Below PAST SURGICAL HISTORY: See Below FAMILY HISTORY: See Below SOCIAL HISTORY: See Below HOME MEDICATIONS: See Below ALLERGIES: See Below VITALS: See Below PHYSICAL EXAMINATION: GENERAL: The patient is awake and alert. He is very anxious appearing. Dry. EYES: The conjunctivae are clear. The pupils are round and reactive. EARS, NOSE, MOUTH AND THROAT: The nose is without any evidence of any deformity. Mucous membranes are moist. Tongue is midline. NECK: The neck is nontender and supple. RESPIRATORY: Normal respiratory effort is noted there is no evidence of wheezing rhonchi or rales CARDIOVASCULAR: Regular rate and rhythm noted there no murmurs rubs or gallops normal S1 normal S2. GASTROINTESTINAL: The abdomen is soft and mildly distended. There is suprapubic tenderness to palpation but no guarding or rigidity. There is a Bird catheter in place draining a pink cloudy appearing urine. There is also air bubbles noted in the tubing. MUSCULOSKELETAL/EXTREMITIES: There is no evidence of gross deformity full range of motion is noted in the hips and shoulders. SKIN: Skin is warm and dry. Trace pedal edema was noted bilaterally. NEUROLOGIC: Patient is awake alert and oriented x3. MEDICAL DECISION MAKING: The patient is a 55-year-old male who presented to the emergency department for an evaluation of decreased urine output. The patient was hypotensive. He has a history of sepsis. He has a chronic indwelling Bird for bladder outlet obstruction. The patient's history and physical exam appear to be consistent with sepsis. He was treated with IV fluids and IV antibiotics in the emergency department. He was found to have signs of emphysematous pyelonephritis on CT scanning. He was also found to have renal failure with hyperkalemia. He was treated further with IV fluids as well as IV calcium IV insulin and IV dextrose. He was given an hour-long DuoNeb. Repeat laboratory studies showed some improvement of his potassium but his renal failure persist. I initially discussed his case with the on-call urologist as well as help desk specialist. They did feel that we should give consideration to transfer given the patient's findings. I do agree with this. The patient's case was discussed with [facility] first the hospitalist group and the stock tracer group. They do not have availability to accept the patient at this time. I discussed the case again with the urologist as well as the help desk specialist. They both evaluated the patient in the emergency department. I then discussed the case with the on-call [facility] hospitalist group. They have agreed to evaluate the patient in the emergency department for further management disposition. The patient's mental status improved as well as his vital signs. He did have a central line placed for further resuscitative measures. EKG did show changes it could be consistent with hyperkalemia. Triage Nursing notes reviewed. Prior medical records reviewed Vital Signs: reviewed and remarkable for hypotension and tachycardia. Differential diagnosis: Catheter malfunction, obstruction, dehydration, urinary tract infection, urinary retention, acute kidney injury, as well as other pathologies. ER treatment provided: See below Diagnostics interpreted by me: ECG: EKG was obtained in the emergency department. My interpretation is sinus rhythm at 93 bpm. First-degree AV block was noted. Peaked T waves and ST segment depressions were noted. This was compared to a tracing from March [id number]. The T wave abnormalities are new. This could represent hyperka lemia given the patient's renal abnormalities. Cardiac Monitoring: An order was placed for continuous cardiac monitoring. The monitor shows a rate of 110 bpm with sinus tachycardia rhythm. Laboratory studies: As stated above and show below. Imaging studies: See below Consultation(s): 1200: I discussed this case with Dr. Zambrano who is on for urology. 1205: I discussed this case with Dr. Ayala who is on-call for nephrology. 1235: I discussed this case with Dr. Hoyos at [facility]. She requested we discuss the case with ICU. 1250: I discussed this case with Dr. Samayoa who is on for the ICU team at [facility]. 1420: I discussed this case with Dr. Marroquin who is on-call for the ICU team in our facility. 1450: I discussed this case with Roberta who is on-call for the [facility] hospitalist group. They will evaluate the patient in the emergency department. ED COURSE: Procedures: Femoral Central Venous Catheter Indication: Sepsis Catheter Type: Triple-lumen Location: Left femoral vein Verbal consent was obtained after the risks and benefits were explained, including but not limited to intra-abdominal injury, vessel injury, bleeding, scarring, infection, pain, and bone/joint/nerve damage. At this time, the risks of the procedure are less than the risks of NOT performing the procedure. A time out was taken and the correct patient and site identified. The patient was placed in the supine position and the skin was prepped in the standard fashion with chlorhexidine and full sterile drapes applied. The proper landmarks were identified with ultrasound, anesthetized with 1% lidocaine without epinephrine, and the needle was inserted through the skin in the standard fashion. The needle was carefully advanced into blood vessel lumen with ultrasound guidance. The guidewire was placed uneventfully. The vessel is dilated and the catheter was placed. It was sutured into position. There was good blood return from all ports. The patient tolerated the procedure well and there were no complications. PDMP:reviewed and no issues Critical Care: I have personally spent greater than 150 minutes of critical care time in the direct management of this patient. This includes bedside care, interpretation of diagnostic studies, and testing, discussion with consultants, patient, and family members, and other required patient management activities. This 150 minutes is in excess of all separately billable procedures. Past Med/Surg History Medical History Asthma uses res inh daily > not well controlled Cardiac murmur dx > 20 yrs ago Chronic hyponatremia Depression GERD (gastroesophageal reflux disease) History of diabetes mellitus IDDM Nausea unknown cause/ has not had testing done> Zofran Osteoarthritis Post traumatic stress disorder (PTSD) Schizophrenia T2DM (type 2 diabetes mellitus) Tachycardia just with cafeine per pt Surgical History Bimalleolar fracture of right ankle s/p ORIF History of tooth extraction Family History Mother Diabetes Social History Smoking Status: Current every day smoker Tobacco Type: Cigarettes Years Smoked: 40; Cigarettes Per Day: 5-6; Second Hand Exposure: Yes; Do You Dip or Chew Tobacco: Yes; Tobacco Cessation Education Requested by Patient: No Hx Alcohol Use: No Hx Substance Use: No Preferred Language: Welsh Communication Ability: Effective Film 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 Required: No Beliefs That Will Affect Care: None marital status: Unknown Current Living Situation: Family Current Living Situation Comment: lives with mother How many Children do You have: 2 Other Information That Helps Us Care for You: No Feels Safe at Home: Yes Safety Concerns: Feels Safe At This Time Assistive Devices: None Allergies Allergies Allergy/AdvReac Type Severity Reaction Status Date / Time No Known Allergies Allergy Verified 06/01/21 11:37 Home Meds Home Medications Medication Instructions Recorded Confirmed albuterol sulfate 90 mcg/actuation 2 puff INHALATION QID 09/02/20 06/01/21 aerosol inhaler fluticasone 250 mcg-salmeterol 50 1 inh INHALATION BID 09/02/20 06/01/21 mcg/dose blistr powdr for inhalation (Wixela Inhub) fluticasone propionate 50 2 spray INTRANASAL DAILY 09/10/20 06/01/21 mcg/actuation nasal spray,suspension atorvastatin 20 mg tablet (Lipitor) 20 mg PO DAILY 03/27/21 06/01/21 digoxin 62.5 mcg (0.0625 mg) 62.5 mcg PO Q2D 03/27/21 06/01/21 tablet (Lanoxin) duloxetine 30 mg capsule,delayed 30 mg PO QAM 03/27/21 06/01/21 release (Cymbalta) finasteride 5 mg tablet (Proscar) 5 mg PO HS 03/27/21 06/01/21 fludrocortisone 0.1 mg tablet 0.1 mg PO HS 03/27/21 06/01/21 insulin glargine 100 unit/mL (3 5 unit SUBCUT PM 03/27/21 06/01/21 mL) subcutaneous pen (Lantus Solostar U-100 Insulin) metoprolol tartrate 25 mg tablet 12.5 mg PO BID 03/27/21 06/01/21 risperidone 1 mg tablet (Risperdal) 1 mg PO TID 03/27/21 06/01/21 sodium chloride 1 gram tablet 1,000 mg PO TID 03/27/21 06/01/21 tamsulosin 0.4 mg capsule (Flomax) 0.4 mg PO HS 03/27/21 06/01/21 tramadol 50 mg tablet (Ultram) 50 mg PO BID PRN 03/27/21 06/01/21 acetaminophen 500 mg tablet 1,000 mg PO Q6H PRN 06/01/21 06/01/21 (Tylenol Extra Strength) gabapentin 600 mg tablet 600 mg PO TID 06/01/21 06/01/21 nystatin 100,000 unit/gram topical 100,000 applic TOPICAL BID PRN 06/01/21 06/01/21 powder (Nyamyc) Previous Rx's Medication Instructions Recorded ferrous sulfate 325 mg (65 mg 325 mg PO BID #60 tab 03/30/21 iron) tablet (FeroSul) omeprazole 40 mg capsule,delayed 40 mg PO QAM #30 cap 03/30/21 release Results & Data (ED) Vital Signs Vital Signs - 24 hr 06/01/21 09:57 06/01/21 10:08 06/01/21 10:59 Temperature 36.9 C Temperature Source Oral Pulse Rate 94 H Pulse Rate [Finger] 91 H Respiratory Rate 18 18 Respiratory Effort / Characteristics Non-Labored Respiratory Depth Normal Blood Pressure 88/59 L Blood Pressure [Left Arm] 86/57 L Blood Pressure Mean 68 Blood Pressure Mean [Left Arm] 66 Pulse Oximetry 98 Oxygen Delivery Method Room Air Room Air Sepsis Recent Fever Within 48 Hours No Sepsis New/Unexplained Change in Mental Status No Sepsis Action Taken by Nursing No Action Required 06/01/21 12:00 06/01/21 12:02 06/01/21 13:00 Temperature Temperature Source Pulse Rate 94 H 109 H Pulse Rate [Finger] 94 H Respiratory Rate 15 18 21 Respiratory Effort / Characteristics Non-Labored Spontaneous Respiratory Depth Blood Pressure 95/59 L 124/91 Blood Pressure [Left Arm] Blood Pressure Mean 71 102 Blood Pressure Mean [Left Arm] Pulse Oximetry 96 Oxygen Delivery Method Room Air Sepsis Recent Fever Within 48 Hours Sepsis New/Unexplained Change in Mental Status Sepsis Action Taken by Nursing 06/01/21 14:00 Temperature Temperature Source Pulse Rate 112 H Pulse Rate [Finger] Respiratory Rate 14 Respiratory Effort / Characteristics Respiratory Depth Blood Pressure 119/63 Blood Pressure [Left Arm] Blood Pressure Mean 81 Blood Pressure Mean [Left Arm] Pulse Oximetry Oxygen Delivery Method Sepsis Recent Fever Within 48 Hours Sepsis New/Unexplained Change in Mental Status Sepsis Action Taken by Assisted Medications Current Medication List: was personally reviewed by me Laboratory Data Attestation: I reviewed the patient's lab results. Result diagrams: 06/01/21 13:30 06/01/21 16:01 Lab Results 06/01/21 06/01/21 06/01/21 Range/Units 10:20 10:20 10:20 WBC 46.95 H* (4.8-10.8) K/uL RBC 3.36 L (4.7-6.1) M/uL Hgb 8.8 L (14.0-18.0) g/dL Hct 26.8 L (42-52) % MCV 79.8 L (80-100) fL MCH 26.2 (25-34) pg MCHC 32.8 (32-36) g/dL RDW Std Deviation 50.7 H (36.4-46.3) fL RDW Coeff of Georgina 17.3 H (11.5-14.5) % Plt Count 370 (130-400) K/uL MPV 8.8 (7.4-10.4) fL Immature Gran % (Auto) 5.7 % Neut % (Auto) 88.6 % Lymph % (Auto) 1.5 % Menard % (Auto) 4.2 % Eos % (Auto) 0.0 % Baso % (Auto) 0.0 % Neut # (Auto) 41.57 H (1.4-6.5) K/uL Lymph # (Auto) 0.69 L (1.2-3.4) K/uL Menard # (Auto) 1.99 H (0.11-0.59) K/uL Eos # (Auto) 0.01 (0-0.5) K/uL Baso # (Auto) 0.02 (0-0.2) K/uL Immature Gran # (Auto) 2.67 H (0.00-0.02) K/uL Neutrophils % (Manual) % Lymphocytes % (Manual) % Neutrophils # (Manual) (1.4-6.5) K/uL Total Absolute Neuts (1.4-6.5) K/uL Lymphocytes # (Manual) (1.2-3.4) K/uL Total Abs Lymphocytes (1.2-3.4) K/uL Echinocytes 1+ PT 14.4 H (9.0-12.0) Seconds INR 1.5 H (0.9-1.1) APTT 36.6 H (21.0-31.0) Seconds PTT Ratio 1.4 VBG pH (7.36-7.41) VBG pCO2 (38-50) mmHg VBG pO2 mmHg VBG HCO3 mmol/L VBG O2 Saturation % VBG Base Excess mEq/L Barometric Pressure mm/Hg Sodium 115 L* (136-145) mmol/L Potassium 7.5 H* (3.5-5.1) mmol/L Chloride 91 L (98-107) mmol/L Carbon Dioxide 14 L (21-32) mmol/L Anion Gap 10.0 (3-11) BUN 84 H (7-18) mg/dl Creatinine 4.53 H* (0.6-1.4) mg/dl Est Cr Clr Drug Dosing 21.1 ml/min Est GFR ( Amer) 15.8 ml/min Est GFR (Non-Af Amer) 13.7 ml/min BUN/Creatinine Ratio 18.8 (10-20) Glucose 116 H (70-99) mg/dl Lactate (0.4-2.0) mmol/L Calcium 8.9 (8.5-10.1) mg/dl Magnesium 1.6 L (1.8-2.4) mg/dl Total Bilirubin 1.1 H (0.2-1) mg/dl AST 14 L (15-37) U/L ALT 33 (12-78) U/L Alkaline Phosphatase 88 (45-117) U/L Troponin I < 0.015 (0-0.045) ng/ml Total Protein 7.7 (6.4-8.2) gm/dl Albumin 2.3 L (3.4-5.0) gm/dl Globulin 5.4 H (2.5-4.0) gm/dl Albumin/Globulin Ratio 0.4 L (0.9-2) Procalcitonin (0-0.5) ng/ml Urine Color Urine Appearance (Clear) Urine pH (4.5-7.5) Ur Specific [place] (1.000-1.030) Urine Protein (Negative) Urine Glucose (UA) (Negative) Urine Ketones (Negative) Urine Blood (Negative) Urine Nitrite (Negative) Urine Bilirubin (Negative) Urine Urobilinogen (Negative) Ur Leukocyte Esterase (Negative) Urine WBC (Auto) (0-5) /hpf Urine RBC (Auto) (0-4) /hpf U Hyaline Cast (Auto) (0-5) /lpf U Epithel Cells (Auto) (0-5) /lpf Urine Bacteria (Auto) (Negative) Digoxin (0.8-2.0) ng/ml SARS-CoV-2, RNA, NAAT (NEGATIVE) 06/01/21 06/01/21 06/01/21 Range/Units 10:20 10:20 10:20 WBC (4.8-10.8) K/uL RBC (4.7-6.1) M/uL Hgb (14.0-18.0) g/dL Hct (42-52) % MCV (80-100) fL MCH (25-34) pg MCHC (32-36) g/dL RDW Std Deviation (36.4-46.3) fL RDW Coeff of Georgina (11.5-14.5) % Plt Count (130-400) K/uL MPV (7.4-10.4) fL Immature Gran % (Auto) % Neut % (Auto) % Lymph % (Auto) % Menard % (Auto) % Eos % (Auto) % Baso % (Auto) % Neut # (Auto) (1.4-6.5) K/uL Lymph # (Auto) (1.2-3.4) K/uL Menard # (Auto) (0.11-0.59) K/uL Eos # (Auto) (0-0.5) K/uL Baso # (Auto) (0-0.2) K/uL Immature Gran # (Auto) (0.00-0.02) K/uL Neutrophils % (Manual) % Lymphocytes % (Manual) % Neutrophils # (Manual) (1.4-6.5) K/uL Total Absolute Neuts (1.4-6.5) K/uL Lymphocytes # (Manual) (1.2-3.4) K/uL Total Abs Lymphocytes (1.2-3.4) K/uL Echinocytes PT (9.0-12.0) Seconds INR (0.9-1.1) APTT (21.0-31.0) Seconds PTT Ratio VBG pH (7.36-7.41) VBG pCO2 (38-50) mmHg VBG pO2 mmHg VBG HCO3 mmol/L VBG O2 Saturation % VBG Base Excess mEq/L Barometric Pressure mm/Hg Sodium (136-145) mmol/L Potassium (3.5-5.1) mmol/L Chloride (98-107) mmol/L Carbon Dioxide (21-32) mmol/L Anion Gap (3-11) BUN (7-18) mg/dl Creatinine (0.6-1.4) mg/dl Est Cr Clr Drug Dosing ml/min Est GFR ( Amer) ml/min Est GFR (Non-Af Amer) ml/min BUN/Creatinine Ratio (10-20) Glucose (70-99) mg/dl Lactate 1.4 (0.4-2.0) mmol/L Calcium (8.5-10.1) mg/dl Magnesium (1.8-2.4) mg/dl Total Bilirubin (0.2-1) mg/dl AST (15-37) U/L ALT (12-78) U/L Alkaline Phosphatase (45-117) U/L Troponin I (0-0.045) ng/ml Total Protein (6.4-8.2) gm/dl Albumin (3.4-5.0) gm/dl Globulin (2.5-4.0) gm/dl Albumin/Globulin Ratio (0.9-2) Procalcitonin 140.27 H (0-0.5) ng/ml Urine Color Urine Appearance (Clear) Urine pH (4.5-7.5) Ur Specific [place] (1.000-1.030) Urine Protein (Negative) Urine Glucose (UA) (Negative) Urine Ketones (Negative) Urine Blood (Negative) Urine Nitrite (Negative) Urine Bilirubin (Negative) Urine Urobilinogen (Negative) Ur Leukocyte Esterase (Negative) Urine WBC (Auto) (0-5) /hpf Urine RBC (Auto) (0-4) /hpf U Hyaline Cast (Auto) (0-5) /lpf U Epithel Cells (Auto) (0-5) /lpf Urine Bacteria (Auto) (Negative) Digoxin 1.0 (0.8-2.0) ng/ml SARS-CoV-2, RNA, NAAT (NEGATIVE) 06/01/21 06/01/21 06/01/21 Range/Units 10:30 12:29 13:20 WBC (4.8-10.8) K/uL RBC (4.7-6.1) M/uL Hgb (14.0-18.0) g/dL Hct (42-52) % MCV (80-100) fL MCH (25-34) pg MCHC (32-36) g/dL RDW Std Deviation (36.4-46.3) fL RDW Coeff of Georgina (11.5-14.5) % Plt Count (130-400) K/uL MPV (7.4-10.4) fL Immature Gran % (Auto) % Neut % (Auto) % Lymph % (Auto) % [place]ard % (Auto) % Eos % (Auto) % Baso % (Auto) % Neut # (Auto) (1.4-6.5) K/uL Lymph # (Auto) (1.2-3.4) K/uL Menard # (Auto) (0.11-0.59) K/uL Eos # (Auto) (0-0.5) K/uL Baso # (Auto) (0-0.2) K/uL Immature Gran # (Auto) (0.00-0.02) K/uL Neutrophils % (Manual) % Lymphocytes % (Manual) % Neutrophils # (Manual) (1.4-6.5) K/uL Total Absolute Neuts (1.4-6.5) K/uL Lymphocytes # (Manual) (1.2-3.4) K/uL Total Abs Lymphocytes (1.2-3.4) K/uL Echinocytes PT (9.0-12.0) Seconds INR (0.9-1.1) APTT (21.0-31.0) Seconds PTT Ratio VBG pH (7.36-7.41) VBG pCO2 (38-50) mmHg VBG pO2 mmHg VBG HCO3 mmol/L VBG O2 Saturation % VBG Base Excess mEq/L Barometric Pressure mm/Hg Sodium 123 L D (136-145) mmol/L Potassium 5.9 H D (3.5-5.1) mmol/L Chloride 97 L (98-107) mmol/L Carbon Dioxide 11 L (21-32) mmol/L Anion Gap 15.0 H (3-11) BUN 79 H (7-18) mg/dl Creatinine 4.21 H D (0.6-1.4) mg/dl Est Cr Clr Drug Dosing 22.7 ml/min Est GFR ( Amer) 17.3 ml/min Est GFR (Non-Af Amer) 14.9 ml/min BUN/Creatinine Ratio 18.7 (10-20) Glucose 164 H (70-99) mg/dl Lactate (0.4-2.0) mmol/L Calcium 8.0 L (8.5-10.1) mg/dl Magnesium (1.8-2.4) mg/dl Total Bilirubin 1.0 (0.2-1) mg/dl AST 9 L (15-37) U/L ALT 27 (12-78) U/L Alkaline Phosphatase 77 (45-117) U/L Troponin I (0-0.045) ng/ml Total Protein 6.6 (6.4-8.2) gm/dl Albumin 1.9 L (3.4-5.0) gm/dl Globulin 4.7 H (2.5-4.0) gm/dl Albumin/Globulin Ratio 0.4 L (0.9-2) Procalcitonin (0-0.5) ng/ml Urine Color O'Brien Urine Appearance Cloudy A (Clear) Urine pH 5.5 (4.5-7.5) Ur Specific [place] 1.015 (1.000-1.030) Urine Protein 3+ H (Negative) Urine Glucose (UA) Negative (Negative) Urine Ketones Negative (Negative) Urine Blood 3+ H (Negative) Urine Nitrite Negative (Negative) Urine Bilirubin Negative (Negative) Urine Urobilinogen Negative (Negative) Ur Leukocyte Esterase 3+ H (Negative) Urine WBC (Auto) >30 H (0-5) /hpf Urine RBC (Auto) >30 H (0-4) /hpf U Hyaline Cast (Auto) 0 (0-5) /lpf U Epithel Cells (Auto) 0-5 (0-5) /lpf Urine Bacteria (Auto) 1+ H (Negative) Digoxin (0.8-2.0) ng/ml SARS-CoV-2, RNA, NAAT NEGATIVE (NEGATIVE) 06/01/21 06/01/21 Range/Units 13:30 13:30 WBC 40.99 H* (4.8-10.8) K/uL RBC 3.01 L (4.7-6.1) M/uL Hgb 7.8 L (14.0-18.0) g/dL Hct 24.2 L (42-52) % MCV 80.4 (80-100) fL MCH 25.9 (25-34) pg MCHC 32.2 (32-36) g/dL RDW Std Deviation 52.2 H (36.4-46.3) fL RDW Coeff of Georgina 17.5 H (11.5-14.5) % Plt Count 305 (130-400) K/uL MPV 8.4 (7.4-10.4) fL Immature Gran % (Auto) % Neut % (Auto) % Lymph % (Auto) % [place] % (Auto) % Eos % (Auto) % Baso % (Auto) % Neut # (Auto) (1.4-6.5) K/uL Lymph # (Auto) (1.2-3.4) K/uL [place] # (Auto) (0.11-0.59) K/uL Eos # (Auto) (0-0.5) K/uL Baso # (Auto) (0-0.2) K/uL Immature Gran # (Auto) (0.00-0.02) K/uL Neutrophils % (Manual) 96.5 % Lymphocytes % (Manual) 3.5 % Neutrophils # (Manual) 39.56 H (1.4-6.5) K/uL Total Absolute Neuts 39.56 H (1.4-6.5) K/uL Lymphocytes # (Manual) 1.43 (1.2-3.4) K/uL Total Abs Lymphocytes 1.43 (1.2-3.4) K/uL Echinocytes 1+ PT (9.0-12.0) Seconds INR (0.9-1.1) APTT (21.0-31.0) Seconds PTT Ratio VBG pH 7.17 L (7.36-7.41) VBG pCO2 34 L (38-50) mmHg VBG pO2 51 mmHg VBG HCO3 12 mmol/L VBG O2 Saturation 80.0 % VBG Base Excess -15.3 mEq/L Barometric Pressure 727.4 mm/Hg Sodium (136-145) mmol/L Potassium (3.5-5.1) mmol/L Chloride (98-107) mmol/L Carbon Dioxide (21-32) mmol/L Anion Gap (3-11) BUN (7-18) mg/dl Creatinine (0.6-1.4) mg/dl Est Cr Clr Drug Dosing ml/min Est GFR ( Amer) ml/min Est GFR (Non-Af Amer) ml/min BUN/Creatinine Ratio (10-20) Glucose (70-99) mg/dl Lactate (0.4-2.0) mmol/L Calcium (8.5-10.1) mg/dl Magnesium (1.8-2.4) mg/dl Total Bilirubin (0.2-1) mg/dl AST (15-37) U/L ALT (12-78) U/L Alkaline Phosphatase (45-117) U/L Troponin I (0-0.045) ng/ml Total Protein (6.4-8.2) gm/dl Albumin (3.4-5.0) gm/dl Globulin (2.5-4.0) gm/dl Albumin/Globulin Ratio (0.9-2) Procalcitonin (0-0.5) ng/ml Urine Color Urine Appearance (Clear) Urine pH (4.5-7.5) Ur Specific [place] (1.000-1.030) Urine Protein (Negative) Urine Glucose (UA) (Negative) Urine Ketones (Negative) Urine Blood (Negative) Urine Nitrite (Negative) Urine Bilirubin (Negative) Urine Urobilinogen (Negative) Ur Leukocyte Esterase (Negative) Urine WBC (Auto) (0-5) /hpf Urine RBC (Auto) (0-4) /hpf U Hyaline Cast (Auto) (0-5) /lpf U Epithel Cells (Auto) (0-5) /lpf Urine Bacteria (Auto) (Negative) Digoxin (0.8-2.0) ng/ml SARS-CoV-2, RNA, NAAT (NEGATIVE) Administered Medications Sodium Bicarbonate 150 meq/ (Dextrose) 1,150 mls @ 125 mls/hr IV .Q9H12M ALVARO Stop: 07/01/21 14:59 Last Admin: 06/01/21 15:31 Dose: 125 mls/hr Documented by: [id number] Discontinued Medications Albuterol (Albut/Ipratrop 3mg/0.5mg Neb 3 Ml Vial) 12 ml NEB ONE ONE Stop: 06/01/21 11:39 Last Admin: 06/01/21 12:01 Dose: 12 ml Documented by: [id number] Dextrose (Dextrose 50% 50 Ml Syringe) 50 ml IV NOW STA Stop: 06/01/21 11:39 Last Admin: 06/01/21 12:22 Dose: 50 ml Documented by: [id number] Sodium Chloride (Nss 1000ml) 1,000 mls @ 999 mls/hr IV .Q1H1M ONE Stop: 06/01/21 10:59 Last Infusion: 06/01/21 11:15 Dose: 0 mls/hr Documented by: [id number] Admin: 06/01/21 10:13 Dose: 999 mls/hr Documented by: [id number] Piperacillin Sod/Tazobactam Sod (Zosyn) 4.5 gm in 120 mls @ 240 mls/hr IV NOW ONE Stop: 06/01/21 10:36 Last Infusion: 06/01/21 11:14 Dose: 0 mls/hr Documented by: [id number] Admin: 06/01/21 10:22 Dose: 240 mls/hr Documented by: [id number] Sodium Chloride (Nss 1000ml) 1,000 mls @ 999 mls/hr IV .Q1H1M ONE Stop: 06/01/21 11:59 Last Infusion: 06/01/21 13:09 Dose: 0 mls/hr Documented by: [id number] Admin: 06/01/21 11:15 Dose: 999 mls/hr Documented by: [id number] Sodium Chloride (Nss 1000ml) 1,000 mls @ 999 mls/hr IV .Q1H1M ONE Stop: 06/01/21 12:36 Last Infusion: 06/01/21 13:19 Dose: 0 mls/hr Documented by: [id number] Admin: 06/01/21 12:18 Dose: 999 mls/hr Documented by: [id number] Vancomycin HCl 1,750 mg/ (Sodium Chloride) 535 mls @ 200 mls/hr IV NOW STA Stop: 06/01/21 14:19 Last Infusion: 06/01/21 15:17 Dose: 0 mls/hr Documented by: [id number] Admin: 06/01/21 12:24 Dose: 200 mls/hr Documented by: [id number] Calcium Chloride 1,000 mg/ (Sodium Chloride) 60 mls @ 240 mls/hr IV NOW STA Stop: 06/01/21 11:52 Last Infusion: 06/01/21 12:37 Dose: 0 mls/hr Documented by: [id number] Admin: 06/01/21 12:18 Dose: 240 mls/hr Documented by: [id number] Sodium Chloride (Nss 1000ml) 1,000 mls @ 999 mls/hr IV .Q1H1M ONE Stop: 06/01/21 13:56 Last Admin: 06/01/21 13:34 Dose: Not Given Documented by: [id number] Lactated Ringer's (Lr) 1,000 mls @ 999 mls/hr IV .Q1H1M ONE Stop: 06/01/21 14:04 Last Infusion: 06/01/21 14:10 Dose: 0 mls/hr Documented by: [id number] Admin: 06/01/21 13:09 Dose: 999 mls/hr Documented by: [id number] Insulin Human Regular (Novolin-R Insulin Per Unit Charge) 10 units IV NOW STA Stop: 06/01/21 11:39 Last Admin: 06/01/21 12:22 Dose: 10 units Documented by: [id number] Cosigned by: [id number] Imaging Data Radiologist's Impression: Abdomen/Pelvis CT 06/01/21 09:[address] WITHOUT CONTRAST CT DOSE: 512.82 mGy.cm HISTORY: Acute bilateral flank pain flank paoin TECHNIQUE: Multiaxial CT images of the abdomen and pelvis were performed without contrast. A dose lowering technique was utilized adhering to the principles of ALARA. COMPARISON STUDY: CT abdomen and pelvis 10/27/2020 FINDINGS: Trace right pleural effusion. Moderate cardiomegaly. Mild subsegmental dependent bibasilar atelectasis. No pneumatosis or pneumoperitoneum. The unenhanced spleen, mildly atrophic pancreas, and adrenal glands are unremarkable. There is a small amount of layering hyperdense material present within the dependent gallbladder. 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 The liver is mildly enlarged. Mild to moderate left and moderate right sided perinephric stranding. 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 Air is also noted within the mid right ureter. Mild right-sided pelvocaliectasis. No renal or ureteral calculi. Bird catheter is present within a partially decompressed bladder which demonstrates wall thickening. Air within the urinary bladder lumen. Atherosclerosis of the aorta without aneurysm. Retroaortic left renal vein. There are a few scattered nonspecific prominent retroperitoneal lymph nodes measuring up to 9 mm which appears stable to mildly increased in size from comparison. Moderately distended stomach. No bowel obstruction. Partial distention of the rectum with circumferential wall thickening. Moderate fecal retention of the right hemicolon. Noninflamed appendix. Subcentimeter hyperattenuating focus within the distal appendiceal lumen. Unremarkable soft tissues. No acute fracture. Degenerative changes of the spine, pelvis and hips. IMPRESSION: 1. No renal or ureteral calculi or hydronephrosis. 2. Moderate right-sided perinephric stranding with emphysematous pyelitis and ureteritis. Air is also noted within the urinary bladder lumen. Findings may be secondary to instrumentation with Bird catheter however should be correlated with urinalysis to exclude an ascending infection. 3. No bowel obstruction or pneumoperitoneum. 4. Rectal wall thickening is likely secondary to partial distention. A nonspecific proctitis could appear similarly 5. Small amount of gallbladder sludge versus cholelithiasis. 6. Additional findings as above. ACT 112: Negative or not required by law. The above report was generated using voice recognition software. It may contain grammatical, syntax or spelling errors. Electronically signed by: Kelvin Ross M.D. 06/01/2021 11:25 AM Chest X-Ray 06/01/21 09:59 XR chest 1V portable HISTORY: 55 years-old Male SEPSIS acute sepsis COMPARISON: Chest radiograph 03/27/2021 TECHNIQUE: Portable AP view of the chest FINDINGS: Unchanged mild blunting of the costophrenic angles suggestive of trace pleural effusions. Stable cardiomegaly. No pneumothorax, large pleural effusion or overt pulmonary edema. No lobar airspace consolidation. No acute fracture. IMPRESSION: Cardiomegaly with trace pleural effusions. ACT 112: Negative or not required by law. The above report was generated using voice recognition software. It may contain grammatical, syntax or spelling errors. Electronically signed by: Kelvin Ross M.D. 06/01/2021 10:42 AM Discharge Plan Visit Data Chief Complaint: Urinary Symptoms Stated Complaint: UNABLE TO URINATE ED Provider: Israel Heredia Discharge Problem: Emphysematous pyelonephritis, Acute renal failure, Acute hyperkalemia, Metabolic acidosis Patient Disposition: Admitted As Inpatient Discharge Instructions Interventions: ED Discharge Assessment Last Done: 06/01/21 16:11 Discharge Problem: Acute renal failure Qualifiers: Acute renal failure type: unspecified Qualified Code(s): N17.9 - Acute kidney failure, unspecified
[2021-06-01 10:43] LABS: INR 1.5 (0.9-1.1); Partial Thromboplastin Ratio 1.4; Partial Thromboplastin Time 36.6 Seconds (21.0-31.0); Prothrombin Time 14.4 Seconds (9.0-12.0)
--- NOTE | 2021-06-01 10:43 | XRay Report ---
XR chest 1V portable HISTORY: 55 years-old Male SEPSIS acute sepsis COMPARISON: Chest radiograph 03/27/2021 TECHNIQUE: Portable AP view of the chest FINDINGS: Unchanged mild blunting of the costophrenic angles suggestive of trace pleural effusions. Stable card iomegaly. No pneumothorax, large pleural effusion or overt pulmonary edema. No lobar airspace consoli dation. No acute fracture. IMPRESSION: Cardiomegaly with trace pleural effusions. ACT 112: Negative or not required by law. The above report was generated using voice recognition software. It may contain grammatical, syntax o r spelling errors. Electronically signed by: Kelvin Ross M.D. 06/01/2021 10:42 AM
[2021-06-01 10:57] LABS: Hematocrit (blood only) 26.8 % (42-52); Hemoglobin 8.8 g/dL (14.0-18.0); Mean Corpuscular Hemoglobin 26.2 pg (25-34); Mean Corpuscular Hgb Conc 32.8 g/dL (32-36); Mean Corpuscular Volume 79.8 fL (80-100); Mean Platelet Volume 8.8 fL (7.4-10.4); Platelet Count 370 K/uL (130-400); RDW Coefficient of Variation 17.3 % (11.5-14.5); RDW Standard Deviation 50.7 fL (36.4-46.3); Red Blood Count 3.36 M/uL (4.7-6.1); White Blood Count 46.95 K/uL (4.8-10.8)
[2021-06-01 11:06] LABS: Basophils # (auto) 0.02 K/uL (0-0.2); Echinocytes 1+; Eosinophils # (auto) 0.01 K/uL (0-0.5); Immature Granulocytes # (auto) 2.67 K/uL (0.00-0.02); Immature Granulocytes % (auto) 5.7 %; Lymphocytes # (auto) 0.69 K/uL (1.2-3.4); Lymphocytes % (auto) 1.5 %; Monocytes # (auto) 1.99 K/uL (0.11-0.59); Monocytes % (auto) 4.2 %; Neutrophils # (auto) 41.57 K/uL (1.4-6.5); Neutrophils % (auto) 88.6 %
--- NOTE | 2021-06-01 11:26 | CT Scan Report ---
ABDOMEN AND PELVIS CT WITHOUT CONTRAST CT DOSE: 512.82 mGy.cm HISTORY: Acute bilateral flank pain flank paoin TECHNIQUE: Multiaxial CT images of the abdomen and pelvis were performed without contrast. A dose lo wering technique was utilized adhering to the principles of ALARA. COMPARISON STUDY: CT abdomen and pelvis 10/27/2020 FINDINGS: Trace right pleural effusion. Moderate cardiomegaly. Mild subsegmental dependent bibasilar atelectasi s. No pneumatosis or pneumoperitoneum. The unenhanced spleen, mildly atrophic pancreas, and adrenal g lands are unremarkable. There is a small amount of layering hyperdense material present within the de pendent gallbladder. 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 The liver is mildly enlarged. Mild to moderate left and moderate right sided perinephric stranding. 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 Air is also noted within the mid right ureter. Mild right-sided pelvo caliectasis. No renal or ureteral calculi. Bird catheter is present within a partially decompressed bladder which demonstrates wall thickening. Air within the urinary bladder lumen. Atherosclerosis of the aorta without aneurysm. Retroaortic left renal vein. There are a few scattered nonspecific promin ent retroperitoneal lymph nodes measuring up to 9 mm which appears stable to mildly increased in size from comparison. Moderately distended stomach. No bowel obstruction. Partial distention of the rectum with circumferen tial wall thickening. Moderate fecal retention of the right hemicolon. Noninflamed appendix. Subcenti meter hyperattenuating focus within the distal appendiceal lumen. Unremarkable soft tissues. No acute fracture. Degenerative changes of the spine, pelvis and hips. IMPRESSION: 1. No renal or ureteral calculi or hydronephrosis. 2. Moderate right-sided perinephric stranding with emphysematous pyelitis and ureteritis. Air is also noted within the urinary bladder lumen. Findings may be secondary to instrumentation with Bird cath eter however should be correlated with urinalysis to exclude an ascending infection. 3. No bowel obstruction or pneumoperitoneum. 4. Rectal wall thickening is likely secondary to partial distention. A nonspecific proctitis could ap pear similarly 5. Small amount of gallbladder sludge versus cholelithiasis. 6. Additional findings as above. ACT 112: Negative or not required by law. The above report was generated using voice recognition software. It may contain grammatical, syntax o r spelling errors. Electronically signed by: Kelvin Ross M.D. 06/01/2021 11:25 AM
[2021-06-01 11:31] LABS: Alanine Aminotransferase 33 U/L (12-78); Albumin Globulin Ratio 0.4 (0.9-2); Albumin Level 2.3 gm/dl (3.4-5.0); Alkaline Phosphatase 88 U/L (45-117); Aspartate Aminotransferase 14 U/L (15-37); BUN Creatinine Ratio 18.8 (10-20); Bilirubin,Total 1.1 mg/dl (0.2-1); Blood Urea Nitrogen 84 mg/dl (7-18); Calcium 8.9 mg/dl (8.5-10.1); Carbon Dioxide 14 mmol/L (21-32); Chloride 91 mmol/L (98-107); Creatinine Clr Calc Pharmacy 21.1 ml/min; Est GFR (African American) 15.8 ml/min; Est GFR (Non-African American) 13.7 ml/min; Globulin 5.4 gm/dl (2.5-4.0); Glucose 116 mg/dl (70-99); Magnesium 1.6 mg/dl (1.8-2.4); Potassium 7.5 mmol/L (3.5-5.1); Sodium 115 mmol/L (136-145); Total Protein 7.7 gm/dl (6.4-8.2); Troponin I < 0.015 ng/ml (0-0.045)
[2021-06-01] MEDS ORDERED: CALCIUM CHLORIDE 10% 1,000 MG in SODIUM CHLORIDE 0.9% 50 ML IV STA (11:38)
[2021-06-01] MEDS ORDERED: NovoLIN-R INSULIN PER UNIT CHARGE IV STA (11:38)
[2021-06-01] MEDS ORDERED: ALBUT/IPRATROP 3MG/0.5MG NEB 3 ML VIAL NEB ONE (11:38)
[2021-06-01] MEDS ORDERED: DEXTROSE 50% 50 ML SYRINGE IV STA (11:38)
[2021-06-01] MEDS ORDERED: VANCOMYCIN HCL 1,750 MG in SODIUM CHLORIDE 0.9% 500 ML IV STA (11:39)
[2021-06-01 12:40] LABS: Appearance Urine Cloudy (Clear); Bacteria Urine Automated 1+ (Negative); Bilirubin Urine Negative (Negative); Blood Urine 3+ (Negative); Cast Urine Automated 0 /lpf (0-5); Color Urine Orange; Epithelial Cell Urine Auto 0-5 /lpf (0-5); Glucose Urine UA Negative (Negative); Ketones Urine Negative (Negative); Leukocyte Esterase Urine 3+ (Negative); Nitrite Urine Negative (Negative); Protein Urine 3+ (Negative); RBC Urine Automated >30 /hpf (0-4); Specific Gravity Urine 1.015 (1.000-1.030); Urobilinogen Urine Negative (Negative); WBC Urine Automated >30 /hpf (0-5); pH Urine 5.5 (4.5-7.5)
[2021-06-01] MEDS ORDERED: LACTATED RINGER'S 1,000 ML IV ONE (13:04)
[2021-06-01 13:46] LABS: Base Excess VBG -15.3 mEq/L; Hematocrit (blood only) 24.2 % (42-52); Hemoglobin 7.8 g/dL (14.0-18.0); Mean Corpuscular Hemoglobin 25.9 pg (25-34); Mean Corpuscular Hgb Conc 32.2 g/dL (32-36); Mean Corpuscular Volume 80.4 fL (80-100); Mean Platelet Volume 8.4 fL (7.4-10.4); Platelet Count 305 K/uL (130-400); RDW Coefficient of Variation 17.5 % (11.5-14.5); RDW Standard Deviation 52.2 fL (36.4-46.3); Red Blood Count 3.01 M/uL (4.7-6.1); White Blood Count 40.99 K/uL (4.8-10.8); pH VBG 7.17 (7.36-7.41)
[2021-06-01 13:57] LABS: Albumin Globulin Ratio 0.4 (0.9-2); Albumin Level 1.9 gm/dl (3.4-5.0); BUN Creatinine Ratio 18.7 (10-20); Creatinine Clr Calc Pharmacy 22.7 ml/min; Est GFR (African American) 17.3 ml/min; Est GFR (Non-African American) 14.9 ml/min; Globulin 4.7 gm/dl (2.5-4.0); Potassium 5.9 mmol/L (3.5-5.1); Total Protein 6.6 gm/dl (6.4-8.2)
[2021-06-01 14:03] LABS: ALC (manual) 1.43 K/uL (1.2-3.4); ANC (manual) 39.56 K/uL (1.4-6.5); Echinocytes 1+; Lymphocytes # (manual) 1.43 K/uL (1.2-3.4); Lymphocytes % (manual) 3.5 %; Neutrophils # (manual) 39.56 K/uL (1.4-6.5); Neutrophils % (manual) 96.5 %
[2021-06-01] MEDS: SODIUM BICARBONATE 8.4% 150 MEQ in DEXTROSE 5% 1,000 ML IV SCH (15:31)
--- NOTE | 2021-06-01 15:34 | History & Physical Report ---
Date of Service June 01, 2021 Assessment & Plan (1) Sepsis: (2) Pyelonephritis: (3) Acute renal failure: (4) Hyponatremia: (5) Hyperkalemia: Plan: Sepsis secondary to pyelonephritis JEANNA on CKD III. Baseline Cr ~2 Acute on Chronic hyponatremia. On sodium tabs chronically. Baseline Na~130 History BPH, Obstructive uropathy. Chronic Bird Patient is 55-year-old male with PMH septic shock secondary to pyelonephritis, obstructive uropathy with chronic indwelling Bird catheter MRSA UTI, DM II, CKD III, ischemic cardiomyopathy, hyponatremia, pulmonary hypertension, HLD, GERD, schizophrenia, depression, atrial fibrillation, BPH presented to ER with complaint of unable to urinate, and prior cloudy urine. In ER patient afebrile, P 94, R: 18, BP 88/59, 98% on room air, WBC: 46, H/H: 8.8/26, INR: 1.5, Na: 115 (baseline ~130), K: 7.5, Cr: 4.5 (baseline ~2), magnesium: 1.6, lactate: 1.4, procalcitonin: 140, digoxin: 1.0 CT abdomen pelvis: 1. No renal or ureteral calculi or hydronephrosis. 2. Moderate right-sided perinephric stranding with emphysematous pyelitis and ureteritis. Air is also noted within the urinary bladder lumen. Findings may be secondary to instrumentation with Bird catheter however should be correlated with urinalysis to exclude an ascending infection. 3. No bowel obstruction or pneumoperitoneum. 4. Rectal wall thickening is likely secondary to partial distention. A nonspecific proctitis could appear similarly 5. Small amount of gallbladder sludge versus cholelithiasis. In ER received total 4 L NSS, on bicarb drip, Zosyn, vancomycin, calcium chloride 1 g, insulin R 10 units, dextrose 50 mL, albuterol neb. VBG pH: 7.1. negative troponin. patient has central line in place. Repeat sodium: 123, repeat potassium: 5.9 Nephrology had initially recommended patient be transferred to [facility] [place] as patient will likely need dialysis, that unable to be done today. [facility] [place] critical care denied transfer patient Nephrology-Dr. Bean feels patient will likely need dialysis tonight and is making arrangements Pt had new Bird cath placed in ER. Urology consulted by ER and recommended no irrigation of Bird catheter and recommended applying pressure suprapubically to help expel pus if catheter becomes blocked. Patient being admitted to ICU Patient likely will be receiving emergent dialysis tonight. Nephrology on board Obtain ABG Repeat BMP Q4H Plan on Zosyn and Daptomycin Urology consult Further plan per elastic cutter CBC, BMP in am DM II A1c: 6.1 in 03/2021 Glycemic management per ICU History Afib not on anticoagulation On digoxin and metoprolol tartrate Digoxin level: 1.0 Asthma No acute exacerbation Would continue home inhalers Depression, Schizophrenia On resperidone, duloxetine HLD On statin GERD On PPI H/O Sacral Wound Will likely need wound nurse consult DVT Prophylaxis SCDs Full Code as per discussion with pt Follows with Dr Bergeron for routine care Pt was seen and care coordinated with Dr Ricci. See addendum History of Present Illness Chief Complaint: Can't urinate Primary Care Provider: Bg Bergeron MD Patient is 55-year-old male with PMH septic shock secondary to pyelonephritis, obstructive uropathy with chronic indwelling Bird catheter MRSA UTI, DM II, CKD III, ischemic cardiomyopathy, hyponatremia, pulmonary hypertension, HLD, GERD, schizophrenia, depression, atrial fibrillation, BPH presented to ER with complaint of unable to urinate. Patient reports past several days has not been feeling well, has been feeling dizzy with sitting up. Also complains of bilateral abdominal and flank pain. Reports yesterday with urine cloudy with sediment. he states today did not have urine coming out of catheter. Does not think that he has had fever or chills. Reports had Bird catheter change 05/15/2021 by urology-Melanie Bruce. Decreased appetite today. Denies diaphoresis, N/V/D/C, syncope, vision changes, neck pain, CP, SOB, orthopnea, palpitations, cough, sore throat, choking, otalgia, rhinorrhea, paresthesias, extremity weakness, extremity edema, rashes. Patient has required dialysis once in past. In ER patient afebrile, P 94, R: 18, BP 88/59, 98% on room air, WBC: 46, H/H: 8.8/26, INR: 1.5, Na: 115, K: 7.5, Cr: 4.5, magnesium: 1.6, lactate: 1.4, procalcitonin: 140, digoxin: 1.0 CT abdomen pelvis:1. No renal or ureteral calculi or hydronephrosis. 2. Moderate right-sided perinephric stranding with emphysematous pyelitis and ureteritis. Air is also noted within the urinary bladder lumen. Findings may be secondary to instrumentation with Bird catheter however should be correlated with urinalysis to exclude an ascending infection. 3. No bowel obstruction or pneumoperitoneum. 4. Rectal wall thickening is likely secondary to partial distention. A nonspecific proctitis could appear similarly. 5. Small amount of gallbladder sludge versus cholelithiasis. In ER received total 4 L NSS, on bicarb drip, Zosyn, vancomycin, calcium chloride 1 g, insulin R 10 units, dextrose 50 mL, albuterol neb. VBG pH: 7.1. patient has central line in place. Repeat sodium: 123, repeat potassium: 5.9 Nephrology had initially recommended patient be transferred to [facility] [place] as patient will likely need dialysis, that unable to be done today. [facility] [place] critical care denied transfer patient Nephrology-Dr. Bean feels patient will likely need dialysis tonight and is making arrangements Pt had new Bird cath placed in ER. Urology consulted by ER and recommended no irrigation of Bird catheter and james mmended applying pressure suprapubically to help expel pus if catheter becomes blocked. Patient being admitted to ICU Allergies Allergy/AdvReac Type Severity Reaction Status Date / Time No Known Allergies Allergy Verified 06/01/21 11:37 Home Medications Medication Instructions Recorded Confirmed Type albuterol sulfate 90 mcg/actuation 2 puff INHALATION QID 09/02/20 06/01/21 History aerosol inhaler fluticasone 250 mcg-salmeterol 50 1 inh INHALATION BID 09/02/20 06/01/21 History mcg/dose blistr powdr for inhalation (Edelmiraxela Inhub) fluticasone propionate 50 2 spray INTRANASAL DAILY 09/10/20 06/01/21 History mcg/actuation nasal spray,suspension atorvastatin 20 mg tablet (Lipitor) 20 mg PO DAILY 03/27/21 06/01/21 History digoxin 62.5 mcg (0.0625 mg) 62.5 mcg PO Q2D 03/27/21 06/01/21 History tablet (Lanoxin) duloxetine 30 mg capsule,delayed 30 mg PO QAM 03/27/21 06/01/21 History release (Cymbalta) finasteride 5 mg tablet (Proscar) 5 mg PO HS 03/27/21 06/01/21 History fludrocortisone 0.1 mg tablet 0.1 mg PO HS 03/27/21 06/01/21 History insulin glargine 100 unit/mL (3 5 unit SUBCUT PM 03/27/21 06/01/21 History mL) subcutaneous pen (Lantus Solostar U-100 Insulin) metoprolol tartrate 25 mg tablet 12.5 mg PO BID 03/27/21 06/01/21 History risperidone 1 mg tablet (Risperdal) 1 mg PO TID 03/27/21 06/01/21 History sodium chloride 1 gram tablet 1,000 mg PO TID 03/27/21 06/01/21 History tamsulosin 0.4 mg capsule (Flomax) 0.4 mg PO HS 03/27/21 06/01/21 History tramadol 50 mg tablet (Ultram) 50 mg PO BID PRN 03/27/21 06/01/21 History ferrous sulfate 325 mg (65 mg 325 mg PO BID #60 tab 03/30/21 06/01/21 Rx iron) tablet (FeroSul) omeprazole 40 mg capsule,delayed 40 mg PO QAM #30 cap 03/30/21 06/01/21 Rx release acetaminophen 500 mg tablet 1,000 mg PO Q6H PRN 06/01/21 06/01/21 History (Tylenol Extra Strength) gabapentin 600 mg tablet 600 mg PO TID 06/01/21 06/01/21 History nystatin 100,000 unit/gram topical 100,000 applic TOPICAL BID PRN 06/01/21 06/01/21 History powder (Nyamyc) Past Med/Surg History Medical History (Updated 06/01/21 @ 19:01 by Bernardo Zambrano MD) Asthma uses res inh daily > not well controlled Atrial fibrillation Cardiac murmur dx > 20 yrs ago Chronic hyponatremia CKD (chronic kidney disease) stage 3, GFR 30-59 ml/min Depression GERD (gastroesophageal reflux disease) History of cardiomyopathy Insulin dependent diabetes mellitus Nausea unknown cause/ has not had testing done> Zofran Osteoarthritis Post traumatic stress disorder (PTSD) Schizophrenia T2DM (type 2 diabetes mellitus) Tachycardia just with cafeine per pt Tobacco use disorder Urinary retention Surgical History Bimalleolar fracture of right ankle s/p ORIF History of tooth extraction Family History Mother Diabetes Social History Smoking Status: Current every day smoker Tobacco Type: Cigarettes Years Smoked: 40; Cigarettes Per Day: 5-6; Second Hand Exposure: Yes; Do You Dip or Chew Tobacco: Yes; Tobacco Cessation Education Requested by Patient: No Hx Alcohol Use: No Hx Substance Use: No Preferred Language: Burkinan Communication Ability: Effective 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 Beliefs That Will Affect Care: None marital status: Unknown Current Living Situation: Family Current Living Situation Comment: lives with mother How many Children do You have: 2 Other Information That Helps Us Care for You: No Feels Safe at Home: Yes Safety Concerns: Feels Safe At This Time Assistive Devices: None Review of Systems Review of Systems: All systems reviewed & are unremarkable except as noted in HPI & below Physical Exam Physical Exam: General: no acute distress, Ill appearing, appears older than stated age, WDWN Head: normocephalic, atraumatic Eyes: PERRL, EOM's intact, conjunctiva non-injected, anicteric ENT: normal inspection external ears, nose, mucous membranes dry Neck: supple, trachea midline Lungs: no respiratory distress, bibasilar crackles CV: tachycardia, regular rhythm, no murmur, no pretibial edema Abd: normal BS, soft, + tenderness RLQ abdomen, +CVA tenderness bilateral with percussion Ext: no cyanosis, no calf tenderness Neuro: A&O x 3, no focal deficits noted, normal affect Skin: warm, dry Results & Data Results & Data ([facility]) Vital Signs (Past 12 Hours) Vital Signs Temp Pulse Pulse Resp BP BP Pulse Ox 06/01/21 14:00 112 H 14 119/63 06/01/21 13:00 109 H 21 124/91 06/01/21 12:02 94 H 18 96 06/01/21 12:00 94 H 15 95/59 L 06/01/21 10:59 91 H 18 86/57 L 06/01/21 09:57 36.9 C 94 H 18 88/59 L 98 Laboratory Results Short CBC 06/01/21 06/01/21 06/01/21 Range/Units 10:20 10:20 13:20 WBC 46.95 H* (4.8-10.8) K/uL Hgb 8.8 L (14.0-18.0) g/dL Hct 26.8 L (42-52) % Plt Count 370 (130-400) K/uL Carbon Dioxide 14 L 11 L (21-32) mmol/L Creatinine 4.53 H* 4.21 H D (0.6-1.4) mg/dl Glucose 116 H 164 H (70-99) mg/dl 06/01/21 06/01/21 Range/Units 13:30 16:01 WBC 40.99 H* (4.8-10.8) K/uL Hgb 7.8 L (14.0-18.0) g/dL Hct 24.2 L (42-52) % Plt Count 305 (130-400) K/uL Carbon Dioxide 10 L (21-32) mmol/L Creatinine 4.20 H (0.6-1.4) mg/dl Glucose 179 H (70-99) mg/dl BMP 06/01/21 06/01/21 06/01/21 10:20 13:20 16:01 Sodium 115 L* 123 L D 122 L Potassium 7.5 H* 5.9 H D 6.1 H* Chloride 91 L 97 L 97 L Carbon Dioxide 14 L 11 L 10 L BUN 84 H 79 H 79 H Creatinine 4.53 H* 4.21 H D 4.20 H Glucose 116 H 164 H 179 H Calcium 8.9 8.0 L 8.0 L Cardiac Enzymes 06/01/21 Range/Units 10:20 Troponin I < 0.015 (0-0.045) ng/ml Liver Function 06/01/21 06/01/21 Range/Units 10:20 13:20 Total Bilirubin 1.1 H 1.0 (0.2-1) mg/dl AST 14 L 9 L (15-37) U/L ALT 33 27 (12-78) U/L Alkaline Phosphatase 88 77 (45-117) U/L Albumin 2.3 L 1.9 L (3.4-5.0) gm/dl Urine 06/01/21 Range/Units 12:29 Urine Color [place] Urine Appearance Cloudy A (Clear) Urine pH 5.5 (4.5-7.5) Ur Specific Louise 1.015 (1.000-1.030) Urine Protein 3+ H (Negative) Urine Glucose (UA) Negative (Negative) Diagnostic Findings Abdomen/Pelvis CT 06/01/21 09:[address] WITHOUT CONTRAST CT DOSE: 512.82 mGy.cm HISTORY: Acute bilateral flank pain flank paoin TECHNIQUE: Multiaxial CT images of the abdomen and pelvis were performed without contrast. A dose lowering technique was utilized adhering to the principles of ALARA. COMPARISON STUDY: CT abdomen and pelvis 10/27/2020 FINDINGS: Trace right pleural effusion. Moderate cardiomegaly. Mild subsegmental dependent bibasilar atelectasis. No pneumatosis or pneumoperitoneum. The unenhanced spleen, mildly atrophic pancreas, and adrenal glands are unremarkable. There is a small amount of layering hyperdense material present within the dependent gallbladder. 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 The liver is mildly enlarged. Mild to moderate left and moderate right sided perinephric stranding. 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 Air is also noted within the mid right ureter. Mild right-sided pelvocaliectasis. No renal or ureteral calculi. Bird catheter is present within a partially decompressed bladder which demonstrates wall thickening. Air within the urinary bladder lumen. Atherosclerosis of the aorta without aneurysm. Retroaortic left renal vein. There are a few scattered nonspecific prominent retroperitoneal lymph nodes measuring up to 9 mm which appears stable to mildly increased in size from comparison. Moderately distended stomach. No bowel obstruction. Partial distention of the rectum with circumferential wall thickening. Moderate fecal retention of the right hemicolon. Noninflamed appendix. Subcentimeter hyperattenuating focus within the distal appendiceal lumen. Unremarkable soft tissues. No acute fracture. Degenerative changes of the spine, pelvis and hips. IMPRESSION: 1. No renal or ureteral calculi or hydronephrosis. 2. Moderate right-sided perinephric stranding with emphysematous pyelitis and ureteritis. Air is also noted within the urinary bladder lumen. Findings may be secondary to instrumentation with Bird catheter however should be correlated with urinalysis to exclude an ascending infection. 3. No bowel obstruction or pneumoperitoneum. 4. Rectal wall thickening is likely secondary to partial distention. A nonspecific proctitis could appear similarly 5. Small amount of gallbladder sludge versus cholelithiasis. 6. Additional findings as above. ACT 112: Negative or not required by law. The above report was generated using voice recognition software. It may contain grammatical, syntax or spelling errors. Electronically signed by: Kelvin Ross M.D. 06/01/2021 11:25 AM Chest X-Ray 06/01/21 09:59 XR chest 1V portable HISTORY: 55 years-old Male SEPSIS acute sepsis COMPARISON: Chest radiograph 03/27/2021 TECHNIQUE: Portable AP view of the chest FINDINGS: Unchanged mild blunting of the costophrenic angles suggestive of trace pleural effusions. Stable cardiomegaly. No pneumothorax, large pleural effusion or overt pulmonary edema. No lobar airspace consolidation. No acute fracture. IMPRESSION: Cardiomegaly with trace pleural effusions. ACT 112: Negative or not required by law. The above report was generated using voice recognition software. It may contain grammatical, syntax or spelling errors. Electronically signed by: Kelvin Ross M.D. 06/01/2021 10:42 AM Code Status & VTE Plan VTE Prophylaxis Plan VTE Prophylaxis will be ordered: Yes Supervising Physician Co-Signing Physician Notes 55-year-old gentleman with PMH of CK not on HD, JEANNA over CKD needing dialysis, BPH, E. coli UTI, E. coli bacteremia, DM2, ischemic cardiomyopathy, hyponatremia, HLD, GERD, and schizophrenia/depression presented to our ED 06/01 with complaint of decreased urine output. Patient reports having similar s ymptoms in the past. Patient has chronic Bird catheter. 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 Also reports having bilateral flank discomfort, no fever or chills but reports feeling weakness. Of note, patient has history of COVID-19 infection, has received 1 dose of Moderna Vaccine. Patient met sepsis criteria at admission with heart rate 94 bpm and WBC of 40.95K; likely pyelonephritis. Procalcitonin 140. Lactic acid WNL. Admitting CTAP +ve for cystitis, Rt sided perinephric stranding, and possible proctitis, GB sludge. Patient resuscitated with IV fluids in the ED 5 L. Blood pressure has held up after the fluid resuscitation, still on the soft side. F/u Bl Cx and U Cx. C/w zosyn. Other significant lab parameters are sodium of 115 and potassium was 7.5. Nephrology aware and evaluated the patient. Appreciate recs. Likely dialysis today. Patient will need critical care, ICU team aware. IV antibiotics and IV fluids per critical care team. Patient has a baseline creatinine of 2-2.5, admitting creatinine today 4.53 with BUN of 84, nephrology aware and plan for dialysis. Upon Exam GENERAL: Alert and oriented x3. NAD, on RA. HEENT: No pallor, no icterus. Pupils equal, round and reactive to light. Oral mucosa moist. NECK: No JVD, no neck masses. HEART: S1 and S2 heard. Regular rate and rhythm. systolic murmur at Aortic area, no gallop. RESPIRATORY SYSTEM: Normal AP diameter. No accessory muscle use. No wheezing, bibasilar crackles. ABDOMEN: Soft, bowel sounds present, nontender, no distention. CENTRAL NERVOUS SYSTEM: Alert and oriented x3. No facial droop. Speech is clear. Obeys simple commands. Moves extremities. EXTREMITIES: No edema, no erythema seen. CVA tender x Rt; CVA discomfort at Lt. No low belly tenderness appreciated. Rt hypochondriac tenderness. I have seen and examined the patient and have discussed the case with the provider above. I agree with the assessment and plan as stated.
[2021-06-01 16:14] LABS: Base Excess ABG -13.3 mEq/L (-9-1.8); HCO3 ABG 13 mmol/L (19-24); Oxygen Saturation ABG 95.2 % (90-95); PCO2 ABG 30 mmHg (35-46); PO2 ABG 82 mmHg (80-95); pH ABG 7.25 (7.35-7.45)
[2021-06-01 16:15] LABS: Allen Test Pos (Pos)
[2021-06-01 16:41] LABS: Hepatitis B Surface Ab Quant < 3.10 mIU/mL (>or=10mIU/mL Immune); Hepatitis B Surface Antibody Non-Immune
[2021-06-01 16:46] LABS: BUN Creatinine Ratio 18.9 (10-20); Creatinine Clr Calc Pharmacy 22.7 ml/min; Est GFR (African American) 17.4 ml/min; Potassium 6.1 mmol/L (3.5-5.1)
[2021-06-01 16:52] LABS: Hepatitis B Surf Ag Rflx Conf Neg (Neg)
[2021-06-01] MEDS ORDERED: CONSULT PHARMACY STA (16:52)
[2021-06-01] MEDS ORDERED: ICU PROTOCOL FOR HYPERGLYCEMIA PRN (17:02)
--- NOTE | 2021-06-01 17:18 | Electrocardiogram Report ---
Test Reason : Blood Pressure : / mmHG Vent. Rate : 093 BPM Atrial Rate : 094 BPM P-R Int : 226 ms QRS Dur : 112 ms QT Int : 346 ms P-R-T Axes : 058 047 067 degrees QTc Int : 430 ms Sinus rhythm with 1st degree A-V block Otherwise normal ECG When compared with ECG of 27-MAR-2021 18:20, MO interval has increased Nonspecific T wave abnormality no longer evident in Anterior leads QT has shortened Confirmed by Lamin Marinelli ([id number]) on 06/01/2021 5:18:41 PM Referred By: REFERRED SELF Confirmed By:Nabil Marinelli
--- NOTE | 2021-06-01 17:38 | Nephrology Consultation ---
Date of Consultation June 01, 2021 Assessment & Plan (1) Hyperkalemia: presenting K 7.5, improved a bit w/ insulin then uptrending again as expected; some concerns about how much urinary flow will be maintained/about tao function; digoxin levels noted. Cause may simply be JEANNA or may be NSAID use, ? adherence w/ florinef; with WBC in current range could potentially have elevated K from cell lysis/fragility -bicarb gtt to temporize -dialysis tonight 2h; risks/benefits/indications d/w pt and consent on chart; may need pressor support to tolerate; no UF (2) Metabolic acidosis: as above (3) Hyponatremia: chronic issue for him > he tells me he was up q1hr drinking overnight > so expect polydipsia element; not sure how reliable urien studies will be in setting of tao malfunction; he's already improved 8 points but believe he'll tolerate more lability than everage normonatremic pt. -pls check serum osms (4) Acute on chronic renal failure: baseline creatinine low 2s recently; has needed acute dialysis x a few weeks spring 2020 but had renal recovery. probable contributors include nsaid use, obstruction, infection -check CK if not done -daily bmp -f/u pending cxs >>>dose vanco by level - pls d/w pharmacy -low threshold for TTE since only one on file is in critical illness setting; ? if OP cardiology care > none in [facility] records (5) Obstructed, uropathy: urology following; may need stent or other; ? significance of emphysematous pyelo noted on imaging History of Present Illness Reason for Consultation: hyperkalemia, hyponatremia, JEANNA Requesting Physician: Dr Ricci Attending Physician: Raad Ricci MD History of Present Illness 55 y/o M whom I'm asked to see for hyperkalemia, hyponatremia, JEANNA was admitted this evening for management of severe electrolyte disorders, acute on chronic renal failure, nondraining chronic tao after presenting w/ decreased tao output.. His presenting labs remarkable for K 7.5, Na 115, creat 4.5 (baseline low 2's), WBC 47K, hgb 8.8 (chronically in 7s); he had 4L NS, insulin IV and K improved to 5.9 before uptrending again. ABF w/ K 6.1 is pH 7.25, pC02 30, pHC03 13. Procal 140; digoxin not elevated. PMH includes spring 2020 septic shock secondary to E coli pyelonephritis requiring several weeks of dialysis including CRRT, obstructive uropathy with chronic indwelling Tao catheter since spring 2020, MRSA UTI, DM II w/ severe neuropathy, visual impairment, neurogenic bladder; CKD 3B baseline creatinine low 2's fall 2020, cardiomyopathy spring 2020 w/ EF 30-35% in setting severe illness, chronic hyponatremia w/ serum sodium running mid 120s to 130 as O on salt tabs, pulmonary hypertension, HLD, GERD, schizophrenia/PTSD, depression, atrial fibrillation on digoxin, significant orthostatic hypotension on florinef, bimalleolar fracture 09/2020 s/p ORIF adn w/ residual ambulatory dysfunction. He had some urine in tao bag when I was evaluated him at about 1600 (about 250 ML); still urology had concerns about his tao and was working to replace it in ER. The pt denies chills, F, malaise, or decreased po intake. He endorsed extreme thirst > getting up q1hr d/t this overnight and an abrupt decline in UOP past day or so and abrupt decline in his ability to get around (walker dependent). He has been taking aleve 3 tabs daily for the past few days. Denies sob or abdominal pain. Allergies Allergy/AdvReac Type Severity Reaction Status Date / Time No Known Allergies Allergy Verified 06/01/21 11:37 Home Medications Medication Instructions Recorded Confirmed Type albuterol sulfate 90 mcg/actuation 2 puff INHALATION QID 09/02/20 06/01/21 History aerosol inhaler fluticasone 250 mcg-salmeterol 50 1 inh INHALATION BID 09/02/20 06/01/21 History mcg/dose blistr powdr for inhalation ([facility] Inhub) fluticasone propionate 50 2 spray INTRANASAL DAILY 09/10/20 06/01/21 History mcg/actuation nasal spray,suspension atorvastatin 20 mg tablet (Lipitor) 20 mg PO DAILY 03/27/21 06/01/21 History digoxin 62.5 mcg (0.0625 mg) 62.5 mcg PO Q2D 03/27/21 06/01/21 History tablet (Lanoxin) duloxetine 30 mg capsule,delayed 30 mg PO QAM 03/27/21 06/01/21 History release (Cymbalta) finasteride 5 mg tablet (Proscar) 5 mg PO HS 03/27/21 06/01/21 History fludrocortisone 0.1 mg tablet 0.1 mg PO HS 03/27/21 06/01/21 History insulin glargine 100 unit/mL (3 5 unit SUBCUT PM 03/27/21 06/01/21 History mL) subcutaneous pen (Lantus Solostar U-100 Insulin) metoprolol tartrate 25 mg tablet 12.5 mg PO BID 03/27/21 06/01/21 History risperidone 1 mg tablet (Risperdal) 1 mg PO TID 03/27/21 06/01/21 History sodium chloride 1 gram tablet 1,000 mg PO TID 03/27/21 06/01/21 History tamsulosin 0.4 mg capsule (Flomax) 0.4 mg PO HS 03/27/21 06/01/21 History tramadol 50 mg tablet (Ultram) 50 mg PO BID PRN 03/27/21 06/01/21 History ferrous sulfate 325 mg (65 mg 325 mg PO BID #60 tab 03/30/21 06/01/21 Rx iron) tablet (FeroSul) omeprazole 40 mg capsule,delayed 40 mg PO QAM #30 cap 03/30/21 06/01/21 Rx release acetaminophen 500 mg tablet 1,000 mg PO Q6H PRN 06/01/21 06/01/21 History (Tylenol Extra Strength) gabapentin 600 mg tablet 600 mg PO TID 06/01/21 06/01/21 History nystatin 100,000 unit/gram topical 100,000 applic TOPICAL BID PRN 06/01/21 06/01/21 History powder (Nyamyc) Patient History Medical History (Updated 06/01/21 @ 18:12 by Yi Bean MD, PhD) Asthma uses res inh daily > not well controlled Atrial fibrillation Cardiac murmur dx > 20 yrs ago Chronic hyponatremia CKD (chronic kidney disease) stage 3, GFR 30-59 ml/min Depression GERD (gastroesophageal reflux disease) History of cardiomyopathy Insulin dependent diabetes mellitus Nausea unknown cause/ has not had testing done> Zofran Osteoarthritis Post traumatic stress disorder (PTSD) Schizophrenia T2DM (type 2 diabetes mellitus) Tachycardia just with cafeine per pt Tobacco use disorder Urinary retention Surgical History Bimalleolar fracture of right ankle s/p ORIF History of tooth extraction Family History Mother Diabetes Social History Smoking Status: Current every day smoker Tobacco Type: Cigarettes Years Smoked: 40; Cigarettes Per Day: 5-6; Second Hand Exposure: Yes; Do You Dip or Chew Tobacco: Yes; Tobacco Cessation Education Requested by Patient: No Hx Alcohol Use: No Hx Substance Use: No Preferred Language: Divehi Communication Ability: Effective Technical Trainer Required: No Beliefs That Will Affect Care: None marital status: Unknown Current Living Situation: Family Current Living Situation Comment: lives with mother How many Children do You have: 2 Other Information That Helps Us Care for You: No Feels Safe at Home: Yes Safety Concerns: Feels Safe At This Time Assistive Devices: None Review of Systems Review of Systems: All systems reviewed & are unremarkable except as noted in HPI & below Physical Exam Constitutional: well developed, well nourished and cooperative; no acute distress Eyes: EOM intact bilaterally visually impaired ENMT: Ears: no external ear abnormality Nose: no external nose abnormality Mouth: + dry oral mucous membranes Neck: no nuchal rigidity Respiratory: normal respiratory effort Auscultation: + diminished lung sounds and + crackles Cardiovascular: Rate/Rhythm: + tachycardic and + irregularly irregular Extremities: no edema Gastrointestinal (Abdomen): Inspection/Auscultation: normal bowel sounds Percussion/Palpation: abdomen soft; abdomen nontender Musculoskeletal: Extremities: + abnormal strength Skin: no rashes, warm and dry + turgor decreased Neurologic: johnson, fluent speech, no tremor Psychiatric: Orientation: alert and oriented x 3 Genitourinary: tao w/ abotu 300 mL restrepo urine Results & Data ([facility]) Vital Signs (Past 12 Hours) Vital Signs Temp Pulse Pulse Resp BP BP Pulse Ox 06/01/21 16:11 114 H 19 116/54 L 95 06/01/21 14:00 112 H 14 119/63 06/01/21 13:00 109 H 21 124/91 06/01/21 12:02 94 H 18 96 06/01/21 12:00 94 H 15 95/59 L 06/01/21 10:59 91 H 18 86/57 L 06/01/21 09:57 36.9 C 94 H 18 88/59 L 98 Laboratory Results 06/01/21 13:30 06/01/21 16:01 UA w/ bacteria, blood protein Diagnostic Findings CT abd/pelvis Trace right pleural effusion. Moderate cardiomegaly. Mild subsegmental dependent bibasilar atelectasis. No pneumatosis or pneumoperitoneum. The unenhanced spleen, mildly atrophic pancreas, and adrenal glands are unremarkable. There is a small amount of layering hyperdense material present within the dependent gallbladder. 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 The liver is mildly enlarged. Mild to moderate left and moderate right sided perinephric stranding. 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 Air is also noted within the mid right ureter. Mild right-sided pelvocaliectasis. No renal or ureteral calculi. Tao catheter is present within a partially decompressed bladder which demonstrates wall thickening. Air within the urinary bladder lumen. Atherosclerosis of the aorta without aneurysm. Retroaortic left renal vein. There are a few scattered nonspecific prominent retroperitoneal lymph nodes measuring up to 9 mm which appears stable to mildly increased in size from comparison. Moderately distended stomach. No bowel obstruction. Partial distention of the rectum with circumferential wall thickening. Moderate fecal retention of the right hemicolon. Noninflamed appendix. Subcentimeter hyperattenuating focus within the distal appendiceal lumen. Unremarkable soft tissues. No acute fracture. Degenerative changes of the spine, pelvis and hips. IMPRESSION: 1. No renal or ureteral calculi or hydronephrosis. 2. Moderate right-sided perinephric stranding with emphysematous pyelitis and ureteritis. Air is also noted within the urinary bladder lumen. Findings may be secondary to instrumentation with Tao catheter however should be correlated with urinalysis to exclude an ascending infection. 3. No bowel obstruction or pneumoperitoneum. 4. Rectal wall thickening is likely secondary to partial distention. A nonspecific proctitis could appear similarly 5. Small amount of gallbladder sludge versus cholelithiasis. 6. Additional findings as above.
--- NOTE | 2021-06-01 17:39 | Critical Care Consultation ---
Date of Consultation June 01, 2021 Assessment & Plan (1) Admitted to intensive care unit: (2) Acute renal failure: (3) Pyelonephritis: (4) Septic shock: (5) Hyponatremia: (6) Hyperkalemia: Impression: 55-year-old male admitted with urosepsis/pyelonephritis. He is hemodynamically stable. He is in acute renal failure with hyperkalemia. Cultures are pending and he was initiated on Zosyn. His lactate was normal. Recommendations: 1. Urosepsis/pyelonephritis: Continue Zosyn. Await culture data. Await urology consultation as well. Given his normal lactate, I think we likely should be able to achieve adequate source control without surgical intervention. 2. Acute renal failure: Suspect related to ATN. Nephrology consultation been requested. 3. Metabolic acidosis: The patient's been initiated on sodium bicarb. Await nephrology consultation. 4. We will hold the patient's outpatient medications including albuterol iron Cymbalta Wixela Flonase gabapentin. Continue his Risperdal. Check digoxin level 5. Diabetes: Glycemic control per ICU protocol. 6. Anemia: We will hold transfusion for now. Threshold will be around 7 unless nephrology feels the need to keep a higher level. 7. Hold on DVT prophylaxis. His INR was elevated. 8. We will follow in the ICU pending improvement in the patient's kidney function and metabolic abnormalities. Above recommendations and plan were discussed with patient as well as with the ICU nurse at bedside. The patient is critically ill with significant electrolyte abnormalities and may progress to needing hemodialysis. Total of 40 minutes in critical care time was spent in evaluation management and stabilization of this patient History of Present Illness Attending Physician: Raad Ricci MD History of Present Illness Asked by hospitalist service to assist in management this patient presenting with emphysematous cystitis/pyelonephritis and acute renal failure. History is obtained from reviewed electronic medical record as well as discussion with the ER staff and discussion with the patient at bedside. This 55-year-old male is a complicated medical history including chronic kidney disease, recent admission for obstructive uropathy with an indwelling Bird catheter, diabetes, ischemic cardiomyopathy depression schizophrenia and pulmonary hypertension who was discharged back in March with an indwelling Bird. He was brought to the emergency room today as he was unable to urinate. His urine has been increasingly cloudy. He also had weakness back pain and subjective rigors. He denies any chest pain or shortness of breath. Patient had a central line placed in the emergency room and received resuscitation on the order of 5 L of crystalloid. He received antibiotics. Patient was discussed with nephrology he did not felt that they had the staffing capacity to be able to dialyze the patient here and recommended transfer to an alternative center. Unfortunately the patient could not be accepted. After consultation with multiple specialists including urology, the patient's been admitted here after he was initiated on a bicarb infusion. I assessed the patient on arrival to the ICU. He is awake alert and conversant. He is on room air. He is not tachycardic. He states he is hungry and wants to eat. He denies any other complaints including nausea vomiting or abdominal pain. Allergies Allergy/AdvReac Type Severity Reaction Status Date / Time No Known Allergies Allergy Verified 06/01/21 11:37 Home Medications Medication Instructions Recorded Confirmed Type albuterol sulfate 90 mcg/actuation 2 puff INHALATION QID 09/02/20 06/01/21 History aerosol inhaler fluticasone 250 mcg-salmeterol 50 1 inh INHALATION BID 09/02/20 06/01/21 History mcg/dose blistr powdr for inhalation (Wixela Inhub) fluticasone propionate 50 2 spray INTRANASAL DAILY 09/10/20 06/01/21 History mcg/actuation nasal spray,suspension atorvastatin 20 mg tablet (Lipitor) 20 mg PO DAILY 03/27/21 06/01/21 History digoxin 62.5 mcg (0.0625 mg) 62.5 mcg PO Q2D 03/27/21 06/01/21 History tablet (Lanoxin) duloxetine 30 mg capsule,delayed 30 mg PO QAM 03/27/21 06/01/21 History release (Cymbalta) finasteride 5 mg tablet (Proscar) 5 mg PO HS 03/27/21 06/01/21 History fludrocortisone 0.1 mg tablet 0.1 mg PO HS 03/27/21 06/01/21 History insulin glargine 100 unit/mL (3 5 unit SUBCUT PM 03/27/21 06/01/21 History mL) subcutaneous pen (Lantus Solostar U-100 Insulin) metoprolol tartrate 25 mg tablet 12.5 mg PO BID 03/27/21 06/01/21 History risperidone 1 mg tablet (Risperdal) 1 mg PO TID 03/27/21 06/01/21 History sodium chloride 1 gram tablet 1,000 mg PO TID 03/27/21 06/01/21 History tamsulosin 0.4 mg capsule (Flomax) 0.4 mg PO HS 03/27/21 06/01/21 History tramadol 50 mg tablet (Ultram) 50 mg PO BID PRN 03/27/21 06/01/21 History ferrous sulfate 325 mg (65 mg 325 mg PO BID #60 tab 03/30/21 06/01/21 Rx iron) tablet (FeroSul) omeprazole 40 mg capsule,delayed 40 mg PO QAM #30 cap 03/30/21 06/01/21 Rx release acetaminophen 500 mg tablet 1,000 mg PO Q6H PRN 06/01/21 06/01/21 History (Tylenol Extra Strength) gabapentin 600 mg tablet 600 mg PO TID 06/01/21 06/01/21 History nystatin 100,000 unit/gram topical 100,000 applic TOPICAL BID PRN 06/01/21 06/01/21 History powder ([facility]) Patient History Medical History Asthma uses res inh daily > not well controlled Cardiac murmur dx > 20 yrs ago Chronic hyponatremia Depression GERD (gastroesophageal reflux disease) History of diabetes mellitus IDDM Nausea unknown cause/ has not had testing done> Zofran Osteoarthritis Post traumatic stress disorder (PTSD) Schizophrenia T2DM (type 2 diabetes mellitus) Tachycardia just with cafeine per pt Surgical History Bimalleolar fracture of right ankle s/p ORIF History of tooth extraction Family History Mother Diabetes Social History Smoking Status: Current every day smoker Tobacco Type: Cigarettes Years Smoked: 40; Cigarettes Per Day: 5-6; Second Hand Exposure: Yes; Hx Alcohol Use: No Hx Substance Use: No Preferred Language: Luxembourgish Communication Ability: Effective End Worker Required: No Beliefs That Will Affect Care: None marital status: Unknown Current Living Situation: Parent Current Living Situation Comment: lives with mother How many Children do You have: 2 Feels Safe at Home: Yes Assistive Devices: Cane, Walker and Wheelchair Review of Systems Review of Systems: All systems reviewed & are unremarkable except as noted in Subjective Physical Exam Constitutional: WD/WN, vitals as above Neck: trachea midline, no thyromegaly Respiratory: normal respiratory effort, lungs clear to auscultation Cardiovascular: RRR, no murmur, no edema Gastrointestinal (Abdomen): normal bowel sounds, soft, nontender, no hepatosplenomegaly Musculoskeletal: Extremities: extremities normal to inspection Skin: no rashes, warm and dry Neurologic: Nonfocal exam Genitourinary: Bird catheter in place draining cloudy urine Lymphatic: no cervical lymphadenopathy Results & Data Results & Data ([facility]) Vital Signs (Past 12 Hours) Vital Signs Temp Pulse Pulse Resp BP BP Pulse Ox 06/01/21 16:11 114 H 19 116/54 L 95 06/01/21 14:00 112 H 14 119/63 06/01/21 13:00 109 H 21 124/91 06/01/21 12:02 94 H 18 96 06/01/21 12:00 94 H 15 95/59 L 06/01/21 10:59 91 H 18 86/57 L 06/01/21 09:57 36.9 C 94 H 18 88/59 L 98 Laboratory Results INR 1.5 Albumin 1.9 Procalcitonin 140 Critical Care Results & Data Vital Signs (Past 12 Hours) Vital Signs Temp Pulse Pulse Resp BP BP Pulse Ox 06/01/21 16:11 114 H 19 116/54 L 95 06/01/21 14:00 112 H 14 119/63 06/01/21 13:00 109 H 21 124/91 06/01/21 12:02 94 H 18 96 06/01/21 12:00 94 H 15 95/59 L 06/01/21 10:59 91 H 18 86/57 L 06/01/21 09:57 36.9 C 94 H 18 88/59 L 98 Lab & Micro Results (Past 24 Hours) RBC 3.01 M/uL (4.7-6.1) L 06/01/21 WBC 40.99 K/uL (4.8-10.8) H* 06/01/21 Hgb 7.8 g/dL (14.0-18.0) L 06/01/21 Hct 24.2 % (42-52) L 06/01/21 MCV 80.4 fL (80-100) 06/01/21 MCH 25.9 pg (25-34) 06/01/21 MCHC 32.2 g/dL (32-36) 06/01/21 RDW Standard Deviation 52.2 fL (36.4-46.3) H 06/01/21 RDW Coefficient of Variation 17.5 % (11.5-14.5) H 06/01/21 Plt Count 305 K/uL (130-400) 06/01/21 MPV 8.4 fL (7.4-10.4) 06/01/21 Neutrophils (%) (Auto) 88.6 % 06/01/21 Lymphocytes (%) (Auto) 1.5 % 06/01/21 Monocytes # (Auto) 1.99 K/uL (0.11-0.59) H 06/01/21 Eosinophils # (Auto) 0.01 K/uL (0-0.5) 06/01/21 Immature Granulocyte % (Auto) 5.7 % 06/01/21 Neutrophils # (Auto) 41.57 K/uL (1.4-6.5) H 06/01/21 Lymphocytes # (Auto) 0.69 K/uL (1.2-3.4) L 06/01/21 Monocytes # (Auto) 1.99 K/uL (0.11-0.59) H 06/01/21 Eosinophils # (Auto) 0.01 K/uL (0-0.5) 06/01/21 Basophils # (Auto) 0.02 K/uL (0-0.2) 06/01/21 Immature Granulocyte # (Auto) 2.67 K/uL (0.00-0.02) H 06/01/21 ANC 39.56 K/uL (1.4-6.5) H 06/01/21 ALC 1.43 K/uL (1.2-3.4) 06/01/21 Neutrophils % (Manual) 96.5 % 06/01/21 Lymphocytes % (Manual) 3.5 % 06/01/21 Neutrophils # (Manual) 39.56 K/uL (1.4-6.5) H 06/01/21 Lymphocytes # (Manual) 1.43 K/uL (1.2-3.4) 06/01/21 Echinocytes 1+ 06/01/21 Na 122 mmol/L (136-145) L 06/01/21 K 6.1 mmol/L (3.5-5.1) H* 06/01/21 Cl 97 mmol/L (98-107) L 06/01/21 CO2 10 mmol/L (21-32) L 06/01/21 Anion Gap 15.0 (3-11) H 06/01/21 BUN 79 mg/dl (7-18) H 06/01/21 Creatinine 4.20 mg/dl (0.6-1.4) H 06/01/21 Estimated GFR ( Amer) 17.4 ml/min 06/01/21 Estimated GFR (Non-Af Amer) 15.0 ml/min 06/01/21 BUN/Creatinine Ratio 18.9 (10-20) 06/01/21 Glu 179 mg/dl (70-99) H 06/01/21 Ca 8.0 mg/dl (8.5-10.1) L 06/01/21 Total Bilirubin 1.0 mg/dl (0.2-1) 06/01/21 AST 9 U/L (15-37) L 06/01/21 ALT 27 U/L (12-78) 06/01/21 Alkaline Phosphatase 77 U/L (45-117) 06/01/21 TP 6.6 gm/dl (6.4-8.2) 06/01/21 Albumin 1.9 gm/dl (3.4-5.0) L 06/01/21 Globulin 4.7 gm/dl (2.5-4.0) H 06/01/21 Albumin/Globulin Ratio 0.4 (0.9-2) L 06/01/21 2 Mg 1.6 mg/dl (1.8-2.4) L 06/01/21 10:20 06/01/21 Calcium Level 8.0 mg/dl (8.5-10.1) L 06/01/21 16:01 06/01/21 Prothromb Time International Ratio 1.5 (0.9-1.1) H 06/01/21 10:20 06/01/21 Venous Blood pH 7.17 (7.36-7.41) L 06/01/21 13:30 06/01/21 Venous Blood Partial Pressure CO2 34 mmHg (38-50) L 06/01/21 13:30 06/01/21 Venous Blood Partial Pressure O2 51 mmHg 06/01/21 13:30 06/01/21 Venous Blood HCO3 12 mmol/L 06/01/21 13:30 06/01/21 Venous Blood Base Excess -15.3 mEq/L 06/01/21 13:30 06/01/21 Venous Blood Oxygen Saturation 80.0 % 06/01/21 13:30 06/01/21 Blood Gas Barometric Pressure 727.6 mm/Hg 06/01/21 16:01 06/01/21 Arterial Blood pH 7.25 (7.35-7.45) L 06/01/21 16:01 06/01/21 Arterial Blood Partial Pressure CO2 30 mmHg (35-46) L 06/01/21 16:01 06/01/21 Arterial Blood Partial Pressure O2 82 mmHg (80-95) 06/01/21 16:01 06/01/21 Arterial Blood HCO3 13 mmol/L (19-24) L 06/01/21 16:01 06/01/21 Arterial Blood Base Excess -13.3 mEq/L (-9-1.8) L 06/01/21 16:01 06/01/21 Arterial Blood Oxygen Saturation 95.2 % (90-95) H 06/01/21 16:01 06/01/21 Blood Gas Oxygen Given ROOM AIR 06/01/21 16:01 06/01/21 Osiel Test Pos (Pos) 06/01/21 16:01 06/01/21 Blood Gas Barometric Pressure 727.6 mm/Hg 06/01/21 16:01 06/01/21 Diagnostic Findings (Past 24 Hours) Abdomen/Pelvis CT 06/01/21 09:[address] WITHOUT CONTRAST CT DOSE: 512.82 mGy.cm HISTORY: Acute bilateral flank pain flank paoin TECHNIQUE: Multiaxial CT images of the abdomen and pelvis were performed without contrast. A dose lowering technique was utilized adhering to the principles of ALARA. COMPARISON STUDY: CT abdomen and pelvis 10/27/2020 FINDINGS: Trace right pleural effusion. Moderate cardiomegaly. Mild subsegmental dependent bibasilar atelectasis. No pneumatosis or pneumoperitoneum. The unenhanced spleen, mildly atrophic pancreas, and adrenal glands are unremarkable. There is a small amount of layering hyperdense material present within the dependent gallbladder. 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 The liver is mildly enlarged. Mild to moderate left and moderate right sided perinephric stranding. 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 Air is also noted within the mid right ureter. Mild right-sided pelvocaliectasis. No renal or ureteral calculi. Bird catheter is present within a partially decompressed bladder which demonstrates wall thickening. Air within the urinary bladder lumen. Atherosclerosis of the aorta without aneurysm. Retroaortic left renal vein. There are a few scattered nonspecific prominent retroperitoneal lymph nodes measuring up to 9 mm which appears stable to mildly increased in size from comparison. Moderately distended stomach. No bowel obstruction. Partial distention of the rectum with circumferential wall thickening. Moderate fecal retention of the right hemicolon. Noninflamed appendix. Subcentimeter hyperattenuating focus within the distal appendiceal lumen. Unremarkable soft tissues. No acute fracture. Degenerative changes of the spine, pelvis and hips. IMPRESSION: 1. No renal or ureteral calculi or hydronephrosis. 2. Moderate right-sided perinephric stranding with emphysematous pyelitis and ureteritis. Air is also noted within the urinary bladder lumen. Findings may be secondary to instrumentation with Bird catheter however should be correlated with urinalysis to exclude an ascending infection. 3. No bowel obstruction or pneumoperitoneum. 4. Rectal wall thickening is likely secondary to partial distention. A nonspecific proctitis could appear similarly 5. Small amount of gallbladder sludge versus cholelithiasis. 6. Additional findings as above. ACT 112: Negative or not required by law. The above report was generated using voice recognition software. It may contain grammatical, syntax or spelling errors. Electronically signed by: Kelvin Ross M.D. 06/01/2021 11:25 AM Chest X-Ray 06/01/21 09:59 XR chest 1V portable HISTORY: 55 years-old Male SEPSIS acute sepsis COMPARISON: Chest radiograph 03/27/2021 TECHNIQUE: Portable AP view of the chest FINDINGS: Unchanged mild blunting of the costophrenic angles suggestive of trace pleural effusions. Stable cardiomegaly. No pneumothorax, large pleural effusion or overt pulmonary edema. No lobar airspace consolidation. No acute fracture. IMPRESSION: Cardiomegaly with trace pleural effusions. ACT 112: Negative or not required by law. The above report was generated using voice recognition software. It may contain grammatical, syntax or spelling errors. Electronically signed by: Kelvin Ross M.D. 06/01/2021 10:42 AM I & O Totals 24 Hours 05/31/21 06/01/21 06/02/21 06:59 06:59 06:59 Intake Total 4715 / 4715 Balance 4715 / 4715 Cumulative 06/01/21 09:31 thru 06/01/21 15:17 Intake Total 4715 Balance 4715 RT Ventilator Mngmt (Last Documented) Ventilator Ordered Settings Respiratory Rate 19 06/01/21 16:11 Ventilator - PT Measurements Respiratory Rate 19 Coding Level of Care Code Critical Care 1st 30-74 mins Diagnoses Admitted to intensive care unit Z78.9 Acute renal failure N17.9 Pyelonephritis N12 Septic shock A41.9; R65.21 Hyponatremia E87.1 Hyperkalemia E87.5
--- NOTE | 2021-06-01 18:07 | Urology Consultation ---
Date of Consultation June 01, 2021 Assessment & Plan (1) Urinary retention: (2) Acute on chronic renal failure: (3) Emphysematous pyelitis: This is a 55 year-old male with acute on chronic urinary retention, acute on chronic kidney failure, and sepsis of urinary origin with gas forming organism in the bladder and right upper urinary tract. To achieve source control the catheter has been exchanged and subsequently drained well. I further upsized his catheter to a 24 Fr to allow any purulent debris to drain from the bladder. If the catheter becomes clogged, it can be gently aspirated or exchanged if needed. Further drainage of the upper urinary tracts would require either ureteral stent placement or nephrostomy tube placement. Although nephrostomy tube would be most definitive, this would require transfer to a facility with interventional radiology. Ureteral stent placement typically requires anesthesia, which would be high risk given his electrolyte abnormalities and overall condition. Since there is no apparent obstruction of the upper tract, hopefully re-establishing drainage from the tao catheter is all that will be required for source control. Recommendations: Continue antibiotics Continue fluids and supportive care. Normalize electrolytes as able and per nephrology. Monitor urine output from tao. if output decreases, consider bladder scan. Reposition / gently aspirate or flush / replace tao as needed if it stops draining - still use large bore tao (24 Fr). Hold off on ureteral stent placement for now - can reevaluate if he clinically worsens. History of Present Illness Reason for Consultation: UTI, gas in collecting system, chronic tao catheter. Attending Physician: Raad Ricci MD History of Present Illness This is a 55 year-old male with history of CKD and chronic tao catheter due to urinary retention from an enlarged prostate. He presented to the ED on 06/01/21 complaining of decreased urine output from his tao catheter. The urine had been growing progressively cloudy over the past couple days, and he had an sense of incomplete bladder emptying. The catheter was exchanged in the ED with significant pyuria noted, and subsequently he had some drainage after fluid resuscitation. Further evaluation in the ED was notable for leukocytosis (WBC 46.95), anemia (Hb 8.8). He also was found to have significant electrolyte abnormalities (Na 115, K 7.5, Cl 81, CO22 14) and elevated creatinine (4.53). Urinalysis was grossly positive with 3+ leukocyte esterase, 1+ bacteria, >30WBC/hpf. On ABG he was found to be acidotic (pH 7.25). A CT scan was performed, which I have independently reviewed. The full read is in the EMR, but the scan is notable for gas within the lumen of the bladder, within the right ureter and right renal pelvis. There is no hydronephrosis of either kidney, nor is there any evidence of a focal obstruction of the upper urinary tract. The gas within the bladder did not all rise to the most anterior portion, suggesting thick heterogeneous contents of the bladder itself. Urology was consulted for discussion of further intervention. He reports first needing a catheter earlier this year, and having been dependent on it since then. He has previously been seen by urology here on 11/16/20 and 03/28/21, both times for urinary retention. He reports also having been seen at [facility] by Dr. Camargo for the same issue. He is supposed to have an outlet procedure, but has not been able to travel to get this done yet. Allergies Allergy/AdvReac Type Severity Reaction Status Date / Time No Known Allergies Allergy Verified 06/01/21 11:37 Home Medications Medication Instructions Recorded Confirmed Type albuterol sulfate 90 mcg/actuation 2 puff INHALATION QID 09/02/20 06/01/21 History aerosol inhaler fluticasone 250 mcg-salmeterol 50 1 inh INHALATION BID 09/02/20 06/01/21 History mcg/dose blistr powdr for inhalation (Wixela Inhub) fluticasone propionate 50 2 spray INTRANASAL DAILY 09/10/20 06/01/21 History mcg/actuation nasal spray,suspension atorvastatin 20 mg tablet (Lipitor) 20 mg PO DAILY 03/27/21 06/01/21 History digoxin 62.5 mcg (0.0625 mg) 62.5 mcg PO Q2D 03/27/21 06/01/21 History tablet (Lanoxin) duloxetine 30 mg capsule,delayed 30 mg PO QAM 03/27/21 06/01/21 History release (Cymbalta) finasteride 5 mg tablet (Proscar) 5 mg PO HS 03/27/21 06/01/21 History fludrocortisone 0.1 mg tablet 0.1 mg PO HS 03/27/21 06/01/21 History insulin glargine 100 unit/mL (3 5 unit SUBCUT PM 03/27/21 06/01/21 History mL) subcutaneous pen (Lantus Solostar U-100 Insulin) metoprolol tartrate 25 mg tablet 12.5 mg PO BID 03/27/21 06/01/21 History risperidone 1 mg tablet (Risperdal) 1 mg PO TID 03/27/21 06/01/21 History sodium chloride 1 gram tablet 1,000 mg PO TID 03/27/21 06/01/21 History tamsulosin 0.4 mg capsule (Flomax) 0.4 mg PO HS 03/27/21 06/01/21 History tramadol 50 mg tablet (Ultram) 50 mg PO BID PRN 03/27/21 06/01/21 History ferrous sulfate 325 mg (65 mg 325 mg PO BID #60 tab 03/30/21 06/01/21 Rx iron) tablet (FeroSul) omeprazole 40 mg capsule,delayed 40 mg PO QAM #30 cap 03/30/21 06/01/21 Rx release acetaminophen 500 mg tablet 1,000 mg PO Q6H PRN 06/01/21 06/01/21 History (Tylenol Extra Strength) gabapentin 600 mg tablet 600 mg PO TID 06/01/21 06/01/21 History nystatin 100,000 unit/gram topical 100,000 applic TOPICAL BID PRN 06/01/21 06/01/21 History powder (Nyamyc) Patient History Medical History (Updated 06/01/21 @ 19:01 by Bernardo Zambrano MD) Asthma uses res inh daily > not well controlled Atrial fibrillation Cardiac murmur dx > 20 yrs ago Chronic hyponatremia CKD (chronic kidney disease) stage 3, GFR 30-59 ml/min Depression GERD (gastroesophageal reflux disease) History of cardiomyopathy Insulin dependent diabetes mellitus Nausea unknown cause/ has not had testing done> Zofran Osteoarthritis Post traumatic stress disorder (PTSD) Schizophrenia T2DM (type 2 diabetes mellitus) Tachycardia just with cafeine per pt Tobacco use disorder Urinary retention Surgical History Bimalleolar fracture of right ankle s/p ORIF History of tooth extraction Family History Mother Diabetes Social History Smoking Status: Current every day smoker Tobacco Type: Cigarettes Years Smoked: 40; Cigarettes Per Day: 5-6; Second Hand Exposure: Yes; Do You Dip or Chew Tobacco: Yes; Tobacco Cessation Education Requested by Patient: No Hx Alcohol Use: No Hx Substance Use: No Preferred Language: Guinean Communication Ability: Effective Marketing Planning Manager Required: No Beliefs That Will Affect Care: None marital status: Unknown Current Living Situation: Family Current Living Situation Comment: lives with mother How many Children do You have: 2 Other Information That Helps Us Care for You: No Feels Safe at Home: Yes Safety Concerns: Feels Safe At This Time Assistive Devices: None Review of Systems Review of Systems: reports fatigue Constitutional: no fevers subjective chills Cardiovascular: Additional Comments: no palpitations Gastrointestinal: no nausea oer vomiting Genitourinary: + decreased urination (decreased catheter drainage) Physical Exam Constitutional: well developed and + ill appearing Eyes: pupils not irregular Respiratory: normal respiratory effort; no respiratory distress, does not use accessory muscles and no cough Cardiovascular: regular rate and rhythm Gastrointestinal (Abdomen): Inspection/Auscultation: abdomen normal to inspection tender to palpation over the bladder Musculoskeletal: Extremities: extremities normal to inspection Skin: normal turgor; no rashes and no lesions Neurologic: moves all extremities and awake Psychiatric: Orientation: alert (tired) Genitourinary: circumcised penis with orthotopic meatus, catheter upsized to 24 Fr to maximize drainage. Some drainage of thick purulent material achieved. Results & Data ([facility]) Vital Signs (Past 12 Hours) Vital Signs Temp Pulse Pulse Resp BP BP Pulse Ox 06/01/21 17:29 37.3 C 110 H 18 104/57 L 97 06/01/21 17:00 110 H 21 97 06/01/21 16:11 114 H 19 116/54 L 95 06/01/21 16:00 112 H 14 116/54 L 06/01/21 14:00 112 H 14 119/63 06/01/21 13:00 109 H 21 124/91 06/01/21 12:02 94 H 18 96 06/01/21 12:00 94 H 15 95/59 L 06/01/21 10:59 91 H 18 86/57 L 06/01/21 09:57 36.9 C 94 H 18 88/[address] abdomen pelvis: IMPRESSION: 1. No renal or ureteral calculi or hydronephrosis. 2. Moderate right-sided perinephric stranding with emphysematous pyelitis and ureteritis. Air is also noted within the urinary bladder lumen. Findings may be secondary to instrumentation with Tao catheter however should be correlated with urinalysis to exclude an ascending infection. 3. No bowel obstruction or pneumoperitoneum. 4. Rectal wall thickening is likely secondary to partial distention. A nonspecific proctitis could appear similarly 5. Small amount of gallbladder sludge versus cholelithiasis. 6. Additional findings as above. PG Care Time/CCT Total # of Minutes Spent Total Time Spent with Patient: Total time spent is greater than 50% in coordination of care (as documented) at patient's floor/unit and/or counseling patient: Coding Level of Care Code 71505 Inpt Consult Level 5 Diagnoses Urinary retention R33.9 Acute on chronic renal failure N17.9; N18.9 Emphysematous pyelitis N12
[2021-06-01] MEDS: PIPERACILLIN/TAZOBACTAM 4.5 GM in DEXTROSE 5% 100 ML IV SCH (18:16)
[2021-06-01] MEDS ORDERED: SODIUM CHLORIDE 0.9% 1000ML 1,000 ML IV PRN (18:28)
[2021-06-01 19:12] LABS: BUN Creatinine Ratio 18.6 (10-20); Calcium 8.3 mg/dl (8.5-10.1); Creatinine Clr Calc Pharmacy 22.1 ml/min; Est GFR (African American) 16.8 ml/min; Est GFR (Non-African American) 14.5 ml/min; Potassium 6.3 mmol/L (3.5-5.1)
[2021-06-01] MEDS: ALBUTEROL HFA 8 GM INHALER INH SCH ×2 (19:51→21:14)
--- NOTE | 2021-06-01 20:33 | Procedure Note ---
Procedure Note Date of Service June 01, 2021 Note Procedure: Internal Jugular Temporary Hemodialysis Catheter Placement Attending: Dr. Marroquin APC: Vince Gimenez PA-C Indication: Hemodialysis, Central Drug Administration, Poor Venous Access, Multiple Lab Draws Necessary, etc. Anesthesia: Lidocaine 1% Consent was signed and placed on the chart prior to procedure. Indication, risks, and benefits were explained at length. A time-out was completed verifying correct patient, procedure, site, positioning, and implants(s) or special equipment if applicable. Patients RIGHT Neck was cleansed and draped in the typical sterile fashion using Chloraprep. The Internal Jugular Vein and Carotid Artery were identified using ultrasound. The superficial tissue was anesthetized using 5.0 mL of 1% lidocaine without epinephrine under direct visualization with the ultrasound. After adequate ane sthetization was achieved, the Internal Jugular vein was cannulated under direct ultrasound guidance using an introducer needle on a syringe. Good venous blood return was maintained prior to removal of syringe from introducer needle. Using Seldinger Technique, a guide wire was advanced through the introducer needle without resistance. The introducer needle was removed and ultrasound images were obtained of the guide wire within the Internal Jugular Vein and saved to the patients medical record. A small incision was made in penetrating fashion at the guide wire insertion site utilizing an 11 blade scalpel. The dilator was advanced to the vessel without resistance. Unfortunately, after dilation with first serial dilator, the wire became dislodged and had to be removed. At this point, given that the tract had already been dilated, I did elect to terminate the procedure. Pressure was applied to the wound by nursing staff. Dressing placed without significant bleeding noted. Post CXR was obtained. Post procedure x-ray was completed, and no pneumothorax was noted. Images obtained are saved for permanent record Procedural Ultrasound Guidance: Procedure Date: 06/01/2021 Indication: Need for emergent hemodialysis Attending: Dr. Marroquin APC: Vince Gimenez PA-C Artery AND Vein visualized: YES Compressible Vein: YES Guidewire or Short Catheter seen in vein prior to dilation: YES Images obtained are saved for permanent record. Coding CPT Codes Tubes, Drains, and Vasc Access - Tubes, Drains, and Vasc Access: [id number] Insertion Of Non-tunneled Catheter Age 6 Yrs> ([id number]) Tubes, Drains, and Vasc Access - Tubes, Drains, and Vasc Access: [id number] Ultrasound Guidance For Vascular ([id number]) [facility] Procedure Codes (Charges) Tubes, Drains, and Vasc Access Procedure 3: Tubes, Drains, and Vasc Access: [id number] Insertion Of Non-tunneled Catheter Age 6 Yrs> Procedure 4: Tubes, Drains, and Vasc Access: [id number] Ultrasound Guidance For Vascular
--- NOTE | 2021-06-01 20:40 | Procedure Note ---
Procedure Note Date of Service June 01, 2021 Note Procedure: LEFT Femoral line exchange for hemodialysis catheter Attending: Dr. Marroquin APC: Vince Gimenez PA-C Indication: Emergent Hemodialysis, Central Drug Administration, Poor Venous Access, Multiple Lab Draws Necessary, etc. Anesthesia: Lidocaine 1% Consent was signed and placed on the chart prior to procedure. Indication, risks, and benefits were explained at length. A time-out was completed verifying correct patient, procedure, site, positioning, and implants(s) or special equipment if applicable. Patients LEFT Groin was cleansed and draped in the typical sterile fashion using Chloraprep. The Femoral Vein and Femoral Artery were identified using ultrasound. Existing catheter noted to be in large venous vessel. The superficial tissue was anesthetized using 5.0 mL of 1% lidocaine without epinephrine under direct visua lization with the ultrasound. After adequate anesthetization was achieved, guidewire was introduced into the distal port of the existing CVL without resistance. The femoral central line was then removed over the guidewire. Guidewire remained intact and images were obtained for permanent record. A small incision was made in penetrating fashion at the guide wire insertion site utilizing an 11 blade scalpel. The first dilator was advanced to the vessel without resistance. The second dilator was advanced to the vessel without resistance. The dilator was exchanged for the triple lumen hemodialysis catheter without resistance. The guide wire was removed intact from the catheter without issue. Claves were placed on each catheter tip with confirmation of good blood flow from each lumen. Each port was easily flushed with sterile saline. The catheter was placed at the hub and sutured in place. BioPatch was applied to the catheter and a sterile dressing was applied over the catheter with careful attention to sterility. Patient tolerated procedure well. No immediate complications were met. Images obtained are saved for permanent record Procedural Ultrasound Guidance: Procedure Date: 06/01/2021 Indication: Emergent Hemodialysis Attending: Dr. Marroquin APC: Vince Gimenez PA-C Artery AND Vein visualized: YES Compressible Vein: YES Guidewire or Short Catheter seen in vein prior to dilation: YES Line confirmed in Vein with ultrasound: YES Images obtained are saved for permanent record. Coding CPT Codes Tubes, Drains, and Vasc Access - Tubes, Drains, and Vasc Access: [id number] Insertion Of Non-tunneled Catheter Age 6 Yrs> ([id number]) [facility] Procedure Codes (Charges) Tubes, Drains, and Vasc Access Procedure 5: Tubes, Drains, and Vasc Access: [id number] Insertion Of Non-tunneled Catheter Age 6 Yrs>
--- NOTE | 2021-06-01 20:40 | XRay Report ---
XR chest 1V portable at 8:04 PM CLINICAL HISTORY: History of sepsis.. Evaluate cardiopulmonary status COMPARISON STUDY: 06/01/2021 and 10:03 AM TECHNIQUE: 1 view of the chest FINDINGS: Single frontal view of the chest demonstrates the cardiomediastinal silhouette to be within normal li mits. The lungs are clear of alveolar opacities. There is no evidence for pleural effusion. There is no evidence for vascular congestion. There is no acute osseous pathology. IMPRESSION: No acute cardiopulmonary disease. ACT 112: Negative or not required by law. Electronically signed by: Pedro Hearn M.D. 06/01/2021 8:39 PM
[2021-06-01] MEDS ORDERED: STAT IV Infusion **Titration per Protocol STA (20:44)
[2021-06-01] MEDS ORDERED: NOREPINEPHRINE/D5W 8 MG/508 ML BAG IV SCH (20:45)
[2021-06-01] MEDS ORDERED: NOREPINEPHRINE/D5W 8 MG/508 ML IV ONE (20:46)
[2021-06-01 21:10] LABS: Hematocrit (blood only) 25.1 % (42-52); Hemoglobin 8.2 g/dL (14.0-18.0)
--- NOTE | 2021-06-01 21:17 | Communication Note ---
Date of Service: June 01, [id number]: Patient had been started on HD and noted to have BPs trending downwards. Orders placed for Levophed. Pressures improved, but HR was noted to increase. 2113: Patient assessed at bedside as he was complaining of some difficulty with breathing. On exam, patient did have some inspiratory wheezing throughout the RIGHT sided lung rodriguez. Otherwise, he was moving air well and not in significant distress. Patient with standing order for inhaler. Discussed with RT. Patient started on BiPAP which did seem to improve patients slight tachypnea. I did review the patient's recent CXR which did not seem to demonstrate any findings. Shortly after BIPAP, patient's "difficulty breathing" completely resolved. FiO2 requirement minimal. Repeat H&H ordered to assess for ??worsening anemia. Patient continues w/ HD and appears to be tolerating it well otherwise. Pressors titrated down to off by the end of HD. Patient clinically resting comfortably. I have personally spent 40 minutes of critical care time in the direct management of this patient. This is a life/limb threatening event. This includes time spent evaluating patient, direct bedside care, chart review, placing orders, interpretation of diagnostic studies, discussion with consultants, patient, and family members, as well as other required patient management activities. This time is exclusive of all separately billable procedures, and teaching time and separate from and in addition to any other critical care service time. Coding Level of Care Code Critical Care heidy coughlin'cindy 30 min Time Spent (min) 40
[2021-06-01 21:39] LABS: BUN Creatinine Ratio 18.9 (10-20); Calcium 7.7 mg/dl (8.5-10.1); Creatinine Clr Calc Pharmacy 23.3 ml/min; Est GFR (African American) 17.9 ml/min; Est GFR (Non-African American) 15.5 ml/min; Potassium 6.3 mmol/L (3.5-5.1)
[2021-06-02] MEDS: SODIUM BICARBONATE 8.4% 150 MEQ in DEXTROSE 5% 1,000 ML IV SCH ×3 (00:05→19:20)
[2021-06-02] MEDS: risperiDONE 1 MG TABLET PO SCH ×3 (00:09→13:01)
[2021-06-02 00:23] LABS: Calcium 8.1 mg/dl (8.5-10.1); Creatinine Clr Calc Pharmacy 29.4 ml/min; Est GFR (African American) 23.7 ml/min; Est GFR (Non-African American) 20.4 ml/min; Potassium 5.2 mmol/L (3.5-5.1)
[2021-06-02] MEDS: PIPERACILLIN/TAZOBACTAM 4.5 GM in DEXTROSE 5% 100 ML IV SCH ×4 (01:51→23:32)
[2021-06-02 02:24] LABS: Hematocrit (blood only) 23.2 % (42-52); Hemoglobin 7.6 g/dL (14.0-18.0); Mean Corpuscular Hemoglobin 25.9 pg (25-34); Mean Corpuscular Hgb Conc 32.8 g/dL (32-36); Mean Corpuscular Volume 79.2 fL (80-100); Mean Platelet Volume 8.7 fL (7.4-10.4); Platelet Count 282 K/uL (130-400); RDW Coefficient of Variation 17.5 % (11.5-14.5); RDW Standard Deviation 50.8 fL (36.4-46.3); Red Blood Count 2.93 M/uL (4.7-6.1); White Blood Count 22.33 K/uL (4.8-10.8)
[2021-06-02 02:34] LABS: INR 1.4 (0.9-1.1)
[2021-06-02 02:42] LABS: BUN Creatinine Ratio 17.6 (10-20); Creatinine Clr Calc Pharmacy 28.4 ml/min; Est GFR (African American) 22.7 ml/min; Est GFR (Non-African American) 19.6 ml/min; Magnesium 1.5 mg/dl (1.8-2.4); Potassium 5.3 mmol/L (3.5-5.1)
[2021-06-02 02:43] LABS: Phosphorus 3.2 mg/dl (2.5-4.9)
[2021-06-02 02:50] LABS: Echinocytes 1+; Immature Granulocytes # (auto) 0.17 K/uL (0.00-0.02); Immature Granulocytes % (auto) 0.8 %; Lymphocytes # (auto) 0.43 K/uL (1.2-3.4); Lymphocytes % (auto) 1.9 %; Monocytes # (auto) 0.48 K/uL (0.11-0.59); Monocytes % (auto) 2.1 %; Neutrophils # (auto) 21.25 K/uL (1.4-6.5); Neutrophils % (auto) 95.2 %
[2021-06-02 06:01] LABS: Hematocrit (blood only) 23.3 % (42-52); Hemoglobin 7.6 g/dL (14.0-18.0)
[2021-06-02 06:37] LABS: BUN Creatinine Ratio 17.7 (10-20); Creatinine Clr Calc Pharmacy 27.5 ml/min; Est GFR (African American) 21.9 ml/min; Est GFR (Non-African American) 18.9 ml/min; Potassium 5.3 mmol/L (3.5-5.1)
[2021-06-02] MEDS: ALBUTEROL HFA 8 GM INHALER INH SCH ×3 (07:22→19:19)
--- NOTE | 2021-06-02 07:38 | Critical Care Progress Note ---
Date of Service June 02, 2021 Assessment & Plan (1) Admitted to intensive care unit: (2) Acute renal failure: (3) Pyelonephritis: (4) Septic shock: (5) Hyponatremia: (6) Hyperkalemia: Plan: Impression: 55-year-old male admitted with urosepsis/pyelonephritis. He is hemodynamically stable. He is in acute renal failure with hyperkalemia. Cultures are pending and he was initiated on Zosyn. His lactate was normal. 24-hour events: Patient was admitted to the ICU from the ER. Dialysis catheter was attempted in the right IJ position but due to technical issues was not able to be placed. The femoral catheter was rewired to an HD catheter. He underwent dialysis yesterday with some transient hypoxemia and tachycardia which resolved. His blood pressures did get slightly soft during the course of the procedure necessitating Levophed for short period of time. This morning he is hemodynamically stable and off pressors and off oxygen. Recommendations: 1. Neuro: Mild encephalopathy likely secondary to metabolic etiology. Continue to follow at this point time. No indication for imaging. Continue Risperdal. 2. Pulmonary: Hypoxemia during dialysis. Chest x-ray last night demonstrated no acute abnormalities. He does have an extensive history of tobacco abuse. May need inhalers. He is not bronchospastic this morning. PRN wyatt. 3. Cardiovascular: Hypotension associated with dialysis. His lactate was normal. This may be fluid related. No fluid was removed during dialysis by report. Continue to monitor. He is slightly tachycardic likely secondary to underlying sepsis versus valvular heart disease. Holding antihypertensives. Albumin is low and will provide a little support this morning. Digoxin level was low normal but will hold for now. Echo in November showed global hypokinesis with an EF of 30-35 with RV pressure overload and grade 2 diastolic dysfunction with moderate to severe MR. Could not exclude endocarditis at that time. He was transferred to [facility] at that time and I do not have records to review for his work-up as to whether or not he had a SABI, ID consultation, or long-term management. Check repeat echo 4. GI: No current issues. Continue diet. PPI 5. Renal: Acute renal failure with hyponatremia, hyperkalemia, and metabolic acidosis. Management per nephrology. He is maintained on a bicarb drip currently. He is making some urine. Keep the patient with head of bed less than 30 degrees given the femoral line. Will defer to nephrology whether or not permanent access is required. He will need to remain restricted to bed until the femoral line comes out 6. ID: Emphysematous cystitis/pyelonephritis. Patient has a history of E. coli resistant to fluoroquinolones and Bactrim. His blood cultures are positive. Suspect this is the same organism. Day #2 Zosyn. Continue antibiotics pending speciation and sensitivity. He is not hypotensive so would not qualify for adjuvant steroids at the current time. His procalcitonin is trending down. White count decreased to 22,000 this morning. There does not appear to be air in the kidneys so I think we have source control 7. Endocrine: Glycemic control per protocol for the patient's history of diabetes. 8. Heme-onc: Anemia: No evidence of acute blood loss. Continue to defend hemoglobin of 7 unless nephrology desires a higher level. 9. : Chronic indwelling Bird. Emphysematous cystitis. Await urology paul luation. 10. Prophylaxis: Protonix. Subcu heparin Above recommendations and plan were discussed with patient as well as with the ICU nurse at bedside. The patient is critically ill with significant metabolic abnormalities. Total of 50 minutes in critical care time was spent in evaluation management and stabilization of this patient Admission and Anticipated Discharge Date Admission Date: June 01, 2021 Subjective Seen and examined. EMR reviewed. Discussed with bedside critical care nurse and patient and with overnight ADRIEN. Patient states that he feels well this morning. He is complaining of a dry throat and wants to eat and drink. He denies any chest pain shortness of breath or abdominal pain. No tremors or neurological symptoms. No nausea or vomiting. Review of Systems Review of Systems: All systems reviewed & are unremarkable except as noted in Subjective Physical Exam Constitutional: WD/WN, vitals as above Neck: trachea midline, no thyromegaly Respiratory: normal respiratory effort, lungs clear to auscultation Cardiovascular: Rate/Rhythm: + tachycardic Heart Sounds: normal S1, normal S2 and + murmur Extremities: no edema Gastrointestinal (Abdomen): normal bowel sounds, soft, nontender, no hepatosplenomegaly Musculoskeletal: Extremities: extremities normal to inspection Skin: no rashes, warm and dry Lymphatic: no cervical lymphadenopathy Results & Data Results & Data ([facility]) Vital Signs (Past 12 Hours) Vital Signs Temp Pulse Pulse Resp BP BP Pulse Ox 06/02/21 07:22 116 H 18 95 06/02/21 06:30 110 H 22 102/57 L 94 06/02/21 06:00 107 H 18 104/60 91 06/02/21 05:30 106 H 17 96/51 L 90 06/02/21 05:04 38.0 C H 06/02/21 05:00 110 H 17 87/57 L 99 06/02/21 04:30 110 H 18 96/53 L 97 06/02/21 04:00 108 H 19 97/47 L 96 06/02/21 03:30 108 H 15 98/52 L 95 06/02/21 03:00 106 H 18 105/58 L 99 06/02/21 02:30 106 H 15 94/54 L 99 06/02/21 02:00 38.3 C H 107 H 19 108/61 99 06/02/21 01:30 108 H 15 104/60 99 06/02/21 01:00 38.1 C H 108 H 15 105/60 98 06/02/21 00:30 110 H 19 105/61 98 06/02/21 00:00 37.9 C H 114 H 19 110/58 L 97 06/01/21 23:32 116 H 06/01/21 23:30 116 H 22 111/69 97 06/01/21 23:07 117 H 17 98 06/01/21 23:00 118 H 17 138/80 100 06/01/21 22:40 37.3 C 121 H 127/68 06/01/21 22:35 121 H 127/66 06/01/21 22:30 120 H 19 114/59 L 97 06/01/21 22:15 120 H 111/66 06/01/21 22:00 122 H 18 126/68 97 06/01/21 21:45 126 H 139/70 06/01/21 21:30 131 H 18 138/94 97 06/01/21 21:21 127 H 27 H 97 06/01/21 21:15 128 H 128 H 29 H 135/70 95 06/01/21 21:00 124 H 25 H 90/57 L 91 06/01/21 20:50 124 H 120/74 06/01/21 20:45 115 H 113 H 15 73/45 L 89 L 06/01/21 20:34 113 H 06/01/21 20:30 38.2 C H 112 H 112 H 33 H 94/72 L 97 06/01/21 20:15 112 H 20 108/60 96 06/01/21 20:00 114 H 31 H 96/67 L 98 06/01/21 19:46 37.2 C 111 H 20 95/56 L 97 06/01/21 19:45 112 H 24 96 Critical Care Results & Data Vital Signs (Past 12 Hours) Vital Signs Temp Pulse Pulse Resp BP BP Pulse Ox 06/02/21 07:22 116 H 18 95 06/02/21 06:30 110 H 22 102/57 L 94 06/02/21 06:00 107 H 18 104/60 91 06/02/21 05:30 106 H 17 96/51 L 90 06/02/21 05:04 38.0 C H 06/02/21 05:00 110 H 17 87/57 L 99 06/02/21 04:30 110 H 18 96/53 L 97 06/02/21 04:00 108 H 19 97/47 L 96 06/02/21 03:30 108 H 15 98/52 L 95 06/02/21 03:00 106 H 18 105/58 L 99 06/02/21 02:30 106 H 15 94/54 L 99 06/02/21 02:00 38.3 C H 107 H 19 108/61 99 06/02/21 01:30 108 H 15 104/60 99 06/02/21 01:00 38.1 C H 108 H 15 105/60 98 06/02/21 00:30 110 H 19 105/61 98 06/02/21 00:00 37.9 C H 114 H 19 110/58 L 97 06/01/21 23:32 116 H 06/01/21 23:30 116 H 22 111/69 97 06/01/21 23:07 117 H 17 98 06/01/21 23:00 118 H 17 138/80 100 06/01/21 22:40 37.3 C 121 H 127/68 06/01/21 22:35 121 H 127/66 06/01/21 22:30 120 H 19 114/59 L 97 06/01/21 22:15 120 H 111/66 06/01/21 22:00 122 H 18 126/68 97 06/01/21 21:45 126 H 139/70 06/01/21 21:30 131 H 18 138/94 97 06/01/21 21:21 127 H 27 H 97 06/01/21 21:15 128 H 128 H 29 H 135/70 95 06/01/21 21:00 124 H 25 H 90/57 L 91 06/01/21 20:50 124 H 120/74 06/01/21 20:45 115 H 113 H 15 73/45 L 89 L 06/01/21 20:34 113 H 06/01/21 20:30 38.2 C H 112 H 112 H 33 H 94/72 L 97 06/01/21 20:15 112 H 20 108/60 96 06/01/21 20:00 114 H 31 H 96/67 L 98 06/01/21 19:46 37.2 C 111 H 20 95/56 L 97 06/01/21 19:45 112 H 24 96 Lab & Micro Results (Past 24 Hours) RBC 2.93 M/uL (4.7-6.1) L 06/02/21 WBC 22.33 K/uL (4.8-10.8) H 06/02/21 Hgb 7.6 g/dL (14.0-18.0) L 06/02/21 Hct 23.3 % (42-52) L 06/02/21 MCV 79.2 fL (80-100) L 06/02/21 MCH 25.9 pg (25-34) 06/02/21 MCHC 32.8 g/dL (32-36) 06/02/21 RDW Standard Deviation 50.8 fL (36.4-46.3) H 06/02/21 RDW Coefficient of Variation 17.5 % (11.5-14.5) H 06/02/21 Plt Count 282 K/uL (130-400) 06/02/21 MPV 8.7 fL (7.4-10.4) 06/02/21 Neutrophils (%) (Auto) 95.2 % 06/02/21 Lymphocytes (%) (Auto) 1.9 % 06/02/21 Monocytes # (Auto) 0.48 K/uL (0.11-0.59) 06/02/21 Eosinophils # (Auto) 0.00 K/uL (0-0.5) 06/02/21 Immature Granulocyte % (Auto) 0.8 % 06/02/21 Neutrophils # (Auto) 21.25 K/uL (1.4-6.5) H 06/02/21 Lymphocytes # (Auto) 0.43 K/uL (1.2-3.4) L 06/02/21 Monocytes # (Auto) 0.48 K/uL (0.11-0.59) 06/02/21 Eosinophils # (Auto) 0.00 K/uL (0-0.5) 06/02/21 Basophils # (Auto) 0.00 K/uL (0-0.2) 06/02/21 Immature Granulocyte # (Auto) 0.17 K/uL (0.00-0.02) H 06/02/21 ANC 39.56 K/uL (1.4-6.5) H 06/01/21 ALC 1.43 K/uL (1.2-3.4) 06/01/21 Neutrophils % (Manual) 96.5 % 06/01/21 Lymphocytes % (Manual) 3.5 % 06/01/21 Neutrophils # (Manual) 39.56 K/uL (1.4-6.5) H 06/01/21 Lymphocytes # (Manual) 1.43 K/uL (1.2-3.4) 06/01/21 Echinocytes 1+ 06/02/21 Na 126 mmol/L (136-145) L 06/02/21 K 5.3 mmol/L (3.5-5.1) H 06/02/21 Cl 95 mmol/L (98-107) L 06/02/21 CO2 23 mmol/L (21-32) 06/02/21 Anion Gap 8.0 (3-11) 06/02/21 BUN 61 mg/dl (7-18) H 06/02/21 Creatinine 3.47 mg/dl (0.6-1.4) H 06/02/21 Estimated GFR ( Amer) 21.9 ml/min 06/02/21 Estimated GFR (Non-Af Amer) 18.9 ml/min 06/02/21 BUN/Creatinine Ratio 17.7 (10-20) 06/02/21 Glu 176 mg/dl (70-99) H 06/02/21 Ca 8.0 mg/dl (8.5-10.1) L 06/02/21 Phosphorus Level 3.2 mg/dl (2.5-4.9) 06/02/21 Total Bilirubin 1.0 mg/dl (0.2-1) 06/01/21 AST 9 U/L (15-37) L 06/01/21 ALT 27 U/L (12-78) 06/01/21 Alkaline Phosphatase 77 U/L (45-117) 06/01/21 TP 6.6 gm/dl (6.4-8.2) 06/01/21 Albumin 1.9 gm/dl (3.4-5.0) L 06/01/21 Globulin 4.7 gm/dl (2.5-4.0) H 06/01/21 Albumin/Globulin Ratio 0.4 (0.9-2) L 06/01/21 Mg 1.5 mg/dl (1.8-2.4) L 06/02/21 02:00 06/02/21 Calcium Level 8.0 mg/dl (8.5-10.1) L 06/02/21 05:53 06/02/21 Prothromb Time International Ratio 1.4 (0.9-1.1) H 06/02/21 02:00 06/02/21 Venous Blood pH 7.17 (7.36-7.41) L 06/01/21 13:30 06/01/21 Venous Blood Partial Pressure CO2 34 mmHg (38-50) L 06/01/21 13:30 06/01/21 Venous Blood Partial Pressure O2 51 mmHg 06/01/21 13:30 06/01/21 Venous Blood HCO3 12 mmol/L 06/01/21 13:30 06/01/21 Venous Blood Base Excess -15.3 mEq/L 06/01/21 13:30 06/01/21 Venous Blood Oxygen Saturation 80.0 % 06/01/21 13:30 06/01/21 Blood Gas Barometric Pressure 727.6 mm/Hg 06/01/21 16:01 06/01/21 Arterial Blood pH 7.25 (7.35-7.45) L 06/01/21 16:01 06/01/21 Arterial Blood Partial Pressure CO2 30 mmHg (35-46) L 06/01/21 16:01 06/01/21 Arterial Blood Partial Pressure O2 82 mmHg (80-95) 06/01/21 16:01 06/01/21 Arterial Blood HCO3 13 mmol/L (19-24) L 06/01/21 16:01 06/01/21 Arterial Blood Base Excess -13.3 mEq/L (-9-1.8) L 06/01/21 16:01 06/01/21 Arterial Blood Oxygen Saturation 95.2 % (90-95) H 06/01/21 16:01 06/01/21 Blood Gas Oxygen Given ROOM AIR 06/01/21 16:01 06/01/21 Osiel Test Pos (Pos) 06/01/21 16:01 06/01/21 Blood Gas Barometric Pressure 727.6 mm/Hg 06/01/21 16:01 06/01/21 Microbiology 06/01/21 10:08 Aerobic Blood Culture - Preliminary Blood Gram negative bacilli Anaerobic Blood Culture - Preliminary Gram negative bacilli 06/01/21 10:20 Aerobic Blood Culture - Preliminary Blood Gram negative bacilli Anaerobic Blood Culture - Preliminary Gram negative bacilli Diagnostic Findings (Past 24 Hours) Abdomen/Pelvis CT 06/01/21 09:[address] WITHOUT CONTRAST CT DOSE: 512.82 mGy.cm HISTORY: Acute bilateral flank pain flank paoin TECHNIQUE: Multiaxial CT images of the abdomen and pelvis were performed without contrast. A dose lowering technique was utilized adhering to the principles of ALARA. COMPARISON STUDY: CT abdomen and pelvis 10/27/2020 FINDINGS: Trace right pleural effusion. Moderate cardiomegaly. Mild subsegmental dependent bibasilar atelectasis. No pneumatosis or pneumoperitoneum. The unenhanced spleen, mildly atrophic pancreas, and adrenal glands are unremarkable. There is a small amount of layering hyperdense material present within the dependent gallbladder. 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 The liver is mildly enlarged. Mild to moderate left and moderate right sided perinephric stranding. 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 Air is also noted within the mid right ureter. Mild right-sided pelvocaliectasis. No renal or ureteral calculi. Bird catheter is present within a partially decompressed bladder which demonstrates wall thickening. Air within the urinary bladder lumen. Atherosclerosis of the aorta without aneurysm. Retroaortic left renal vein. There are a few scattered nonspecific prominent retroperitoneal lymph nodes measuring up to 9 mm which appears stable to mildly increased in size from comparison. Moderately distended stomach. No bowel obstruction. Partial distention of the rectum with circumferential wall thickening. Moderate fecal retention of the right hemicolon. Noninflamed appendix. Subcentimeter hyperattenuating focus within the distal appendiceal lumen. Unremarkable soft tissues. No acute fracture. Degenerative changes of the spine, pelvis and hips. IMPRESSION: 1. No renal or ureteral calculi or hydronephrosis. 2. Moderate right-sided perinephric stranding with emphysematous pyelitis and ureteritis. Air is also noted within the urinary bladder lumen. Findings may be secondary to instrumentation with Bird catheter however should be correlated with urinalysis to exclude an ascending infection. 3. No bowel obstruction or pneumoperitoneum. 4. Rectal wall thickening is likely secondary to partial distention. A nonspecific proctitis could appear similarly 5. Small amount of gallbladder sludge versus cholelithiasis. 6. Additional findings as above. ACT 112: Negative or not required by law. The above report was generated using voice recognition software. It may contain grammatical, syntax or spelling errors. Electronically signed by: Kelvin Ross M.D. 06/01/2021 11:25 AM Chest X-Ray 06/01/21 09:59 XR chest 1V portable HISTORY: 55 years-old Male SEPSIS acute sepsis COMPARISON: Chest radiograph 03/27/2021 TECHNIQUE: Portable AP view of the chest FINDINGS: Unchanged mild blunting of the costophrenic angles suggestive of trace pleural effusions. Stable cardiomegaly. No pneumothorax, large pleural effusion or overt pulmonary edema. No lobar airspace consolidation. No acute fracture. IMPRESSION: Cardiomegaly with trace pleural effusions. ACT 112: Negative or not required by law. The above report was generated using voice recognition software. It may contain grammatical, syntax or spelling errors. Electronically signed by: Kelvin Ross M.D. 06/01/2021 10:42 AM Chest X-Ray 06/01/21 19:20 XR chest 1V portable at 8:04 PM CLINICAL HISTORY: History of sepsis.. Evaluate cardiopulmonary status COMPARISON STUDY: 06/01/2021 and 10:03 AM TECHNIQUE: 1 view of the chest FINDINGS: Single frontal view of the chest demonstrates the cardiomediastinal silhouette to be within normal limits. The lungs are clear of alveolar opacities. There is no evidence for pleural effusion. There is no evidence for vascular congestion. There is no acute osseous pathology. IMPRESSION: No acute cardiopulmonary disease. ACT 112: Negative or not required by law. Electronically signed by: Pedro Hearn M.D. 06/01/2021 8:39 PM I & O Totals 24 Hours 06/01/21 06/02/21 06/03/21 06:59 06:59 06:59 Intake Total 6099.365 / 6099.365 Output Total 550 / 550 Balance 5549.365 / 5549.365 Cumulative 06/01/21 09:31 thru 06/02/21 06:37 Intake Total 6099.365 Output Total 550 Balance 5549.365 RT Ventilator Mngmt (Last Documented) Ventilator Ordered Settings Respiratory Rate 18 06/02/21 07:22 Fraction of Inspired Oxygen 30 06/02/21 03:30 Ventilator - PT Measurements Respiratory Rate 18 Coding Level of Care Code Critical Care 1st 30-74 mins Diagnoses Admitted to intensive care unit Z78.9 Acute renal failure N17.9 Pyelonephritis N12 Septic shock A41.9; R65.21 Hyponatremia E87.1 Hyperkalemia E87.5
[2021-06-02] MEDS ORDERED: ALBUMIN 25% 100 mL 25 GM/100 ML VIAL IV ONE (07:53)
[2021-06-02] MEDS ORDERED: ALBUT/IPRATROP 3MG/0.5MG NEB 3 ML VIAL NEB PRN (07:59)
--- NOTE | 2021-06-02 08:50 | Urology Progress Note ---
Date of Service June 02, 2021 Assessment & Plan (1) Urinary retention: Plan: Retention is currently managed with large-bore tao catheter. This is draining well. Can be gently flushed, repositioned or exchanged if it becomes clogged. Would recommend staying with large-bore (i.e. 24Fr). (2) Acute on chronic renal failure: Plan: Still marginal urine output. Electrolytes look better after dialysis, but still not normalized. (3) Emphysematous pyelitis: Plan: Since there was no obstruction of the upper tracts on CT scan, the hoping is that current tao catheter is providing source control. Ureteral stent placement remains a possibility if there is suspicion of poor drainage of the right kidney, however there are associated risks of anesthesia. Since leukocytosis is improving, I would favor monitoring and ensuring catheter drainage for now, while maintaining hydration, correcting electrolytes. Prior to stent placement, I would consider reimaging with CT scan to reassess the upper urinary tract. For now, continue antibiotics and tailor as further culture data becomes available. Admission and Anticipated Discharge Date Admission Date: June 01, 2021 Subjective Over the past 24 hours MR. Gonzalez was admitted to the ICU. He has undergone dialysis with some improvement in his electrolytes and creatinine. He had some hypotension during dialysis, but this morning is hemodynamically stable not on pressors. Blood cultures were growing gram negative rods, still pending full speciation/susceptibility. Tao catheter remains in place. He is tolerating this well. The catheter has been draining, currently some cloudy urine tinged with blood. Overall he reports feeling tired. Review of Systems Constitutional: tired Genitourinary: + as per Subjective / HPI Physical Exam Physical Exam: resting in bed, appears fatigued, NAD. Genitourinary: tao catheter in place, draining cloudy urine, some blood tinge. Results & Data ([facility]) Vital Signs (Past 12 Hours) Vital Signs Temp Pulse Pulse Resp BP BP Pulse Ox 06/02/21 07:22 116 H 18 95 06/02/21 06:30 110 H 22 102/57 L 94 06/02/21 06:00 107 H 18 104/60 91 06/02/21 05:30 106 H 17 96/51 L 90 06/02/21 05:04 38.0 C H 06/02/21 05:00 110 H 17 87/57 L 99 06/02/21 04:30 110 H 18 96/53 L 97 06/02/21 04:00 108 H 19 97/47 L 96 06/02/21 03:30 108 H 15 98/52 L 95 06/02/21 03:00 106 H 18 105/58 L 99 06/02/21 02:30 106 H 15 94/54 L 99 06/02/21 02:00 38.3 C H 107 H 19 108/61 99 06/02/21 01:30 108 H 15 104/60 99 06/02/21 01:00 38.1 C H 108 H 15 105/60 98 06/02/21 00:30 110 H 19 105/61 98 06/02/21 00:00 37.9 C H 114 H 19 110/58 L 97 06/01/21 23:32 116 H 06/01/21 23:30 116 H 22 111/69 97 06/01/21 23:07 117 H 17 98 06/01/21 23:00 118 H 17 138/80 100 06/01/21 22:40 37.3 C 121 H 127/68 06/01/21 22:35 121 H 127/66 06/01/21 22:30 120 H 19 114/59 L 97 06/01/21 22:15 120 H 111/66 06/01/21 22:00 122 H 18 126/68 97 06/01/21 21:45 126 H 139/70 06/01/21 21:30 131 H 18 138/94 97 06/01/21 21:21 127 H 27 H 97 06/01/21 21:15 128 H 128 H 29 H 135/70 95 06/01/21 21:00 124 H 25 H 90/57 L 91 06/01/21 20:50 124 H 120/74 06/01/21 20:45 115 H 113 H 15 73/45 L 89 L PG Care Time/CCT Total # of Minutes Spent Total Time Spent with Patient: Total time spent is greater than 50% in coordination of care (as documented) at patient's floor/unit and/or counseling patient: Coding Level of Care Code 27354 Subseq Hosp Care Lvl 2 Diagnoses Urinary retention R33.9 Acute on chronic renal failure N17.9; N18.9 Emphysematous pyelitis N12
[2021-06-02] MEDS ORDERED: PANTOprazole 40 MG TAB PO SCH (09:00)
[2021-06-02] MEDS: HEPARIN SOD 5,000 UNIT/0.5 ML VIAL SQ SCH ×2 (09:05→20:52)
--- NOTE | 2021-06-02 13:25 | Nephrology Progress Note ---
Date of Service June 02, 2021 Assessment & Plan (1) Acute on chronic renal failure: Plan: ATN from septic shock and nsaids; also obstructive component. stage 1 no noliguric; needed one dialysis session to control K. baseline creatinine low 2s recently; has needed acute dialysis x a few weeks spring 2020 but had renal recovery. probable contributors include septic shock from E coli pyelonephritis/septicemia, nsaid use, obstruction -bid bmp for now -f/u pending cxs (2) Emphysematous pyelonephritis: Plan: question of this versus pyelitis on imaging; on R w/ R ureteritis. discussed w/ urology and critical care >recommend reimaging abd/pelvis CT today > may need tertiary care referral if extending (3) Recurrent pyelonephritis: Plan: second episode in 6 mos > low threshold for ID consultation; had E coli pyelo last spring TTE w/ EF 30%, unchanged from last spring; no obvious vegetations (4) Hyperkalemia: Plan: imrpoved after HD but still high. presenting K 7.5, had 2hr HD on 06/01 to manage. Cause likeliest JEANNA or may be NSAID use, ? adherence w/ florinef -continue bicarb gtt to temporize -no dialysis today but cannot rule out need tomorrow -continue renal diet -recheck level this evening/pending (5) Metabolic acidosis: Plan: for now resolved (6) Hyponatremia: Plan: chronic issue for him > he tells me he was up q1hr drinking overnight > so expect polydipsia element; urine studies of unclear signfiicance in setting of tao malfunction; -fine w/ sNa in mid 120s for now; admitting sNa 115; f/u pending repeat (7) Obstructed, uropathy: Plan: urology following; may need percutaneous drain or stent or other at some point Admission and Anticipated Discharge Date Admission Date: June 01, 2021 Subjective needed pressors for dialysis only; off of them now; febrile this AM adn temp climbing this afternoon; significant tremors and some confusion; denies sob or orthopnea, uncontrolled pain, n/v. ongoing thirst. can't take po w/o spilling on self. Review of Systems Review of Systems: All systems reviewed & are unremarkable except as noted in Subjective Physical Exam Constitutional: well developed, well nourished and cooperative; no acute distress Eyes: EOM intact bilaterally ENMT: Ears: no external ear abnormality Nose: no external nose abnormality Mouth: + dry oral mucous membranes Neck: no nuchal rigidity Respiratory: normal respiratory effort Auscultation: + diminished lung sounds and + crackles Cardiovascular: Rate/Rhythm: + tachycardic and + irregularly irregular Extremities: no edema Gastrointestinal (Abdomen): Inspection/Auscultation: normal bowel sounds P ercussion/Palpation: abdomen soft; abdomen nontender Musculoskeletal: Extremities: + abnormal strength Skin: no rashes, warm and dry + turgor decreased Neurologic: much more prominent tremors today than previously Psychiatric: Orientation: alert and oriented x 3 (but still w/ confusion at times) Genitourinary: tao w/ scant blood tinged urine Results & Data ([facility]) Vital Signs (Past 12 Hours) Vital Signs Temp Pulse Pulse Resp BP Pulse Ox 06/02/21 11:30 111 H 22 98/66 L 93 06/02/21 11:00 109 H 19 96 06/02/21 10:30 107 H 19 91/63 L 93 06/02/21 10:00 108 H 17 93 06/02/21 09:30 108 H 19 114/67 93 06/02/21 09:00 107 H 25 H 94 06/02/21 08:30 109 H 17 103/60 94 06/02/21 08:00 117 H 17 96 06/02/21 07:30 116 H 16 112/63 93 06/02/21 07:22 116 H 18 95 06/02/21 07:00 114 H 17 107/57 L 93 06/02/21 06:30 110 H 22 102/57 L 94 06/02/21 06:00 107 H 18 104/60 91 06/02/21 05:30 106 H 17 96/51 L 90 06/02/21 05:04 38.0 C H 06/02/21 05:00 110 H 17 87/57 L 99 06/02/21 04:30 110 H 18 96/53 L 97 06/02/21 04:00 108 H 19 97/47 L 96 06/02/21 03:30 108 H 15 98/52 L 95 06/02/21 03:00 106 H 18 105/58 L 99 06/02/21 02:30 106 H 15 94/54 L 99 06/02/21 02:00 38.3 C H 107 H 19 108/61 99 06/02/21 01:30 108 H 15 104/60 99 Laboratory Results 06/02/21 05:53 06/02/21 05:53 GNR in blood (all bottles <24 h) and urine Diagnostic Findings TTE as below
[2021-06-02] MEDS ORDERED: ALBUTEROL HFA 8 GM INHALER INH PRN (17:21)
[2021-06-02 18:38] LABS: Basophils # (auto) 0.01 K/uL (0-0.2); Basophils % (auto) 0.1 %; Eosinophils # (auto) 0.01 K/uL (0-0.5); Eosinophils % (auto) 0.1 %; Hematocrit (blood only) 22.9 % (42-52); Hemoglobin 7.7 g/dL (14.0-18.0); Immature Granulocytes # (auto) 0.08 K/uL (0.00-0.02); Immature Granulocytes % (auto) 0.4 %; Lymphocytes # (auto) 0.59 K/uL (1.2-3.4); Mean Corpuscular Hemoglobin 26.1 pg (25-34); Mean Corpuscular Hgb Conc 33.6 g/dL (32-36); Mean Corpuscular Volume 77.6 fL (80-100); Mean Platelet Volume 8.8 fL (7.4-10.4); Monocytes # (auto) 0.67 K/uL (0.11-0.59); Monocytes % (auto) 3.5 %; Neutrophils # (auto) 18.05 K/uL (1.4-6.5); Neutrophils % (auto) 92.9 %; Platelet Count 250 K/uL (130-400); RDW Coefficient of Variation 17.7 % (11.5-14.5); RDW Standard Deviation 50.6 fL (36.4-46.3); Red Blood Count 2.95 M/uL (4.7-6.1); White Blood Count 19.41 K/uL (4.8-10.8)
[2021-06-02 18:43] LABS: Base Excess VBG -0.4 mEq/L; Oxygen Saturation VBG 64.2 %; pH VBG 7.41 (7.36-7.41)
[2021-06-02 18:59] LABS: Albumin Level 1.8 gm/dl (3.4-5.0); BUN Creatinine Ratio 16.6 (10-20); Calcium 7.6 mg/dl (8.5-10.1); Creatinine Clr Calc Pharmacy 23.9 ml/min; Est GFR (African American) 18.5 ml/min; Est GFR (Non-African American) 15.9 ml/min; Potassium 5.5 mmol/L (3.5-5.1)
[2021-06-02 19:02] LABS: Albumin Globulin Ratio 0.4 (0.9-2); Globulin 4.7 gm/dl (2.5-4.0); Total Protein 6.5 gm/dl (6.4-8.2)
--- NOTE | 2021-06-02 19:03 | Hospitalist Progress Note ---
Date of Service June 02, 2021 delayed entry date of service noted above Assessment & Plan (1) Sepsis: (2) Pyelonephritis: (3) Acute renal failure: (4) Hyponatremia: (5) Hyperkalemia: Plan: Septic Shock secondary to pyelonephritis Urine Cx and Blood Cx: Positive BP improving IV fluids, Vanco + Zosyn given Urologist consulted JEANNA on CKD III. Baseline Cr ~2 ATN Acute on Chronic hyponatremia. On sodium tabs chronically. Baseline Na~130 Hyperkalemia sp HD HCO3 drip given Nephro consulted History BPH, Obstructive uropathy. Chronic Bird DM II A1c: 6.1 in 03/2021 Glycemic management per ICU History Afib not on anticoagulation On digoxin and metoprolol tartrate Digoxin level: 1.0 Asthma No acute exacerbation Would continue home inhalers Depression, Schizophrenia On resperidone, duloxetine HLD On statin GERD On PPI H/O Sacral Wound wound nurse consult DVT Prophylaxis SCDs Admission and Anticipated Discharge Date Admission Date: June 01, 2021 Subjective ff up for sepsis sec to pyelonephritis, etc seen resting in bed, not in distress alert, but somewhat confused no chest pain, dyspnea, palpitations, dizziness no abdominal pain, nausea/vomiting no chills denies other symptoms Review of Systems Review of Systems: all noted and negative except for above Physical Exam Physical Exam: General- oriented x 1-2, not in distress, speaks in sentences with no effort or accessory muscle use Eyes- anicteric Neck- no JVD Lungs- clear breath sounds bilaterally, no rales/wheezes Heart- normal rate, regular rhythm; no murmurs Abdomen- normal bowel sounds, nondistended, soft, nontender Extremities- no pretibial edema, no calf tenderness Neuro- alert, oriented x 1-2; no gross focal neurologic deficits Skin- warm & dry Results & Data Results & Data ([facility]) Vital Signs (Past 12 Hours) Vital Signs Temp Pulse Pulse Resp BP Pulse Ox 06/02/21 18:00 117 H 23 110/68 91 06/02/21 17:00 118 H 18 106/60 91 06/02/21 16:00 38.1 C H 118 H 21 118/68 90 06/02/21 15:00 122 H 18 125/68 93 06/02/21 14:00 121 H 24 132/76 92 06/02/21 13:00 117 H 16 129/70 94 06/02/21 12:00 108 H 19 101/68 94 06/02/21 11:30 111 H 22 98/66 L 93 06/02/21 11:00 109 H 19 96 06/02/21 10:30 107 H 19 91/63 L 93 06/02/21 10:00 108 H 17 93 06/02/21 09:30 108 H 19 114/67 93 06/02/21 09:00 107 H 25 H 94 06/02/21 08:30 109 H 17 103/60 94 06/02/21 08:00 37.6 C H 117 H 17 96 06/02/21 07:30 116 H 16 112/63 93 06/02/21 07:22 116 H 18 95 all noted and reviewed including below
[2021-06-02 19:04] LABS: Dohle Bodies 1+; Echinocytes 1+; Ovalocytes 1+
--- NOTE | 2021-06-02 20:12 | CT Scan Report ---
CT SCAN OF THE ABDOMEN AND PELVIS WITHOUT IV CONTRAST CLINICAL HISTORY: Hydronephrosis. COMPARISON STUDY: Abdominal CT dated 06/01/2021. TECHNIQUE: CT scan of the abdomen and pelvis is performed from the lung bases to the proximal femora. Images are reviewed in the axial, sagittal, and coronal planes. IV contrast was not administered for this examination. Note that the examination was performed in suboptimal fashion without IV contrast. The Examination is also degraded by motion artifact. A dose lowering technique was utilized adhering to the principles of ALARA. CT DOSE: 698.83 mGy.cm FINDINGS: Lung bases: The heart is enlarged and without pericardial effusion. There is decreased attenuation of the cardiac blood pool as compared to the myocardium suggesting anemia. There are small pleural effu sions with dependent consolidation. These have increased in size from yesterday. There is a small hia nj hernia. Liver: The unenhanced liver is enlarged, measuring 27.7 cm in length. The liver is otherwise normal i n contour and attenuation. There is no intrahepatic biliary ductal dilatation. Gallbladder: Unremarkable. Spleen: Normal in size and attenuation. Pancreas: The unenhanced pancreas is grossly unremarkable. Adrenal glands: Unremarkable. Kidneys: The unenhanced kidneys are normal in size. The right kidney appears edematous. There is full ness of the right renal collecting system without hydronephrosis. There is nonspecific bilateral gordon nephric stranding and perinephric fluid. No renal calculi are identified. There is no evidence of con tour deforming renal mass lesion. Foci of gas are again seen within the right renal collecting system . Urothelial thickening is suggested in the right renal pelvis and along the course of the right uret er. A retroaortic Left renal vein is incidentally noted. Abdominal vasculature: The abdominal aorta is normal in course and caliber noting moderate to advance d atherosclerotic calcification. A left femoral central venous catheter is in place. Bowel: There is no bowel obstruction. Mild fecal retention is seen throughout the colon. The appendix is well-visualized and normal. Peritoneum: There is a small volume of abdominopelvic ascites. No intraperitoneal free air is seen. Lymphadenopathy: None. Pelvic viscera: The bladder is decompressed around a Bird catheter. The bladder wall appears thicken ed and there is pericystic inflammation. Foci of gas are present within the bladder lumen. The prosta te and seminal vesicles are normal as visualized. Skeletal structures: No lytic or blastic lesions are seen. IMPRESSION: 1. Findings are similar to yesterday. There is no hydronephrosis. 2. The bladder is decompressed around a Bird catheter and appears thick walled. There is nonspecific gas within the bladder lumen as well as pericystic inflammation. Correlate with clinical findings an d urinalysis for evidence of cystitis. 2. The right kidney appears edematous and there is fullness of the right renal collecting system. The re is also gas within the right renal collecting system, as well as urothelial thickening suggested i nvolving the right renal pelvis and the right ureter. There is also bilateral perinephric stranding a nd fluid. Although the gas within the right renal collecting system could be related to instrumentati on, ascending infection/emphysematous pyelitis could also have this appearance. Correlation with clin ical findings and urinalysis will be essential. 3. There are small pleural effusions with bibasilar consolidation. These have modestly increased in s ize from yesterday. 4. Hepatomegaly. 5. There is a small volume of abdominopelvic ascites, modestly increased in size from yesterday. 6. Additional findings as above. ACT 112: Negative or not required by law. Electronically signed by: Houston Elder M.D. 06/02/2021 8:10 PM
[2021-06-02] MEDS ORDERED: PNEUMOCOCCAL Polysaccharide Vaccine 25mcg/0.5mL vial/Syr IM ONE (20:15)
[2021-06-02] MEDS ORDERED: Influenza Vaccine (Fluarix) 0.5 ML SYR (Standard Dose) IM ONE (20:45)
[2021-06-02] MEDS: GABAPENTIN 100 MG CAP PO SCH ×2 (20:54→21:00)
[2021-06-02] MEDS ORDERED: risperiDONE 0.5 MG TABLET PO SCH (21:00)
--- NOTE | 2021-06-02 22:30 | Communication Note ---
Date of Service: June 02, 2021 At change of shift, it was reported to me the patient was to have had repeat CT abdomen pelvis performed at the recommendation of urology for evaluation of ongoing infection versus abscess formation. This had not been done secondary to acuity occurring in the ICU. We were able to thankfully perform CT shortly after change of shift. Repeat labs were also obtained which showed no significant change. 2034: I did reach out to Dr. Zambrano of urology. He did review repeat scan and feels as though the distal system does look somewhat better, however the kidney does still have moderate amount of emphysema and his thoughts are that the patient would be better suited to have nephrostomy tube placed sooner rather than later while the patient has shown some improvement. He recommends transfer. 2052: I spoke with Dr. Bean of [facility] nephrology. She is in agreement the patient is appearing to do somewhat better at this point, however with his ongoing and recurrent infections with other comorbidities, he would be better suited for transfer for source control of this recurrent infection sooner rather than later. 2204: Spoke with transfer center [facility]. Patient accepted in transfer by Dr. Darby Rodriguez. Bed space confirmed. We are waiting ground transport. Updated patient about transfer. He is in agreement and states that he would rather be transferred now as he does not want to get sicker. He asked that I reach out to his daughter. 2240: Reached out to patient's daughterJanina ([phone]). No answer. Voicemail box full. 2242: Received return call from patient's daughter. Provided update. She is in agreement with transfer. I have personally spent 45 minutes of critical care time in the direct management of this patient. This is a life/limb threatening event. This includes time spent evaluating patient, direct bedside care, chart review, placing orders, interpretation of diagnostic studies, discussion with consultants, patient, and family members, as well as other required patient management activities. This time is exclusive of all separately billable procedures, and teaching time and separate from and in addition to any other critical care service time. Coding Level of Care Code Critical Care heidy addt'l 30 min Time Spent (min) 45
[2021-06-02] MEDS ORDERED: ACETAMINOPHEN 325 MG TAB PO PRN (23:55)
--- NOTE | 2021-06-07 16:43 | Discharge Summary ---
Date of Service June 07, 2021 Admission HPI Per Admitting Provider Patient is 55-year-old male with PMH septic shock secondary to pyelonephritis, obstructive uropathy with chronic indwelling Bird catheter MRSA UTI, DM II, CKD III, ischemic cardiomyopathy, hyponatremia, pulmonary hypertension, HLD, GERD, schizophrenia, depression, atrial fibrillation, BPH presented to ER with complaint of unable to urinate. Patient reports past several days has not been feeling well, has been feeling dizzy with sitting up. Also complains of bilateral abdominal and flank pain. Reports yesterday with urine cloudy with sediment. he states today did not have urine coming out of catheter. Does not think that he has had fever or chills. Reports had Bird catheter change 05/15/2021 by urology-Melanie Bruce. Decreased appetite today. Denies diaphoresis, N/V/D/C, syncope, vision changes, neck pain, CP, SOB, orthopnea, palpitations, cough, sore throat, choking, otalgia, rhinorrhea, paresthesias, extremity weakness, extremity edema, rashes. Patient has required dialysis once in past. In ER patient afebrile, P 94, R: 18, BP 88/59, 98% on room air, WBC: 46, H/H: 8.8/26, INR: 1.5, Na: 115, K: 7.5, Cr: 4.5, magnesium: 1.6, lactate: 1.4, procalcitonin: 140, digoxin: 1.0 CT abdomen pelvis:1. No renal or ureteral calculi or hydronephrosis. 2. Moderate right-sided perinephric stranding with emphysematous pyelitis and ureteritis. Air is also noted within the urinary bladder lumen. Findings may be secondary to instrumentation with Bird catheter however should be correlated with urinalysis to exclude an ascending infection. 3. No bowel obstruction or pneumoperitoneum. 4. Rectal wall thickening is likely secondary to partial distention. A nonspecific proctitis could appear similarly. 5. Small amount of gallbladder sludge versus cholelithiasis. In ER received total 4 L NSS, on bicarb drip, Zosyn, vancomycin, calcium chloride 1 g, insulin R 10 units, dextrose 50 mL, albuterol neb. VBG pH: 7.1. patient has central line in place. Repeat sodium: 123, repeat potassium: 5.9 Nephrology had initially recommended patient be transferred to [facility] as patient will likely need dialysis, that unable to be done today. [facility] critical care denied transfer patient Nephrology-Dr. Bean feels patient will likely need dialysis tonight and is making arrangements Pt had new Bird cath placed in ER. Urology consulted by ER and recommended no irrigation of Bird catheter and rec ommended applying pressure suprapubically to help expel pus if catheter becomes blocked. Patient being admitted to ICU Admission Exam (Per Admitting) Constitutional General: no acute distress, Ill appearing, appears older than stated age, WDWN Head: normocephalic, atraumatic Eyes: PERRL, EOM's intact, conjunctiva non-injected, anicteric ENT: normal inspection external ears, nose, mucous membranes dry Neck: supple, trachea midline Lungs: no respiratory distress, bibasilar crackles CV: tachycardia, regular rhythm, no murmur, no pretibial edema Abd: normal BS, soft, + tenderness RLQ abdomen, +CVA tenderness bilateral with percussion Ext: no cyanosis, no calf tenderness Neuro: A&O x 3, no focal deficits noted, normal affect Skin: warm, dry Discharge Data Consultations 06/01/21 14:52 ED Decision to Admit Stat 06/01/21 17:02 Consult Director Of Assisted Living Routine 06/01/21 17:23 Consult Nephrology Routine Consult Urology Routine 06/02/21 22:28 Burn CD for patient Stat Procedures Performed CT SCAN OF THE ABDOMEN AND PELVIS WITHOUT IV CONTRAST CLINICAL HISTORY: Hydronephrosis. COMPARISON STUDY: Abdominal CT dated 06/01/2021. TECHNIQUE: CT scan of the abdomen and pelvis is performed from the lung bases to the proximal femora. Images are reviewed in the axial, sagittal, and coronal planes. IV contrast was not administered for this examination. Note that the examination was performed in suboptimal fashion without IV contrast. The Examination is also degraded by motion artifact. A dose lowering technique was utilized adhering to the principles of ALARA. CT DOSE: 698.83 mGy.cm FINDINGS: Lung bases: The heart is enlarged and without pericardial effusion. There is decreased attenuation of the cardiac blood pool as compared to the myocardium suggesting anemia. There are small pleural effusions with dependent consolidation. These have increased in size from yesterday. There is a small hiatal hernia. Liver: The unenhanced liver is enlarged, measuring 27.7 cm in length. The liver is otherwise normal in contour and attenuation. There is no intrahepatic biliary ductal dilatation. Gallbladder: Unremarkable. Spleen: Normal in size and attenuation. Pancreas: The unenhanced pancreas is grossly unremarkable. Adrenal glands: Unremarkable. Kidneys: The unenhanced kidneys are normal in size. The right kidney appears edematous. There is fullness of the right renal collecting system without hydronephrosis. There is nonspecific bilateral perinephric stranding and perinephric fluid. No renal calculi are identified. There is no evidence of contour deforming renal mass lesion. Foci of gas are again seen within the right renal collecting system. Urothelial thickening is suggested in the right renal pelvis and along the course of the right ureter. A retroaortic Left renal vein is incidentally noted. Abdominal vasculature: The abdominal aorta is normal in course and caliber noting moderate to advanced atherosclerotic calcification. A left femoral central venous catheter is in place. Bowel: There is no bowel obstruction. Mild fecal retention is seen throughout the colon. The appendix is well-visualized and normal. Peritoneum: There is a small volume of abdominopelvic ascites. No intraperitoneal free air is seen. Lymphadenopathy: None. Pelvic viscera: The bladder is decompressed around a Bird catheter. The bladder wall appears thickened and there is pericystic inflammation. Foci of gas are present within the bladder lumen. The prostate and seminal vesicles are normal as visualized. Skeletal structures: No lytic or blastic lesions are seen. IMPRESSION: 1. Findings are similar to yesterday. There is no hydronephrosis. 2. The bladder is decompressed around a Bird catheter and appears thick walled. There is nonspecific gas within the bladder lumen as well as pericystic inflammation. Correlate with clinical findings and urinalysis for evidence of cystitis. 2. The right kidney appears edematous and there is fullness of the right renal collecting system. There is also gas within the right renal collecting system, as well as urothelial thickening suggested involving the right renal pelvis and the right ureter. There is also bilateral perinephric stranding and fluid. Although the gas within the right renal collecting system could be related to instrumentation, ascending infection/emphysematous pyelitis could also have this appearance. Correlation with clinical findings and urinalysis will be essential. 3. There are small pleural effusions with bibasilar consolidation. These have modestly increased in size from yesterday. 4. Hepatomegaly. 5. There is a small volume of abdominopelvic ascites, modestly increased in size from yesterday. 6. Additional findings as above. ACT 112: Negative or not required by law. Electronically signed by: Houston Elder M.D. 06/02/2021 8:10 PM Hospital Course (1) Sepsis: (2) Pyelonephritis: (3) Acute renal failure: (4) Hyponatremia: (5) Hyperkalemia: Septic Shock secondary to pyelonephritis Urine Cx and Blood Cx: Positive BP improving IV fluids, Vanco + Zosyn given Urologist consulted repeat CT abd/pelv: emphysematous pyelonephritis JEANNA on CKD III. Baseline Cr ~2 ATN Acute on Chronic hyponatremia. On sodium tabs chronically. Baseline Na~130 Hyperkalemia sp HD HCO3 drip given Nephro consulted History BPH, Obstructive uropathy. Chronic Bird DM II A1c: 6.1 in 03/2021 Glycemic management per ICU History Afib not on anticoagulation On digoxin and metoprolol tartrate Digoxin level: 1.0 Asthma No acute exacerbation Would continue home inhalers Depression, Schizophrenia On resperidone, duloxetine HLD On statin GERD On PPI H/O Sacral Wound wound nurse consult DVT Prophylaxis SCDs
== END 2021-06-03 03:15 | disposition short-term general hospital (02) | DRG 871 ==
LOC: ED 09:42 → 1E 15:33 → SUATTDRO 15:33 → 1E 16:11